=== PATIENT | female | born 1965 | race Caucasian/White ===

== ENCOUNTER 2016-11-19 10:01 | Inpatient (IN) | payer MEDICARE, OTHER ==
[2016-11-19] MEDS ORDERED: SODIUM CHLORIDE 0.9% 1,000 ML IV STA ×4 (10:37→17:38)
[2016-11-19] MEDS ORDERED: AMPICILLIN-SULBACTAM 3 GM in SODIUM CHLORIDE 0.9% 100 ML IVPB STA (10:37)
[2016-11-19] MEDS ORDERED: VANCOMYCIN 1,000 MG in SODIUM CHLORIDE 0.9% 250 ML IVPB STA (10:37)
[2016-11-19] MEDS ORDERED: IV VANCOMYCIN PER PHARMACY 1 EACH MISC MISCELLANE PRN (10:39)
--- NOTE | 2016-11-19 11:02 | ED ---
General Adult HPI - General Source: patient, RN notes reviewed Mode of arrival: wheelchair Limitations: no limitations <Víctor Salazar - Last Filed: 11/19/16 12:05> <Tonio Romero - Last Filed: 11/19/16 17:38> - General Chief complaint: Skin/Abscess/Foreign Body Stated complaint: Boils on leg Time Seen by Provider: 11/19/16 10:29 - History of Present Illness Initial comments: Patient 51-year-old female who presents emergency room today with a chief complaint of abscess to the lower abdomen and left groin area. Patient does admit that it started a few days ago and was Larger more swollen and very tender to the area. She denies any other complaints or symptoms. Patient denies any recent fever, chills, shortness of breath, chest pain, back pain, nausea or vomiting, numbness or tingling, dysuria or hematuria, constipation or diarrhea, headaches or visual changes, or any other complaints. (Víctor Salazar) - Related Data Home Medications Medication Instructions Recorded Confirmed Gabapentin [Neurontin] 100 mg PO BID 04/12/14 11/19/16 HYDROcodone/APAP 10-325MG [Armona 1 tab PO Q6H PRN 04/12/14 11/19/16 10-325] Zolpidem [Ambien] 10 mg PO HS PRN 04/12/14 11/19/16 Insulin Aspart [NovoLOG] 2 unit SQ AC-TID 08/02/14 11/19/16 Insulin Glargine,Hum.rec.anlog 56 units SQ HS 08/02/14 11/19/16 [Lantus Solostar] Isosorbide Mononitrate [Isosorbide 30 mg PO DAILY 11/09/15 11/19/16 Mononitrate ER] amLODIPine [Norvasc] 10 mg PO DAILY 11/15/15 11/19/16 Atenolol [Tenormin] 25 mg PO DAILY 11/19/16 11/19/16 Atorvastatin [Lipitor] 10 mg PO DAILY 11/19/16 11/19/16 Cholecalciferol [Vitamin D3] 3,000 unit PO DAILY 11/19/16 11/19/16 LORazepam [Ativan] 0.5 mg PO BID PRN 11/19/16 11/19/16 Levothyroxine Sodium [Synthroid] 25 mcg PO DAILY 11/19/16 11/19/16 Levothyroxine Sodium [Synthroid] 200 mcg PO DAILY 11/19/16 11/19/16 Lisinopril [Zestril] 2.5 mg PO DAILY 11/19/16 11/19/16 Previous Rx's Medication Instructions Recorded Aspirin EC [Ecotrin Low Dose] 81 mg PO DAILY #30 tablet. 04/18/14 Omeprazole [PriLOSEC] 20 mg PO AC-BRKFST #30 capsule. 04/18/14 Clopidogrel [Plavix] 75 mg PO DAILY #30 tab 11/17/15 Nitroglycerin Sl Tabs [Nitrostat] 0.4 mg SUBLINGUAL Q5M PRN #25 tab 11/17/15 metFORMIN HCL 1,000 mg PO BID #0 11/17/15 Allergies Allergy/AdvReac Type Severity Reaction Status Date / Time No Known Allergies Allergy Verified 11/19/16 10:25 Review of Systems ROS Other: All systems not noted in ROS Statement are negative. <Víctor Salazar - Last Filed: 11/19/16 12:05> ROS Other: All systems not noted in ROS Statement are negative. <Tonio Romero - Last Filed: 11/19/16 17:38> ROS Statement: Those systems with pertinent positive or pertinent negative responses have been documented in the HPI. Past Medical History Past Medical History: Cancer, Chest Pain / Angina, Diabetes Mellitus, Eye Disorder, Fibromyalgia, GERD/Reflux, Hyperlipidemia, Hypertension, Myocardial Infarction (NM), Thyroid Disorder Additional Past Medical History / Comment(s): MIGRAINES, hx. 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 Last Myocardial Infarction Date:: unkn History of Any Multi-Drug Resistant Organisms: MRSA Date of last positivie culture/infection: 2005 MDRO Source:: Pt is uncertain but thinks it was in her blood Past Surgical History: Heart Catheterization, Heart Catheterization With Stent, Hernia Repair, Hysterectomy Additional Past Surgical History / Comment(s): Other surgical HISTORY: TRACH, thyroidectomy, hiatal hernia repair, colostomy with reversal, buttock surgery for flesh eating dx, colonoscopy. Past Anesthesia/Blood Transfusion Reactions: Previous Problems w/ Anesthesia Additional Past Anesthesia/Blood Transfusion Reaction / Comment(s): slow to wake up from anesthesia, complications w/general anesthesia-collapsed lung Past Psychological History: Anxiety, Depression Additional Psychological History / Comment(s): Pt uses a walker to ambulate. She has a friend who comes in and is a caregiver. She has never driven. Her mom or her technical services specialist take her to appts. Smoking Status: Current every day smoker Past Alcohol Use History: None Reported Additional Past Alcohol Use History / Comment(s): STARTED SMOKING AT AGE 16 ( 1981), down to 1ppd Past Drug Use History: None Reported - Past Family History Father Family Medical History: Cancer Additional Family Medical History / Comment(s): HAD BRAIN CANCER AT GE 56 Mother Family Medical History: Cancer, Rheumatoid Arthritis (RA) Additional Family Medical History / Comment(s): MOM IS 66 <Víctor Salaazr - Last Filed: 11/19/16 12:05> General Exam Limitations: no limitations <Víctor Salazar - Last Filed: 11/19/16 12:05> General appearance: alert, in no apparent distress Head exam: Present: atraumatic, normocephalic, normal inspection Eye exam: Present: normal appearance, PERRL, EOMI. Absent: scleral icterus, conjunctival injection, periorbital swelling ENT exam: Present: normal exam, mucous membranes moist Neck exam: Present: normal inspection. Absent: tenderness, meningismus, lymphadenopathy Respiratory exam: Present: normal lung sounds bilaterally. Absent: respiratory distress, wheezes, rales, rhonchi, stridor Cardiovascular Exam: Present: regular rate, normal rhythm, normal heart sounds. Absent: systolic murmur, diastolic murmur, rubs, gallop, clicks GI/Abdominal exam: Present: soft, normal bowel sounds. Absent: distended, tenderness, guarding, rebound, rigid Extremities exam: Present: normal inspection, full ROM, normal capillary refill. Absent: tenderness, pedal edema, joint swelling, calf tenderness Back exam: Present: normal inspection Neurological exam: Present: alert, oriented X3, CN II-XII intact Psychiatric exam: Present: normal affect, normal mood Skin exam: Present: warm, dry, intact, normal color. Absent: rash <Tonio Romero - Last Filed: 11/19/16 17:38> - General Exam Comments Initial Comments: General: The patient is awake and alert, in no distress, and does not appear acutely ill. Eye: Pupils are equal, round and reactive to light, extra-ocular movements are intact. No nystagmus. There is normal conjunctiva bilaterally. No signs of icterus. Ears, nose, mouth and throat: There are moist mucous membranes and no oral lesions. Neck: The neck is supple, there is no tenderness or JVD. Cardiovascular: There is a regular rate and rhythm. No murmur, rub or gallop is appreciated. Respiratory: Lungs are clear to auscultation, respirations are non-labored, breath sounds are equal. No wheezes, stridor, rales, or rhonchi. Gastrointestinal: Soft, non-distended, non-tender abdomen without masses or organomegaly noted. There is no rebound or guarding present. No CVA tenderness. Bowel sounds are unremarkable. Musculoskeletal: Normal ROM, no tenderness. Strength 5/5. Sensation intact. Pulses equal bilaterally 2+. Neurological: A&O x 3. CN II-XII intact, There are no obvious motor or sensory deficits. Coordination appears grossly intact. Speech is normal. Skin: Skin is warm and dry and no rashes or lesions are noted. Psychiatric: Cooperative, appropriate mood & affect, normal judgment. : There are N Zamzam present or exam. Patient does have large abscess suprapubic area to the left measuring greater than 7 cm. Area is red erythematous and firm on palpation. (Víctor Salazar) Course <Víctor Salazar - Last Filed: 11/19/16 12:05> <Tonio Romero - Last Filed: 11/19/16 17:38> Vital Signs 11/19/16 11/19/16 11/19/16 10:03 13:20 14:20 Temperature 98.4 F 101.4 F H Pulse Rate 80 82 82 Respiratory 20 18 18 Rate Blood Pressure 116/86 104/59 82/47 O2 Sat by Pulse 96 98 97 Oximetry 11/19/16 11/19/16 11/19/16 14:37 15:09 15:48 Temperature 102.4 F H Pulse Rate 82 77 74 Respiratory 18 18 16 Rate Blood Pressure 89/51 87/48 88/52 O2 Sat by Pulse 96 95 Oximetry 11/19/16 11/19/16 16:00 16:50 Temperature 98.6 F Pulse Rate 76 76 Respiratory 18 18 Rate Blood Pressure 81/50 83/49 O2 Sat by Pulse 95 Oximetry - Reevaluation(s) Reevaluation #1: 11/19/16 17:38 Patient's condition clinically deteriorating regarding blood pressure, will maintain mental alertness. Patient given remaining hypotensive despite IV fluid. Patient's receiving antibiotics, will start soft with admit to ICU ( Tonio Romero) Medical Decision Making - Lab Data Result diagrams: 11/19/16 11:20 11/19/16 11:20 <Víctor Salazar - Last Filed: 11/19/16 12:05> - Lab Data Result diagrams: 11/19/16 11:20 11/19/16 11:20 <Tonio Romero - Last Filed: 11/19/16 17:38> - Medical Decision Making Patient started on antibiotics of Unasyn and vancomycin here in the emergency room will be admitted with surgical consult. Continue on antibiotics (Víctor Salazar) - Lab Data Lab Results 11/19/16 11/19/16 Range/Units 11:20 11:20 WBC 18.6 H (3.8-10.6) k/uL RBC 4.96 (3.80-5.40) m/uL Hgb 16.2 H (11.4-16.0) gm/dL Hct 48.2 H (34.0-46.0) % MCV 97.2 (80.0-100.0) fL MCH 32.7 (25.0-35.0) pg MCHC 33.6 (31.0-37.0) g/dL RDW 13.4 (11.5-15.5) % Plt Count 200 (150-450) k/uL Neutrophils % 86 % Lymphocytes % 7 % Monocytes % 5 % Eosinophils % 1 % Basophils % 0 % Neutrophils # 15.9 H (1.3-7.7) k/uL Lymphocytes # 1.3 (1.0-4.8) k/uL Monocytes # 0.9 (0-1.0) k/uL Eosinophils # 0.2 (0-0.7) k/uL Basophils # 0.1 (0-0.2) k/uL Sodium 134 L (137-145) mmol/L Potassium 4.1 (3.5-5.1) mmol/L Chloride 100 (98-107) mmol/L Carbon Dioxide 21 L (22-30) mmol/L Anion Gap 13 mmol/L BUN 15 (7-17) mg/dL Creatinine 1.26 H (0.52-1.04) mg/dL Est GFR (MDRD) Af Amer 54 (>60 ml/min/1.73 sqM) Est GFR (MDRD) Non-Af 45 (>60 ml/min/1.73 sqM) Glucose 378 H (74-99) mg/dL Calcium 8.5 (8.4-10.2) mg/dL Total Bilirubin 1.6 H (0.2-1.3) mg/dL AST 25 (14-36) U/L ALT 31 (9-52) U/L Alkaline Phosphatase 99 (38-126) U/L Total Protein 6.4 (6.3-8.2) g/dL Albumin 3.6 (3.5-5.0) g/dL Critical Care Time Critical Care Time: Yes Total Critical Care Time: 31 <Tonio Romero - Last Filed: 11/19/16 17:38> Disposition Time of Disposition: 12:05 <Víctor Salazar - Last Filed: 11/19/16 12:05> <Tonio Romero - Last Filed: 11/19/16 17:38> Clinical Impression: Abscess or cellulitis of groin, Fever, Hypotension, Sepsis Disposition: ADMITTED IP TO THIS HOSP Condition: Good
[2016-11-19 11:37] LABS: Basophils # (A) 0.1 k/uL (0-0.2); Basophils % (A) 0 %; CH 32.8; CHCM 33.9; Eosinophils # (A) 0.2 k/uL (0-0.7); Eosinophils % (A) 1 %; HCT 48.2 % (34.0-46.0); HDW 2.35; HGB 16.2 gm/dL (11.4-16.0); Luc # (Auto) 0.24; Luc % (Auto) 1; Lymphocytes # (A) 1.3 k/uL (1.0-4.8); Lymphocytes % (A) 7 %; MCH 32.7 pg (25.0-35.0); MCHC 33.6 g/dL (31.0-37.0); MCV 97.2 fL (80.0-100.0); Mean Platelet Volume 9.8; Monocytes # (A) 0.9 k/uL (0-1.0); Monocytes % (A) 5 %; Neutrophils # (A) 15.9 k/uL (1.3-7.7); Neutrophils % (A) 86 %; RBC 4.96 m/uL (3.80-5.40); RDW 13.4 % (11.5-15.5); WBC 18.6 k/uL (3.8-10.6); WBC (Perox) 17.54
[2016-11-19 11:50] LABS: Calcium 8.5 mg/dL (8.4-10.2); Potassium 4.1 mmol/L (3.5-5.1); Total Bilirubin 1.6 mg/dL (0.2-1.3); Total Protein 6.4 g/dL (6.3-8.2)
[2016-11-19] MEDS ORDERED: VANCOMYCIN 2,250 MG in SODIUM CHLORIDE 0.9% 500 ML IVPB ONE (12:00)
[2016-11-19] MEDS ORDERED: SODIUM CHLORIDE 0.9% 1,000 ML IV ONE (12:05)
[2016-11-19] MEDS ORDERED: NALOXONE 0.4 MG/ML 1 ML VIAL IV PRN (12:05)
[2016-11-19] MEDS ORDERED: HYDROcodone/APAP 5-325MG 1 EACH TAB PO PRN (12:05)
[2016-11-19] MEDS ORDERED: ONDANSETRON 4 MG/2 ML VIAL IVP PRN (12:05)
[2016-11-19 13:27] LABS: Glucose,Whole Blood 318 mg/dL (75-99)
[2016-11-19] MEDS: ACETAMINOPHEN TAB 325 MG TAB PO PRN (13:28)
[2016-11-19] MEDS ORDERED: INSULIN REGULAR 100 UNIT/ML VIAL SQ ONE (14:15)
[2016-11-19] MEDS ORDERED: ACETAMINOPHEN TAB 325 MG TAB PO STA (14:33)
[2016-11-19] MEDS ORDERED: LORazepam 0.5 MG TAB PO PRN (15:26)
[2016-11-19] MEDS ORDERED: NITROGLYCERIN SL TABS 0.4 MG TAB SUBLINGUAL PRN (15:26)
--- NOTE | 2016-11-19 15:58 | P.GSHP ---
<Maile Rees - Last Filed: 11/19/16 15:23> History of Present Illness H&P Date: 11/19/16 Chief Complaint: Painful swelling left groin left suprapubic area 51-year-old female looking older than stated age slightly unkempt presented to the emergency room on the day of admission with a chief complaint of developing pain with pressure on the left labia suprapubic area. Patient stated it started about 3 days ago yesterday became so painful was difficult to sit the area was hard and tender to the touch. Patient has a large firm abscess suprapubic area measuring approximately 7 cm area is red firm on palpitation with tenderness patient states she's been feeling weak feverish and tired for the past several days with no appetite when questioning patient patient states that she has not had a similar episode. Patient states approximate 9 years ago was treated for "a virus that was flesh eating" had a lesion on her back. Patient's primary care providers Dr. Adair patient sees in the outpatient setting. Patient is a poor past medical bill processor has poor recall. Patient has a significant past medical history of multiple medical problems including insulin-dependent diabetes coronary artery disease with prior coronary stenting, hyperlipidemia, hypertension, hypothyroid, anxiety depressive disorder with a significant nicotine dependency 1 pack a day Labs were reviewed. White count 18.6. Creatinine 1.2. Febrile temp 102.4 and hypotensive patient's presenting with sepsis suspect due to suprapubic abscess - Review of Systems Comment: Patient has poor recall difficult to adequately assess due to cognitive impairment Past Medical History Past Medical History: Cancer, Chest Pain / Angina, Diabetes Mellitus, Eye Disorder, Fibromyalgia, GERD/Reflux, Hyperlipidemia, Hypertension, Thyroid Disorder Additional Past Medical History / Comment(s): Ischemic cardiomyopathy, MIGRAINES , hx. uterine & thyroid cancer with surgery, past hx. flesh eating disease 10 yrs ago-was very ill and intubated/vented, ocular strokes, hypothyroid, beginning of alzheimer's, numbness tingling bilateral legs/feet, pt states she has a sore on the bottom of her L foot at this time that has been there for yrs- being monitored by her volunteer services specialist. 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 D&C. Past Anesthesia/Blood Transfusion Reactions: Previous Problems w/ Anesthesia Additional Past Anesthesia/Blood Transfusion Reaction / Comment(s): slow to wake up from anesthesia, complications w/general anesthesia-collapsed lung Date of Last Stent Placement:: 11/16/15 Past Psychological History: Anxiety, Depression Additional Psychological History / Comment(s): Pt uses a walker to ambulate. She has a neighbor (paid by the state) who comes in and is a caregiver. She has never driven. Her mom or her observation nurse take her to [facility]. Smoking Status: Current every day smoker Past Alcohol Use History: None Reported Additional Past Alcohol Use History / Comment(s): STARTED SMOKING AT AGE 16 ( 1981), down to 1ppd Past Drug Use History: None Reported - Past Family History Father Family Medical History: Cancer Additional Family Medical History / Comment(s): HAD BRAIN CANCER AT GE 56 Mother Family Medical History: Rheumatoid Arthritis (RA) Additional Family Medical History / Comment(s): MOM IS 66 Medications and Allergies Home Medications Medication Instructions Recorded Confirmed Type Gabapentin [Neurontin] 100 mg PO BID 04/12/14 11/19/16 History HYDROcodone/APAP 10-325MG [Zalma 1 tab PO Q6H PRN 04/12/14 11/19/16 History 10-325] Zolpidem [Ambien] 10 mg PO HS PRN 04/12/14 11/19/16 History Insulin Aspart [NovoLOG] 2 unit SQ AC-TID 08/02/14 11/19/16 History Insulin Glargine,Hum.rec.anlog 56 units SQ HS 08/02/14 11/19/16 History [Lantus Solostar] Isosorbide Mononitrate [Isosorbide 30 mg PO DAILY 11/09/15 11/19/16 History Mononitrate ER] amLODIPine [Norvasc] 10 mg PO DAILY 11/15/15 11/19/16 History Atenolol [Tenormin] 25 mg PO DAILY 11/19/16 11/19/16 History Atorvastatin [Lipitor] 10 mg PO DAILY 11/19/16 11/19/16 History Cholecalciferol [Vitamin D3] 3,000 unit PO DAILY 11/19/16 11/19/16 History LORazepam [Ativan] 0.5 mg PO BID PRN 11/19/16 11/19/16 History Levothyroxine Sodium [Synthroid] 25 mcg PO DAILY 11/19/16 11/19/16 History Levothyroxine Sodium [Synthroid] 200 mcg PO DAILY 11/19/16 11/19/16 History Lisinopril [Zestril] 2.5 mg PO DAILY 11/19/16 11/19/16 History Allergies Allergy/AdvReac Type Severity Reaction Status Date / Time No Known Allergies Allergy Verified 11/19/16 10:25 Surgical - Exam Vital Signs Temp Pulse Resp BP Pulse Ox 98.4 F 80 20 116/86 96 11/19/16 10:03 11/19/16 10:03 11/19/16 10:03 11/19/16 10:03 11/19/16 10:03 GENERAL APPEARANCE: 51-year-old female patient is alert, oriented, in no acute distress. Reviewed VITAL SIGNS: Noted the systolic blood pressures in the 80s patient currently is receiving a fluid bolus the temp currently is 102.4 HEENT: Head is normocephalic and atraumatic. Pupils are equal and reactive. The nares are patent. Oropharynx is clear without lesions. NECK: Supple without lymphadenopathy. Traches midline. HEART: S1, S2. Regular rate and rhythm. No murmur noted denying chest pain when questioning LUNGS: No crackles or wheezes are heard. No cough noted no shortness of breath noted pulse ox sats 96% on room air ABDOMEN: Obese Soft, nontender, nondistended with good bowel sounds. No peritoneal signs. No palpable organomegaly or masses. EXTREMITIES: Normal skin color and turgor. No cyanosis, rash, ulceration, clubbing or edema. Radial pedal pulses are 2/4 bilaterally. NEUROLOGICAL: No focal deficits. Strength and sensation are grossly intact. 7 cm left abscess suprapubic area firm positive redness positive tenderness no vaginal drainage noted no odor noted Skin warm and dry no evidence of a skin rash a well-healed scar lumbar region Results - Labs 11/19/16 11:20 11/19/16 11:20 Abnormal Lab Results - Last 24 Hours (Table) 11/19/16 11/19/16 11/19/16 Range/Units 11:20 11:20 13:25 WBC 18.6 H (3.8-10.6) k/uL Hgb 16.2 H (11.4-16.0) gm/dL Hct 48.2 H (34.0-46.0) % Neutrophils # 15.9 H (1.3-7.7) k/uL Sodium 134 L (137-145) mmol/L Carbon Dioxide 21 L (22-30) mmol/L Creatinine 1.26 H (0.52-1.04) mg/dL Glucose 378 H (74-99) mg/dL POC Glucose (mg/dL) 318 H (75-99) mg/dL Total Bilirubin 1.6 H (0.2-1.3) mg/dL Diabetes panel 11/19/16 Range/Units 11:20 Sodium 134 L (137-145) mmol/L Potassium 4.1 (3.5-5.1) mmol/L Chloride 100 (98-107) mmol/L Carbon Dioxide 21 L (22-30) mmol/L BUN 15 (7-17) mg/dL Creatinine 1.26 H (0.52-1.04) mg/dL Glucose 378 H (74-99) mg/dL Calcium 8.5 (8.4-10.2) mg/dL AST 25 (14-36) U/L ALT 31 (9-52) U/L Alkaline Phosphatase 99 (38-126) U/L Total Protein 6.4 (6.3-8.2) g/dL Albumin 3.6 (3.5-5.0) g/dL Calcium panel 11/19/16 Range/Units 11:20 Calcium 8.5 (8.4-10.2) mg/dL Albumin 3.6 (3.5-5.0) g/dL Pituitary panel 11/19/16 Range/Units 11:20 Sodium 134 L (137-145) mmol/L Potassium 4.1 (3.5-5.1) mmol/L Chloride 100 (98-107) mmol/L Carbon Dioxide 21 L (22-30) mmol/L BUN 15 (7-17) mg/dL Creatinine 1.26 H (0.52-1.04) mg/dL Glucose 378 H (74-99) mg/dL Calcium 8.5 (8.4-10.2) mg/dL Adrenal panel 11/19/16 Range/Units 11:20 Sodium 134 L (137-145) mmol/L Potassium 4.1 (3.5-5.1) mmol/L Chloride 100 (98-107) mmol/L Carbon Dioxide 21 L (22-30) mmol/L BUN 15 (7-17) mg/dL Creatinine 1.26 H (0.52-1.04) mg/dL Glucose 378 H (74-99) mg/dL Calcium 8.5 (8.4-10.2) mg/dL Total Bilirubin 1.6 H (0.2-1.3) mg/dL AST 25 (14-36) U/L ALT 31 (9-52) U/L Alkaline Phosphatase 99 (38-126) U/L Total Protein 6.4 (6.3-8.2) g/dL Albumin 3.6 (3.5-5.0) g/dL Assessment and Plan Plan: Impression Present on admission febrile hypotensive leukocytosis meet SIRS criteria sepsis suspect left large abscess suprapubic area Type 2 diabetes insulin requiring Known coronary artery disease with prior coronary stenting November 2015 drug- eluting stent left circumflex Morbid obesity BMI 40 Poor dental hygiene multiple missing teeth with dental caries Present on admission cellulitis left suprapubic groin area Hypertension Hyperlipidemia Chronic nicotine dependency active tobacco abuse greater than a 40 year history Polycythemia hemoglobin 16.7 on admission Anxiety depressive disorder nonspecified Chronic debility uses a walker suspect due to comorbidities Plan Resume home meds as appropriate IV fluid at 100 and a Blood and urine cultures follow up on results Consult Dr. Hills infectious disease Continue IV antibiotics Unasyn and vancomycin Parameters hold antihypertensive meds if systolic blood pressure less than 110 Hold Plavix for now possible need for incision and drainage of the left groin abscess DVT and GI prophylaxis Further recommendations pending The above dictated assessment and findings were discussed with dr Garcia. Impression and the plan of care have been dictated as directed. Maile Rees nurse practitioner acting as a scribe for Radha <Mirlande Garcia - Last Filed: 11/19/16 19:36> Surgical - Exam Vital Signs Temp Pulse Resp BP Pulse Ox 98.4 F 80 20 116/86 96 11/19/16 10:03 11/19/16 10:03 11/19/16 10:03 11/19/16 10:03 11/19/16 10:03 Results - Labs 11/19/16 11:20 11/19/16 11:20 Abnormal Lab Results - Last 24 Hours (Table) 11/19/16 11/19/16 11/19/16 Range/Units 11:20 11:20 13:25 WBC 18.6 H (3.8-10.6) k/uL Hgb 16.2 H (11.4-16.0) gm/dL Hct 48.2 H (34.0-46.0) % Neutrophils # 15.9 H (1.3-7.7) k/uL Sodium 134 L (137-145) mmol/L Carbon Dioxide 21 L (22-30) mmol/L Creatinine 1.26 H (0.52-1.04) mg/dL Glucose 378 H (74-99) mg/dL POC Glucose (mg/dL) 318 H (75-99) mg/dL Total Bilirubin 1.6 H (0.2-1.3) mg/dL Urine Appearance (Clear) Urine Protein (Negative) Urine Glucose (UA) (Negative) Urine Ketones (Negative) Urine RBC (0-5) /hpf Urine WBC (0-5) /hpf Hyaline Casts (0-2) /lpf Urine Mucus (None) /hpf Urine Yeast (Budding) (None) /hpf 11/19/16 11/19/16 Range/Units 18:44 19:05 WBC (3.8-10.6) k/uL Hgb (11.4-16.0) gm/dL Hct (34.0-46.0) % Neutrophils # (1.3-7.7) k/uL Sodium (137-145) mmol/L Carbon Dioxide (22-30) mmol/L Creatinine (0.52-1.04) mg/dL Glucose (74-99) mg/dL POC Glucose (mg/dL) 193 H (75-99) mg/dL Total Bilirubin (0.2-1.3) mg/dL Urine Appearance Cloudy H (Clear) Urine Protein 2+ H (Negative) Urine Glucose (UA) 4+ H (Negative) Urine Ketones Trace H (Negative) Urine RBC 19 H (0-5) /hpf Urine WBC 15 H (0-5) /hpf Hyaline Casts 3 H (0-2) /lpf Urine Mucus Rare H (None) /hpf Urine Yeast (Budding) Many H (None) /hpf Diabetes panel 11/19/16 Range/Units 11:20 Sodium 134 L (137-145) mmol/L Potassium 4.1 (3.5-5.1) mmol/L Chloride 100 (98-107) mmol/L Carbon Dioxide 21 L (22-30) mmol/L BUN 15 (7-17) mg/dL Creatinine 1.26 H (0.52-1.04) mg/dL Glucose 378 H (74-99) mg/dL Calcium 8.5 (8.4-10.2) mg/dL AST 25 (14-36) U/L ALT 31 (9-52) U/L Alkaline Phosphatase 99 (38-126) U/L Total Protein 6.4 (6.3-8.2) g/dL Albumin 3.6 (3.5-5.0) g/dL Calcium panel 11/19/16 Range/Units 11:20 Calcium 8.5 (8.4-10.2) mg/dL Albumin 3.6 (3.5-5.0) g/dL Pituitary panel 11/19/16 Range/Units 11:20 Sodium 134 L (137-145) mmol/L Potassium 4.1 (3.5-5.1) mmol/L Chloride 100 (98-107) mmol/L Carbon Dioxide 21 L (22-30) mmol/L BUN 15 (7-17) mg/dL Creatinine 1.26 H (0.52-1.04) mg/dL Glucose 378 H (74-99) mg/dL Calcium 8.5 (8.4-10.2) mg/dL Adrenal panel 11/19/16 Range/Units 11:20 Sodium 134 L (137-145) mmol/L Potassium 4.1 (3.5-5.1) mmol/L Chloride 100 (98-107) mmol/L Carbon Dioxide 21 L (22-30) mmol/L BUN 15 (7-17) mg/dL Creatinine 1.26 H (0.52-1.04) mg/dL Glucose 378 H (74-99) mg/dL Calcium 8.5 (8.4-10.2) mg/dL Total Bilirubin 1.6 H (0.2-1.3) mg/dL AST 25 (14-36) U/L ALT 31 (9-52) U/L Alkaline Phosphatase 99 (38-126) U/L Total Protein 6.4 (6.3-8.2) g/dL Albumin 3.6 (3.5-5.0) g/dL Assessment and Plan Plan: Upon further discussion with the patient, she reports having previous "skin eating bacteria" with multiple debridements done by Dr. Sheridan in the past. Per patient request, she has elected for care by Dr. Sheridan and his care team. The above was discussed with Dr. Rodriguez including Dr. Scott in the emergency room of whom will make arrangements for the patient to be seen by Dr. Sheridan's group.
[2016-11-19] MEDS ORDERED: HEPARIN SODIUM,PORCINE 5,000 UNIT/ML 1 ML VIAL SQ SCH (16:00)
[2016-11-19] MEDS ORDERED: SODIUM CHLORIDE 0.9% 500 ML IV STA (17:38)
[2016-11-19] MEDS ORDERED: NOREPINEPHRIN 4 MG-0.9% NS PMX 4 MG/250 ML ML IV SCH (17:45)
[2016-11-19 18:48] LABS: Glucose,Whole Blood 193 mg/dL (75-99)
[2016-11-19 19:18] LABS: Appearance,Urine Cloudy (Clear); Bilirubin,Urine Negative (Negative); Glucose,Urine (UA) 4+ (Negative); Ketones,Urine Trace (Negative); Leukocyte Esterase,Urine Negative (Negative); Mucus,Urine Rare /hpf; Nitrite,Urine Negative (Negative); PH, Urine 5.5 (5.0-8.0); Particle Count 11646; Protein,Urine 2+ (Negative); RBC,Urine 19 /hpf (0-5); Specific Gravity,Urine 1.023 (1.001-1.035); Squamous Epithelial Cell,Urine 1 /hpf (0-4); UA Billing (MACRO vs. MICRO) MICRO; WBC,Urine 15 /hpf (0-5)
[2016-11-19] MEDS ORDERED: FAMOTIDINE 20 MG TAB PO SCH (21:00)
[2016-11-19] MEDS ORDERED: METOPROLOL TARTRATE 25 MG TAB PO SCH (21:00)
[2016-11-19] MEDS: HYDROcodone/APAP 10-325MG 1 EACH TAB PO PRN (21:09)
[2016-11-19 22:37] LABS: Glucose,Whole Blood 163 mg/dL (75-99)
[2016-11-19] MEDS: INSULIN LISPRO (humaLOG) 300 UNIT/3 ML VIAL SQ SCH (22:37)
--- NOTE | 2016-11-19 22:40 | CT ---
EXAMINATION TYPE: CT pelvis wo con DATE OF EXAM: 11/19/2016 COMPARISON: NONE HISTORY: Abscess to lower pelvic area, subcutaneous air CT DLP: 1870 mGycm. Automated exposure control for dose reduction was used. TECHNIQUE: Departmental protocol. FINDINGS: There is marked edematous reticulation throughout the subcutaneous adipose of the vulvar region and e xtending up to a level 6 centimeters cephalad to the pubic symphysis. The findings are bilateral but greater on the left. There are no associated focal fluid collections. There are no associated foci of subcutaneous air. The process extends from the left inguinal region to the right inguinal region ankur suring 25 cm transverse, and almost 20 cm longitudinal and over 16 cm AP. Left femoral and left inguinal adenopathy are present. Espinoza catheter present. The visualized abdomin al pelvic solid and hollow viscera are unremarkable. Skeletal structures are unremarkable. IMPRESSION: WIDESPREAD MARKED VULVAR EDEMATOUS CHANGE WITHOUT ABSCESS AND WITHOUT SOFT TISSUE EMPHYSEMA.
[2016-11-19] MEDS: AMPICILLIN-SULBACTAM 3 GM in SODIUM CHLORIDE 0.9% 100 ML IVPB SCH (22:41)
[2016-11-19] MEDS: metFORMIN 500 MG TAB PO SCH (22:41)
[2016-11-19] MEDS: GABAPENTIN 100 MG CAP PO SCH (22:42)
[2016-11-19] MEDS: INSULIN GLARGINE 100 UNIT/ML 10 ML VIAL SQ SCH (22:53)
--- NOTE | 2016-11-19 23:44 | HP ---
DATE OF ADMISSION: 11/19/2016 PRESENTING COMPLAINT: Pubic area abscess. HISTORY OF PRESENTING COMPLAINT: This is pleasant 51-year-old patient of Dr. Adair who for 3 or 4 days noticed pain and swelling that started off as a pimple on the left side of the pubic area extending above the vaginal area; rather painful, severe, fever. She presented to the ER. Patient had a fever up to 102.4. Subsequently patient started dropping her blood pressure and she was moved to the ICU, given IV fluids, IV antibiotics. Patient does not shave that area; ( ) scratching the area. Patient's chronic stable medical conditions include diabetes, fibromyalgia, GERD, hyperlipidemia, hypertension, hypothyroid. Patient also has ischemic cardiomyopathy, history of uterine and thyroid cancer with surgery. Patient also has what appears to be peripheral neuropathy and also had MRSA infection. Patient also has coronary artery disease with a stent. She is currently feeling weak and tired. REVIEW OF SYSTEMS: CONSTITUTIONAL: Weak and tired. HEENT: None. RESPIRATORY: Occasional wheezing and cough. CARDIOVASCULAR: None. GASTROINTESTINAL: None. GENITOURINARY: As above. MUSCULOSKELETAL: Aches and pains in the joints. DERMATOLOGICAL: As above. LYMPHATICS: None. PSYCHIATRY: Forgetful. NEUROLOGICAL: Numbness and tingling in the hands and feet. PAST MEDICAL HISTORY: 1. Multiple strokes. 2. Diabetes mellitus, type 2. 3. GERD. 4. Hypertension. 5. Hyperlipidemia. 6. Hypothyroid. 7. Hiatal hernia. 8. Fibromyalgia. 9. Ischemic cardiomyopathy. 10. Uterine and thyroid cancer with surgery. 11. Necrotizing fasciitis. Patient is also on the ventilator ( ) both hands and feet. PAST SURGICAL HISTORY: 1. Cardiac catheterization with stent. 2. Hernia repair. 3. Hysterectomy. 4. Tracheostomy. 5. Thyroidectomy. 6. Hiatal hernia repair. 7. Colostomy with reversal due to buttocks surgery. SOCIAL HISTORY: Patient has a walker. Her neighbor is a caregiver. Smokes. Has been smoking for about 35 years; from 2 packs a day down to a pack a day. No alcohol. FAMILY HISTORY: Brain cancer. HOME MEDICATIONS: 1. Ambien 10 mg at bedtime p.r.n. 2. Nitrostat 0.4 sublingually q.5 p.r.n. 3. Ativan 0.5 p.o. b.i.d. p.r.n. 4. Lantus 56 units subcutaneously at bedtime. 5. Ames 10 one tablet q.6 p.r.n. 6. Metformin 1000 mg p.o. b.i.d. 7. Norvasc 10 mg p.o. daily. 8. Prilosec 20 mg with breakfast. 9. Zestril 2.5 mg p.o. daily. 10. Synthroid 225 mcg p.o. daily. 11. Imdur ER 30 mg p.o. daily. 12. NovoLog 2 units subcutaneously before meals t.i.d. 13. Neurontin 100 mg p.o. b.i.d. 14. Plavix 75 mg p.o. daily. 15. Vitamin D3 3000 units p.o. daily. 16. Lipitor 10 mg p.o. daily. 17. Tenormin 25 mg p.o. daily. 18. Aspirin 81 mg p.o. daily. ALLERGIES: NONE. On examination, temperature 102.4, pulse 82, respiration 18, blood pressure 89/51, pulse ox 97% on room air. GENERAL APPEARANCE: Well built, BMI of 40.8. Sitting up. Tired-appearing. EYES: Pupils equal. Conjunctivae normal. HEENT: Oral cavity normal. NECK: JVD not raised. Mass not palpable. RESPIRATORY: Effort normal. LUNGS: Diminished breath sounds. Mild wheezing. CARDIOVASCULAR: First and second sounds normal. Minimal edema. ABDOMEN: Soft, nontender. 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 Patient is very tender in about the vulvar area and the mons pubic area. There appears to be an abscess. INVESTIGATIONS: White count 8.6, hemoglobin 16.2. Potassium 4.1. BUN 15, creatinine 1.26. Glucose 376. ASSESSMENT: 1. Abscess in the mons pubic area causing severe sepsis. 2. Obesity; body mass index of 40.8. 3. Diabetes mellitus, type 2, chronically on insulin, uncontrolled from sepsis. 4. Fibromyalgia. 5. Gastroesophageal reflux disease. 6. Hyperlipidemia. 7. Essential hypertension. 8. Hypothyroidism. 9. Ischemic cardiomyopathy; ejection fraction not known. 10. Peripheral neuropathy from diabetes. 11. Multi-infarct causing some loss of memory. 12. Gait dysfunction; at baseline uses a walker. 13. Chronic nicotine dependence. Patient is a smoker. 14. Septic shock, with patient requiring IV fluids and pressors. PLAN: Initially from the ER patient was seen by Dr. Garcia. Then patient informed that patient would rather have Dr. Sheridan. Dr. Ribera is covering for him. Dr. Romero then called Dr. Ribera, who suggested PUBLIC HEALTH OFFICER, and later I was called to admit the patient. I accepted the patient to my service. Consultants are present, including critical care, pending further evaluation. In the meantime, patient is on IV Unasyn.
[2016-11-20] MEDS: AMPICILLIN-SULBACTAM 3 GM in SODIUM CHLORIDE 0.9% 100 ML IVPB SCH ×2 (00:10→06:23)
[2016-11-20] MEDS: HYDROmorphone 1 MG/ML 1 ML SYRINGE IV PRN ×3 (02:42→16:02)
[2016-11-20 04:43] LABS: Basophils % (A) 0 %; CH 32.6; Eosinophils # (A) 0.2 k/uL (0-0.7); Eosinophils % (A) 2 %; HCT 44.1 % (34.0-46.0); HDW 2.36; HGB 14.5 gm/dL (11.4-16.0); Luc # (Auto) 0.15; Luc % (Auto) 1; Lymphocytes # (A) 0.7 k/uL (1.0-4.8); Lymphocytes % (A) 7 %; MCH 32.5 pg (25.0-35.0); MCHC 32.8 g/dL (31.0-37.0); MCV 99.1 fL (80.0-100.0); Mean Platelet Volume 9.6; Monocytes # (A) 0.5 k/uL (0-1.0); Monocytes % (A) 4 %; Neutrophils # (A) 9.6 k/uL (1.3-7.7); Neutrophils % (A) 86 %; RBC 4.45 m/uL (3.80-5.40); RDW 13.5 % (11.5-15.5); WBC 11.2 k/uL (3.8-10.6)
[2016-11-20 05:05] LABS: ALT 32 U/L (9-52); AST 24 U/L (14-36); Alkaline Phosphatase 79 U/L (38-126); Anion Gap 9 mmol/L; Blood Urea Nitrogen 14 mg/dL (7-17); Calcium 7.6 mg/dL (8.4-10.2); Carbon Dioxide 21 mmol/L (22-30); Chloride 107 mmol/L (98-107); Glucose 165 mg/dL (74-99); Magnesium 1.5 mg/dL (1.6-2.3); Non-African American GFR(MDRD) >60 (>60 ml/min/1.73 sqM); Phosphorous 3.1 mg/dL (2.5-4.5); Potassium 3.6 mmol/L (3.5-5.1); Sodium 137 mmol/L (137-145); Total Bilirubin 0.9 mg/dL (0.2-1.3); Total Protein 5.6 g/dL (6.3-8.2)
[2016-11-20] MEDS ORDERED: VANCOMYCIN 2,000 MG in SODIUM CHLORIDE 0.9% 500 ML IVPB SCH (06:00)
[2016-11-20] MEDS: LEVOTHYROXINE 100 MCG TAB PO SCH (06:24)
[2016-11-20] MEDS: LEVOTHYROXINE 25 MCG TAB PO SCH (06:24)
[2016-11-20] MEDS ORDERED: POTASSIUM CHLORIDE ER 20 MEQ TAB.ER PO SCH (07:00)
--- NOTE | 2016-11-20 07:30 | P.OBCN ---
History of Present Illness Consult date: 11/20/16 Reason for consult: pelvic infection (cellulitis of the mons pubis) Chief complaint: c/o vulvar pain History of present illness: 51 year old presented to ER yesterday with redness and swelling in the mons pubis going down into the vulva. It started as just a small red bump 3 days ago and has since grown to over 15cm red indurated mass-like area. She started having fevers yesterday up to 102.4 in ER. She is on Unasyn and vanco and is currently afebrile. Pt has a history of MRSA and necrotising fascititis. CT scan shows the swelling but no definitive fluid collection here. Review of Systems All systems: negative Constitutional: Reports fever, Denies chills Eyes: denies blurred vision, denies pain Ears, nose, mouth and throat: Denies headache, Denies sore throat Cardiovascular: Denies chest pain, Denies shortness of breath Respiratory: Denies cough Gastrointestinal: Denies abdominal pain, Denies diarrhea, Denies nausea, Denies vomiting Genitourinary: Denies dysuria, Denies hematuria Musculoskeletal: Denies myalgias Integumentary: Denies pruritus, Denies rash Neurological: Denies numbness, Denies weakness Psychiatric: Reports anxiety, Denies depression Endocrine: Denies fatigue, Denies weight change Past Medical History Past Medical History: Cancer (endometrial cancer and thyroid cancer), Chest Pain / Angina, Diabetes Mellitus, Eye Disorder, Fibromyalgia, GERD/Reflux, Hyperlipidemia, Hypertension, Thyroid Disorder Additional Past Medical History / Comment(s): Ischemic cardiomyopathy, MIGRAINES , hx. uterine & thyroid cancer with surgery, past hx. flesh eating disease 10 yrs ago-was very ill and intubated/vented, ocular strokes, hypothyroid, beginning of alzheimer's, numbness tingling bilateral legs/feet, pt states she has a sore on the bottom of her L foot at this time that has been there for yrs- being monitored by her type copy examiner. Last Myocardial Infarction Date:: unkn History of Any Multi-Drug Resistant Organisms: MRSA Year Discovered:: 2005 MDRO Source:: buttock per pt Past Surgical History: Heart Catheterization, Heart Catheterization With Stent, Hernia Repair, Hysterectomy Additional Past Surgical History / Comment(s): TRACH, thyroidectomy, hiatal hernia repair, colostomy with reversal due to colon involved in buttock flesh eating dx, buttock surgery for flesh eating dx, colonoscopy. D&C. Past Anesthesia/Blood Transfusion Reactions: Previous Problems w/ Anesthesia Additional Past Anesthesia/Blood Transfusion Reaction / Comm: slow to wake up from anesthesia, complications w/general anesthesia-collapsed lung Date of Last Stent Placement:: 11/16/15 Past Psychological History: Anxiety, Depression Additional Psychological History / Comment(s): Pt uses a walker to ambulate. She has a neighbor (paid by the state) who comes in and is a caregiver. She has never driven. Her mom or her compensation director take her to [employer]. Smoking Status: Current every day smoker Past Alcohol Use History: None Reported Additional Past Alcohol Use History / Comment(s): STARTED SMOKING AT AGE 16 ( 1981), down to 1ppd Past Drug Use History: None Reported - Past Family History Father Family Medical History: Cancer Additional Family Medical History / Comment(s): HAD BRAIN CANCER AT GE 56 Mother Family Medical History: Rheumatoid Arthritis (RA) Additional Family Medical History / Comment(s): MOM IS 66 Medications and Allergies Home Medications Medication Instructions Recorded Confirmed Type Gabapentin [Neurontin] 100 mg PO BID 04/12/14 11/19/16 History HYDROcodone/APAP 10-325MG [[place] 1 tab PO Q6H PRN 04/12/14 11/19/16 History 10-325] Zolpidem [Ambien] 10 mg PO HS PRN 04/12/14 11/19/16 History Insulin Aspart [NovoLOG] 2 unit SQ AC-TID 08/02/14 11/19/16 History Insulin Glargine,Hum.rec.anlog 56 units SQ HS 08/02/14 11/19/16 History [Lantus Solostar] Isosorbide Mononitrate [Isosorbide 30 mg PO DAILY 11/09/15 11/19/16 History Mononitrate ER] amLODIPine [Norvasc] 10 mg PO DAILY 11/15/15 11/19/16 History Atenolol [Tenormin] 25 mg PO DAILY 11/19/16 11/19/16 History Atorvastatin [Lipitor] 10 mg PO DAILY 11/19/16 11/19/16 History Cholecalciferol [Vitamin D3] 3,000 unit PO DAILY 11/19/16 11/19/16 History LORazepam [Ativan] 0.5 mg PO BID PRN 11/19/16 11/19/16 History Levothyroxine Sodium [Synthroid] 25 mcg PO DAILY 11/19/16 11/19/16 History Levothyroxine Sodium [Synthroid] 200 mcg PO DAILY 11/19/16 11/19/16 History Lisinopril [Zestril] 2.5 mg PO DAILY 11/19/16 11/19/16 History Allergies Allergy/AdvReac Type Severity Reaction Status Date / Time No Known Allergies Allergy Verified 11/19/16 10:25 Exam Osteopathic Statement: *. No significant issues noted on an osteopathic structural exam other than those noted in the History and Physical/Consult. - Vital Signs Vital signs: Vital Signs Temp Pulse Resp BP Pulse Ox 11/20/16 06:00 69 19 127/78 94 L 11/20/16 05:30 77 19 139/84 92 L 11/20/16 05:00 98.6 F 71 18 127/75 90 L 11/20/16 04:30 73 20 112/84 92 L 11/20/16 04:00 76 20 125/78 94 L 11/20/16 03:30 72 20 118/76 93 L 11/20/16 03:00 70 19 132/80 91 L 11/20/16 02:30 77 22 110/79 96 11/20/16 02:00 66 20 106/60 91 L 11/20/16 01:30 70 21 108/67 90 L 11/20/16 01:00 68 21 96/65 92 L 11/20/16 00:30 99.6 F 73 22 97/72 90 L 11/20/16 00:00 67 21 92/61 90 L 11/19/16 23:30 73 22 107/65 90 L 11/19/16 23:00 79 14 119/82 96 11/19/16 22:30 80 20 99/78 94 L 11/19/16 21:00 80 15 99/65 96 11/19/16 20:30 99.2 F 81 21 112/70 95 11/19/16 20:00 75 21 92/58 93 L 11/19/16 19:30 85 20 135/74 94 L 11/19/16 19:10 84 17 121/67 97 11/19/16 19:00 98.6 F 80 121/67 95 11/19/16 18:50 81 121/67 96 11/19/16 18:45 79 94 L 11/19/16 17:54 73 16 101/54 94 L 11/19/16 16:50 76 18 83/49 11/19/16 16:00 98.6 F 76 18 81/50 95 11/19/16 15:48 74 16 88/52 95 11/19/16 15:09 77 18 87/48 96 11/19/16 14:37 102.4 F H 82 18 89/51 11/19/16 14:20 82 18 82/47 97 11/19/16 13:20 101.4 F H 82 18 104/59 98 11/19/16 10:03 98.4 F 80 20 116/86 96 Intake and Output 11/19/16 11/19/16 11/20/16 14:59 22:59 06:59 Intake Total 3550 1180 Output Total 405 257 Balance 3145 923 Intake: IV 300 1000 Ampicillin-Sulbactam 3 gm 200 In Sodium Chloride 0.9% 100 ml @ 100 mls/hr IVPB ONCE STA Rx#:[id number] Sodium Chloride 0.9% 1, 300 800 000 ml @ 100 mls/hr IV . Q10H STA Rx#:[id number] Amount of Fluid Infused ( 3000 ml) Intake, IV Titration 100 Amount Sodium Chloride 0.9% 1, 100 000 ml @ 100 mls/hr IV . Q10H ONE Rx#:[id number] Oral 150 180 Output: Urine 405 257 Other: Voiding Method Indwelling Catheter Indwelling Catheter # Bowel Movements 1 Weight 125.191 kg 131.6 kg Patient Weight 11/20/16 06:59 Weight 131.6 kg abdomen: most of the abdomen is soft and nontender. OVer the area of the mons is erythmeatous and indurated. The area is hard from the mons and in a oval area about 15cm then extends down the left labia. THe redness extends up to underneath her panus but is not firm. Results Result Diagrams: 11/20/16 04:22 11/20/16 04:22 Abnormal Lab Results - Last 24 Hours (Table) 11/19/16 11/19/16 11/19/16 Range/Units 11:20 11:20 13:25 WBC 18.6 H (3.8-10.6) k/uL Hgb 16.2 H (11.4-16.0) gm/dL Hct 48.2 H (34.0-46.0) % Plt Count (150-450) k/uL Neutrophils # 15.9 H (1.3-7.7) k/uL Lymphocytes # (1.0-4.8) k/uL Sodium 134 L (137-145) mmol/L Carbon Dioxide 21 L (22-30) mmol/L Creatinine 1.26 H (0.52-1.04) mg/dL Glucose 378 H (74-99) mg/dL POC Glucose (mg/dL) 318 H (75-99) mg/dL Calcium (8.4-10.2) mg/dL Magnesium (1.6-2.3) mg/dL Total Bilirubin 1.6 H (0.2-1.3) mg/dL Total Protein (6.3-8.2) g/dL Albumin (3.5-5.0) g/dL Urine Appearance (Clear) Urine Protein (Negative) Urine Glucose (UA) (Negative) Urine Ketones (Negative) Urine RBC (0-5) /hpf Urine WBC (0-5) /hpf Hyaline Casts (0-2) /lpf Urine Mucus (None) /hpf Urine Yeast (Budding) (None) /hpf 11/19/16 11/19/16 11/19/16 Range/Units 18:44 19:05 22:36 WBC (3.8-10.6) k/uL Hgb (11.4-16.0) gm/dL Hct (34.0-46.0) % Plt Count (150-450) k/uL Neutrophils # (1.3-7.7) k/uL Lymphocytes # (1.0-4.8) k/uL Sodium (137-145) mmol/L Carbon Dioxide (22-30) mmol/L Creatinine (0.52-1.04) mg/dL Glucose (74-99) mg/dL POC Glucose (mg/dL) 193 H 163 H (75-99) mg/dL Calcium (8.4-10.2) mg/dL Magnesium (1.6-2.3) mg/dL Total Bilirubin (0.2-1.3) mg/dL Total Protein (6.3-8.2) g/dL Albumin (3.5-5.0) g/dL Urine Appearance Cloudy H (Clear) Urine Protein 2+ H (Negative) Urine Glucose (UA) 4+ H (Negative) Urine Ketones Trace H (Negative) Urine RBC 19 H (0-5) /hpf Urine WBC 15 H (0-5) /hpf Hyaline Casts 3 H (0-2) /lpf Urine Mucus Rare H (None) /hpf Urine Yeast (Budding) Many H (None) /hpf 11/20/16 11/20/16 Range/Units 04:22 04:22 WBC 11.2 H (3.8-10.6) k/uL Hgb (11.4-16.0) gm/dL Hct (34.0-46.0) % Plt Count 133 L (150-450) k/uL Neutrophils # 9.6 H (1.3-7.7) k/uL Lymphocytes # 0.7 L (1.0-4.8) k/uL Sodium (137-145) mmol/L Carbon Dioxide 21 L (22-30) mmol/L Creatinine (0.52-1.04) mg/dL Glucose 165 H (74-99) mg/dL POC Glucose (mg/dL) (75-99) mg/dL Calcium 7.6 L (8.4-10.2) mg/dL Magnesium 1.5 L (1.6-2.3) mg/dL Total Bilirubin (0.2-1.3) mg/dL Total Protein 5.6 L (6.3-8.2) g/dL Albumin 2.8 L (3.5-5.0) g/dL Urine Appearance (Clear) Urine Protein (Negative) Urine Glucose (UA) (Negative) Urine Ketones (Negative) Urine RBC (0-5) /hpf Urine WBC (0-5) /hpf Hyaline Casts (0-2) /lpf Urine Mucus (None) /hpf Urine Yeast (Budding) (None) /hpf Microbiology - Last 24 Hours (Table) 11/19/16 19:05 Urine Culture - Preliminary Urine,Catheterized Assessment and Plan (1) Abscess or cellulitis of groin Status: Acute Plan: 1. I discussed the appearance of the infection with the nurse who has had her for the last 12 hours. She says that despite the antibiotics, the erythema and induration is worsening. The fevers and white count are improving but her pain and erythema are not. I also consulted with Dr Marquez from general surgery who has not seen the patient yet. He advised that though there is no definitive fluid collection, because the area looks to be worsening, it should be opened so the infection has somewhere to drain. I will also discuss the case with Dr Hills from infectious disease and make a decision. If I do an I & D it will be later this morning.
[2016-11-20 07:38] LABS: Glucose,Whole Blood 139 mg/dL (75-99)
[2016-11-20] MEDS: MAGNESIUM SULFATE-D5W PMX 1 GM in DEXTROSE/WATER 1 100ML.BAG IVPB SCH ×2 (08:01→09:10)
[2016-11-20] MEDS: HYDROcodone/APAP 10-325MG 1 EACH TAB PO PRN (08:01)
[2016-11-20] MEDS: INSULIN LISPRO (humaLOG) 300 UNIT/3 ML VIAL SQ SCH ×3 (08:03→17:19)
[2016-11-20] MEDS: metFORMIN 500 MG TAB PO SCH ×2 (08:03→17:56)
[2016-11-20] MEDS: ENOXAPARIN 40 MG/0.4 ML SYRINGE SQ SCH (09:15)
--- NOTE | 2016-11-20 09:25 | P.CONS ---
History of Present Illness - Reason for Consult Consult date: 11/20/16 Abscess - History of Present Illness This is a 51-year-old female that is known to ID service with history of necrotizing fasciitis of the buttocks in 2005. Patient gives history of sudden onset about 3 days ago of redness and swelling in the left groin area. She states she developed fever yesterday, feeling tired and weak. She came into [facility] emergency center. She's had fevers up to 102.4 with low blood pressure and leukocytosis of 18.6. CAT scan of the pelvis without contrast showed widespread marked vulvar edematous change without abscess and without soft tissue emphysema. Patient was initially seen by Dr. Ramirez and consult changed to Dr. Ribera. Dr. Bourgeois and Dr. Oliver are following. Patient is scheduled for I&D today with Dr. Oliver. She has been on Unasyn and vancomycin. Only available urine culture from October 2013 is showing E. coli resistant to Unasyn. Urine culture on this admission is in progress but urinalysis was cloudy, nitrate and leukoesterase negative. Blood cultures status received. Review of Systems All systems: negative Constitutional: Reports chills, Reports fatigue, Reports fever, Reports weakness Eyes: denies blurred vision, denies pain Ears, nose, mouth and throat: Denies headache, Denies sore throat Cardiovascular: Denies chest pain, Denies shortness of breath Respiratory: Denies cough Gastrointestinal: Denies abdominal pain, Denies diarrhea, Denies nausea, Denies vomiting Genitourinary: Denies dysuria, Denies hematuria Musculoskeletal: Denies myalgias Integumentary: Reports darkening of skin, Reports wounds, Denies pruritus, Denies rash Neurological: Denies numbness, Denies weakness Psychiatric: Denies anxiety, Denies depression Endocrine: Denies fatigue, Denies weight change Past Medical History Past Medical History: Cancer (endometrial cancer and thyroid cancer), Chest Pain / Angina, Diabetes Mellitus, Eye Disorder, Fibromyalgia, GERD/Reflux, Hyperlipidemia, Hypertension, Thyroid Disorder Additional Past Medical History / Comment(s): Ischemic cardiomyopathy, MIGRAINES , hx. uterine & thyroid cancer with surgery, past hx. flesh eating disease 10 yrs ago-was very ill and intubated/vented, ocular strokes, hypothyroid, beginning of alzheimer's, numbness tingling bilateral legs/feet, pt states she has a sore on the bottom of her L foot at this time that has been there for yrs- being monitored by her shoe patternmaker. Last Myocardial Infarction Date:: unkn History of Any Multi-Drug Resistant Organisms: MRSA Year Discovered:: 2005 MDRO Source:: buttock per pt Past Surgical History: Heart Catheterization, Heart Catheterization With Stent, Hernia Repair, Hysterectomy Additional Past Surgical History / Comment(s): TRACH, thyroidectomy, hiatal hernia repair, colostomy with reversal due to colon involved in buttock flesh eating dx, buttock surgery for flesh eating dx, colonoscopy. D&C. Past Anesthesia/Blood Transfusion Reactions: Previous Problems w/ Anesthesia Additional Past Anesthesia/Blood Transfusion Reaction / Comm: slow to wake up from anesthesia, complications w/general anesthesia-collapsed lung Date of Last Stent Placement:: 11/16/15 Past Psychological History: Anxiety, Depression Additional Psychological History / Comment(s): Pt uses a walker to ambulate. She has a neighbor (paid by the state) who comes in and is a caregiver. She has never driven. Her mom or her hydrogen power plant manager take her to appts. Smoking Status: Current every day smoker Past Alcohol Use History: None Reported Additional Past Alcohol Use History / Comment(s): STARTED SMOKING AT AGE 16 ( 1981), down to 1ppd Past Drug Use History: None Reported - Past Family History Father Family Medical History: Cancer Additional Family Medical History / Comment(s): HAD BRAIN CANCER AT GE 56 Mother Family Medical History: Rheumatoid Arthritis (RA) Additional Family Medical History / Comment(s): MOM IS 66 Medications and Allergies Home Medications Medication Instructions Recorded Confirmed Type Gabapentin [Neurontin] 100 mg PO BID 04/12/14 11/19/16 History HYDROcodone/APAP 10-325MG [[place] 1 tab PO Q6H PRN 04/12/14 11/19/16 History 10-325] Zolpidem [Ambien] 10 mg PO HS PRN 04/12/14 11/19/16 History Insulin Aspart [NovoLOG] 2 unit SQ AC-TID 08/02/14 11/19/16 History Insulin Glargine,Hum.rec.anlog 56 units SQ HS 08/02/14 11/19/16 History [Lantus Solostar] Isosorbide Mononitrate [Isosorbide 30 mg PO DAILY 11/09/15 11/19/16 History Mononitrate ER] amLODIPine [Norvasc] 10 mg PO DAILY 11/15/15 11/19/16 History Atenolol [Tenormin] 25 mg PO DAILY 11/19/16 11/19/16 History Atorvastatin [Lipitor] 10 mg PO DAILY 11/19/16 11/19/16 History Cholecalciferol [Vitamin D3] 3,000 unit PO DAILY 11/19/16 11/19/16 History LORazepam [Ativan] 0.5 mg PO BID PRN 11/19/16 11/19/16 History Levothyroxine Sodium [Synthroid] 25 mcg PO DAILY 11/19/16 11/19/16 History Levothyroxine Sodium [Synthroid] 200 mcg PO DAILY 11/19/16 11/19/16 History Lisinopril [Zestril] 2.5 mg PO DAILY 11/19/16 11/19/16 History Allergies Allergy/AdvReac Type Severity Reaction Status Date / Time No Known Allergies Allergy Verified 11/19/16 10:25 Physical Exam Vitals: Vital Signs Temp Pulse Resp BP Pulse Ox 11/20/16 08:00 98.7 F 74 22 110/82 93 L 11/20/16 07:30 74 18 117/78 94 L 11/20/16 07:00 82 24 113/76 94 L 11/20/16 06:30 75 20 113/72 93 L 11/20/16 06:00 69 19 127/78 94 L 11/20/16 05:30 77 19 139/84 92 L 11/20/16 05:00 98.6 F 71 18 127/75 90 L 11/20/16 04:30 73 20 112/84 92 L 11/20/16 04:00 76 20 125/78 94 L 11/20/16 03:30 72 20 118/76 93 L 11/20/16 03:00 70 19 132/80 91 L 11/20/16 02:30 77 22 110/79 96 11/20/16 02:00 66 20 106/60 91 L 11/20/16 01:30 70 21 108/67 90 L 11/20/16 01:00 68 21 96/65 92 L 11/20/16 00:30 99.6 F 73 22 97/72 90 L 11/20/16 00:00 67 21 92/61 90 L 11/19/16 23:30 73 22 107/65 90 L 11/19/16 23:00 79 14 119/82 96 11/19/16 22:30 80 20 99/78 94 L 11/19/16 21:00 80 15 99/65 96 11/19/16 20:30 99.2 F 81 21 112/70 95 11/19/16 20:00 75 21 92/58 93 L 11/19/16 19:30 85 20 135/74 94 L 11/19/16 19:10 84 17 121/67 97 11/19/16 19:00 98.6 F 80 121/67 95 11/19/16 18:50 81 121/67 96 11/19/16 18:45 79 94 L 11/19/16 17:54 73 16 101/54 94 L 11/19/16 16:50 76 18 83/49 11/19/16 16:00 98.6 F 76 18 81/50 95 11/19/16 15:48 74 16 88/52 95 11/19/16 15:09 77 18 87/48 96 11/19/16 14:37 102.4 F H 82 18 89/51 11/19/16 14:20 82 18 82/47 97 11/19/16 13:20 101.4 F H 82 18 104/59 98 11/19/16 10:03 98.4 F 80 20 116/86 96 Intake and Output 11/19/16 11/20/16 11/20/16 22:59 06:59 14:59 Intake Total 3550 1180 300 Output Total 405 257 110 Balance 3145 923 190 Intake: IV 300 1000 300 Ampicillin-Sulbactam 3 gm 200 In Sodium Chloride 0.9% 100 ml @ 100 mls/hr IVPB ONCE STA Rx#:[id number] Magnesium Sulfate-D5w Pmx 100 1 gm In Dextrose/Water 1 100ml.bag @ 100 mls/hr IVPB Q1H BOY Rx#: [id number] Sodium Chloride 0.9% 1, 300 800 200 000 ml @ 100 mls/hr IV . Q10H STA Rx#:[id number] Amount of Fluid Infused ( 3000 ml) Intake, IV Titration 100 Amount Sodium Chloride 0.9% 1, 100 000 ml @ 100 mls/hr IV . Q10H ONE Rx#:[id number] Oral 150 180 Output: Urine 405 257 110 Other: Voiding Method Indwelling Catheter Indwelling Catheter # Bowel Movements 1 Weight 131.6 kg Gen: This is a morbidly obese 51-year-old female. She is resting in the ICU bed and appears to be comfortable but noticed to be grimacing with any movement due to pain in the left groin. HEENT: Head is atraumatic, normocephalic. Pupils equal, round. Sclerae is anicteric. Conjunctiva pink. Mucous membranes of the mouth are dry. No thrush noted. Dentition is in poor order. NECK: Supple. No JVD. No lymphadenopathy. No thyromegaly. LUNGS: Clear to auscultation. No wheezes or rhonchi. No intercostal retractions. HEART: Regular rate and rhythm. No murmur. ABDOMEN: Morbidly obese. Soft. Bowel sounds are present. There is an area extending from the left mons pubis, groin area with erythematous and induration and extends into the left labia. EXTREMITIES: No pedal edema. Dorsalis pedis weak bilaterally. NEUROLOGICAL: Patient is awake, alert and oriented x3. Cranial nerves 2 through 12 are grossly intact. Results Results: Laboratory Results WBC 11.2 k/uL (3.8-10.6) H 11/20/16 04:22 RBC 4.45 m/uL (3.80-5.40) 11/20/16 04:22 Hgb 14.5 gm/dL (11.4-16.0) 11/20/16 04:22 Hct 44.1 % (34.0-46.0) 11/20/16 04:22 MCV 99.1 fL (80.0-100.0) 11/20/16 04:22 MCH 32.5 pg (25.0-35.0) 11/20/16 04:22 MCHC 32.8 g/dL (31.0-37.0) 11/20/16 04:22 RDW 13.5 % (11.5-15.5) 11/20/16 04:22 Plt Count 133 k/uL (150-450) L 11/20/16 04:22 Neutrophils % 86 % 11/20/16 04:22 Lymphocytes % 7 % 11/20/16 04:22 Monocytes % 4 % 11/20/16 04:22 Eosinophils % 2 % 11/20/16 04:22 Basophils % 0 % 11/20/16 04:22 Neutrophils # 9.6 k/uL (1.3-7.7) H 11/20/16 04:22 Lymphocytes # 0.7 k/uL (1.0-4.8) L 11/20/16 04:22 Monocytes # 0.5 k/uL (0-1.0) 11/20/16 04:22 Eosinophils # 0.2 k/uL (0-0.7) 11/20/16 04:22 Basophils # 0.0 k/uL (0-0.2) 11/20/16 04:22 Sodium 137 mmol/L (137-145) 11/20/16 04:22 Potassium 3.6 mmol/L (3.5-5.1) 11/20/16 04:22 Chloride 107 mmol/L (98-107) 11/20/16 04:22 Carbon Dioxide 21 mmol/L (22-30) L 11/20/16 04:22 Anion Gap 9 mmol/L 11/20/16 04:22 BUN 14 mg/dL (7-17) 11/20/16 04:22 Creatinine 0.88 mg/dL (0.52-1.04) 11/20/16 04:22 Est GFR (MDRD) Af Amer >60 (>60 ml/min/1.73 sqM) 11/20/16 04:22 Est GFR (MDRD) Non-Af >60 (>60 ml/min/1.73 sqM) 11/20/16 04:22 Glucose 165 mg/dL (74-99) H 11/20/16 04:22 POC Glucose (mg/dL) 139 mg/dL (75-99) H 11/20/16 07:36 POC Glu Bridal Gown Fitter KURTIS Jadyn Olivo 11/20/16 07:36 Plasma Lactic Acid [place] 1.3 mmol/L (0.7-2.0) 11/19/16 16:31 Calcium 7.6 mg/dL (8.4-10.2) L 11/20/16 04:22 Phosphorus 3.1 mg/dL (2.5-4.5) 11/20/16 04:22 Magnesium 1.5 mg/dL (1.6-2.3) L 11/20/16 04:22 Total Bilirubin 0.9 mg/dL (0.2-1.3) 11/20/16 04:22 AST 24 U/L (14-36) 11/20/16 04:22 ALT 32 U/L (9-52) 11/20/16 04:22 Alkaline Phosphatase 79 U/L (38-126) 11/20/16 04:22 Total Protein 5.6 g/dL (6.3-8.2) L 11/20/16 04:22 Albumin 2.8 g/dL (3.5-5.0) L 11/20/16 04:22 Urine Color Yellow 11/19/16 19:05 Urine Appearance Cloudy (Clear) H 11/19/16 19:05 Urine pH 5.5 (5.0-8.0) 11/19/16 19:05 Ur Specific [place] 1.023 (1.001-1.035) 11/19/16 19:05 Urine Protein 2+ (Negative) H 11/19/16 19:05 Urine Glucose (UA) 4+ (Negative) H 11/19/16 19:05 Urine Ketones Trace (Negative) H 11/19/16 19:05 Urine Blood Negative (Negative) 11/19/16 19:05 Urine Nitrite Negative (Negative) 11/19/16 19:05 Urine Bilirubin Negative (Negative) 11/19/16 19:05 Urine Urobilinogen 3.0 mg/dL (<2.0) 11/19/16 19:05 Ur Leukocyte Esterase Negative (Negative) 11/19/16 19:05 Urine RBC 19 /hpf (0-5) H 11/19/16 19:05 Urine WBC 15 /hpf (0-5) H 11/19/16 19:05 Ur Squamous Epith Cells 1 /hpf (0-4) 11/19/16 19:05 Hyaline Casts 3 /lpf (0-2) H 11/19/16 19:05 Urine Mucus Rare /hpf (None) H 11/19/16 19:05 Urine Yeast (Budding) Many /hpf (None) H 11/19/16 19:05 CBC & Chem 7: 11/20/16 04:22 11/20/16 04:22 Labs: Abnormal Lab Results - Last 24 Hours (Table) 11/19/16 11/19/16 11/19/16 Range/Units 11:20 11:20 13:25 WBC 18.6 H (3.8-10.6) k/uL Hgb 16.2 H (11.4-16.0) gm/dL Hct 48.2 H (34.0-46.0) % Plt Count (150-450) k/uL Neutrophils # 15.9 H (1.3-7.7) k/uL Lymphocytes # (1.0-4.8) k/uL Sodium 134 L (137-145) mmol/L Carbon Dioxide 21 L (22-30) mmol/L Creatinine 1.26 H (0.52-1.04) mg/dL Glucose 378 H (74-99) mg/dL POC Glucose (mg/dL) 318 H (75-99) mg/dL Calcium (8.4-10.2) mg/dL Magnesium (1.6-2.3) mg/dL Total Bilirubin 1.6 H (0.2-1.3) mg/dL Total Protein (6.3-8.2) g/dL Albumin (3.5-5.0) g/dL Urine Appearance (Clear) Urine Protein (Negative) Urine Glucose (UA) (Negative) Urine Ketones (Negative) Urine RBC (0-5) /hpf Urine WBC (0-5) /hpf Hyaline Casts (0-2) /lpf Urine Mucus (None) /hpf Urine Yeast (Budding) (None) /hpf 11/19/16 11/19/16 11/19/16 Range/Units 18:44 19:05 22:36 WBC (3.8-10.6) k/uL Hgb (11.4-16.0) gm/dL Hct (34.0-46.0) % Plt Count (150-450) k/uL Neutrophils # (1.3-7.7) k/uL Lymphocytes # (1.0-4.8) k/uL Sodium (137-145) mmol/L Carbon Dioxide (22-30) mmol/L Creatinine (0.52-1.04) mg/dL Glucose (74-99) mg/dL POC Glucose (mg/dL) 193 H 163 H (75-99) mg/dL Calcium (8.4-10.2) mg/dL Magnesium (1.6-2.3) mg/dL Total Bilirubin (0.2-1.3) mg/dL Total Protein (6.3-8.2) g/dL Albumin (3.5-5.0) g/dL Urine Appearance Cloudy H (Clear) Urine Protein 2+ H (Negative) Urine Glucose (UA) 4+ H (Negative) Urine Ketones Trace H (Negative) Urine RBC 19 H (0-5) /hpf Urine WBC 15 H (0-5) /hpf Hyaline Casts 3 H (0-2) /lpf Urine Mucus Rare H (None) /hpf Urine Yeast (Budding) Many H (None) /hpf 11/20/16 11/20/16 11/20/16 Range/Units 04:22 04:22 07:36 WBC 11.2 H (3.8-10.6) k/uL Hgb (11.4-16.0) gm/dL Hct (34.0-46.0) % Plt Count 133 L (150-450) k/uL Neutrophils # 9.6 H (1.3-7.7) k/uL Lymphocytes # 0.7 L (1.0-4.8) k/uL Sodium (137-145) mmol/L Carbon Dioxide 21 L (22-30) mmol/L Creatinine (0.52-1.04) mg/dL Glucose 165 H (74-99) mg/dL POC Glucose (mg/dL) 139 H (75-99) mg/dL Calcium 7.6 L (8.4-10.2) mg/dL Magnesium 1.5 L (1.6-2.3) mg/dL Total Bilirubin (0.2-1.3) mg/dL Total Protein 5.6 L (6.3-8.2) g/dL Albumin 2.8 L (3.5-5.0) g/dL Urine Appearance (Clear) Urine Protein (Negative) Urine Glucose (UA) (Negative) Urine Ketones (Negative) Urine RBC (0-5) /hpf Urine WBC (0-5) /hpf Hyaline Casts (0-2) /lpf Urine Mucus (None) /hpf Urine Yeast (Budding) (None) /hpf Microbiology - Last 24 Hours (Table) 11/19/16 19:05 Urine Culture - Preliminary Urine,Catheterized Assessment and Plan Plan: This is a 51-year-old female that presents to Hospital with cellulitis and developing abscess to the left groin. Patient is scheduled for I &D today with Dr. Oliver. Regarding antibiotics, she is currently on Unasyn and vancomycin. On review of her previous cultures, urine culture in 2013 was E. coli resistant to Unasyn. Patient will be switched to ertapenem and continue vancomycin for now. Expect cultures obtained during surgery will help guide further antibiotic recommendations. Blood cultures status received. Continue supportive care. Further recommendations as patient progresses. The above dictated assessment and findings were discussed with Dr. Hills. The impression and plan of care have been directed as dictated. Jeanne Garces nurse practitioner acting as scribe for Dr. Hills.
[2016-11-20] MEDS: LISINOPRIL 2.5 MG TAB PO SCH (09:37)
[2016-11-20] MEDS: GABAPENTIN 100 MG CAP PO SCH ×2 (09:37→23:56)
[2016-11-20] MEDS: PANTOPRAZOLE 40 MG TABLET PO SCH (09:37)
[2016-11-20] MEDS: ISOSORBIDE MONONITRATE ER 30 MG TAB.ER.24H PO SCH (09:37)
[2016-11-20] MEDS: ATENOLOL 25 MG TAB PO SCH (09:37)
[2016-11-20] MEDS: ATORVASTATIN 10 MG TAB PO SCH (09:37)
[2016-11-20] MEDS: ASPIRIN 81 MG CHEW PO SCH (09:37)
[2016-11-20] MEDS: amLODIPine 10 MG TAB PO SCH (09:37)
[2016-11-20] MEDS: ERTAPENEM 1 GM in SODIUM CHLORIDE 0.9% 50 ML IVPB SCH (11:18)
--- NOTE | 2016-11-20 11:37 | P.CNPUL ---
History of Present Illness Consult date: 11/20/16 Requesting physician: Trev Rodriguez Reason for consult: other (Sepsis) Chief complaint: Suprapubic abscess History of present illness: This is a 51-year-old female with history of multiple medical problems including diabetes, fibromyalgia, hypertension, endometrial cancer and thyroid cancer, patient presented to the ER yesterday with 1 day history of redness and swelling in the pubic area extending down to the vulva. According to the patient is started out as a small red bump 3 days ago, and has grown in size to become a large interior rated mass over the suprapubic area. Patient also developed fevers yesterday as high as 102.4 in the ER, in the ER the patient was started on Unasyn and vancomycin, and according to the patient she had a previous history of MRSA and necrotizing fasciitis a few years back. Computed tomography scan showed swelling but no definite fluid collection. Lactic acid was elevated up on admission, patient was admitted with the impression of sepsis , given fluid boluses, did not require any pressors. Considering the presentation of sepsis, I was asked to see her on consultation. Patient was already seen by multiple consultants, and she is scheduled to undergo incision and drainage of suprapubic abscess around noontime today. Patient denies any headaches no blurred vision no dizziness. Denies any nausea no vomiting, no abdominal pain. No dysuria and no frequency no urgency. Review of Systems Constitutional: Reports fever, Denies chills Eyes: denies blurred vision, denies pain Ears, nose, mouth and throat: Denies headache, Denies sore throat Cardiovascular: Denies chest pain, Denies shortness of breath Respiratory: Denies cough Gastrointestinal: Denies abdominal pain, Denies diarrhea, Denies nausea, Denies vomiting Genitourinary: Denies dysuria, Denies hematuria Musculoskeletal: Denies myalgias Integumentary: Denies pruritus, Denies rash Neurological: Denies numbness, Denies weakness Psychiatric: Reports anxiety, Denies depression Endocrine: Denies fatigue, Denies weight change Past Medical History Past Medical History: Cancer (endometrial cancer and thyroid cancer), Chest Pain / Angina, Diabetes Mellitus, Eye Disorder, Fibromyalgia, GERD/Reflux, Hyperlipidemia, Hypertension, Thyroid Disorder Additional Past Medical History / Comment(s): Ischemic cardiomyopathy, MIGRAINES , hx. uterine & thyroid cancer with surgery, past hx. flesh eating disease 10 yrs ago-was very ill and intubated/vented, ocular strokes, hypothyroid, beginning of alzheimer's, numbness tingling bilateral legs/feet, pt states she has a sore on the bottom of her L foot at this time that has been there for yrs- being monitored by her shoe maker. 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 D&C. Past Anesthesia/Blood Transfusion Reactions: Previous Problems w/ Anesthesia Additional Past Anesthesia/Blood Transfusion Reaction / Comment(s): slow to wake up from anesthesia, complications w/general anesthesia-collapsed lung Date of Last Stent Placement:: 11/16/15 Past Psychological History: Anxiety, Depression Additional Psychological History / Comment(s): Pt uses a walker to ambulate. She has a neighbor (paid by the state) who comes in and is a caregiver. She has never driven. Her mom or her hand cloth examiner take her to [employer]. Smoking Status: Current every day smoker Past Alcohol Use History: None Reported Additional Past Alcohol Use History / Comment(s): STARTED SMOKING AT AGE 16 ( 1981), down to 1ppd Past Drug Use History: None Reported - Past Family History Father Family Medical History: Cancer Additional Family Medical History / Comment(s): HAD BRAIN CANCER AT GE 56 Mother Family Medical History: Rheumatoid Arthritis (RA) Additional Family Medical History / Comment(s): MOM IS 66 Medications and Allergies Home Medications Medication Instructions Recorded Confirmed Type Gabapentin [Neurontin] 100 mg PO BID 04/12/14 11/19/16 History HYDROcodone/APAP 10-325MG [Ogden 1 tab PO Q6H PRN 04/12/14 11/19/16 History 10-325] Zolpidem [Ambien] 10 mg PO HS PRN 04/12/14 11/19/16 History Insulin Aspart [NovoLOG] 2 unit SQ AC-TID 08/02/14 11/19/16 History Insulin Glargine,Hum.rec.anlog 56 units SQ HS 08/02/14 11/19/16 History [Lantus Solostar] Isosorbide Mononitrate [Isosorbide 30 mg PO DAILY 11/09/15 11/19/16 History Mononitrate ER] amLODIPine [Norvasc] 10 mg PO DAILY 11/15/15 11/19/16 History Atenolol [Tenormin] 25 mg PO DAILY 11/19/16 11/19/16 History Atorvastatin [Lipitor] 10 mg PO DAILY 11/19/16 11/19/16 History Cholecalciferol [Vitamin D3] 3,000 unit PO DAILY 11/19/16 11/19/16 History LORazepam [Ativan] 0.5 mg PO BID PRN 11/19/16 11/19/16 History Levothyroxine Sodium [Synthroid] 25 mcg PO DAILY 11/19/16 11/19/16 History Levothyroxine Sodium [Synthroid] 200 mcg PO DAILY 11/19/16 11/19/16 History Lisinopril [Zestril] 2.5 mg PO DAILY 11/19/16 11/19/16 History Allergies Allergy/AdvReac Type Severity Reaction Status Date / Time No Known Allergies Allergy Verified 11/19/16 10:25 Physical Exam Vitals: Vital Signs Temp Pulse Resp BP Pulse Ox 11/20/16 11:00 78 22 108/68 93 L 11/20/16 10:30 77 25 H 97/71 90 L 11/20/16 10:00 79 22 111/78 94 L 11/20/16 09:30 74 18 119/72 94 L 11/20/16 09:00 78 24 100/68 90 L 11/20/16 08:30 87 22 116/87 95 11/20/16 08:00 98.7 F 74 24 110/82 93 L 11/20/16 07:30 74 18 117/78 94 L 11/20/16 07:00 82 24 113/76 94 L 11/20/16 06:30 75 20 113/72 93 L 11/20/16 06:00 69 19 127/78 94 L 11/20/16 05:30 77 19 139/84 92 L 11/20/16 05:00 98.6 F 71 18 127/75 90 L 11/20/16 04:30 73 20 112/84 92 L 11/20/16 04:00 76 20 125/78 94 L 11/20/16 03:30 72 20 118/76 93 L 11/20/16 03:00 70 19 132/80 91 L 11/20/16 02:30 77 22 110/79 96 11/20/16 02:00 66 20 106/60 91 L 11/20/16 01:30 70 21 108/67 90 L 11/20/16 01:00 68 21 96/65 92 L 11/20/16 00:30 99.6 F 73 22 97/72 90 L 11/20/16 00:00 67 21 92/61 90 L 11/19/16 23:30 73 22 107/65 90 L 11/19/16 23:00 79 14 119/82 96 11/19/16 22:30 80 20 99/78 94 L 11/19/16 21:00 80 15 99/65 96 11/19/16 20:30 99.2 F 81 21 112/70 95 11/19/16 20:00 75 21 92/58 93 L 11/19/16 19:30 85 20 135/74 94 L 11/19/16 19:10 84 17 121/67 97 11/19/16 19:00 98.6 F 80 121/67 95 11/19/16 18:50 81 121/67 96 11/19/16 18:45 79 94 L 11/19/16 17:54 73 16 101/54 94 L 11/19/16 16:50 76 18 83/49 11/19/16 16:00 98.6 F 76 18 81/50 95 11/19/16 15:48 74 16 88/52 95 11/19/16 15:09 77 18 87/48 96 11/19/16 14:37 102.4 F H 82 18 89/51 11/19/16 14:20 82 18 82/47 97 11/19/16 13:20 101.4 F H 82 18 104/59 98 Intake and Output 11/19/16 11/20/16 11/20/16 22:59 06:59 14:59 Intake Total 3550 1180 984 Output Total 405 257 235 Balance 3145 923 749 Intake: IV 300 1000 984 Ampicillin-Sulbactam 3 gm 200 In Sodium Chloride 0.9% 100 ml @ 100 mls/hr IVPB ONCE [facility] Rx#:[id number] Ertapenem 1 gm In Sodium 50 Chloride 0.9% 50 ml @ 100 mls/hr IVPB DAILY [facility] Rx #:[id number] Magnesium Sulfate-D5w Pmx 200 1 gm In Dextrose/Water 1 100ml.bag @ 100 mls/hr IVPB Q1H [facility] Rx#: [id number] Sodium Chloride 0.9% 1, 300 800 400 000 ml @ 100 mls/hr IV . Q10H [facility] Rx#:[id number] Vancomycin 2,000 mg In 334 Sodium Chloride 0.9% 500 ml @ 167 mls/hr IVPB Q24H [facility] Rx#:[id number] Amount of Fluid Infused ( 3000 ml) Intake, IV Titration 100 Amount Sodium Chloride 0.9% 1, 100 000 ml @ 100 mls/hr IV . Q10H ONE Rx#:[id number] Oral 150 180 Output: Urine 405 257 235 Other: Voiding Method Indwelling Catheter Indwelling Catheter Indwelling Catheter # Bowel Movements 1 Weight 131.6 kg Physical Exam: Revealed a 51-year-old female in no distress HEENT:[Neck is supple.] [No neck masses.] [No thyromegaly.] [No JVD.] Chest: [Clear throughout, no crackles, no rhonchi, no wheezes.] Cardiac Exam: [Normal S1 and S2, no S3 gallop, no murmur.] Abdomen: [Soft, nontender, no megaly, no rebound, no guarding, normal bowel sounds. The area of the suprapubic region was examined, and there is evidence of erythematous in duration the area is hard and extending all the way down to the left labia.] Extremities: [No clubbing, no edema, no cyanosis.] Neurological Exam: [No focal neurologic deficit.] Results - Laboratory Findings CBC and BMP: 11/20/16 04:22 11/20/16 04:22 Abnormal lab findings: Abnormal Labs 11/19/16 11/19/16 11/19/16 11:20 11:20 13:25 WBC 18.6 H Hgb 16.2 H Hct 48.2 H Plt Count Neutrophils # 15.9 H Lymphocytes # Sodium 134 L Carbon Dioxide 21 L Creatinine 1.26 H Glucose 378 H POC Glucose (mg/dL) 318 H Calcium Magnesium Total Bilirubin 1.6 H Total Protein Albumin Urine Appearance Urine Protein Urine Glucose (UA) Urine Ketones Urine RBC Urine WBC Hyaline Casts Urine Mucus Urine Yeast (Budding) 11/19/16 11/19/16 11/19/16 18:44 19:05 22:36 WBC Hgb Hct Plt Count Neutrophils # Lymphocytes # Sodium Carbon Dioxide Creatinine Glucose POC Glucose (mg/dL) 193 H 163 H Calcium Magnesium Total Bilirubin Total Protein Albumin Urine Appearance Cloudy H Urine Protein 2+ H Urine Glucose (UA) 4+ H Urine Ketones Trace H Urine RBC 19 H Urine WBC 15 H Hyaline Casts 3 H Urine Mucus Rare H Urine Yeast (Budding) Many H 11/20/16 11/20/16 11/20/16 04:22 04:22 07:36 WBC 11.2 H Hgb Hct Plt Count 133 L Neutrophils # 9.6 H Lymphocytes # 0.7 L Sodium Carbon Dioxide 21 L Creatinine Glucose 165 H POC Glucose (mg/dL) 139 H Calcium 7.6 L Magnesium 1.5 L Total Bilirubin Total Protein 5.6 L Albumin 2.8 L Urine Appearance Urine Protein Urine Glucose (UA) Urine Ketones Urine RBC Urine WBC Hyaline Casts Urine Mucus Urine Yeast (Budding) - Diagnostic Findings Additional studies: CT of the pelvis report was reviewed Assessment and Plan Plan: Impression: 1 acute abscess and cellulitis of the groin 2 acute sepsis secondary to acute abscess and cellulitis of the groin area. 3 multiple comorbidities including obesity, type 2 diabetes, fibromyalgia, GERD , hyperlipidemia, essential hypertension, hypothyroidism, ischemic cardiomyopathy, referral diabetic neuropathy, chronic nicotine dependence, patient will be kept on antibiotics as ordered, already seen by infectious disease on consultation, and she is scheduled to undergo incision and drainage of abscess today. We'll continue to follow closely. Time with Patient: Greater than 30
[2016-11-20 12:02] LABS: Glucose,Whole Blood 135 mg/dL (75-99)
[2016-11-20] MEDS ORDERED: LIDOCAINE 1% INJ 10MG/ML (20 ML MDV) ONE (12:18)
[2016-11-20] MEDS ORDERED: PROPOFOL 10 MG/ML 20 ML VIAL IV ONE (12:18)
[2016-11-20] MEDS ORDERED: ePHEDrine 50 MG/ML 1 ML AMP ONE (12:18)
[2016-11-20] MEDS ORDERED: fentaNYL (PF) 50 MCG/ML 2 ML AMP ONE (12:18)
[2016-11-20] MEDS ORDERED: MIDAZOLAM 2 MG/2 ML VIAL ONE (12:18)
[2016-11-20] MEDS ORDERED: SODIUM CHLORIDE 0.9% 1,000 ML IV ONE (12:18)
[2016-11-20] MEDS ORDERED: SUCCINYLCHOLINE CHLORIDE 100 MG/5 ML SYR IV ONE (12:18)
[2016-11-20] MEDS ORDERED: ceFAZolin 1,000 MG in SODIUM CHLORIDE 0.9% 1,000 ML IRRIGATION ONE (12:45)
--- NOTE | 2016-11-20 13:07 | P.OP ---
Date of Procedure: 11/20/16 Preoperative Diagnosis: 1. abscess of the mons pubis Postoperative Diagnosis: 1. abscess of the mons pubis Procedure(s) Performed: Incision and drainage of the abscess on the mons pubis with irrigation and packing Implants: Anesthesia: PAYAL Surgeon: Elisa Oliver Estimated Blood Loss (ml): 5 IV fluids (ml): 300 Urine output (ml): 950 Pathology: other (Culture and pieces of tissue surrounding the abscess) Condition: stable Disposition: ICU Indications for Procedure: Operative Findings: Abscess formation in the mons pubis on the left extending to the left groin area and on the left vulva and labia with tissue necrosis Description of Procedure: Patient is taken the operating room where general anesthesia was obtained without difficulty. She is prepped and draped in normal sterile fashion in dorsal supine position. A 4 cm incision was made in the left-sided mons pubis. This was taken down to the level of the fascia with the hemostat. Immediately there was purulent drainage and tissue necrosis seen. Tracking the area revealed that the abscess went into the left groin approximately 7 cm and down the left labia approximately 7-8 cm as well. Culture was taken. Pieces of tissue were also taken and sent to pathology. The 50 mL of purulent drainage was removed. More of the necrotic tissue was attempted to be removed. Diluted Ancef was then introduced into the incision as irrigation and suctioned out. The wound was then packed with 2 inch iodoform gauze. Dressing was applied. Patient tolerated the procedure well, sponge and instrument counts were correct 2 and she was taken to recovery room in stable condition.
[2016-11-20 13:24] LABS: Glucose,Whole Blood 121 mg/dL (75-99)
[2016-11-20] MEDS: CHOLECALCIFEROL 1,000 UNIT TAB PO SCH (14:36)
--- NOTE | 2016-11-20 16:06 | CDI ---
In responding to this query, please exercise your independent professional judgment. The [facility] Coding Staff and Clinical Documentation Specialists appreciate your assistance in clarifying documentation, maintaining compliance with coding guidelines, accurately documenting patients condition and capturing severity of illness. The fact that a question is asked does not imply that any particular answer is desired or expected. Communication forms are a method of clarifying documentation and are not made part of the Legal Health Record. Thank you in advance for your clarification. Last Revision, April 2015 To satisfy the 5 elements for accurate documentation; the necrotic tissue was excised using a currette, metzenbaums and a scalpel down to fresh bleeding tissue 6 cm deep. In my dictation, I did describe the size of the rest of the abscess. I will add this addendum to my dictated op report. Bhavna Breaux [address] [place] [address] Documentation Clarification Form Date: 11/20/2016 3:16:00 PM From: Zo Martinez RN, CCDS Admit Date: 11/19/2016 12:40:00 PM Patient Name: Wendi Velazquez Visit Number: [id number] Discharge Date: Dr. Elisa Oliver Per your operative note, an incision and drainage was performed on the abscess of the Mons pubis with irrigation and packing. History/Risk Factors: Hypertension, Diabetes Mellitus, type 2, Multiple strokes , Necrotizing Fasciitis, Clinical Indicators: complains of pain and swelling on the left side of the pubic area extending above the vaginal area. Finding: Abscess formation in the Mons pubis on the left extending to the left groin area and on the left vulva and labia with tissue necrosis. Pieces of tissue were taken and sent to pathology Treatment: Incision and drainage Five elements required for accurate and compliant documentation of a debridement : 1. Technique used to remove tissue (e.g., excisional, excised, cutting, etc.) 2. Instrument(s) used (e.g., scalpel, curette, etc.) 3. Nature of the tissue removed (e.g., necrotic, devitalized tissues, non- viable tissue, etc.) 4. Appearance and size of the wound (e.g., down to fresh bleeding tissue, 7cm x 10cm, etc.) 5. Depth of the debridement* (e.g., skin, subcutaneous tissue, fascia, muscle , bone, etc.) In order to capture the severity of condition and code the appropriate procedure could you please document the following: Excisional debridement (the removal of necrotic, devitalized tissue or slough by means of cutting away of tissue) Non-excisional debridement (the removal of necrotic, devitalized tissue or slough by means of flushing, brushing, or washing. (Irrigation) Other; with explanation for clinical findings Unable to determine (no explanation for clinical findings) Please document response as an addendum to your operative report in order to capture severity of illness and risk of mortality. Include clinical findings that support your diagnosis. FYI: Press F11 to launch patient chart. Place X here if this finding has no clinical significance, is not applicable or if you are not able to provide any additional documentation. [facility]
[2016-11-20 17:02] LABS: Hemoglobin A1C 10.6 % (4.2-6.1)
[2016-11-20 17:04] LABS: Glucose,Whole Blood 132 mg/dL (75-99)
[2016-11-20 21:01] LABS: Glucose,Whole Blood 117 mg/dL (75-99)
--- NOTE | 2016-11-20 22:18 | PN ---
DATE OF SERVICE: 11/20/2016 PRESENTING COMPLAINT: Mons pubis abscess. INTERVAL HISTORY: This patient benefits sepsis picture including abscess of the mons pubis. I saw this patient this morning due to go down to surgery by Dr. Oliver from [facility]. Patient never actually received Levophed drip as the blood pressure was doing better last night. ( ) pain. Review of systems done for constitutional, cardiovascular, GI, pulmonary, musculoskeletal; relevant findings above. Current medications are reviewed that include IV vancomycin, IV Ertapenem, per Dr. Hills. On examination, temperature 98.7, pulse 74, respiratory 22, blood pressure 110/82, pulse ox 93% on room air. GENERAL APPEARANCE: Lying in bed, tired appearing. EYES: Pupils equal. Conjunctivae normal. NECK: JVD is not raised. RESPIRATORY: Effort normal. LUNGS: Decreased breath sounds. Mild wheezing. CARDIOVASCULAR: First and second sounds normal. No edema. ABDOMEN: Soft, nontender. The mons pubis area is still rather tender, swollen. Seen with a rug washer my nurse practitioner Azucena. INVESTIGATIONS: White count 11.2. Potassium 3.6. BUN and creatinine are normal. Accu-Cheks are noted. Blood cultures are pending. ASSESSMENT: 1. Acute large abscess in the mons pubic area causing severe sepsis, present on admission. 2. Obesity, body mass index of 40.8. 3. Diabetes mellitus type II, chronically on insulin, uncontrolled from sepsis. 4. Fibromyalgia. 5. Gastroesophageal reflux disease. 6. Hyperlipidemia. 7. Essential hypertension. 8. Hypothyroidism. 9. Ischemic cardiomyopathy, ejection fraction not known. 10. Peripheral neuropathy from diabetes. 11. Multi-infarct causing some memory loss, strokes. 12. Gait dysfunction at baseline uses a walker. 13. Chronic nicotine dependence, the patient is a smoker. 14. Septic shock. The patient requiring IV fluids. The patient actually never got to receive pressors actually. PLAN: Continue current medication and treatment plan. Continue antibiotics. Awaiting the patient to go down to the OR. Care was discussed with the patient.
[2016-11-20] MEDS: VANCOMYCIN 2,000 MG in SODIUM CHLORIDE 0.9% 500 ML IVPB SCH (22:40)
[2016-11-20] MEDS: INSULIN GLARGINE 100 UNIT/ML 10 ML VIAL SQ SCH (22:40)
--- NOTE | 2016-11-20 23:51 | P.CON ---
Consult Note - . Consult date: 11/20/16 Assessment/Plan:: This is a 51-year-old female that is known to ID service with history of necrotizing fasciitis of the buttocks in 2005. Patient gives history of sudden onset about 3 days ago of redness and swelling in the left groin area. She states she developed fever yesterday, feeling tired and weak. She came into [facility] emergency center. She's had fevers up to 102.4 with low blood pressure and leukocytosis of 18.6. CAT scan of the pelvis without contrast showed widespread marked vulvar edematous change without abscess and without soft tissue emphysema. Patient was initially seen by Dr. Ramirez and consult changed to Dr. Ribera. Dr. Bourgeois and Dr. Oliver are following. Patient is scheduled for I&D today with Dr. Oliver. She has been on Unasyn and vancomycin. Only available urine culture from October 2013 is showing E. coli resistant to Unasyn. Urine culture on this admission is in progress but urinalysis was cloudy, nitrate and leukoesterase negative. Blood cultures status received. Please see the consult note as dictated by nurse practitioner Mrs. Jeanne Garces. This 51-year-old woman suffers from superobesity and is now had another bout of infection in the genital area. The case was discussed with the gynecological surgeon. CT was reviewed. Although not showing organized abscess clinically the patient had a significant abscess and constantly surgical incision and drainage was advised. He has noted the time of the surgery a large pocket of purulent necrotic material was found and debrided. The site is packed. Patient is feeling somewhat better. Cultures of further help direct antibiotic therapy. For now vancomycin and ertapenem are being utilized because of the recent E. coli resistant to Unasyn. At this time she is showing some improvement and will continue current course of therapy. Unclear if a wound VAC will be utilized once infection is improved. Would follow the wound healing center after discharge.I agree with the evaluation, assessment and plan as dictated by nurse practitioner Mrs. Jeanne Garces.
[2016-11-21] MEDS: HYDROcodone/APAP 10-325MG 1 EACH TAB PO PRN ×4 (00:03→21:39)
[2016-11-21] MEDS: ZOLPIDEM 10 MG TAB PO PRN ×2 (00:03→21:40)
[2016-11-21 02:17] LABS: Glucose,Whole Blood 113 mg/dL (75-99)
[2016-11-21 06:02] LABS: Glucose,Whole Blood 121 mg/dL (75-99)
[2016-11-21] MEDS: LEVOTHYROXINE 25 MCG TAB PO SCH (06:25)
[2016-11-21] MEDS: LEVOTHYROXINE 100 MCG TAB PO SCH (06:25)
[2016-11-21 07:45] LABS: Glucose,Whole Blood 132 mg/dL (75-99)
[2016-11-21] MEDS: INSULIN LISPRO (humaLOG) 300 UNIT/3 ML VIAL SQ SCH ×3 (08:10→17:52)
[2016-11-21] MEDS: ASPIRIN 81 MG CHEW PO SCH (08:10)
[2016-11-21] MEDS: LISINOPRIL 2.5 MG TAB PO SCH (08:10)
[2016-11-21] MEDS: ISOSORBIDE MONONITRATE ER 30 MG TAB.ER.24H PO SCH (08:10)
[2016-11-21] MEDS: amLODIPine 10 MG TAB PO SCH (08:10)
[2016-11-21] MEDS: PANTOPRAZOLE 40 MG TABLET PO SCH (08:10)
[2016-11-21] MEDS: ATORVASTATIN 10 MG TAB PO SCH (08:10)
[2016-11-21] MEDS: ATENOLOL 25 MG TAB PO SCH (08:10)
[2016-11-21] MEDS: ENOXAPARIN 40 MG/0.4 ML SYRINGE SQ SCH (08:11)
[2016-11-21] MEDS: metFORMIN 500 MG TAB PO SCH ×2 (08:11→17:52)
[2016-11-21] MEDS: GABAPENTIN 100 MG CAP PO SCH ×2 (08:11→21:48)
[2016-11-21] MEDS: ERTAPENEM 1 GM in SODIUM CHLORIDE 0.9% 50 ML IVPB SCH (08:11)
[2016-11-21 09:04] VITALS: BMI 42.8
[2016-11-21 09:12] LABS: Anion Gap 10 mmol/L; Blood Urea Nitrogen 9 mg/dL (7-17); Calcium 7.8 mg/dL (8.4-10.2); Carbon Dioxide 20 mmol/L (22-30); Chloride 106 mmol/L (98-107); Glucose 135 mg/dL (74-99); Magnesium 1.7 mg/dL (1.6-2.3); Non-African American GFR(MDRD) >60 (>60 ml/min/1.73 sqM); Sodium 136 mmol/L (137-145)
[2016-11-21 09:14] LABS: Basophils % (A) 0 %; CH 32.4; CHCM 33.9; Eosinophils # (A) 0.2 k/uL (0-0.7); Eosinophils % (A) 3 %; HCT 42.8 % (34.0-46.0); HDW 2.64; HGB 14.2 gm/dL (11.4-16.0); Luc # (Auto) 0.18; Luc % (Auto) 2; Lymphocytes # (A) 0.7 k/uL (1.0-4.8); Lymphocytes % (A) 8 %; MCH 31.9 pg (25.0-35.0); MCHC 33.3 g/dL (31.0-37.0); MCV 95.8 fL (80.0-100.0); Mean Platelet Volume 9.2; Monocytes # (A) 0.4 k/uL (0-1.0); Monocytes % (A) 5 %; Neutrophils # (A) 6.9 k/uL (1.3-7.7); Neutrophils % (A) 81 %; RBC 4.46 m/uL (3.80-5.40); RDW 13.1 % (11.5-15.5); WBC 8.4 k/uL (3.8-10.6); WBC (Perox) 8.83
[2016-11-21] MEDS: HYDROmorphone 1 MG/ML 1 ML SYRINGE IV PRN ×2 (10:19→13:16)
--- NOTE | 2016-11-21 12:11 | P.PN ---
Subjective Principal diagnosis: Mons pubis abscess This is a 51-year-old female with history of multiple medical problems including diabetes, fibromyalgia, hypertension, endometrial cancer and thyroid cancer, patient presented to the ER yesterday with 1 day history of redness and swelling in the pubic area extending down to the vulva. According to the patient is started out as a small red bump 3 days ago, and has grown in size to become a large interior rated mass over the suprapubic area. Patient also developed fevers yesterday as high as 102.4 in the ER, in the ER the patient was started on Unasyn and vancomycin, and according to the patient she had a previous history of MRSA and necrotizing fasciitis a few years back. Computed tomography scan showed swelling but no definite fluid collection. Lactic acid was elevated up on admission, patient was admitted with the impression of sepsis , given fluid boluses, did not require any pressors. Considering the presentation of sepsis, I was asked to see her on consultation. Patient was already seen by multiple consultants, and she is scheduled to undergo incision and drainage of suprapubic abscess around noontime today. Patient denies any headaches no blurred vision no dizziness. Denies any nausea no vomiting, no abdominal pain. No dysuria and no frequency no urgency. The patient is seen again today 11/21/2016 in follow-up on the regular medical floor. She is status post incision and drainage of an abscess of the mons pubis that was descending to the left groin and left vulva and labia with tissue necrosis. This is postoperative day #1. Initial cultures revealed gram- negative bacilli. Pathology is pending. She has been seen by infectious disease and has been initiated on vancomycin and ertapenem. She has a history of recent E. coli resistant to Unasyn. Currently, she is up ambulating in her room. She denies any worsening discomfort. Her wound is packed and she is being followed by C JAVA DEVELOPER who performed the procedure. She denies any chills or night sweats. No dizziness or lightheadedness. Maintaining good O2 saturations in the 90s on room air. Hemodynamically stable. Current temp 99.2. White count 8.4. Objective - Vital Signs Vital signs: Vital Signs Temp 99.2 F 11/21/16 07:00 Pulse 87 11/21/16 07:00 Resp 16 11/21/16 07:00 BP 117/63 11/21/16 07:00 Pulse Ox 92 L 11/21/16 07:00 Intake & Output 11/20/16 11/21/16 11/21/16 18:59 06:59 18:59 Intake Total 1310 600 Output Total 1190 700 Balance 120 -100 Weight 131.6 kg Intake: IV 1310 Ertapenem 1 gm In Sodium 50 Chloride 0.9% 50 ml @ 100 mls/hr IVPB DAILY BOY Rx #:[id number] Magnesium Sulfate-D5w Pmx 200 1 gm In Dextrose/Water 1 100ml.bag @ 100 mls/hr IVPB Q1H BOY Rx#: [id number] Sodium Chloride 0.9% 1, 400 000 ml @ 100 mls/hr IV . Q10H STA Rx#:[id number] Vancomycin 2,000 mg In 334 Sodium Chloride 0.9% 500 ml @ 167 mls/hr IVPB Q24H BOY Rx#:[id number] Oral 600 Output: Urine 1185 700 Estimated Blood Loss 5 Other: Voiding Method Indwelling Catheter Indwelling Catheter Indwelling Catheter - Exam GENERAL EXAM: Alert, active, comfortable in no apparent distress. HEAD: Normocephalic. EYES: Normal reaction of pupils, equal size. NOSE: Clear with pink turbinates. THROAT: No erythema or exudates. NECK: No masses, no JVD. CHEST: No chest wall deformity. LUNGS: Equal air entry with no crackles, wheeze, rhonchi or dullness. CVS: S1 and S2 normal with no audible murmurs, regular rhythm. ABDOMEN: No hepatosplenomegaly, normal bowel sounds, no guarding or rigidity. SPINE: No scoliosis or deformity SKIN: Open wound with packing of the mons pubis, left labia and left groin. CENTRAL NERVOUS SYSTEM: No focal deficits, tone is normal in all 4 extremities. Extremities: There is no significant peripheral edema. No clubbing, no cyanosis. Peripheral pulses are intact. - Labs CBC & Chem 7: 11/21/16 08:17 11/21/16 08:17 Labs: Abnormal Lab Results - Last 24 Hours (Table) 11/20/16 11/20/16 11/20/16 Range/Units 04:22 12:01 13:20 Plt Count (150-450) k/uL Lymphocytes # (1.0-4.8) k/uL Sodium (137-145) mmol/L Carbon Dioxide (22-30) mmol/L Glucose (74-99) mg/dL POC Glucose (mg/dL) 135 H 121 H (75-99) mg/dL Hemoglobin A1c 10.6 H (4.2-6.1) % Calcium (8.4-10.2) mg/dL 11/20/16 11/20/16 11/21/16 Range/Units 17:01 20:55 02:11 Plt Count (150-450) k/uL Lymphocytes # (1.0-4.8) k/uL Sodium (137-145) mmol/L Carbon Dioxide (22-30) mmol/L Glucose (74-99) mg/dL POC Glucose (mg/dL) 132 H 117 H 113 H (75-99) mg/dL Hemoglobin A1c (4.2-6.1) % Calcium (8.4-10.2) mg/dL 11/21/16 11/21/16 11/21/16 Range/Units 05:58 07:31 08:17 Plt Count (150-450) k/uL Lymphocytes # (1.0-4.8) k/uL Sodium 136 L (137-145) mmol/L Carbon Dioxide 20 L (22-30) mmol/L Glucose 135 H (74-99) mg/dL POC Glucose (mg/dL) 121 H 132 H (75-99) mg/dL Hemoglobin A1c (4.2-6.1) % Calcium 7.8 L (8.4-10.2) mg/dL 11/21/16 Range/Units 08:17 Plt Count 149 L (150-450) k/uL Lymphocytes # 0.7 L (1.0-4.8) k/uL Sodium (137-145) mmol/L Carbon Dioxide (22-30) mmol/L Glucose (74-99) mg/dL POC Glucose (mg/dL) (75-99) mg/dL Hemoglobin A1c (4.2-6.1) % Calcium (8.4-10.2) mg/dL Microbiology - Last 24 Hours (Table) 11/20/16 12:56 Gram Stain - Preliminary Labia Wound Culture - Preliminary Gram Neg Bacilli 11/19/16 19:05 Urine Culture - Final Urine,Catheterized 11/20/16 12:56 Anaerobic Culture - Preliminary Labia 11/19/16 11:20 Blood Culture - Preliminary Blood No Growth after 24 hours Assessment and Plan Plan: Impression: #1 Abscess of the mons pubis. Status post incision and drainage of the abscess of the mons pubis with irrigation and packing. There was abscess formation in the mons pubis on the left extending into the left groin and left vulva and labia with tissue necrosis. Postoperative day #1. #2 Gram-negative bacilli cultured in the wound. Currently on vancomycin and ertapenem. #3 Acute sepsis secondary to above. #4 Recent urinary tract infection with E. coli resistant to Unasyn. #5 Obesity. #6 History of necrotizing fasciitis and MRSA of the buttocks in 2005. This also involved the colon and she had a colostomy with subsequent reversal. Prolonged intubation requiring tracheostomy and subsequent removal. #7 History of endometrial cancer, status post hysterectomy. #8 History of thyroid cancer, status post thyroidectomy. #9 Coronary artery disease with previous stent placement to the circumflex in 2016. #10 Hypertension. #11 Hyperlipidemia. #12 Diabetes mellitus. #13 Diabetic neuropathy. #14 History of anxiety/depression. #15 Chronic and ongoing tobacco dependence. Plan: The patient was seen and evaluated by Dr. Mckenzie. She is currently stable from the pulmonary and critical care standpoint. She is educated regarding the importance of complete smoking cessation. She remains on vancomycin and ertapenem. She is on Lovenox for DVT prophylaxis. We will increase her activity as tolerated. We'll continue to follow.
[2016-11-21] MEDS: CHOLECALCIFEROL 1,000 UNIT TAB PO SCH (12:36)
[2016-11-21 12:45] LABS: Glucose,Whole Blood 138 mg/dL (75-99)
[2016-11-21] MEDS: VANCOMYCIN 2,000 MG in SODIUM CHLORIDE 0.9% 500 ML IVPB SCH (14:36)
--- NOTE | 2016-11-21 16:24 | P.PN ---
Progress Note - Text PAtient was seen and examined at bedside with the RN, Leatha. The dressing was soaked with clear serous fluid and the packing still in place. The erythema around the incision is still beefy red and has not changed much-no spreading but has not diminished either. I removed the iodoform packing and flushed the site. There appears to be good granulation tissue present. I did replace the packing and the dressing. Patient tolerated well. Of note, there is a 4cm oval erythmatous lesion on her right forearm that was not present before. I had the nurse take note of this because the patient said this was how the abscess originally started.
[2016-11-21 17:09] LABS: Glucose,Whole Blood 120 mg/dL (75-99)
[2016-11-21] MEDS: ACETAMINOPHEN TAB 325 MG TAB PO PRN (17:52)
--- NOTE | 2016-11-21 20:28 | PN ---
DATE OF SERVICE: 11/21/2016 PRESENTING COMPLAINT: Peripubic abscess. INTERVAL HISTORY: Patient admitted with mons pubis abscess, was drained about 50 mL. Got a dressing in place. Pain is improved. Tolerating some diet. Was on the medical floor. Review of systems done for constitutional, cardiovascular that us a GI, pulmonary, musculoskeletal findings as above. Current medications are reviewed that include IV Ertapenem, vancomycin. On examination, temperature 97.1, pulse 90, respiratory rate 16, blood pressure 126/69, pulse ox 93% on room air. GENERAL APPEARANCE: Lying in bed, more awake. EYES: Pupils equal. Conjunctivae normal. NECK: JVD not raised. Mass not palpable. RESPIRATORY: Heart and lungs decreased breath sounds. Mild wheezing. CARDIOVASCULAR: First and second sounds normal. No edema. ABDOMEN: Soft, nontender. He has got a dressing on place. Seen with family and divorce legal assistant, my nurse practitioner, Ms. Smiley. PSYCH: Alert and oriented times three. Mood and affect normal. INVESTIGATIONS: White count 8.4, hemoglobin 14.2. Potassium 4.0. Patient's wound culture is currently growing some gram-positive cocci. ASSESSMENT: 1. Acute large abscess mons pubic area causing severe sepsis present upon admission, status post incision and drainage. 2. Obesity; ( ). 3. Type 2 diabetes mellitus, chronically on insulin. 4. Fibromyalgia. 5. Gastroesophageal reflux disease. 6. Hyperlipidemia. 7. Essential hypertension. 8. Hypothyroidism. 9. Ischemic cardiomyopathy; ejection fraction not known. 10. Peripheral neuropathy from diabetes. 11. Multi-infarct some dementia, cause ( ) stroke. 12. Gait dysfunction, baseline using a walker. 13. Chronic nicotine dependence. Patient is a smoker. 14. Septic shock IV fluids, now resolved. PLAN: Continue current medication and antibiotics. Care was discussed with the patient. Patient will follow with surgery. Patient had iodoform packing.
[2016-11-21 21:02] LABS: Glucose,Whole Blood 135 mg/dL (75-99)
[2016-11-21] MEDS: INSULIN GLARGINE 100 UNIT/ML 10 ML VIAL SQ SCH (21:48)
[2016-11-22 02:19] LABS: Glucose,Whole Blood 133 mg/dL (75-99)
[2016-11-22] MEDS: HYDROmorphone 1 MG/ML 1 ML SYRINGE IV PRN ×2 (02:22→12:18)
[2016-11-22] MEDS ORDERED: VANCOMYCIN TROUGH DUE 1 EACH MISC MISCELLANE ONE (05:00)
[2016-11-22] MEDS: VANCOMYCIN 2,000 MG in SODIUM CHLORIDE 0.9% 500 ML IVPB SCH ×2 (06:17→21:34)
[2016-11-22] MEDS: LEVOTHYROXINE 100 MCG TAB PO SCH (06:18)
[2016-11-22] MEDS: LEVOTHYROXINE 25 MCG TAB PO SCH (06:19)
[2016-11-22 06:30] LABS: Calcium 7.8 mg/dL (8.4-10.2); Carbon Dioxide 20 mmol/L (22-30); Glucose 118 mg/dL (74-99); Non-African American GFR(MDRD) >60 (>60 ml/min/1.73 sqM); Sodium 136 mmol/L (137-145)
[2016-11-22 06:46] LABS: Anion Gap 7 mmol/L; Chloride 109 mmol/L (98-107)
[2016-11-22 06:47] LABS: Blood Urea Nitrogen 7 mg/dL (7-17); Potassium 4.1 mmol/L (3.5-5.1)
[2016-11-22 07:55] LABS: Glucose,Whole Blood 145 mg/dL (75-99)
[2016-11-22] MEDS: ATORVASTATIN 10 MG TAB PO SCH (08:02)
[2016-11-22] MEDS: ENOXAPARIN 40 MG/0.4 ML SYRINGE SQ SCH (08:02)
[2016-11-22] MEDS: ATENOLOL 25 MG TAB PO SCH (08:02)
[2016-11-22] MEDS: ASPIRIN 81 MG CHEW PO SCH (08:02)
[2016-11-22] MEDS: GABAPENTIN 100 MG CAP PO SCH ×2 (08:02→20:34)
[2016-11-22] MEDS: PANTOPRAZOLE 40 MG TABLET PO SCH (08:02)
[2016-11-22] MEDS: ISOSORBIDE MONONITRATE ER 30 MG TAB.ER.24H PO SCH (08:02)
[2016-11-22] MEDS: INSULIN LISPRO (humaLOG) 300 UNIT/3 ML VIAL SQ SCH ×3 (08:02→17:54)
[2016-11-22] MEDS: LISINOPRIL 2.5 MG TAB PO SCH (08:02)
[2016-11-22] MEDS: metFORMIN 500 MG TAB PO SCH ×2 (08:02→17:34)
[2016-11-22] MEDS: amLODIPine 10 MG TAB PO SCH (08:02)
[2016-11-22] MEDS: ERTAPENEM 1 GM in SODIUM CHLORIDE 0.9% 50 ML IVPB SCH (08:02)
[2016-11-22] MEDS: HYDROcodone/APAP 10-325MG 1 EACH TAB PO PRN ×3 (08:12→20:34)
[2016-11-22] MEDS: CHOLECALCIFEROL 1,000 UNIT TAB PO SCH (12:19)
[2016-11-22 12:40] LABS: Glucose,Whole Blood 132 mg/dL (75-99)
--- NOTE | 2016-11-22 16:39 | P.PN ---
Progress Note - Text S/P I&D abscess on Mons Pubis POD #2 Pt seen and examined in her bed. I came to change the dressing and packing. Her pain is controlled and she is tolerating a regular diet. She remains afebrile. The erythema is still present but improving. The iodoform packing was removed, there appears to be healthy tissue deep in the incision. The area was repacked and dressed. Pt tolerated well. A1. S/P I&D abscess on Mons Pubis POD #2 2. diabetes 3. hx MRSA 4. hx necrotising fascitis P1. consider consulting wound management to start the dressing/packing changes and follow up care at home.
[2016-11-22] MEDS: ACETAMINOPHEN TAB 325 MG TAB PO PRN (17:22)
[2016-11-22 17:26] LABS: Glucose,Whole Blood 105 mg/dL (75-99)
--- NOTE | 2016-11-22 19:13 | P.PN ---
Progress Note - Text DATE OF SERVICE: 11/22/2016 PRESENTING COMPLAINT: Peripubic abscess INTERVAL HISTORY: Patient admitted with mons pubis abscess, about 50 mL's of purulence. Dressing changed today bedside with surgeon.Continues to have some pain, tolerating her diet, ambulatory to and from the bathroom. REVIEW OF SYSTEMS: Done for constitutional ,cardiovascular, GI, pulmonary,integument with relevant findings as above. CURRENT MEDICATIONS [place], Norvasc, aspirin, Tenormin, Lipitor, Lovenox, ertapenem,Synthroid, Imdur , Lantus. PHYSICAL EXAM: VITAL SIGNS: temperature 98.2, pulse 83, respirations 18, blood pressure 141/84 , oxygen saturation 93% on room air. GENERAL APPEARANCE: Lying in bed, appears anxious. EYES: Pupils equal. Conjunctiva normal. NECK: JVD not raised. Mass not palpable. RESPIRATORY: Respiratory effort normal. Lungs clear to auscultation. CARDIOVASCULAR: First and second sounds normal. No edema. ABDOMEN: Soft. Liver and spleen not palpable. No tenderness. No mass palpable. PSYCHIATRY: Alert and oriented x3. Mood and affect normal. INTEGUMENT: left mons pubis wound redressed approximately 3 cm deep 2 cm wide, good granulation tissue noted. INVESTIGATIONS: sodium 136, BUN 7 creatinine 0.80. labia culture: Proteus mirabellis,blood cultures negative after 72 hours,urine culture negative after 18 hours. ASSESSMENT: Acute large abscess, mons pubis area, causing severe sepsispresent upon admission, culture growing protease mirabellis, status post incision and drainage, improving Morbid obesity, BMI 42.8 Diabetes type 2 mellitus, chronically on insulin. Fibromyalgia. Gastroesophageal reflux disease. Hyperlipidemia. Essential hypertension. Hypothyroidism. Ischemic cardiomyopathy, ejection fraction not known. Peripheral neuropathy from diabetes. Multi-infarcts some dementia causing ischemic stroke. Gait dysfunction, baseline using a walker. Chronic nicotine dependence. Patient is a smoker. Septic shock IV fluids, now resolved. PLAN: Will await input from infectious disease regarding sensitivities for antibiotic therapy. Continue current plan and treatment. LABORER CEMENT GUN [employer]ACING statement: Patient was seen and examined by nurse practitioner Azucena Smiley in all elements of the case discussed with attending is Dr. Rodriguez
[2016-11-22 21:25] LABS: Glucose,Whole Blood 91 mg/dL (75-99)
[2016-11-22] MEDS: INSULIN GLARGINE 100 UNIT/ML 10 ML VIAL SQ SCH (21:34)
[2016-11-23] MEDS: HYDROcodone/APAP 10-325MG 1 EACH TAB PO PRN ×4 (03:06→18:33)
[2016-11-23] MEDS: LEVOTHYROXINE 25 MCG TAB PO SCH (06:22)
[2016-11-23] MEDS: LEVOTHYROXINE 100 MCG TAB PO SCH (06:22)
[2016-11-23 06:54] LABS: Glucose,Whole Blood 115 mg/dL (75-99)
--- NOTE | 2016-11-23 07:40 | PN ---
DATE OF SERVICE: 11/22/2016 ATTENDING NOTE: This patient was seen and examined by me. I reviewed the note of my nurse practitioner Ms. Smiley. Discussed and reviewed. Additional findings below. The patient is status post pubic abscess, status post I&D. Dressing changes in place. Overall looks much better. Has been up to the bathroom. Some pain is still present, tolerating a diet. Overall feels much better. On examination, afebrile. LUNGS: Decreased breath sounds. CARDIOVASCULAR: First and second sounds normal. Dressing over the site. INVESTIGATIONS: Cultures growing Proteus mirabilis. ASSESSMENT: 1. Large abscess growing Proteus mirabilis status post I&D. 2. Status post septic shock, now resolved. PLAN: Patient is overall doing much better, continue antibiotics and surgical care per surgeons. the patient antibiotics will be changed per Dr. Hills depending on sensitivity. Follow.
[2016-11-23] MEDS: GABAPENTIN 100 MG CAP PO SCH ×2 (07:43→20:00)
[2016-11-23] MEDS: ATENOLOL 25 MG TAB PO SCH (07:43)
[2016-11-23] MEDS: ASPIRIN 81 MG CHEW PO SCH (07:43)
[2016-11-23] MEDS: ENOXAPARIN 40 MG/0.4 ML SYRINGE SQ SCH (07:43)
[2016-11-23] MEDS: LISINOPRIL 2.5 MG TAB PO SCH (07:43)
[2016-11-23] MEDS: CHOLECALCIFEROL 1,000 UNIT TAB PO SCH (07:44)
[2016-11-23] MEDS: ATORVASTATIN 10 MG TAB PO SCH (07:44)
[2016-11-23] MEDS: metFORMIN 500 MG TAB PO SCH ×2 (07:44→17:42)
[2016-11-23] MEDS: PANTOPRAZOLE 40 MG TABLET PO SCH (07:44)
[2016-11-23] MEDS: INSULIN LISPRO (humaLOG) 300 UNIT/3 ML VIAL SQ SCH ×3 (07:44→17:42)
[2016-11-23] MEDS: ERTAPENEM 1 GM in SODIUM CHLORIDE 0.9% 50 ML IVPB SCH (07:44)
[2016-11-23] MEDS: amLODIPine 10 MG TAB PO SCH (07:44)
[2016-11-23] MEDS: ISOSORBIDE MONONITRATE ER 30 MG TAB.ER.24H PO SCH (07:44)
[2016-11-23 08:30] LABS: Basophils % (A) 1 %; CH 32.6; CHCM 33.1; Eosinophils # (A) 0.2 k/uL (0-0.7); Eosinophils % (A) 4 %; HCT 43.9 % (34.0-46.0); HDW 2.57; HGB 14.2 gm/dL (11.4-16.0); Luc % (Auto) 3; Lymphocytes # (A) 0.8 k/uL (1.0-4.8); Lymphocytes % (A) 14 %; MCHC 32.3 g/dL (31.0-37.0); Mean Platelet Volume 9.2; Monocytes # (A) 0.4 k/uL (0-1.0); Monocytes % (A) 6 %; Neutrophils # (A) 4.3 k/uL (1.3-7.7); Neutrophils % (A) 72 %; RBC 4.43 m/uL (3.80-5.40); RDW 13.6 % (11.5-15.5); WBC 5.9 k/uL (3.8-10.6); WBC (Perox) 5.86
[2016-11-23 09:01] LABS: Anion Gap 12 mmol/L; Blood Urea Nitrogen 8 mg/dL (7-17); Calcium 8.2 mg/dL (8.4-10.2); Carbon Dioxide 22 mmol/L (22-30); Chloride 106 mmol/L (98-107); Glucose 121 mg/dL (74-99); Non-African American GFR(MDRD) >60 (>60 ml/min/1.73 sqM); Potassium 4.1 mmol/L (3.5-5.1); Sodium 140 mmol/L (137-145)
--- NOTE | 2016-11-23 09:17 | P.PN ---
Progress Note - Text S/P I&D of Abscess on Mons Pubis POD #3 Patient seen and examined in the bed. She was concerned because her dressing soaked through last night. THere is just serous drainage and patient was reassured. I did change the iodoform packing and the dressing this morning. The erythema around the incision and panus have significantly improved. The culture came back showing proteus mirabilus. The antibiotics she is on are working and she is improving. I would like to work toward discharging her. She does not drive or walk without a walker. She will need to be put on oral antibiotics and have someone come to her house daily for packing and dressing changes. I did page Dr Rodriguez and the conference planner who have yet to get back with me.
[2016-11-23 12:19] LABS: Glucose,Whole Blood 106 mg/dL (75-99)
--- NOTE | 2016-11-23 12:31 | P.GSCN ---
History of Present Illness Consult date: 11/23/16 Reason for Consult: This is a 51-year-old female who is admitted through the emergency room with complaints of all her swelling and pain. Patient had an abscess which was drained by the REAL PROPERTY EVALUATOR service on her pubic area. Patient's been doing well. She is receiving local wound care. Past Medical History Past Medical History: Cancer (endometrial cancer and thyroid cancer), Chest Pain / Angina, Diabetes Mellitus, Eye Disorder, Fibromyalgia, GERD/Reflux, Hyperlipidemia, Hypertension, Thyroid Disorder Additional Past Medical History / Comment(s): Ischemic cardiomyopathy, MIGRAINES , hx. uterine & thyroid cancer with surgery, past hx. flesh eating disease 10 yrs ago-was very ill and intubated/vented, ocular strokes, hypothyroid, beginning of alzheimer's, numbness tingling bilateral legs/feet, pt states she has a sore on the bottom of her L foot at this time that has been there for yrs- being monitored by her service superintendent. Last Myocardial Infarction Date:: unkn History of Any Multi-Drug Resistant Organisms: MRSA Year Discovered:: 2005 MDRO Source:: buttock per pt Past Surgical History: Heart Catheterization, Heart Catheterization With Stent, Hernia Repair, Hysterectomy Additional Past Surgical History / Comment(s): TRACH, thyroidectomy, hiatal hernia repair, colostomy with reversal due to colon involved in buttock flesh eating dx, buttock surgery for flesh eating dx, colonoscopy. D&C. Past Anesthesia/Blood Transfusion Reactions: Previous Problems w/ Anesthesia Additional Past Anesthesia/Blood Transfusion Reaction / Comm: slow to wake up from anesthesia, complications w/general anesthesia-collapsed lung Date of Last Stent Placement:: 11/16/15 Past Psychological History: Anxiety, Depression Additional Psychological History / Comment(s): Pt uses a walker to ambulate. She has a neighbor (paid by the [facility]) who comes in and is a caregiver. She has never driven. Her mom or her implementation specialist payroll take her to [employer]. Smoking Status: Current every day smoker Past Alcohol Use History: None Reported Additional Past Alcohol Use History / Comment(s): STARTED SMOKING AT AGE 16 ( 1981), down to 1ppd Past Drug Use History: None Reported - Past Family History Father Family Medical History: Cancer Additional Family Medical History / Comment(s): HAD BRAIN CANCER AT GE 56 Mother Family Medical History: Rheumatoid Arthritis (RA) Additional Family Medical History / Comment(s): MOM IS 66 Medications and Allergies Home Medications Medication Instructions Recorded Confirmed Type Gabapentin [Neurontin] 100 mg PO BID 04/12/14 11/19/16 History HYDROcodone/APAP 10-325MG [[place] 1 tab PO Q6H PRN 04/12/14 11/19/16 History 10-325] Zolpidem [Ambien] 10 mg PO HS PRN 04/12/14 11/19/16 History Insulin Aspart [NovoLOG] 2 unit SQ AC-TID 08/02/14 11/19/16 History Insulin Glargine,Hum.rec.anlog 56 units SQ HS 08/02/14 11/19/16 History [Lantus Solostar] Isosorbide Mononitrate [Isosorbide 30 mg PO DAILY 11/09/15 11/19/16 History Mononitrate ER] amLODIPine [Norvasc] 10 mg PO DAILY 11/15/15 11/19/16 History Atenolol [Tenormin] 25 mg PO DAILY 11/19/16 11/19/16 History Atorvastatin [Lipitor] 10 mg PO DAILY 11/19/16 11/19/16 History Cholecalciferol [Vitamin D3] 3,000 unit PO DAILY 11/19/16 11/19/16 History LORazepam [Ativan] 0.5 mg PO BID PRN 11/19/16 11/19/16 History Levothyroxine Sodium [Synthroid] 25 mcg PO DAILY 11/19/16 11/19/16 History Levothyroxine Sodium [Synthroid] 200 mcg PO DAILY 11/19/16 11/19/16 History Lisinopril [Zestril] 2.5 mg PO DAILY 11/19/16 11/19/16 History Allergies Allergy/AdvReac Type Severity Reaction Status Date / Time No Known Allergies Allergy Verified 11/19/16 10:25 Surgical - Exam Vital Signs Temp Pulse Resp BP Pulse Ox 98.4 F 80 20 116/86 96 11/19/16 10:03 11/19/16 10:03 11/19/16 10:03 11/19/16 10:03 11/19/16 10:03 - General well developed, no distress - Eyes PERRL - ENT normal pinna - Neck no masses - Respiratory normal expansion - Cardiovascular Rhythm: regular - Abdomen Healing wound over pubic area. Abdomen: soft, non tender Results - Labs 11/23/16 08:06 11/23/16 08:06 Abnormal Lab Results - Last 24 Hours (Table) 11/22/16 11/22/16 11/23/16 Range/Units 12:38 17:14 06:52 Lymphocytes # (1.0-4.8) k/uL Glucose (74-99) mg/dL POC Glucose (mg/dL) 132 H 105 H 115 H (75-99) mg/dL Calcium (8.4-10.2) mg/dL 11/23/16 11/23/16 11/23/16 Range/Units 08:06 08:06 12:14 Lymphocytes # 0.8 L (1.0-4.8) k/uL Glucose 121 H (74-99) mg/dL POC Glucose (mg/dL) 106 H (75-99) mg/dL Calcium 8.2 L (8.4-10.2) mg/dL Microbiology - Last 24 Hours (Table) 11/20/16 12:56 Gram Stain - Final Labia Wound Culture - Final Proteus mirabilis 11/19/16 11:20 Blood Culture - Preliminary Blood No Growth after 72 hours Diabetes panel 11/23/16 Range/Units 08:06 Sodium 140 (137-145) mmol/L Potassium 4.1 (3.5-5.1) mmol/L Chloride 106 (98-107) mmol/L Carbon Dioxide 22 (22-30) mmol/L BUN 8 (7-17) mg/dL Creatinine 0.80 (0.52-1.04) mg/dL Glucose 121 H (74-99) mg/dL Calcium 8.2 L (8.4-10.2) mg/dL Calcium panel 11/23/16 Range/Units 08:06 Calcium 8.2 L (8.4-10.2) mg/dL Pituitary panel 11/23/16 Range/Units 08:06 Sodium 140 (137-145) mmol/L Potassium 4.1 (3.5-5.1) mmol/L Chloride 106 (98-107) mmol/L Carbon Dioxide 22 (22-30) mmol/L BUN 8 (7-17) mg/dL Creatinine 0.80 (0.52-1.04) mg/dL Glucose 121 H (74-99) mg/dL Calcium 8.2 L (8.4-10.2) mg/dL Adrenal panel 11/23/16 Range/Units 08:06 Sodium 140 (137-145) mmol/L Potassium 4.1 (3.5-5.1) mmol/L Chloride 106 (98-107) mmol/L Carbon Dioxide 22 (22-30) mmol/L BUN 8 (7-17) mg/dL Creatinine 0.80 (0.52-1.04) mg/dL Glucose 121 H (74-99) mg/dL Calcium 8.2 L (8.4-10.2) mg/dL Assessment and Plan Plan: Postop I&D of pubic abscess. Patient will be managed by the REAL PROPERTY EVALUATOR service.
[2016-11-23] MEDS: VANCOMYCIN 2,000 MG in SODIUM CHLORIDE 0.9% 500 ML IVPB SCH (13:40)
--- NOTE | 2016-11-23 16:49 | P.PN ---
Progress Note - Text DATE OF SERVICE: 11/23/2016 PRESENTING COMPLAINT: Peripubic abscess INTERVAL HISTORY: Patient admitted with mons pubis abscess, about 50 mL's of purulence. Dressing changed today bedside with surgeon.Continues to have some pain, improves each day, tolerating her diet, ambulatory to and from the bathroom with a walker which is her baseline, moved her bowels. REVIEW OF SYSTEMS: Done for constitutional ,cardiovascular, GI, pulmonary,integument with relevant findings as above. CURRENT MEDICATIONS [place], Norvasc, aspirin, Tenormin, Lipitor, Lovenox, ertapenem,Synthroid, Imdur , Lantus. PHYSICAL EXAM: VITAL SIGNS: 98.1, pulse 61 respiratory rate 16, blood pressure 140/88, oxygen saturation 92% on room air GENERAL APPEARANCE: Lying in bed, appears comfortable. EYES: Pupils equal. Conjunctiva normal. NECK: JVD not raised. Mass not palpable. RESPIRATORY: Respiratory effort normal. Lungs clear to auscultation. CARDIOVASCULAR: First and second sounds normal. No edema. ABDOMEN: Soft. Liver and spleen not palpable. No tenderness. No mass palpable. PSYCHIATRY: Alert and oriented x3. Mood and affect normal. INTEGUMENT: left mons pubis wound redressed approximately 3 cm deep 2 cm wide, good granulation tissue noted. INVESTIGATIONS: Accu-Cheks noted, CBC and BMP unremarkable labia culture: Proteus mirabellis,blood cultures negative after 96 hours,urine culture negative after 18 hours. ASSESSMENT: Acute large abscess, mons pubis area, culture growing protease mirabellis, status post incision and drainage, improving Morbid obesity, BMI 42.8 Diabetes type 2 mellitus, chronically on insulin. Fibromyalgia. Gastroesophageal reflux disease. Hyperlipidemia. Essential hypertension. Hypothyroidism. Ischemic cardiomyopathy, ejection fraction not known. Peripheral neuropathy from diabetes. Multi-infarcts some dementia causing ischemic stroke. Gait dysfunction, baseline using a walker. Chronic nicotine dependence. Patient is a smoker. Status post septic shock , now resolved. PLAN: Overall patient is improving on current treatment plan, discharge plan possibly by Saturday if going home will need home care for dressing changes, and antibiotics, or ECF placement, waiting for additional input from infectious disease regarding antibiotics. RISK AND INSURANCE CONSULTANT statement: Patient was seen and examined by nurse practitioner Azucena Smiley in all elements of the case discussed with attending is Dr. Rodriguez
[2016-11-23 17:19] LABS: Glucose,Whole Blood 95 mg/dL (75-99)
[2016-11-23] MEDS: ZOLPIDEM 10 MG TAB PO PRN (20:00)
[2016-11-23 21:06] LABS: Glucose,Whole Blood 124 mg/dL (75-99)
[2016-11-23] MEDS: INSULIN GLARGINE 100 UNIT/ML 10 ML VIAL SQ SCH (22:06)
[2016-11-24] MEDS: HYDROcodone/APAP 10-325MG 1 EACH TAB PO PRN ×3 (00:35→14:50)
[2016-11-24] MEDS: LEVOTHYROXINE 100 MCG TAB PO SCH (06:27)
[2016-11-24] MEDS: LEVOTHYROXINE 25 MCG TAB PO SCH (06:28)
[2016-11-24] MEDS: VANCOMYCIN 2,000 MG in SODIUM CHLORIDE 0.9% 500 ML IVPB SCH ×2 (06:28→21:27)
--- NOTE | 2016-11-24 07:18 | PN ---
DATE OF SERVICE: 11/23/2016 ATTENDING NOTE: This patient was seen by my nurse practitioner, Ms. Smiley. I discussed and reviewed. Additional findings below. This patient with pubic abscess, status post I&D continues to improve. Patient has been up to the bathroom. Overall feeling better. Current medication includes IV ertapenem and vancomycin. On examination, afebrile, blood pressure 140/88. LUNGS: Decreased breath sounds. CARDIOVASCULAR: First and second sounds normal. INVESTIGATIONS: The patient is afebrile. Wound cultures are growing Proteus mirabilis. ASSESSMENT: 1. Acute large abscess in the mons pubis area, status post I&D. Cultures growing Proteus mirabilis. 2. Status post septic shock PLAN: Continue current medication and treatment plan. Antibiotics are to continue, which is being correlated by Dr. Hills. Dressing changes per Dr. Oliver. Will follow.
[2016-11-24 07:37] LABS: Basophils # (A) 0.1 k/uL (0-0.2); Basophils % (A) 1 %; CH 32.3; Eosinophils # (A) 0.2 k/uL (0-0.7); Eosinophils % (A) 5 %; HCT 43.1 % (34.0-46.0); HDW 2.53; HGB 14.4 gm/dL (11.4-16.0); Luc # (Auto) 0.19; Luc % (Auto) 4; Lymphocytes # (A) 0.8 k/uL (1.0-4.8); Lymphocytes % (A) 18 %; MCH 32.8 pg (25.0-35.0); MCHC 33.3 g/dL (31.0-37.0); MCV 98.4 fL (80.0-100.0); Mean Platelet Volume 8.7; Monocytes # (A) 0.3 k/uL (0-1.0); Monocytes % (A) 7 %; Neutrophils % (A) 65 %; RBC 4.38 m/uL (3.80-5.40); RDW 13.4 % (11.5-15.5); WBC 4.6 k/uL (3.8-10.6)
[2016-11-24 07:40] LABS: Glucose,Whole Blood 126 mg/dL (75-99)
[2016-11-24 08:03] LABS: Anion Gap 11 mmol/L; Blood Urea Nitrogen 8 mg/dL (7-17); Carbon Dioxide 22 mmol/L (22-30); Chloride 107 mmol/L (98-107); Glucose 118 mg/dL (74-99); Non-African American GFR(MDRD) >60 (>60 ml/min/1.73 sqM); Sodium 140 mmol/L (137-145)
[2016-11-24] MEDS: ASPIRIN 81 MG CHEW PO SCH (08:16)
[2016-11-24] MEDS: metFORMIN 500 MG TAB PO SCH ×2 (08:16→18:12)
[2016-11-24] MEDS: ATENOLOL 25 MG TAB PO SCH (08:16)
[2016-11-24] MEDS: ISOSORBIDE MONONITRATE ER 30 MG TAB.ER.24H PO SCH (08:16)
[2016-11-24] MEDS: ATORVASTATIN 10 MG TAB PO SCH (08:16)
[2016-11-24] MEDS: GABAPENTIN 100 MG CAP PO SCH ×2 (08:16→20:00)
[2016-11-24] MEDS: PANTOPRAZOLE 40 MG TABLET PO SCH (08:16)
[2016-11-24] MEDS: amLODIPine 10 MG TAB PO SCH (08:16)
[2016-11-24] MEDS: ENOXAPARIN 40 MG/0.4 ML SYRINGE SQ SCH (08:16)
[2016-11-24] MEDS: LISINOPRIL 2.5 MG TAB PO SCH (08:16)
[2016-11-24] MEDS: INSULIN LISPRO (humaLOG) 300 UNIT/3 ML VIAL SQ SCH ×3 (08:19→18:12)
[2016-11-24] MEDS: ERTAPENEM 1 GM in SODIUM CHLORIDE 0.9% 50 ML IVPB SCH (09:40)
[2016-11-24 12:04] LABS: Glucose,Whole Blood 127 mg/dL (75-99)
[2016-11-24] MEDS: CHOLECALCIFEROL 1,000 UNIT TAB PO SCH (12:32)
--- NOTE | 2016-11-24 16:56 | P.PN ---
Progress Note - Text DATE OF SERVICE: 11/24/2016 PRESENTING COMPLAINT: Peripubic abscess INTERVAL HISTORY: Patient admitted with mons pubis abscess, about 50 mL's of purulence. Patient lying in bed appears comfortable. Tolerating her diet, ambulatory within the room with a walker which is her baseline. Had a BM today, however, she does complain today of having diarrhea. REVIEW OF SYSTEMS: Done for constitutional ,cardiovascular, GI, pulmonary,integument with relevant findings as above. CURRENT MEDICATIONS [place], Norvasc, aspirin, Tenormin, Lipitor, Lovenox, ertapenem, vancomycin, Synthroid, Imdur, Lantus. PHYSICAL EXAM: VITAL SIGNS: Temperature 97.3, pulse 67, respiratory rate 16, blood pressure 118 /75, oxygen saturation 90% on room air GENERAL APPEARANCE: Lying in bed, appears comfortable. EYES: Pupils equal. Conjunctiva normal. NECK: JVD not raised. Mass not palpable. RESPIRATORY: Respiratory effort normal. Lungs clear to auscultation. CARDIOVASCULAR: First and second sounds normal. No edema. ABDOMEN: Soft. Liver and spleen not palpable. No tenderness. No mass palpable. PSYCHIATRY: Alert and oriented x3. Mood and affect normal. INTEGUMENT: left mons pubis wound redressed approximately 3 cm deep 2 cm wide, good granulation tissue noted. INVESTIGATIONS: Accu-Cheks noted, CBC and BMP unremarkable labia culture: Proteus mirabellis, Peptostreptococcus blood cultures negative after 96 hours,urine culture negative after 18 hours. ASSESSMENT: Acute large abscess, mons pubis area, culture growing protease mirabellis, and Peptostreptococcus status post incision and drainage, improving Morbid obesity, BMI 42.8 Diabetes type 2 mellitus, chronically on insulin. Fibromyalgia. Gastroesophageal reflux disease. Hyperlipidemia. Essential hypertension. Hypothyroidism. Ischemic cardiomyopathy, ejection fraction not known. Peripheral neuropathy from diabetes. Multi-infarcts some dementia causing ischemic stroke. Gait dysfunction, baseline using a walker. Chronic nicotine dependence. Patient is a smoker. Status post septic shock. PLAN: Overall patient is doing well on current treatment plan. Organism found and cultures today as listed above. Await input from infectious disease and sensitivities from the lab. Plan of care and discharge plan discussed with the patient, likely will go home Saturday. We'll continue to follow closely AUTOMOBILE SERVICE WRITER statement: Patient was seen and examined by nurse practitioner Azucena Smiley in all elements of the case discussed with attending Dr. Davis.
[2016-11-24 17:24] LABS: Glucose,Whole Blood 150 mg/dL (75-99)
[2016-11-24] MEDS: ACETAMINOPHEN TAB 325 MG TAB PO PRN (18:17)
--- NOTE | 2016-11-24 19:55 | P.PN ---
Subjective Principal diagnosis: Abscess left groin This is a 51-year-old female that is known to ID service with history of necrotizing fasciitis of the buttocks in 2005. Patient gives history of sudden onset about 3 days ago of redness and swelling in the left groin area. She states she developed fever yesterday, feeling tired and weak. She came into [facility] emergency center. She's had fevers up to 102.4 with low blood pressure and leukocytosis of 18.6. CAT scan of the pelvis without contrast showed widespread marked vulvar edematous change without abscess and without soft tissue emphysema. Patient was initially seen by Dr. Ramirez and consult changed to Dr. Ribera. Dr. Mckenzie and Dr. Oliver are following. Patient had an I&D today with Dr. Oliver. She has been on Unasyn and vancomycin. She is now feeling considerably better. Pain is improved. No difficulty with bowel movements. No nayla diarrhea. Objective - Vital Signs Vital signs: Vital Signs Temp 97.0 F L 11/24/16 15:00 Pulse 59 L 11/24/16 15:00 Resp 16 11/24/16 15:00 BP 114/61 11/24/16 15:00 Pulse Ox 90 L 11/24/16 15:00 Intake & Output 11/24/16 11/24/16 11/25/16 06:59 18:59 06:59 Intake Total 730 200 Balance 730 200 Intake: Oral 730 200 Other: Voiding Method Toilet # Voids 2 2 # Bowel Movements 1 - Exam Gen: This is a morbidly obese 51-year-old female. She is resting in the ICU bed and appears to be comfortable but noticed to be grimacing with any movement due to pain in the left groin. HEENT: Head is atraumatic, normocephalic. Pupils equal, round. Sclerae is anicteric. Conjunctiva pink. Mucous membranes of the mouth are dry. No thrush noted. Dentition is in poor order. NECK: Supple. No JVD. No lymphadenopathy. No thyromegaly. LUNGS: Clear to auscultation. No wheezes or rhonchi. No intercostal retractions. HEART: Regular rate and rhythm. No murmur. ABDOMEN: Morbidly obese. Soft. Bowel sounds are present. Incision and drainage site to the left mons pubis is packed with the erythema and swelling improved and is less tender. She is able to sit up with much less pain in the last evaluation. EXTREMITIES: No pedal edema. Dorsalis pedis weak bilaterally. NEUROLOGICAL: Patient is awake, alert and oriented x3. - Labs CBC & Chem 7: 11/24/16 07:10 11/24/16 07:10 Labs: Abnormal Lab Results - Last 24 Hours (Table) 11/23/16 11/24/16 11/24/16 Range/Units 21:02 07:10 07:10 Lymphocytes # 0.8 L (1.0-4.8) k/uL Glucose 118 H (74-99) mg/dL POC Glucose (mg/dL) 124 H (75-99) mg/dL Calcium 8.0 L (8.4-10.2) mg/dL 11/24/16 11/24/16 11/24/16 Range/Units 07:26 11:56 17:09 Lymphocytes # (1.0-4.8) k/uL Glucose (74-99) mg/dL POC Glucose (mg/dL) 126 H 127 H 150 H (75-99) mg/dL Calcium (8.4-10.2) mg/dL Microbiology - Last 24 Hours (Table) 11/19/16 11:20 Blood Culture - Preliminary Blood No Growth after 120 hours 11/20/16 12:56 Anaerobic Culture - Final Labia Anaerobic Gm Negative Bacilli Anaerobic Gm Negative Bacilli#2 Peptostreptococcus species Laboratory Results WBC 4.6 k/uL (3.8-10.6) 11/24/16 07:10 RBC 4.38 m/uL (3.80-5.40) 11/24/16 07:10 Hgb 14.4 gm/dL (11.4-16.0) 11/24/16 07:10 Hct 43.1 % (34.0-46.0) 11/24/16 07:10 MCV 98.4 fL (80.0-100.0) 11/24/16 07:10 MCH 32.8 pg (25.0-35.0) 11/24/16 07:10 MCHC 33.3 g/dL (31.0-37.0) 11/24/16 07:10 RDW 13.4 % (11.5-15.5) 11/24/16 07:10 Plt Count 178 k/uL (150-450) 11/24/16 07:10 Neutrophils % 65 % 11/24/16 07:10 Lymphocytes % 18 % 11/24/16 07:10 Monocytes % 7 % 11/24/16 07:10 Eosinophils % 5 % 11/24/16 07:10 Basophils % 1 % 11/24/16 07:10 Neutrophils # 3.0 k/uL (1.3-7.7) 11/24/16 07:10 Lymphocytes # 0.8 k/uL (1.0-4.8) L 11/24/16 07:10 Monocytes # 0.3 k/uL (0-1.0) 11/24/16 07:10 Eosinophils # 0.2 k/uL (0-0.7) 11/24/16 07:10 Basophils # 0.1 k/uL (0-0.2) 11/24/16 07:10 Sodium 140 mmol/L (137-145) 11/24/16 07:10 Potassium 4.0 mmol/L (3.5-5.1) 11/24/16 07:10 Chloride 107 mmol/L (98-107) 11/24/16 07:10 Carbon Dioxide 22 mmol/L (22-30) 11/24/16 07:10 Anion Gap 11 mmol/L 11/24/16 07:10 BUN 8 mg/dL (7-17) 11/24/16 07:10 Creatinine 0.72 mg/dL (0.52-1.04) 11/24/16 07:10 Est GFR (MDRD) Af Amer >60 (>60 ml/min/1.73 sqM) 11/24/16 07:10 Est GFR (MDRD) Non-Af >60 (>60 ml/min/1.73 sqM) 11/24/16 07:10 Glucose 118 mg/dL (74-99) H 11/24/16 07:10 POC Glucose (mg/dL) 150 mg/dL (75-99) H 11/24/16 17:09 POC Glu Brass Roller KURTIS Genevieve Aguila 11/24/16 17:[address] Glu mg/dL 258 mg/dL 11/20/16 04:22 Hemoglobin A1c 10.6 % (4.2-6.1) H 11/20/16 04:22 Plasma Lactic Acid [place] 1.3 mmol/L (0.7-2.0) 11/19/16 16:31 Calcium 8.0 mg/dL (8.4-10.2) L 11/24/16 07:10 Phosphorus 3.1 mg/dL (2.5-4.5) 11/20/16 04:22 Magnesium 1.7 mg/dL (1.6-2.3) 11/21/16 08:17 Total Bilirubin 0.9 mg/dL (0.2-1.3) 11/20/16 04:22 AST 24 U/L (14-36) 11/20/16 04:22 ALT 32 U/L (9-52) 11/20/16 04:22 Alkaline Phosphatase 79 U/L (38-126) 11/20/16 04:22 Total Protein 5.6 g/dL (6.3-8.2) L 11/20/16 04:22 Albumin 2.8 g/dL (3.5-5.0) L 11/20/16 04:22 Urine Color Yellow 11/19/16 19:05 Urine Appearance Cloudy (Clear) H 11/19/16 19:05 Urine pH 5.5 (5.0-8.0) 11/19/16 19:05 Ur Specific [place] 1.023 (1.001-1.035) 11/19/16 19:05 Urine Protein 2+ (Negative) H 11/19/16 19:05 Urine Glucose (UA) 4+ (Negative) H 11/19/16 19:05 Urine Ketones Trace (Negative) H 11/19/16 19:05 Urine Blood Negative (Negative) 11/19/16 19:05 Urine Nitrite Negative (Negative) 11/19/16 19:05 Urine Bilirubin Negative (Negative) 11/19/16 19:05 Urine Urobilinogen 3.0 mg/dL (<2.0) 11/19/16 19:05 Ur Leukocyte Esterase Negative (Negative) 11/19/16 19:05 Urine RBC 19 /hpf (0-5) H 11/19/16 19:05 Urine WBC 15 /hpf (0-5) H 11/19/16 19:05 Ur Squamous Epith Cells 1 /hpf (0-4) 11/19/16 19:05 Hyaline Casts 3 /lpf (0-2) H 11/19/16 19:05 Urine Mucus Rare /hpf (None) H 11/19/16 19:05 Urine Yeast (Budding) Many /hpf (None) H 11/19/16 19:05 Vancomycin Trough 15.4 ug/mL 11/22/16 05:26 Microbiology 11/19/16 11:20 Blood Blood Culture - Preliminary No Growth after 120 hours 11/20/16 12:56 Labia Anaerobic Culture - Final Anaerobic Gm Negative Bacilli Anaerobic Gm Negative Bacilli#2 Peptostreptococcus species 11/20/16 12:56 Labia Gram Stain - Final 11/20/16 12:56 Labia Wound Culture - Final Proteus mirabilis 11/19/16 19:05 Urine,Catheterized Urine Culture - Final Assessment and Plan (1) Abscess or cellulitis of groin Narrative/Plan: 51-year-old woman who is status post onset of significant pain to her left groin area. There was evidence of an extensive abscess is now status post incision and drainage. The site is being packed. Other than some pain at the time of packing she's doing considerably better. No new symptoms of an noted. Blood cultures are negative. Urine culture is negative. Wound culture reveals evidence of Proteus mirabilis as well as anaerobic gram- negative bacilli and Peptostreptococcus. Doing well with current antibiotic therapy. The vancomycin is discontinued. Is receiving ertapenem and is doing quite well. If she transmissions for discharge to home oral Augmentin can be utilized. Local wound care with home care can be done. Packing with Aquacel silver will allow 3 times a week dressing changes in the home setting. We'll be happy to follow her in the wound healing Center. Status: Acute (2) Diabetes mellitus Status: Acute (3) Obesity Status: Acute
[2016-11-24] MEDS: ZOLPIDEM 10 MG TAB PO PRN (20:00)
[2016-11-24 20:30] LABS: Glucose,Whole Blood 167 mg/dL (75-99)
[2016-11-24] MEDS: INSULIN GLARGINE 100 UNIT/ML 10 ML VIAL SQ SCH (21:26)
[2016-11-25] MEDS: LEVOTHYROXINE 25 MCG TAB PO SCH (06:37)
[2016-11-25] MEDS: LEVOTHYROXINE 100 MCG TAB PO SCH (06:37)
[2016-11-25 06:56] LABS: Glucose,Whole Blood 136 mg/dL (75-99)
[2016-11-25 07:33] VITALS: BP 133/78; PULSE 69; RESP 16; TEMP 96.5
[2016-11-25] MEDS: ATENOLOL 25 MG TAB PO SCH (08:20)
[2016-11-25] MEDS: LISINOPRIL 2.5 MG TAB PO SCH (08:20)
[2016-11-25] MEDS: INSULIN LISPRO (humaLOG) 300 UNIT/3 ML VIAL SQ SCH ×2 (08:20→12:41)
[2016-11-25] MEDS: ENOXAPARIN 40 MG/0.4 ML SYRINGE SQ SCH (08:20)
[2016-11-25] MEDS: amLODIPine 10 MG TAB PO SCH (08:20)
[2016-11-25] MEDS: GABAPENTIN 100 MG CAP PO SCH (08:20)
[2016-11-25] MEDS: ISOSORBIDE MONONITRATE ER 30 MG TAB.ER.24H PO SCH (08:20)
[2016-11-25] MEDS: metFORMIN 500 MG TAB PO SCH (08:20)
[2016-11-25] MEDS: PANTOPRAZOLE 40 MG TABLET PO SCH (08:20)
[2016-11-25] MEDS: ERTAPENEM 1 GM in SODIUM CHLORIDE 0.9% 50 ML IVPB SCH (08:20)
[2016-11-25] MEDS: ASPIRIN 81 MG CHEW PO SCH (08:20)
[2016-11-25] MEDS: ATORVASTATIN 10 MG TAB PO SCH (08:20)
[2016-11-25] MEDS: HYDROcodone/APAP 10-325MG 1 EACH TAB PO PRN ×2 (08:28→13:31)
[2016-11-25 09:01] LABS: Basophils # (A) 0.1 k/uL (0-0.2); Basophils % (A) 1 %; CH 32.6; CHCM 33.8; Eosinophils # (A) 0.2 k/uL (0-0.7); Eosinophils % (A) 3 %; HCT 45.6 % (34.0-46.0); HDW 2.51; HGB 14.7 gm/dL (11.4-16.0); Luc # (Auto) 0.24; Luc % (Auto) 3; Lymphocytes # (A) 1.3 k/uL (1.0-4.8); Lymphocytes % (A) 18 %; MCH 31.3 pg (25.0-35.0); MCHC 32.3 g/dL (31.0-37.0); MCV 96.9 fL (80.0-100.0); Mean Platelet Volume 8.9; Monocytes # (A) 0.4 k/uL (0-1.0); Monocytes % (A) 5 %; Neutrophils # (A) 4.9 k/uL (1.3-7.7); Neutrophils % (A) 70 %; RDW 13.6 % (11.5-15.5); WBC (Perox) 7.12
[2016-11-25] MEDS: ACETAMINOPHEN TAB 325 MG TAB PO PRN (11:19)
--- NOTE | 2016-11-25 12:06 | PN ---
DATE OF SERVICE: 11/24/2016 ATTENDING NOTE: This patient was seen and examined by me earlier today. I reviewed the note of my nurse practitioner, Ms. Smiley. I reviewed, discussed with additional findings below. Patient is status post I&D of pubic abscess growing Proteus mirabilis, doing much better. Up and about to the bathroom. Tolerating a diet. On exam, LUNGS: Improved air entry with mild wheezing. CARDIOVASCULAR: First and second sounds normal. ASSESSMENT: Left pubic area abscess, status post I&D, growing Proteus mirabilis. Vancomycin has been discontinued. Patient can be discharged home on Augmentin tomorrow. Will arrange for home care for wound dressing. Care was discussed with the patient.
[2016-11-25 12:26] LABS: Glucose,Whole Blood 146 mg/dL (75-99)
[2016-11-25] MEDS: CHOLECALCIFEROL 1,000 UNIT TAB PO SCH (12:41)
[2016-11-25] MEDS ORDERED: VANCOMYCIN TROUGH DUE 1 EACH MISC MISCELLANE ONE (13:00)
[2016-11-25] MEDS: VANCOMYCIN 2,000 MG in SODIUM CHLORIDE 0.9% 500 ML IVPB SCH (13:31)
--- NOTE | 2016-11-26 19:59 | DS ---
DATE OF ADMISSION: 11/19/2016 DATE OF DISCHARGE: 11/25/2016 FINAL DIAGNOSES: 1. Acute large pubic area abscess. 2. Cultures growing Proteus mirabilis and Peptostreptococcus, status post I&D present on admission. 3. Morbid obesity, body mass index 42.8. 4. Diabetes mellitus type 2, chronically on insulin. 5. Fibromyalgia. 6. Gastroesophageal reflux disease. 7. Hyperlipidemia. 8. Essential hypertension. 9. Hypothyroidism. 10. Ischemic cardiomyopathy; ejection fraction not known. 11. Peripheral neuropathy from diabetes. 12. Multi-infarcts from early dementia from ischemic stroke. 13. Gait dysfunction, baseline uses a walker. 14. Chronic nicotine dependence. Patient is a smoker. 15. Sepsis and septic shock present on admission from the pubic abscess, present at admission. CONSULTATIONS: 1. Dr. Hills from Infectious Disease. 2. Dr. Ribera from General Surgery. 3. Dr. Oliver from [employer]. HOSPITAL COURSE: This patient presented with large abscess in the pubic area. I&D needed to be carried out. Initially patient admitted to ICU and was in septic shock. Did recover well with IV fluids and antibiotics. Cultures were growing Peptostreptococcus and Proteus mirabilis, doing well at the time of discharge. Patient becoming afebrile and white count normalized. Wound was healing really well. DISCHARGE MEDICATIONS: 1. Neurontin 100 mg b.i.d. 2. [place] 10, 1 tablet q.6 p.r.n. 3. Ambien 10 mg q.h.s. p.r.n. 4. Aspirin 81 mg p.o. daily. 5. Prilosec 20 mg with breakfast. 6. Imdur ER 30 mg daily. 7. Norvasc 10 mg daily. 8. Plavix 75 mg p.o. daily. 9. Nitrostat 0.4 sublingual q.5 p.r.n. 10. Metformin 1000 mg b.i.d. 11. Tenormin 25 mg p.o. daily. 12. Lipitor 10 mg p.o. daily. 13. Vitamin D3 3000 units p.o. daily. 14. Ativan 0.5 p.o. b.i.d. p.r.n. 15. Synthroid 225 mcg p.o. daily. 16. Zestril 2.5 p.o. daily. 17. Augmentin 875, 1 tablet p.o. q.12; 20 tablets. 18. NovoLog 6 units a.c. t.i.d. with meals. 19. Lantus 56 units subcu q.h.s. Follow with Dr. Adair in 3 days, follow with Dr. Oliver in one week, [facility] in one week. CBC, in one week. Patient to follow at the [facility] with Dr. Hills. [facility] for dressing changes 3 times a week. Care was discussed in details with the patient. On exam, LUNGS: Decreased breath sounds. CARDIOVASCULAR: First and second sounds are normal. Counseled against smoking. Discharge planning more than 35 minutes.
== END 2016-11-25 15:14 | disposition home health service (06) | DRG 853 ==
LOC: EC 10:01 → 4MS4W 12:40 → 6ICU 12:40 → UNDOADMIN 12:40 → 4MS4W 17:19
PROVIDERS: ADMIT Hospitalist; ATTEND Hospitalist
PROC: 0JBC0ZZ Excision of Pelvic Region Subcutaneous Tissue and Fascia, Open Approach (ICD-10-PCS; principal; 2016-11-20 12:00)
DX: A41.9 Sepsis, unspecified organism (principal); R65.21 Severe sepsis with septic shock; E11.42 Type 2 diabetes mellitus with diabetic polyneuropathy; Z68.41 Body mass index [BMI] 40.0-44.9, adult; L02.214 Cutaneous abscess of groin; L03.314 Cellulitis of groin; N76.4 Abscess of vulva; E66.01 Morbid (severe) obesity due to excess calories; F01.50 Vascular dementia, unspecified severity, without behavioral disturbance, psychotic disturbance, mood disturbance, and anxiety; E78.5 Hyperlipidemia, unspecified; E89.0 Postprocedural hypothyroidism; I69.919 Unspecified symptoms and signs involving cognitive functions following unspecified cerebrovascular disease; F17.200 Nicotine dependence, unspecified, uncomplicated; F32.9 Major depressive disorder, single episode, unspecified; F41.9 Anxiety disorder, unspecified; I10 Essential (primary) hypertension; I25.10 Atherosclerotic heart disease of native coronary artery without angina pectoris; I25.2 Old myocardial infarction; I25.5 Ischemic cardiomyopathy; K21.9 Gastro-esophageal reflux disease without esophagitis; M79.7 Fibromyalgia; Z79.02 Long term (current) use of antithrombotics/antiplatelets; Z79.4 Long term (current) use of insulin; Z79.82 Long term (current) use of aspirin; Z79.84 Long term (current) use of oral hypoglycemic drugs; Z79.899 Other long term (current) drug therapy; Z85.42 Personal history of malignant neoplasm of other parts of uterus; Z85.850 Personal history of malignant neoplasm of thyroid; Z86.14 Personal history of Methicillin resistant Staphylococcus aureus infection; Z90.710 Acquired absence of both cervix and uterus; Z95.5 Presence of coronary angioplasty implant and graft; B96.4 Proteus (mirabilis) (morganii) as the cause of diseases classified elsewhere
CPT/HCPCS: 36415; 72192; 80048; 80053; 80202; 81001; 83036; 83605; 83735; 84100; 85025; 87040; 87070; 87075; 87077; 87086; 87186; 87205; 88304; 96361; 96365; 96366; 96367; 99285

== ENCOUNTER 2016-12-01 20:58 | Emergency (ER) | payer MEDICARE, OTHER ==
[2016-12-01 21:10] VITALS: TEMP 97.7
--- NOTE | 2016-12-01 21:29 | ED ---
Recheck HPI - General Chief Complaint: Recheck/Abnormal Lab/Rx Stated Complaint: Abnormal BP Time Seen by Provider: 12/01/16 21:16 Source: patient Mode of arrival: EMS Limitations: no limitations - History of Present Illness Initial Comments: 51-year-old female presents with elevated blood pressure to the ER. Patient was visited by her visiting nurse due to having boils surgically removed earlier in the week and noticed her blood pressure is high they called the on- call doctor or shoulder come here. She does admit to slight lower extremity edema. Patient denies any chest pain shortness of breath headaches visual changes or dizziness. Patient states she did get placed into new antihypertensive medications this week but she's not sure what they were. No cardiac surgeries. No dysuria. - Related Data Home Medications Medication Instructions Recorded Confirmed Gabapentin [Neurontin] 100 mg PO BID 04/12/14 11/19/16 HYDROcodone/APAP 10-325MG [[place] 1 tab PO Q6H PRN 04/12/14 11/19/16 10-325] Zolpidem [Ambien] 10 mg PO HS PRN 04/12/14 11/19/16 Isosorbide Mononitrate [Isosorbide 30 mg PO DAILY 11/09/15 11/19/16 Mononitrate ER] amLODIPine [Norvasc] 10 mg PO DAILY 11/15/15 11/19/16 Atenolol [Tenormin] 25 mg PO DAILY 11/19/16 11/19/16 Atorvastatin [Lipitor] 10 mg PO DAILY 11/19/16 11/19/16 Cholecalciferol [Vitamin D3] 3,000 unit PO DAILY 11/19/16 11/19/16 LORazepam [Ativan] 0.5 mg PO BID PRN 11/19/16 11/19/16 Levothyroxine Sodium [Synthroid] 25 mcg PO DAILY 11/19/16 11/19/16 Levothyroxine Sodium [Synthroid] 200 mcg PO DAILY 11/19/16 11/19/16 Lisinopril [Zestril] 2.5 mg PO DAILY 11/19/16 11/19/16 Previous Rx's Medication Instructions Recorded Aspirin EC [Ecotrin Low Dose] 81 mg PO DAILY #30 tablet. 04/18/14 Omeprazole [PriLOSEC] 20 mg PO JEROMY-JONNY #30 capsule. 04/18/14 Clopidogrel [Plavix] 75 mg PO DAILY #30 tab 11/17/15 Nitroglycerin Sl Tabs [Nitrostat] 0.4 mg SUBLINGUAL Q5M PRN #25 tab 11/17/15 metFORMIN HCL 1,000 mg PO BID #0 11/17/15 Amoxicillin/Potassium Clav 1 tab PO Q12HR #20 tab 11/25/16 [Augmentin 875-125 Tablet] Insulin Aspart [NovoLOG] 6 unit SQ AC-TID #0 11/25/16 Insulin Glargine [Lantus] 56 unit SQ HS vial 11/25/16 Nystatin 100,000Unit/gm Cream 1 applic TOPICAL TID #90 gm 11/27/16 [Mycostatin Cream] Allergies Allergy/AdvReac Type Severity Reaction Status Date / Time No Known Allergies Allergy Verified 12/01/16 21:10 Review of Systems ROS Statement: Those systems with pertinent positive or pertinent negative responses have been documented in the HPI. ROS Other: All systems not noted in ROS Statement are negative. Constitutional: Denies: fever Gastrointestinal: Denies: abdominal pain, nausea, vomiting Neurological: Denies: headache, weakness, numbness, paresthesias Past Medical History Past Medical History: Cancer, Chest Pain / Angina, Diabetes Mellitus, Eye Disorder, Fibromyalgia, GERD/Reflux, Hyperlipidemia, Hypertension, Thyroid Disorder Additional Past Medical History / Comment(s): Ischemic cardiomyopathy, MIGRAINES , hx. 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 D&C. Past Anesthesia/Blood Transfusion Reactions: Previous Problems w/ Anesthesia Additional Past Anesthesia/Blood Transfusion Reaction / Comment(s): slow to wake up from anesthesia, complications w/general anesthesia-collapsed lung Date of Last Stent Placement:: 11/16/15 Past Psychological History: Anxiety, Depression Smoking Status: Current every day smoker Past Alcohol Use History: None Reported Past Drug Use History: None Reported - Past Family History Father Family Medical History: Cancer Additional Family Medical History / Comment(s): HAD BRAIN CANCER AT GE 56 Mother Family Medical History: Rheumatoid Arthritis (RA) Additional Family Medical History / Comment(s): MOM IS 66 General Exam Limitations: no limitations General appearance: alert, in no apparent distress Eye exam: Present: normal appearance, PERRL, EOMI. Absent: scleral icterus, conjunctival injection, periorbital swelling ENT exam: Present: normal exam, mucous membranes moist Neck exam: Present: normal inspection. Absent: tenderness, meningismus, lymphadenopathy Respiratory exam: Present: normal lung sounds bilaterally. Absent: respiratory distress, wheezes, rales, rhonchi, stridor Cardiovascular Exam: Present: regular rate, normal rhythm, normal heart sounds. Absent: systolic murmur, diastolic murmur, rubs, gallop, clicks GI/Abdominal exam: Present: soft, normal bowel sounds. Absent: distended, tenderness, guarding, rebound, rigid Extremities exam: Present: normal inspection, full ROM, normal capillary refill , other (Mild edema to the lower extremities bilateral nonpitting.). Absent: tenderness, pedal edema, joint swelling, calf tenderness Neurological exam: Present: alert, oriented X3, CN II-XII intact Psychiatric exam: Present: normal affect, normal mood Skin exam: Present: warm, dry, intact, normal color. Absent: rash Course Vital Signs 12/01/16 12/01/16 12/01/16 21:00 21:30 21:45 Temperature 97.7 F Pulse Rate 60 66 71 Respiratory 18 18 20 Rate Blood Pressure 163/89 137/68 132/80 O2 Sat by Pulse 99 99 99 Oximetry 12/01/16 22:45 Temperature Pulse Rate 77 Respiratory 20 Rate Blood Pressure 140/60 O2 Sat by Pulse 99 Oximetry Medical Decision Making - Medical Decision Making Reviewed labs labs and blood pressure readings. Patient stable patient still asymptomatic. Patient will be discharged home to continue to monitor her blood pressure home with herself visiting nurse. Patient to follow-up with family doctor in the office as well. Patient to return sooner if any problems patient to keep feet elevated and watch for increased edema. - Lab Data Result diagrams: 12/01/16 21:46 12/01/16 21:46 Lab Results 12/01/16 12/01/16 Range/Units 21:46 21:46 WBC 9.2 (3.8-10.6) k/uL RBC 5.21 (3.80-5.40) m/uL Hgb 16.4 H (11.4-16.0) gm/dL Hct 51.0 H (34.0-46.0) % MCV 97.8 (80.0-100.0) fL MCH 31.4 (25.0-35.0) pg MCHC 32.1 (31.0-37.0) g/dL RDW 13.8 (11.5-15.5) % Plt Count 297 (150-450) k/uL Neutrophils % 67 % Lymphocytes % 22 % Monocytes % 5 % Eosinophils % 4 % Basophils % 1 % Neutrophils # 6.1 (1.3-7.7) k/uL Lymphocytes # 2.0 (1.0-4.8) k/uL Monocytes # 0.5 (0-1.0) k/uL Eosinophils # 0.3 (0-0.7) k/uL Basophils # 0.1 (0-0.2) k/uL Sodium 142 (137-145) mmol/L Potassium 4.2 (3.5-5.1) mmol/L Chloride 102 (98-107) mmol/L Carbon Dioxide 28 (22-30) mmol/L Anion Gap 12 mmol/L BUN 11 (7-17) mg/dL Creatinine 0.90 (0.52-1.04) mg/dL Est GFR (MDRD) Af Amer >60 (>60 ml/min/1.73 sqM) Est GFR (MDRD) Non-Af >60 (>60 ml/min/1.73 sqM) Glucose 138 H (74-99) mg/dL Calcium 9.0 (8.4-10.2) mg/dL Total Bilirubin 0.5 (0.2-1.3) mg/dL AST 17 (14-36) U/L ALT 31 (9-52) U/L Alkaline Phosphatase 86 (38-126) U/L Total Protein 6.7 (6.3-8.2) g/dL Albumin 3.9 (3.5-5.0) g/dL Disposition Clinical Impression: Hypertension Disposition: HOME SELF-CARE Condition: Good Instructions: DASH Eating Plan (ED), Hypertension (ED) Referrals: Samson Adair DO [Primary Care Provider] - 1-2 days Time of Disposition: 22:54
[2016-12-01 21:51] VITALS: RESP 20
[2016-12-01 22:24] LABS: Basophils # (A) 0.1 k/uL (0-0.2); Basophils % (A) 1 %; CH 32.3; CHCM 33.1; Eosinophils # (A) 0.3 k/uL (0-0.7); Eosinophils % (A) 4 %; HDW 2.46; HGB 16.4 gm/dL (11.4-16.0); Luc # (Auto) 0.22; Luc % (Auto) 2; Lymphocytes % (A) 22 %; MCH 31.4 pg (25.0-35.0); MCHC 32.1 g/dL (31.0-37.0); MCV 97.8 fL (80.0-100.0); Mean Platelet Volume 8.3; Monocytes # (A) 0.5 k/uL (0-1.0); Monocytes % (A) 5 %; Neutrophils # (A) 6.1 k/uL (1.3-7.7); Neutrophils % (A) 67 %; RBC 5.21 m/uL (3.80-5.40); RDW 13.8 % (11.5-15.5); WBC 9.2 k/uL (3.8-10.6); WBC (Perox) 8.91
[2016-12-01 22:35] LABS: ALT 31 U/L (9-52); AST 17 U/L (14-36); Alkaline Phosphatase 86 U/L (38-126); Anion Gap 12 mmol/L; Blood Urea Nitrogen 11 mg/dL (7-17); Carbon Dioxide 28 mmol/L (22-30); Chloride 102 mmol/L (98-107); Glucose 138 mg/dL (74-99); Non-African American GFR(MDRD) >60 (>60 ml/min/1.73 sqM); Potassium 4.2 mmol/L (3.5-5.1); Sodium 142 mmol/L (137-145); Total Bilirubin 0.5 mg/dL (0.2-1.3); Total Protein 6.7 g/dL (6.3-8.2)
[2016-12-01 22:48] VITALS: BP 140/60; PULSE 77
== END 2016-12-01 23:25 | disposition home or self-care (01) ==
LOC: EC 20:58
DX: I10 Essential (primary) hypertension (principal); R60.0 Localized edema; E78.5 Hyperlipidemia, unspecified; E07.9 Disorder of thyroid, unspecified; E89.0 Postprocedural hypothyroidism; F17.200 Nicotine dependence, unspecified, uncomplicated; Z79.899 Other long term (current) drug therapy; Z86.79 Personal history of other diseases of the circulatory system
CPT/HCPCS: 36415; 80053; 85025; 99285

== ENCOUNTER 2017-11-25 19:17 | Emergency (ER) | payer MEDICARE, OTHER ==
[2017-11-25 19:24] VITALS: RESP 18
--- NOTE | 2017-11-25 19:56 | ED ---
Fall HPI - General Chief Complaint: Fall Stated Complaint: Fall Time Seen by Provider: 11/25/17 19:25 Source: patient, EMS Mode of arrival: EMS Limitations: no limitations - History of Present Illness Initial Comments: 52-year-old female presented to the emergency department for a fall. Patient states she has a foot drop from cerebral palsy. Patient states that she fell couple times today and complains of right hip pain. She was unable to get up off the ground so she called 911. Patient denies head injury no loss conscious. She states that she struck her left elbow but has no pain at this time. Patient denies any other complaints. Patient states this is normal for her to fall and that she does use a walker. - Related Data Home Medications Medication Instructions Recorded Confirmed Gabapentin [Neurontin] 100 mg PO BID 04/12/14 11/25/17 Isosorbide Mononitrate [Isosorbide 30 mg PO DAILY 11/09/15 11/25/17 Mononitrate ER] amLODIPine [Norvasc] 10 mg PO DAILY 11/15/15 11/25/17 Atenolol [Tenormin] 25 mg PO DAILY 11/19/16 11/25/17 Atorvastatin [Lipitor] 10 mg PO DAILY 11/19/16 11/25/17 Cholecalciferol [Vitamin D3] 3,000 unit PO DAILY 11/19/16 11/25/17 Levothyroxine Sodium [Synthroid] 25 mcg PO DAILY 11/19/16 11/25/17 Levothyroxine Sodium [Synthroid] 200 mcg PO DAILY 11/19/16 11/25/17 Lisinopril [Zestril] 2.5 mg PO DAILY 11/19/16 11/25/17 Previous Rx's Medication Instructions Recorded Aspirin EC [Ecotrin Low Dose] 81 mg PO DAILY #30 tablet. 04/18/14 Omeprazole [PriLOSEC] 20 mg PO AC-BRKFST #30 capsule. 04/18/14 Nitroglycerin Sl Tabs [Nitrostat] 0.4 mg SUBLINGUAL Q5M PRN #25 tab 11/17/15 metFORMIN HCL 1,000 mg PO BID #0 11/17/15 Insulin Aspart [NovoLOG 6 unit SQ AC-TID #0 11/25/16 (formulary)] Insulin Glargine [Lantus] 56 unit SQ HS vial 11/25/16 Triamcinolone 0.1% Cream [Kenalog] 1 applicatio TOPICAL BID #90 gm 12/17/16 Allergies Allergy/AdvReac Type Severity Reaction Status Date / Time No Known Allergies Allergy Verified 11/25/17 19:53 Review of Systems ROS Statement: Those systems with pertinent positive or pertinent negative responses have been documented in the HPI. ROS Other: All systems not noted in ROS Statement are negative. Past Medical History Past Medical History: Cancer, Chest Pain / Angina, Diabetes Mellitus, Eye Disorder, Fibromyalgia, GERD/Reflux, Hyperlipidemia, Hypertension, Thyroid Disorder Additional Past Medical History / Comment(s): Ischemic cardiomyopathy, MIGRAINES , hx. 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 D&C. Past Anesthesia/Blood Transfusion Reactions: Previous Problems w/ Anesthesia Additional Past Anesthesia/Blood Transfusion Reaction / Comment(s): slow to wake up from anesthesia, complications w/general anesthesia-collapsed lung Date of Last Stent Placement:: 11/16/15 Past Psychological History: Anxiety, Depression Smoking Status: Current every day smoker Past Alcohol Use History: None Reported Past Drug Use History: None Reported - Past Family History Father Family Medical History: Cancer Additional Family Medical History / Comment(s): HAD BRAIN CANCER AT GE 56 Mother Family Medical History: Rheumatoid Arthritis (RA) Additional Family Medical History / Comment(s): MOM IS 66 General Exam Limitations: no limitations General appearance: alert, in no apparent distress Neck exam: Present: normal inspection, full ROM. Absent: tenderness, meningismus, lymphadenopathy Respiratory exam: Present: normal lung sounds bilaterally. Absent: respiratory distress, wheezes, rales, rhonchi, stridor Cardiovascular Exam: Present: regular rate, normal rhythm, normal heart sounds. Absent: systolic murmur, diastolic murmur, rubs, gallop, clicks Extremities exam: Present: other (Upper extremity full range of motion there is an small abrasion noted left elbow with no tenderness palpation, right hip moderate tenderness palpation, pain with range of motion neurovascular intact.) Neurological exam: Present: alert, oriented X3, CN II-XII intact, reflexes normal. Absent: motor sensory deficit Skin exam: Present: warm, dry, intact, normal color. Absent: rash Course Vital Signs 11/25/17 19:21 Temperature 99.0 F Pulse Rate 71 Respiratory 18 Rate Blood Pressure 153/81 O2 Sat by Pulse 95 Oximetry Medical Decision Making - Medical Decision Making 52-year-old female presented for a fall. Patient had x-rays which showed no acute abnormality. Patient was able to ambulate at her normal baseline in the emergency department. Patient will be discharged return parameters were discussed. Disposition Clinical Impression: Fall, Contusion of right hip Disposition: HOME SELF-CARE Condition: Stable Instructions: Hip Contusion (ED) Additional Instructions: Please return to the Emergency Department if symptoms worsen or any other concerns. Is patient prescribed a controlled substance at d/c from ED?: No Referrals: Samson Adair DO [Primary Care Provider] - 1-2 days Time of Disposition: 20:19
--- NOTE | 2017-11-25 20:09 | XR ---
EXAMINATION TYPE: XR Hip RT and AP Pelvis DATE OF EXAM: 11/25/2017 COMPARISON: NONE HISTORY: Hip pain after a fall TECHNIQUE: A single AP view of the pelvis is obtained. Two views of the right hip are obtained. FINDINGS: The pelvic ring is intact. Proximal right femur and hip joint are intact. There is no sign of hip dysplasia. Sacroiliac joints are intact. There is multilevel posterior lumbar spine fusion terrence tomas. There are surgical clips in the pelvis on the left side. IMPRESSION: Negative pelvis and right hip exam. No fracture.
[2017-11-25 20:25] VITALS: BP 137/88; PULSE 69; TEMP 97.8
== END 2017-11-25 20:25 | disposition home or self-care (01) ==
LOC: EC 19:17
DX: S70.01XA Contusion of right hip, initial encounter (principal); S50.312A Abrasion of left elbow, initial encounter; E78.5 Hyperlipidemia, unspecified; I10 Essential (primary) hypertension; E03.9 Hypothyroidism, unspecified; F17.200 Nicotine dependence, unspecified, uncomplicated; Z85.42 Personal history of malignant neoplasm of other parts of uterus; Z85.850 Personal history of malignant neoplasm of thyroid; Z86.14 Personal history of Methicillin resistant Staphylococcus aureus infection; Z95.5 Presence of coronary angioplasty implant and graft; Z95.818 Presence of other cardiac implants and grafts; Z79.899 Other long term (current) drug therapy; W19.XXXA Unspecified fall, initial encounter; Y92.009 Unspecified place in unspecified non-institutional (private) residence as the place of occurrence of the external cause
CPT/HCPCS: 73502; 99284

== ENCOUNTER 2018-04-28 18:05 | Inpatient (IN) | payer MEDICARE, OTHER ==
[2018-04-28] MEDS ORDERED: SODIUM CHLORIDE 0.9% 500 ML 500 ML IV STA (18:45)
[2018-04-28] MEDS ORDERED: MORPHINE SULFATE 4 MG/ML SYRINGE IV STA (18:45)
--- NOTE | 2018-04-28 18:48 | ED ---
General Adult HPI - General Source: patient, EMS, RN notes reviewed Mode of arrival: EMS Limitations: no limitations <Viral Ansari - Last Filed: 04/28/18 19:59> <Fany Mariee - Last Filed: 04/28/18 22:53> - General Chief complaint: Abdominal Pain Stated complaint: Abd pain Time Seen by Provider: 04/28/18 18:38 - History of Present Illness Initial comments: Patient is a pleasant 52-year-old female presenting to the emergency department with complaints of abdominal discomfort. Onset of symptoms was last night. Discomfort has been bothering her since that time. Discomfort is currently 7/ 10. No associated nausea or vomiting. No constipation or diarrhea. No dysuria or hematuria. No history of similar symptoms previously or chronic abdominal problems. Patient is questionable whether or not she could have a fever. (Viral Ansari) - Related Data Home Medications Medication Instructions Recorded Confirmed Gabapentin [Neurontin] 100 mg PO BID 04/12/14 04/28/18 Isosorbide Mononitrate [Isosorbide 30 mg PO DAILY 11/09/15 04/28/18 Mononitrate ER] amLODIPine [Norvasc] 10 mg PO DAILY 11/15/15 04/28/18 Atenolol [Tenormin] 25 mg PO DAILY 11/19/16 04/28/18 Atorvastatin [Lipitor] 10 mg PO DAILY 11/19/16 04/28/18 Cholecalciferol [Vitamin D3] 3,000 unit PO DAILY 11/19/16 04/28/18 Levothyroxine Sodium [Synthroid] 25 mcg PO DAILY 11/19/16 04/28/18 Levothyroxine Sodium [Synthroid] 200 mcg PO DAILY 11/19/16 04/28/18 Lisinopril [Zestril] 2.5 mg PO DAILY 11/19/16 04/28/18 Insulin Aspart [NovoLOG See Protocol SQ AC-TID 04/28/18 04/28/18 (formulary)] Multivitamins, Thera [Multivitamin 1 tab PO DAILY 04/28/18 04/28/18 (formulary)] Previous Rx's Medication Instructions Recorded Aspirin EC [Ecotrin Low Dose] 81 mg PO DAILY #30 tablet. 04/18/14 Omeprazole [PriLOSEC] 20 mg PO AC-BRKFST #30 capsule. 04/18/14 Nitroglycerin Sl Tabs [Nitrostat] 0.4 mg SUBLINGUAL Q5M PRN #25 tab 11/17/15 metFORMIN HCL 1,000 mg PO BID #0 11/17/15 Insulin Glargine [Lantus] 56 unit SQ HS vial 11/25/16 Allergies Allergy/AdvReac Type Severity Reaction Status Date / Time No Known Allergies Allergy Verified 04/28/18 18:41 Review of Systems ROS Other: All systems not noted in ROS Statement are negative. Constitutional: Reports: as per HPI Eyes: Denies: eye pain ENT: Denies: ear pain Respiratory: Denies: cough, dyspnea Cardiovascular: Denies: chest pain Endocrine: Denies: fatigue Gastrointestinal: Reports: abdominal pain. Denies: nausea, diarrhea, constipation Genitourinary: Denies: dysuria, hematuria Musculoskeletal: Denies: back pain Skin: Denies: rash Neurological: Denies: weakness <Viral Ansari - Last Filed: 04/28/18 19:59> ROS Other: All systems not noted in ROS Statement are negative. <Fany Mariee - Last Filed: 04/28/18 22:53> ROS Statement: Those systems with pertinent positive or pertinent negative responses have been documented in the HPI. Past Medical History Past Medical History: Cancer, Chest Pain / Angina, Diabetes Mellitus, Eye Disorder, Fibromyalgia, GERD/Reflux, Hyperlipidemia, Hypertension, Thyroid Disorder Additional Past Medical History / Comment(s): Ischemic cardiomyopathy, MIGRAINES , hx. 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 D&C. Past Anesthesia/Blood Transfusion Reactions: Previous Problems w/ Anesthesia Additional Past Anesthesia/Blood Transfusion Reaction / Comment(s): slow to wake up from anesthesia, complications w/general anesthesia-collapsed lung Date of Last Stent Placement:: 11/16/15 Past Psychological History: Anxiety, Depression Smoking Status: Current every day smoker Past Alcohol Use History: None Reported Past Drug Use History: Marijuana - Past Family History Father Family Medical History: Cancer Additional Family Medical History / Comment(s): HAD BRAIN CANCER AT GE 56 Mother Family Medical History: Rheumatoid Arthritis (RA) Additional Family Medical History / Comment(s): MOM IS 66 <Viral Ansari - Last Filed: 04/28/18 19:59> General Exam Limitations: no limitations General appearance: alert, in no apparent distress Head exam: Present: atraumatic Eye exam: Present: normal appearance, PERRL ENT exam: Present: normal oropharynx Neck exam: Present: normal inspection Respiratory exam: Present: normal lung sounds bilaterally Cardiovascular Exam: Present: regular rate, normal rhythm Expanded Peripheral pulses: 2+: Radial (R), Radial (L), Dorsalis Pedis (R), Dorsalis Pedis (L) GI/Abdominal exam: Present: soft, tenderness (Moderate right-sided tenderness upper and lower quadrants), normal bowel sounds. Absent: distended, guarding, rebound, rigid, pulsatile mass Extremities exam: Present: normal inspection Neurological exam: Present: alert Psychiatric exam: Present: normal affect, normal mood Skin exam: Present: normal color <Viral Ansari - Last Filed: 04/28/18 19:59> Vital Signs 04/28/18 04/28/18 04/28/18 18:41 18:42 20:40 Temperature 100 F H Pulse Rate 91 Respiratory 16 Rate Blood Pressure 130/114 123/99 O2 Sat by Pulse 95 95 Oximetry 04/28/18 22:40 Temperature Pulse Rate Respiratory Rate Blood Pressure 134/86 O2 Sat by Pulse 89 L Oximetry EKG Findings - EKG Comments: EKG Findings:: Normal sinus rhythm 92. SC 154. QRS 88. QT 336. QTc 415. Normal axis. Inferior T wave inversion. Normal QRS. <Viral Ansari - Last Filed: 04/28/18 19:59> Medical Decision Making - Lab Data Result diagrams: 04/28/18 19:05 <Viral Ansari - Last Filed: 04/28/18 19:59> - Lab Data Result diagrams: 04/28/18 19:05 04/28/18 19:55 <Fany Mariee - Last Filed: 04/28/18 22:53> - Medical Decision Making Patient care is signed out to me by Dr. Ansari. Patient presented with right- sided abdominal pain, labs were relatively unremarkable, urinalysis was suggestive of possible urinary tract infection, computed tomography scan was pending at the time of sign out. Computed tomography scan is suggestive of a renal mass versus abscess. Considering these findings in the setting of urinary tract infection I will treat with antibiotics ordered an ultrasound and admit the patient. Patient was updated on plan is agreeable. (Fany Mariee) - Lab Data Lab Results 04/28/18 04/28/18 04/28/18 Range/Units 19:05 19:05 19:05 WBC 8.1 (3.8-10.6) k/uL RBC 4.71 (3.80-5.40) m/uL Hgb 14.6 (11.4-16.0) gm/dL Hct 44.0 (34.0-46.0) % MCV 93.5 (80.0-100.0) fL MCH 30.9 (25.0-35.0) pg MCHC 33.1 (31.0-37.0) g/dL RDW 13.3 (11.5-15.5) % Plt Count 223 (150-450) k/uL Neutrophils % 77 % Lymphocytes % 14 % Monocytes % 5 % Eosinophils % 2 % Basophils % 0 % Neutrophils # 6.2 (1.3-7.7) k/uL Lymphocytes # 1.1 (1.0-4.8) k/uL Monocytes # 0.4 (0-1.0) k/uL Eosinophils # 0.1 (0-0.7) k/uL Basophils # 0.0 (0-0.2) k/uL PT 9.4 (9.0-12.0) sec INR 0.9 (<1.2) APTT 23.6 (22.0-30.0) sec Sodium (137-145) mmol/L Potassium (3.5-5.1) mmol/L Chloride (98-107) mmol/L Carbon Dioxide (22-30) mmol/L Anion Gap mmol/L BUN (7-17) mg/dL Creatinine (0.52-1.04) mg/dL Est GFR (CKD-EPI)AfAm (>60 ml/min/1.73 sqM) Est GFR (CKD-EPI)NonAf (>60 ml/min/1.73 sqM) Glucose (74-99) mg/dL Plasma Lactic Acid [place] 1.9 (0.7-2.0) mmol/L Calcium (8.4-10.2) mg/dL Total Bilirubin (0.2-1.3) mg/dL AST (14-36) U/L ALT (9-52) U/L Alkaline Phosphatase (38-126) U/L Total Protein (6.3-8.2) g/dL Albumin (3.5-5.0) g/dL Amylase (30-110) U/L Lipase (23-300) U/L Urine Color Urine Appearance (Clear) Urine pH (5.0-8.0) Ur Specific [place] (1.001-1.035) Urine Protein (Negative) Urine Glucose (UA) (Negative) Urine Ketones (Negative) Urine Blood (Negative) Urine Nitrite (Negative) Urine Bilirubin (Negative) Urine Urobilinogen (<2.0) mg/dL Ur Leukocyte Esterase (Negative) Urine RBC (0-5) /hpf Urine WBC (0-5) /hpf Ur Squamous Epith Cells (0-4) /hpf Urine Bacteria (None) /hpf Urine Mucus (None) /hpf 04/28/18 04/28/18 Range/Units 19:55 20:05 WBC (3.8-10.6) k/uL RBC (3.80-5.40) m/uL Hgb (11.4-16.0) gm/dL Hct (34.0-46.0) % MCV (80.0-100.0) fL MCH (25.0-35.0) pg MCHC (31.0-37.0) g/dL RDW (11.5-15.5) % Plt Count (150-450) k/uL Neutrophils % % Lymphocytes % % Monocytes % % Eosinophils % % Basophils % % Neutrophils # (1.3-7.7) k/uL Lymphocytes # (1.0-4.8) k/uL Monocytes # (0-1.0) k/uL Eosinophils # (0-0.7) k/uL Basophils # (0-0.2) k/uL PT (9.0-12.0) sec INR (<1.2) APTT (22.0-30.0) sec Sodium 132 L (137-145) mmol/L Potassium 4.2 (3.5-5.1) mmol/L Chloride 97 L (98-107) mmol/L Carbon Dioxide 23 (22-30) mmol/L Anion Gap 12 mmol/L BUN 15 (7-17) mg/dL Creatinine 0.81 (0.52-1.04) mg/dL Est GFR (CKD-EPI)AfAm >90 (>60 ml/min/1.73 sqM) Est GFR (CKD-EPI)NonAf 85 (>60 ml/min/1.73 sqM) Glucose 340 H (74-99) mg/dL Plasma Lactic Acid [place] (0.7-2.0) mmol/L Calcium 8.4 (8.4-10.2) mg/dL Total Bilirubin 0.6 (0.2-1.3) mg/dL AST 30 (14-36) U/L ALT 38 (9-52) U/L Alkaline Phosphatase 127 H (38-126) U/L Total Protein 6.6 (6.3-8.2) g/dL Albumin 3.4 L (3.5-5.0) g/dL Amylase 34 (30-110) U/L Lipase 83 (23-300) U/L Urine Color Yellow Urine Appearance Cloudy H (Clear) Urine pH 5.5 (5.0-8.0) Ur Specific [place] 1.016 (1.001-1.035) Urine Protein 1+ H (Negative) Urine Glucose (UA) 4+ H (Negative) Urine Ketones Negative (Negative) Urine Blood Negative (Negative) Urine Nitrite Positive H (Negative) Urine Bilirubin Negative (Negative) Urine Urobilinogen <2.0 (<2.0) mg/dL Ur Leukocyte Esterase Small H (Negative) Urine RBC <1 (0-5) /hpf Urine WBC 33 H (0-5) /hpf Ur Squamous Epith Cells <1 (0-4) /hpf Urine Bacteria Occasional H (None) /hpf Urine Mucus Rare H (None) /hpf Disposition <Viral Ansari - Last Filed: 04/28/18 19:59> <Fany Mariee - Last Filed: 04/28/18 22:53> Clinical Impression: UTI (urinary tract infection), Renal mass of unknown nature Disposition: ADMITTED IP TO THIS HOSP Condition: Stable Referrals: Samson Adair DO [Primary Care Provider] - 1-2 days
[2018-04-28 19:40] LABS: Basophils % (A) 0 %; Eosinophils # (A) 0.1 k/uL (0-0.7); Eosinophils % (A) 2 %; HGB 14.6 gm/dL (11.4-16.0); Lymphocytes # (A) 1.1 k/uL (1.0-4.8); Lymphocytes % (A) 14 %; MCH 30.9 pg (25.0-35.0); MCHC 33.1 g/dL (31.0-37.0); MCV 93.5 fL (80.0-100.0); Mean Platelet Volume 8.3; Monocytes # (A) 0.4 k/uL (0-1.0); Monocytes % (A) 5 %; Neutrophils # (A) 6.2 k/uL (1.3-7.7); Neutrophils % (A) 77 %; Platelet Count 223 k/uL (150-450); RBC 4.71 m/uL (3.80-5.40); RDW 13.3 % (11.5-15.5); WBC 8.1 k/uL (3.8-10.6)
[2018-04-28 19:56] LABS: INR 0.9 (<1.2)
[2018-04-28 19:57] LABS: Partial Thromboplastin Time 23.6 sec (22.0-30.0); Prothrombin Time 9.4 sec (9.0-12.0)
[2018-04-28 20:28] LABS: ALT 38 U/L (9-52); AST 30 U/L (14-36); Albumin 3.4 g/dL (3.5-5.0); Alkaline Phosphatase 127 U/L (38-126); Amylase 34 U/L (30-110); Anion Gap 12 mmol/L; Blood Urea Nitrogen 15 mg/dL (7-17); Calcium 8.4 mg/dL (8.4-10.2); Carbon Dioxide 23 mmol/L (22-30); Chloride 97 mmol/L (98-107); Glucose 340 mg/dL (74-99); Lipase 83 U/L (23-300); Potassium 4.2 mmol/L (3.5-5.1); Sodium 132 mmol/L (137-145); Total Bilirubin 0.6 mg/dL (0.2-1.3); Total Protein 6.6 g/dL (6.3-8.2)
[2018-04-28 21:01] LABS: Appearance,Urine Cloudy (Clear); Bacteria,Urine Occasional /hpf; Bilirubin,Urine Negative (Negative); Blood,Urine Negative (Negative); Color,Urine Yellow; Glucose,Urine (UA) 4+ (Negative); Ketones,Urine Negative (Negative); Leukocyte Esterase,Urine Small (Negative); Mucus,Urine Rare /hpf; Nitrite,Urine Positive (Negative); PH, Urine 5.5 (5.0-8.0); Protein,Urine 1+ (Negative); RBC,Urine <1 /hpf (0-5); Specific Gravity,Urine 1.016 (1.001-1.035); Squamous Epithelial Cell,Urine <1 /hpf (0-4); Urobilinogen,Urine <2.0 mg/dL (<2.0); WBC,Urine 33 /hpf (0-5)
--- NOTE | 2018-04-28 21:52 | CT ---
EXAMINATION TYPE: CT abdomen pelvis w con DATE OF EXAM: 04/28/2018 COMPARISON: 02/04/2007 HISTORY: abdominal pain CT DLP: 2063.5 mGycm Automated exposure control for dose reduction was used. TECHNIQUE: Helical acquisition of images was performed from the lung bases through the pelvis. CONTRAST: Performed without Oral Contrast and with IV Contrast, patient injected with 100 mL of Isovue 300. FINDINGS: There is subsegmental mild atelectasis at the right lung base. There is no pleural effusion. Heart si ze is normal. Liver spleen pancreas appear normal. Bile ducts are not dilated. There is no adrenal ma ss. There is fat stranding and fluid around the upper pole of the right kidney. There is a 6 x 4 cm c omplex fluid collection at the upper pole right kidney. There is 1.5 cm cyst posterior right kidney. There is 1.5 cm cortical cyst lower pole left kidney. There is no hydronephrosis. Ureters are not dil ated. There is 2 mm calcification at the left renal hilum that is probably vascular. There is no abdominal aortic aneurysm or dissection. Ureters are not dilated. Bladder distends smooth ly. There is no inguinal hernia. There is no free fluid in the pelvis. I see no intestinal wall thick ening. There are no dilated loops. There is no mesenteric edema or adenopathy. There is posterior fusion surgery in the lumbar spine at L3 and L4 and L5. There is a short appendix that is not thickened. IMPRESSION: THERE IS COMPLEX CYSTIC SEPTATED FLUID COLLECTION AND THICK WALL AT THE UPPER POLE RIGHT KIDNEY WITH SURROUNDING MILD INFLAMMATORY REACTION. THIS COULD RELATE TO A RENAL ABSCESS. TUMOR IS ALSO POSSIBLE. FOLLOW-UP IS RECOMMENDED. THIS IS A CHANGE COMPARED TO OLD EXAM.
[2018-04-28] MEDS ORDERED: NALOXONE 0.4 MG/ML 1 ML VIAL IV PRN (22:47)
[2018-04-28 23:50] LABS: Glucose,Whole Blood 315 mg/dL (75-99)
[2018-04-28] MEDS: INSULIN ASPART 100 UNIT/ML 1 ML 10 ML VIAL SQ SCH (23:51)
[2018-04-28] MEDS: SODIUM CHLORIDE 0.9% 1,000 ML IV SCH (23:53)
[2018-04-29 00:36] LABS: Glucose,Whole Blood 289 mg/dL (75-99)
--- NOTE | 2018-04-29 00:36 | US ---
EXAMINATION TYPE: US kidneys/renal and bladder DATE OF EXAM: 04/29/2018 COMPARISON: NONE CLINICAL HISTORY: renal mass vs abscess on CT. F/U to ct scan. EXAM MEASUREMENTS: Right Kidney: 11.7 x 4.8 x 5.2 cm Left Kidney: 12.2 x 6.1 x 5.1 cm Right Kidney: Hypoechoic area with septation seen upper pole measuring 6.5 x 3.7 x 3.9 Left Kidney: Hypoechoic area seen lower pole measuring 2.4 x 1.7 x 1.6cm. Bladder: Anechoic Bilateral Jets seen: Yes IMPRESSION: Bilateral renal cortical cysts. Complex fluid and septation in the upper pole right kidney. No hydron ephrosis. No evidence of renal obstruction. Urinary bladder unremarkable. This exam does not characte rize any further the abnormal appearance of the upper pole of the right kidney evident on the CT scan today. This could be still a renal abscess at the upper pole right kidney.
[2018-04-29 05:40] LABS: Hemoglobin A1C 9.3 % (4.0-6.0)
[2018-04-29 07:12] LABS: Glucose,Whole Blood 213 mg/dL (75-99)
[2018-04-29] MEDS: INSULIN ASPART 100 UNIT/ML 1 ML 10 ML VIAL SQ SCH ×5 (08:03→21:10)
[2018-04-29] MEDS: SODIUM CHLORIDE 0.9% 1,000 ML IV SCH ×3 (08:03→23:03)
[2018-04-29] MEDS ORDERED: NITROGLYCERIN SL TABS 0.4 MG TAB SUBLINGUAL PRN (10:22)
[2018-04-29] MEDS: MORPHINE SULFATE 4 MG/ML SYRINGE IV PRN ×4 (11:38→23:02)
[2018-04-29] MEDS: amLODIPine 10 MG TAB PO SCH (11:39)
[2018-04-29] MEDS: PANTOPRAZOLE 40 MG TABLET PO SCH (11:39)
[2018-04-29] MEDS: ASPIRIN 81 MG PO SCH (11:39)
[2018-04-29] MEDS: GABAPENTIN 100 MG CAP PO SCH ×2 (11:40→21:10)
[2018-04-29] MEDS: ATORVASTATIN 10 MG TAB PO SCH (11:40)
[2018-04-29] MEDS: ATENOLOL 25 MG TAB PO SCH (11:40)
[2018-04-29] MEDS: LEVOTHYROXINE 100 MCG TAB PO SCH (11:40)
[2018-04-29] MEDS: LEVOTHYROXINE 25 MCG TAB PO SCH (11:40)
[2018-04-29] MEDS: ISOSORBIDE MONONITRATE ER 30 MG TAB.ER.24H PO SCH (11:40)
[2018-04-29] MEDS: LISINOPRIL 2.5 MG TAB PO SCH (11:41)
[2018-04-29] MEDS: metFORMIN 500 MG TAB PO SCH ×2 (11:41→21:10)
[2018-04-29 12:05] LABS: Glucose,Whole Blood 168 mg/dL (75-99)
[2018-04-29 12:12] VITALS: BMI 43.0
[2018-04-29 17:39] LABS: Glucose,Whole Blood 244 mg/dL (75-99)
[2018-04-29] MEDS: ENOXAPARIN 40 MG/0.4 ML SYRINGE SQ SCH (18:14)
--- NOTE | 2018-04-29 20:01 | HP ---
HISTORY AND PHYSICAL DATE OF ADMISSION: 04/28/2018 DATE OF SERVICE: 04/29/2018 PRESENTING COMPLAINT: Right abdominal pain. HISTORY OF PRESENTING COMPLAINT: This is a pleasant 52-year-old patient of Dr. Adair. Patient's chronic stable medical conditions include fibromyalgia, GERD, hyperlipidemia, hypertension, hypothyroid, ischemic cardiomyopathy. Patient has a rather extensive medical history. Patient for 3 days started having right abdominal pain localized there, with no radiation. No nausea, vomiting. Did feel a low-grade fever. The pain progressed to get worse and she decided to present to the ER. CT scan showed a possible abscess in the kidney area and she was started on IV ceftriaxone. Patient at her baseline does use a walker. Patient is a smoker and has got slight wheezing at her baseline. She feels tired and rundown. Urine was a bit dark in color. REVIEW OF SYSTEMS: CONSTITUTIONAL: Low-grade fever. HEENT: None. RESPIRATORY: Some wheezing. CARDIOVASCULAR: None. GASTROINTESTINAL: As above. GENITOURINARY: As above. MUSCULOSKELETAL: Some pain in the joints. DERMATOLOGICAL: None. HEMATOLOGICAL: None. LYMPHATICS: None. PSYCHIATRY: None. NEUROLOGICAL: None. PAST MEDICAL HISTORY: 1. Diabetes mellitus, type 2. 2. Fibromyalgia. 3. GERD. 4. Hyperlipidemia. 5. Hypertension. 6. Hypothyroid. 7. Cerebral palsy. 8. Ischemic cardiomyopathy. 9. History of uterine and thyroid cancer and surgery. 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 The patient was intubated on the ventilator. 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 12.Early Alzheimer's. 13.Numbness and tenderness in both the hand and feet. 14.Left foot ulcer. PAST SURGICAL HISTORY: 1. Cardiac cath with stent. 2. Hysterectomy. 3. Trach. 4. Thyroidectomy. 5. Hiatal hernia repair. 6. Colostomy with reversal. PSYCH HISTORY: Anxiety and depression. SOCIAL HISTORY: Uses a walker to ambulate. Has a neighbor who comes in and is caregiver. Patient has been smoking for close to 36 years, about a pack a day, more so in the . Occasional marijuana in the past. FAMILY HISTORY: Brain cancer. HOME MEDICATIONS: 1. Metformin 1000 mg p.o. b.i.d. 2. Norvasc 10 mg p.o. daily. 3. Prilosec 20 mg with breakfast. 4. Nitrostat 0.4 sublingually q.5 p.r.n. 5. Multivitamin 1 tablet p.o. daily. 6. Zestril 2.5 p.o. daily. 7. Synthroid 25 mcg p.o. daily. 8. Synthroid 200 mcg p.o. daily. 9. Imdur ER 30 mg p.o. daily. 10.Lantus 56 units subcutaneously at bedtime. 11.Insulin NovoLog before meals t.i.d. 12.Neurontin 100 mg p.o. b.i.d. 13.Vitamin D3 3000 units p.o. daily. 14.Lipitor 10 mg p.o. daily. 15.Tenormin 25 mg p.o. daily. 16.Aspirin 81 mg p.o. daily. ALLERGIES: NONE. PHYSICAL EXAMINATION: VITAL SIGNS ON PRESENTATION: Temperature 100, pulse 91, respiration 16, blood pressure 130/114, pulse ox 95% on room air. GENERAL APPEARANCE: Well built; BMI of 43. Lying in bed, tired-appearing. EYES: Pupils equal. Conjunctivae normal. HEENT: External appearance of nose and ears normal. Oral cavity normal. NECK: JVD not raised. Mass not palpable. RESPIRATORY: Effort normal. LUNGS: Decreased breath sounds. Mild wheezing. CARDIOVASCULAR: First and second sounds normal. No edema. ABDOMEN: Right-sided tenderness. No guarding or rigidity. Liver and spleen not palpable. LYMPHATIC: No lymph node palpable in neck or axillae. PSYCHIATRY: Alert and oriented x3. Mood and affect normal. NEUROLOGICAL: Pupils equal. Cranial nerves grossly intact. Power and sensation grossly intact. INVESTIGATIONS: White count 8.1, hemoglobin 14.6, potassium 4.2. BUN and creatinine are normal. UA positive for nitrite, leukocyte esterase, [address] scan of the abdomen and pelvis showing questionable complex cystic septated fluid collection in the upper pole of the right kidney with some mild inflammatory reaction suspicious for renal abscess. EKG tracing, personally reviewed by me, shows normal sinus rhythm with nonspecific T-wave changes. Ultrasound of the abdomen showing bilateral renal cortical cysts, complex fluid and septation in the upper pole of the right kidney. ASSESSMENT: 1. This is a patient who presented with 3 days of right abdominal pain with localized tenderness with CT scan showing a possible abscess in the kidney. Patient did have a low-grade fever of 100, though patient's white count is normal. It may be noted that the patient's urine is infected-appearing, and this well may be a renal abscess. 2. Diabetes mellitus, type 2, chronically on insulin, uncontrolled from hyperglycemia. 3. Chronic fibromyalgia. 4. Gastroesophageal reflux disease. 5. Hyperlipidemia. 6. Essential hypertension. 7. Hypothyroid. 8. Ischemic cardiomyopathy; ejection fraction not known. 9. Peripheral neuropathy secondary to diabetes. 10.Chronic ulcer of the bottom of the left foot, present on admission. 11.Coronary artery disease with stent. PLAN: Patient is on IV ceftriaxone, IV fluids. Home medications are resumed. Consultation was made to both Urology and Infectious Disease. Care was discussed with the patient. Questions were answered. MMOCTAVIOL / IJN: [id number] /
[2018-04-29] MEDS ORDERED: INSULIN DETEMIR 100 UNIT/ML 10 ML VIAL SQ SCH (21:00)
[2018-04-29] MEDS: INSULIN DETEMIR 100 UNIT/ML 10 ML VIAL SQ SCH (21:10)
[2018-04-29 21:41] LABS: Glucose,Whole Blood 184 mg/dL (75-99)
--- NOTE | 2018-04-30 00:29 | P.CONS ---
History of Present Illness - Reason for Consult Consult date: 04/29/18 - Chief Complaint Progressive right-sided abdominal pain - History of Present Illness 52-year-old female presents to Hospital with a many day history of increasing pain to her right mid abdominal area. The patient has a very significant past medical history of sepsis and shock with long-term ventilation with eventual recovery. She had intra-abdominal sepsis as well as significant pressure ulceration to her coccyx at that time. She relates that for the last several days having increasing pain associated with some nausea without emesis she believes she had a fever she denying nausea or emesis. She's has not been having a significant change of her bowel habit. She's had no melena or hematochezia or hematemesis. She is not having any profuse diarrhea. The patient relates that she is bringing that she doesn't have a problem with her bowel because she would rather than go through another colostomy. Review of Systems Feels poorly overall HEENT:Denies headache or acute visual change. Denies sinus or mouth discomforts. Denies neck stiffness or pain. Denies significant oral cavity pain. Denies difficulty on swallowing. Lungs: Denies significant shortness of breath, cough, sputum production, or hemoptysis. Cardiovascular: Denies significant shortness of breath, chest pain, chest wall pain, orthopnea, dyspnea on exertion, syncope Gastrointestinal: Severe abdominal pain, please see the HPI Musculoskeletal: denies significant myalgias or arthralgias. No new joint swelling. Denies new back pain. Skin: Denies new rash or lesions. No new ulcers or wounds are related.. Neuro: Denies headache or visual change. Denies any new onset weakness or difficulty with ambulation. Denies falls or seizures. Psychiatric: Chronic anxiety and depression Endocrine: Worsening fatigue weight is stable but has gained 40 pounds over the last 2 years Past Medical History Past Medical History: Cancer, Chest Pain / Angina, Diabetes Mellitus, Eye Disorder, Fibromyalgia, GERD/Reflux, Hyperlipidemia, Hypertension, Thyroid Disorder Additional Past Medical History / Comment(s): cerebral palsy, Ischemic cardiomyopathy, MIGRAINES, hx. uterine & thyroid cancer with surgery, past hx. flesh eating disease 10 yrs ago-was very ill and intubated/vented, ocular strokes, hypothyroid, beginning of alzheimer's, numbness tingling bilateral legs /feet, pt states she has a sore on the bottom of her L foot at this time that has been there for yrs-being monitored by her wire stripping machine operator. Last Myocardial Infarction Date:: unkn History of Any Multi-Drug Resistant Organisms: MRSA Year Discovered:: 2005 MDRO Source:: buttock per pt Past Surgical History: Heart Catheterization, Heart Catheterization With Stent, Hernia Repair, Hysterectomy Additional Past Surgical History / Comment(s): TRACH, thyroidectomy, hiatal hernia repair, colostomy with reversal due to colon perforation and sepsis colonoscopy. D&C. 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 She has a neighbor (paid by the state) who comes in and is a caregiver. She has never driven. Her mom or her coconut boiler take her to [employer]. Remains a daily smoker but less now than ever in her adult life. No alcohol use. Medically disabled. No experience. No international travel. No animal exposures Smoking Status: Current every day smoker Past Alcohol Use History: None Reported Additional Past Alcohol Use History / Comment(s): STARTED SMOKING AT AGE 16 ( 1981), down to 1ppd Past Drug Use History: Marijuana - Past Family History Father Family Medical History: Cancer Additional Family Medical History / Comment(s): HAD BRAIN CANCER AT GE 56 Mother Family Medical History: Rheumatoid Arthritis (RA) Additional Family Medical History / Comment(s): MOM IS 66 Medications and Allergies Home Medications and Allergies Comment(s): Current Medications Amlodipine Besylate (Norvasc) 10 mg PO DAILY [facility] Last Admin: 04/29/18 11:39 Dose: 10 mg Aspirin (Aspirin) 81 mg PO DAILY [facility] Last Admin: 04/29/18 11:39 Dose: 81 mg Atenolol (Tenormin) 25 mg PO DAILY [facility] Last Admin: 04/29/18 11:40 Dose: 25 mg Atorvastatin Calcium (Lipitor) 10 mg PO DAILY [facility] Last Admin: 04/29/18 11:40 Dose: 10 mg Enoxaparin Sodium (Lovenox) 40 mg SQ DAILY [facility] Last Admin: 04/29/18 18:14 Dose: 40 mg Gabapentin (Neurontin) 100 mg PO BID [facility] Last Admin: 04/29/18 21:10 Dose: 100 mg Ceftriaxone Sodium 1,000 mg/ (Sodium Chloride) 50 mls @ 100 mls/hr IVPB Q24H [facility] Last Admin: 04/29/18 22:55 Dose: 100 mls/hr Sodium Chloride (Saline 0.9%) 1,000 mls @ 125 mls/hr IV .Q8H [facility] Last Admin: 04/29/18 23:03 Dose: 125 mls/hr Insulin Aspart (Novolog) 0 unit SQ ACHS [facility]; Protocol Last Admin: 04/29/18 21:10 Dose: 3 unit Insulin Aspart (Novolog) 10 unit SQ AC-TID [facility] Last Admin: 04/29/18 17:52 Dose: 10 unit Insulin Detemir (Levemir) 45 unit SQ HS [facility] Last Admin: 04/29/18 21:10 Dose: 45 unit Isosorbide Mononitrate (Imdur) 30 mg PO DAILY [facility] Last Admin: 04/29/18 11:40 Dose: 30 mg Levothyroxine Sodium (Synthroid) 200 mcg PO 0630 [facility] Last Admin: 04/29/18 11:40 Dose: 200 mcg Levothyroxine Sodium (Synthroid) 25 mcg PO 0630 [facility] Last Admin: 04/29/18 11:40 Dose: 25 mcg Lisinopril (Zestril) 2.5 mg PO DAILY [facility] Last Admin: 04/29/18 11:41 Dose: 2.5 mg Metformin HCl (Glucophage) 1,000 mg PO BID [facility] Last Admin: 04/29/18 21:10 Dose: 1,000 mg Morphine Sulfate (Morphine Sulfate (Inj)) 4 mg IV Q4HR PRN PRN Reason: Severe Pain Last Admin: 04/29/18 23:02 Dose: 4 mg Multivitamins (Theragran) 1 each PO 1200 [facility]Y Naloxone HCl (Narcan) 0.2 mg IV Q2M PRN PRN Reason: Opioid Reversal Nitroglycerin (Nitrostat) 0.4 mg SUBLINGUAL Q5M PRN PRN Reason: Chest Pain Pantoprazole Sodium (Protonix) 40 mg PO AC-BRKFST [facility] Last Admin: 04/29/18 11:39 Dose: 40 mg Home Medications Medication Instructions Recorded Confirmed Type Gabapentin [Neurontin] 100 mg PO BID 04/12/14 04/28/18 History Aspirin EC [Ecotrin Low Dose] 81 mg PO DAILY #30 tablet. 04/18/14 04/28/18 Rx Omeprazole [PriLOSEC] 20 mg PO AC-BRKFST #30 capsule. 04/18/14 04/28/18 Rx Isosorbide Mononitrate [Isosorbide 30 mg PO DAILY 11/09/15 04/28/18 History Mononitrate ER] amLODIPine [Norvasc] 10 mg PO DAILY 11/15/15 04/28/18 History Nitroglycerin Sl Tabs [Nitrostat] 0.4 mg SUBLINGUAL Q5M PRN #25 tab 11/17/15 Rx metFORMIN HCL 1,000 mg PO BID #0 11/17/15 04/28/18 Rx Atenolol [Tenormin] 25 mg PO DAILY 11/19/16 04/28/18 History Atorvastatin [Lipitor] 10 mg PO DAILY 11/19/16 04/28/18 History Cholecalciferol [Vitamin D3] 3,000 unit PO DAILY 11/19/16 04/28/18 History Levothyroxine Sodium [Synthroid] 25 mcg PO DAILY 11/19/16 04/28/18 History Levothyroxine Sodium [Synthroid] 200 mcg PO DAILY 11/19/16 04/28/18 History Lisinopril [Zestril] 2.5 mg PO DAILY 11/19/16 04/28/18 History Insulin Glargine [Lantus] 56 unit SQ HS vial 11/25/16 04/28/18 Rx Insulin Aspart [NovoLOG See Protocol SQ AC-TID 04/28/18 04/28/18 History (formulary)] Multivitamins, Thera [Multivitamin 1 tab PO DAILY 04/28/18 04/28/18 History (formulary)] Allergies Allergy/AdvReac Type Severity Reaction Status Date / Time No Known Allergies Allergy Verified 04/28/18 18:41 Physical Exam Vitals: Vital Signs Temp Pulse Resp BP BP Pulse Ox 04/29/18 23:00 98.1 F 67 18 96/61 93 L 04/29/18 20:41 97.0 F L 67 19 146/77 97 04/29/18 14:58 98.8 F 61 18 108/67 92 L 04/29/18 06:20 99.1 F 75 20 125/65 95 04/29/18 02:00 97.1 F L 63 14 122/70 97 Intake and Output 04/29/18 04/29/18 04/30/18 14:59 22:59 06:59 Intake Total 1240 400 Balance 1240 400 Intake: IV 1000 Sodium Chloride 0.9% 1, 1000 000 ml @ 125 mls/hr IV . Q8H BOY Rx#:[id number] Oral 240 400 Other: # Voids 2 Weight 128.367 kg Pleasant obese 52-year-old woman uncomfortable due to her abdominal pain HEENT: Anicteric conjunctiva are pink and moist nasal mucosa grossly intact without significant lesions, there is no thrush. Neck: The neck is supple without significant lymphadenopathy or thyromegaly. Lungs: Good bilateral air entry without significant crackles or wheezing. There is no significant bronchial sounds. There is no egophony or dullness. Heart: Regular rate and rhythm with an audible S1-S2, no S3 no S4. There is no significant murmur click or rub, PMI was nondisplaced. Abdomen: Positive bowel sounds soft large abdominal pannus but has distinct tenderness in the right lateral upper quadrant area. No guarding or rebound is appreciated. No skin ulcerations are seen Extremities: The upper extremities have excellent pulses they are symmetric, no significant petechiae or telangiectasia. No splinter hemorrhages were noted. The lower extremities are free from significant edema. The peripheral pulses were 2+ and symmetric. Neuro: Awake alert oriented to person place and time. There are no acute new gross focal sensory motor deficits. Results CBC & Chem 7: 04/28/18 19:05 04/28/18 19:55 Labs: Abnormal Lab Results - Last 24 Hours (Table) 04/28/18 04/29/18 04/29/18 Range/Units 19:05 00:35 07:02 POC Glucose (mg/dL) 289 H 213 H (75-99) mg/dL Hemoglobin A1c 9.3 H (4.0-6.0) % 04/29/18 04/29/18 04/29/18 Range/Units 11:52 17:37 20:49 POC Glucose (mg/dL) 168 H 244 H 184 H (75-99) mg/dL Hemoglobin A1c (4.0-6.0) % Microbiology - Last 24 Hours (Table) 04/28/18 19:05 Blood Culture - Preliminary Blood No Growth after 24 hours 04/28/18 20:05 Urine Culture - Preliminary Urine,Clean Catch Laboratory Results WBC 8.1 k/uL (3.8-10.6) 04/28/18 19:05 RBC 4.71 m/uL (3.80-5.40) 04/28/18 19:05 Hgb 14.6 gm/dL (11.4-16.0) 04/28/18 19:05 Hct 44.0 % (34.0-46.0) 04/28/18 19:05 MCV 93.5 fL (80.0-100.0) 04/28/18 19:05 MCH 30.9 pg (25.0-35.0) 04/28/18 19:05 MCHC 33.1 g/dL (31.0-37.0) 04/28/18 19:05 RDW 13.3 % (11.5-15.5) 04/28/18 19:05 Plt Count 223 k/uL (150-450) 04/28/18 19:05 Neutrophils % 77 % 04/28/18 19:05 Lymphocytes % 14 % 04/28/18 19:05 Monocytes % 5 % 04/28/18 19:05 Eosinophils % 2 % 04/28/18 19:05 Basophils % 0 % 04/28/18 19:05 Neutrophils # 6.2 k/uL (1.3-7.7) 04/28/18 19:05 Lymphocytes # 1.1 k/uL (1.0-4.8) 04/28/18 19:05 Monocytes # 0.4 k/uL (0-1.0) 04/28/18 19:05 Eosinophils # 0.1 k/uL (0-0.7) 04/28/18 19:05 Basophils # 0.0 k/uL (0-0.2) 04/28/18 19:05 PT 9.4 sec (9.0-12.0) 04/28/18 19:05 INR 0.9 (<1.2) 04/28/18 19:05 APTT 23.6 sec (22.0-30.0) 04/28/18 19:05 Sodium 132 mmol/L (137-145) L 04/28/18 19:55 Potassium 4.2 mmol/L (3.5-5.1) 04/28/18 19:55 Chloride 97 mmol/L (98-107) L 04/28/18 19:55 Carbon Dioxide 23 mmol/L (22-30) 04/28/18 19:55 Anion Gap 12 mmol/L 04/28/18 19:55 BUN 15 mg/dL (7-17) 04/28/18 19:55 Creatinine 0.81 mg/dL (0.52-1.04) 04/28/18 19:55 Est GFR (CKD-EPI)AfAm >90 (>60 ml/min/1.73 sqM) 04/28/18 19:55 Est GFR (CKD-EPI)NonAf 85 (>60 ml/min/1.73 sqM) 04/28/18 19:55 Glucose 340 mg/dL (74-99) H 04/28/18 19:55 POC Glucose (mg/dL) 184 mg/dL (75-99) H 04/29/18 20:49 POC Glu Dental Floss Packer Celeste Schmitt 04/29/18 20:[address] Glu mg/dL 220 04/28/18 19:05 Hemoglobin A1c 9.3 % (4.0-6.0) H 04/28/18 19:05 Plasma Lactic Acid [place] 1.9 mmol/L (0.7-2.0) 04/28/18 19:05 Calcium 8.4 mg/dL (8.4-10.2) 04/28/18 19:55 Total Bilirubin 0.6 mg/dL (0.2-1.3) 04/28/18 19:55 AST 30 U/L (14-36) 04/28/18 19:55 ALT 38 U/L (9-52) 04/28/18 19:55 Alkaline Phosphatase 127 U/L (38-126) H 04/28/18 19:55 Total Protein 6.6 g/dL (6.3-8.2) 04/28/18 19:55 Albumin 3.4 g/dL (3.5-5.0) L 04/28/18 19:55 Amylase 34 U/L (30-110) 04/28/18 19:55 Lipase 83 U/L (23-300) 04/28/18 19:55 Urine Color Yellow 04/28/18 20:05 Urine Appearance Cloudy (Clear) H 04/28/18 20:05 Urine pH 5.5 (5.0-8.0) 04/28/18 20:05 Ur Specific [place] 1.016 (1.001-1.035) 04/28/18 20:05 Urine Protein 1+ (Negative) H 04/28/18 20:05 Urine Glucose (UA) 4+ (Negative) H 04/28/18 20:05 Urine Ketones Negative (Negative) 04/28/18 20:05 Urine Blood Negative (Negative) 04/28/18 20:05 Urine Nitrite Positive (Negative) H 04/28/18 20:05 Urine Bilirubin Negative (Negative) 04/28/18 20:05 Urine Urobilinogen <2.0 mg/dL (<2.0) 04/28/18 20:05 Ur Leukocyte Esterase Small (Negative) H 04/28/18 20:05 Urine RBC <1 /hpf (0-5) 04/28/18 20:05 Urine WBC 33 /hpf (0-5) H 04/28/18 20:05 Ur Squamous Epith Cells <1 /hpf (0-4) 04/28/18 20:05 Urine Bacteria Occasional /hpf (None) H 04/28/18 20:05 Urine Mucus Rare /hpf (None) H 04/28/18 20:05 Microbiology 04/28/18 19:05 Blood Blood Culture - Preliminary No Growth after 24 hours 04/28/18 20:05 Urine,Clean Catch Urine Culture - Preliminary CT scan - abdomen: report reviewed, image reviewed (Complex mass of the right kidney also reviewed with ultrasound appears similar) Assessment and Plan (1) Abdominal pain Current Visit: Yes Status: Acute Code(s): R10.9 - UNSPECIFIED ABDOMINAL PAIN SNOMED Code(s): 48541700 (2) Renal mass of unknown nature Narrative/Plan: 52-year-old woman presents to Hospital for evaluation of progressive abdominal pain, he became so severe she can no longer tolerate it at home and now with pain medications including morphine she is just becoming comfortable. Does not feel well overall. She is related to her profound illness she had lost weight but is now back up at least 40 pounds from her low. She is trying to smoke less and she has an the past. She relates that if her current problemfrom her bowel she would not elect for another colostomy she would rather . It is pointed temperatures to be a complex mass in the right kidney. This is at least in the somewhat generalized region where she is having her severe pain. Urological surgical evaluation is currently in process and await their input as to what the next most logical step is in identifying the etiology of this mass. With her history there is great concern that this could be a malignancy versus a complex infectious process. Currently receiving antibiotic therapy with Rocephin and will continue until there is further diagnostic evidence of the etiology of this renal mass. Current Visit: Yes Status: Acute Code(s): N28.89 - OTHER SPECIFIED DISORDERS OF KIDNEY AND URETER SNOMED Code(s): 623301047
[2018-04-30] MEDS: LEVOTHYROXINE 25 MCG TAB PO SCH (06:40)
[2018-04-30] MEDS: LEVOTHYROXINE 100 MCG TAB PO SCH (06:40)
[2018-04-30 07:16] LABS: Glucose,Whole Blood 157 mg/dL (75-99)
--- NOTE | 2018-04-30 07:27 | P.GSCN ---
History of Present Illness Consult date: 04/30/18 Reason for Consult: Right perinephric fluid collection Requesting physician: Trev Rodriguez History of present illness: The patient is a 52-year-old white female admitted with a several-day history of right-sided abdominal pain. She has a history of septic shock which require long-term ventilation. She had intra-abdominal sepsis and a significant sacral ulcer at that time. She has had UTIs in the past, none requiring hospitalization. She denies any prior history of urolithiasis. She states that she has never had pain similar to what she is currently experiencing, and that this is the worst pain she has ever experienced. Review of Systems - Constitutional Denies fever - Gastrointestinal Denies constipation, Denies diarrhea, Denies nausea, Denies vomiting - Genitourinary Genitourinary: Reports urge incontinence Past Medical History Past Medical History: Cancer, Chest Pain / Angina, Diabetes Mellitus, Eye Disorder, Fibromyalgia, GERD/Reflux, Hyperlipidemia, Hypertension, Thyroid Disorder Additional Past Medical History / Comment(s): cerebral palsy, Ischemic cardiomyopathy, MIGRAINES, hx. uterine & thyroid cancer with surgery, past hx. flesh eating disease 10 yrs ago-was very ill and intubated/vented, ocular strokes, hypothyroid, beginning of alzheimer's, numbness tingling bilateral legs /feet, pt states she has a sore on the bottom of her L foot at this time that has been there for yrs-being monitored by her early childhood education instructor. Last Myocardial Infarction Date:: unkn History of Any Multi-Drug Resistant Organisms: MRSA Year Discovered:: 2005 MDRO Source:: buttock per pt Past Surgical History: Heart Catheterization, Heart Catheterization With Stent, Hernia Repair, Hysterectomy Additional Past Surgical History / Comment(s): TRACH, thyroidectomy, hiatal hernia repair, colostomy with reversal due to colon perforation and sepsis colonoscopy. D&C. 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 She has a neighbor (paid by the [facility]) who comes in and is a caregiver. She has never driven. Her mom or her slurry plant operator take her to [employer]. Remains a daily smoker but less now than ever in her adult life. No alcohol use. Medically disabled. No experience. No international travel. No animal exposures Smoking Status: Current every day smoker Past Alcohol Use History: None Reported Additional Past Alcohol Use History / Comment(s): STARTED SMOKING AT AGE 16 ( 1981), down to 1ppd Past Drug Use History: Marijuana - Past Family History Father Family Medical History: Cancer Additional Family Medical History / Comment(s): HAD BRAIN CANCER AT GE 56 Mother Family Medical History: Rheumatoid Arthritis (RA) Additional Family Medical History / Comment(s): MOM IS 66 Medications and Allergies Home Medications Medication Instructions Recorded Confirmed Type Gabapentin [Neurontin] 100 mg PO BID 04/12/14 04/28/18 History Aspirin EC [Ecotrin Low Dose] 81 mg PO DAILY #30 tablet. 04/18/14 04/28/18 Rx Omeprazole [PriLOSEC] 20 mg PO AC-BRKFST #30 capsule. 04/18/14 04/28/18 Rx Isosorbide Mononitrate [Isosorbide 30 mg PO DAILY 11/09/15 04/28/18 History Mononitrate ER] amLODIPine [Norvasc] 10 mg PO DAILY 11/15/15 04/28/18 History Nitroglycerin Sl Tabs [Nitrostat] 0.4 mg SUBLINGUAL Q5M PRN #25 tab 11/17/15 Rx metFORMIN HCL 1,000 mg PO BID #0 11/17/15 04/28/18 Rx Atenolol [Tenormin] 25 mg PO DAILY 11/19/16 04/28/18 History Atorvastatin [Lipitor] 10 mg PO DAILY 11/19/16 04/28/18 History Cholecalciferol [Vitamin D3] 3,000 unit PO DAILY 11/19/16 04/28/18 History Levothyroxine Sodium [Synthroid] 25 mcg PO DAILY 11/19/16 04/28/18 History Levothyroxine Sodium [Synthroid] 200 mcg PO DAILY 11/19/16 04/28/18 History Lisinopril [Zestril] 2.5 mg PO DAILY 11/19/16 04/28/18 History Insulin Glargine [Lantus] 56 unit SQ HS vial 11/25/16 04/28/18 Rx Insulin Aspart [NovoLOG See Protocol SQ AC-TID 04/28/18 04/28/18 History (formulary)] Multivitamins, Thera [Multivitamin 1 tab PO DAILY 04/28/18 04/28/18 History (formulary)] Allergies Allergy/AdvReac Type Severity Reaction Status Date / Time No Known Allergies Allergy Verified 04/28/18 18:41 Surgical - Exam Vital Signs Temp Pulse Resp BP Pulse Ox 100 F H 91 16 130/114 95 04/28/18 18:41 04/28/18 18:41 04/28/18 18:41 04/28/18 18:41 04/28/18 18:41 - General well developed, well nourished, no distress - Abdomen Abdomen: soft, tender (Mild right lower quadrant tenderness to palpation), no guarding, no rigid, no rebound, no distended - Psychiatric oriented to time, oriented to person, oriented to place, speech is normal, memory intact Results - Labs 04/28/18 19:05 04/28/18 19:55 Abnormal Lab Results - Last 24 Hours (Table) 04/29/18 04/29/18 04/29/18 Range/Units 07:02 11:52 17:37 POC Glucose (mg/dL) 213 H 168 H 244 H (75-99) mg/dL 04/29/18 Range/Units 20:49 POC Glucose (mg/dL) 184 H (75-99) mg/dL Microbiology - Last 24 Hours (Table) 04/28/18 20:05 Urine Culture - Preliminary Urine,Clean Catch Gram Neg Bacilli 04/28/18 19:05 Blood Culture - Preliminary Blood No Growth after 24 hours - Imaging CT scan - abdomen: report reviewed, image reviewed Assessment and Plan (1) Renal mass of unknown nature Current Visit: Yes Status: Acute Code(s): N28.89 - OTHER SPECIFIED DISORDERS OF KIDNEY AND URETER SNOMED Code(s): 947239777 Plan: I have reviewed the computed tomography scan, which reveals a 4 x 6 cm complex cystic mass immediately adjacent to the upper pole of the right kidney. There is evidence of perinephric stranding, and in view of this I believe this is more likely to be inflammatory than malignant. A urine culture shows gram- negative bacilli. Blood cultures are negative thus far. The initial CBC showed no evidence of leukocytosis, and I have ordered a repeat computed tomography scan. She is currently receiving Rocephin. She may benefit from CT- guided percutaneous drainage of this fluid collection. I would certainly favor this over open drainage. I intend to discuss this with Interventional Radiology. Time with Patient: Greater than 30
[2018-04-30] MEDS: LISINOPRIL 2.5 MG TAB PO SCH (08:11)
[2018-04-30] MEDS: ATENOLOL 25 MG TAB PO SCH (08:12)
[2018-04-30] MEDS: metFORMIN 500 MG TAB PO SCH ×2 (08:12→22:09)
[2018-04-30] MEDS: GABAPENTIN 100 MG CAP PO SCH ×2 (08:12→22:10)
[2018-04-30] MEDS: amLODIPine 10 MG TAB PO SCH (08:12)
[2018-04-30] MEDS: ISOSORBIDE MONONITRATE ER 30 MG TAB.ER.24H PO SCH (08:12)
[2018-04-30] MEDS: PANTOPRAZOLE 40 MG TABLET PO SCH (08:12)
[2018-04-30] MEDS: ASPIRIN 81 MG PO SCH (08:12)
[2018-04-30] MEDS: ATORVASTATIN 10 MG TAB PO SCH (08:12)
[2018-04-30] MEDS: INSULIN ASPART 100 UNIT/ML 1 ML 10 ML VIAL SQ SCH ×7 (08:12→22:10)
[2018-04-30] MEDS: MORPHINE SULFATE 4 MG/ML SYRINGE IV PRN ×4 (08:14→22:26)
[2018-04-30 10:40] LABS: Basophils % (A) 0 %; Eosinophils # (A) 0.1 k/uL (0-0.7); Eosinophils % (A) 1 %; HCT 37.4 % (34.0-46.0); HGB 12.2 gm/dL (11.4-16.0); Lymphocytes # (A) 1.2 k/uL (1.0-4.8); Lymphocytes % (A) 13 %; MCHC 32.7 g/dL (31.0-37.0); MCV 94.9 fL (80.0-100.0); Mean Platelet Volume 8.7; Monocytes # (A) 0.6 k/uL (0-1.0); Monocytes % (A) 7 %; Neutrophils # (A) 7.3 k/uL (1.3-7.7); Neutrophils % (A) 77 %; Platelet Count 200 k/uL (150-450); RBC 3.94 m/uL (3.80-5.40); RDW 13.4 % (11.5-15.5); WBC 9.5 k/uL (3.8-10.6)
[2018-04-30] MEDS: SODIUM CHLORIDE 0.9% 1,000 ML IV SCH ×3 (11:14→23:52)
[2018-04-30] MEDS: ENOXAPARIN 40 MG/0.4 ML SYRINGE SQ SCH (11:14)
[2018-04-30 11:57] LABS: Glucose,Whole Blood 122 mg/dL (75-99)
[2018-04-30] MEDS: MULTIVITAMINS, THERA 1 EACH TAB PO SCH (13:27)
[2018-04-30 17:32] LABS: Glucose,Whole Blood 205 mg/dL (75-99)
--- NOTE | 2018-04-30 19:41 | PN ---
PROGRESS NOTE DATE OF SERVICE: 04/30/2018 PRESENTING COMPLAINT: Right abdominal pain. INTERVAL HISTORY: This patient presented with right abdominal pain, CT scan suggestive of possible abscess; unclear. The patient has been on IV antibiotics. Still having some right- sided pain. It could be a complex cyst. Also urine was a little bit infected- appearing. On IV antibiotics. REVIEW OF SYSTEMS: Done for constitutional, cardiovascular, GI, pulmonary; relevant findings as above. CURRENT MEDICATIONS: Reviewed. They include IV ceftriaxone, IV fluids. PHYSICAL EXAMINATION: Afebrile, pulse 69, respiration 18, blood pressure 129/81, pulse ox 96% on room air. GENERAL APPEARANCE: Lying in bed, awake. EYES: Pupils equal. Conjunctivae normal. HEENT: External appearance of nose and ears normal. Oral cavity normal. NECK: JVD not raised. Mass not palpable. RESPIRATORY: Effort normal. LUNGS: Decreased breath sounds. Minimal wheezing. CARDIOVASCULAR: First and second sounds normal. No edema. ABDOMEN: Some right-sided tenderness. No guarding or rigidity. PSYCHIATRY: Alert and oriented x3. Mood and affect normal. INVESTIGATIONS: White count 9.5, hemoglobin 12.2. Urine culture is growing gram-negative bacilli. ASSESSMENT: 1. Possible right-sided acute pyelonephritis with urine culture growing gram-negative bacilli. 2. Diabetes mellitus, type 2, chronically on insulin, uncontrolled from hyperglycemia. 3. Chronic fibromyalgia. 4. Gastroesophageal reflux disease. 5. Hyperlipidemia. 6. Essential hypertension. 7. Hypothyroid. 8. Ischemic cardiomyopathy; ejection fraction not known. 9. Peripheral neuropathy secondary to diabetes. 10.Chronic ulcer on the bottom of the left foot, present on admission. 11.Coronary artery disease with stent. PLAN: Continue with the IV antibiotics. Await culture results. Continue with IV fluids. Will follow. MMODL / IJN: [id number] /
[2018-04-30 21:45] LABS: Glucose,Whole Blood 212 mg/dL (75-99)
[2018-04-30] MEDS: INSULIN DETEMIR 100 UNIT/ML 10 ML VIAL SQ SCH (22:10)
[2018-05-01] MEDS: MORPHINE SULFATE 4 MG/ML SYRINGE IV PRN ×2 (05:33→09:47)
[2018-05-01] MEDS: LEVOTHYROXINE 100 MCG TAB PO SCH (06:13)
[2018-05-01] MEDS: LEVOTHYROXINE 25 MCG TAB PO SCH (06:13)
[2018-05-01 07:28] LABS: Glucose,Whole Blood 182 mg/dL (75-99)
[2018-05-01] MEDS: ENOXAPARIN 40 MG/0.4 ML SYRINGE SQ SCH (08:15)
[2018-05-01] MEDS: GABAPENTIN 100 MG CAP PO SCH ×2 (08:16→21:09)
[2018-05-01] MEDS: LISINOPRIL 2.5 MG TAB PO SCH (08:16)
[2018-05-01] MEDS: ATORVASTATIN 10 MG TAB PO SCH (08:16)
[2018-05-01] MEDS: ISOSORBIDE MONONITRATE ER 30 MG TAB.ER.24H PO SCH (08:16)
[2018-05-01] MEDS: INSULIN ASPART 100 UNIT/ML 1 ML 10 ML VIAL SQ SCH ×7 (08:16→21:07)
[2018-05-01] MEDS: metFORMIN 500 MG TAB PO SCH ×2 (08:16→21:09)
[2018-05-01] MEDS: ATENOLOL 25 MG TAB PO SCH (08:16)
[2018-05-01] MEDS: amLODIPine 10 MG TAB PO SCH (08:16)
[2018-05-01] MEDS: PANTOPRAZOLE 40 MG TABLET PO SCH (08:16)
[2018-05-01] MEDS: SODIUM CHLORIDE 0.9% 1,000 ML IV SCH ×3 (08:17→21:11)
[2018-05-01] MEDS: ASPIRIN 81 MG PO SCH (10:51)
--- NOTE | 2018-05-01 11:08 | P.PN ---
Progress Note - Text Progress Note Date: 05/01/18 Brain appears comfortable but states that she is not feeling any better. She is afebrile with stable vital signs. The urine culture has shown greater than 100,000 E. coli species. Sensitivities are pending. Blood cultures are negative. I recommend that antibiotics be continued, and adjusted if necessary upon final urine culture results. I do not believe that CT-guided drainage will be required, unless she has intractable symptoms despite appropriate antibiotic therapy.
[2018-05-01 11:53] LABS: Glucose,Whole Blood 130 mg/dL (75-99)
[2018-05-01] MEDS: HYDROcodone/APAP 7.5-325MG 1 EACH TAB PO PRN ×2 (12:55→21:11)
[2018-05-01] MEDS: MULTIVITAMINS, THERA 1 EACH TAB PO SCH (12:55)
[2018-05-01] MEDS: ERTAPENEM 1 GM in SODIUM CHLORIDE 0.9% 50 ML IVPB SCH (13:20)
[2018-05-01 16:47] LABS: Glucose,Whole Blood 118 mg/dL (75-99)
--- NOTE | 2018-05-01 18:07 | XR ---
EXAMINATION TYPE: XR chest 1V portable DATE OF EXAM: 05/01/2018 COMPARISON: 04/12/2014 HISTORY: Heart failure. Short of breath TECHNIQUE: Single frontal view of the chest is obtained. FINDINGS: Heart and mediastinum are normal. Lungs are clear of infiltrate. There is no heart failure . Pulmonary vascularity is normal. I see no sign of pleural effusion. IMPRESSION: No active cardiopulmonary disease. There is improved inspiration compared to last exam.
[2018-05-01 20:51] LABS: Glucose,Whole Blood 117 mg/dL (75-99)
[2018-05-01] MEDS: INSULIN DETEMIR 100 UNIT/ML 10 ML VIAL SQ SCH (21:10)
--- NOTE | 2018-05-02 00:24 | PN ---
PROGRESS NOTE DATE OF SERVICE: 05/01/2018. HISTORY: This 52-year-old woman was admitted with abdominal pain and possible acute pyelonephritis, is having E coli growing from the urine culture, which is ESBL. The patient also has a complex cystic-spaced thick-wall at the upper pole of the right kidney with some minimal inflammatory reaction. Dr. Castañeda is following the patient closely and thought that the CT-guided aspiration is probably not necessary. The patient is closely monitored. PAST MEDICAL HISTORY: Reviewed. REVIEW OF SYSTEMS: CARDIOVASCULAR: No angina. RESPIRATORY: As mentioned. GI: As mentioned. : As mentioned earlier. CURRENT MEDICATIONS: 1. [place] 7.5 every 6 hours p.r.n. 2. Norvasc 10 mg daily. 3. Aspirin 81 mg. 4. [place] 25 mg. 5. Lipitor 10 mg. 6. Lovenox 40 mg subcu daily. 7. Neurontin 100 mg b.i.d. 8. Levemir 45 subcu at bedtime. 9. Imdur 30 mg daily. 10.Synthroid 200 mcg p.o. daily. 11.Zestril 2.5 mg. 12.Glucovance. 13.Multivitamins one p.o. daily. 14.Narcan. 15.Nitrostat. 16.Protonix. PHYSICAL EXAM: Patient is alert, oriented x3, pulse 65, blood pressure 103/54, respirations 20, temperature 97.6, pulse ox 98% on room air. HEENT: Conjunctivae normal. Oral mucosa moist. NECK: No jugular venous distention. No lymph node enlargement. CARDIOVASCULAR: S1 and S2 muffled. LUNGS: Breath sounds diminished at the bases. Few scattered rhonchi and crackles. ABDOMEN: Soft. Mild diffuse tenderness. Legs no edema. MENTAL HEALTH ORDERLY: No focal deficits. LABS: CBC noted. BMP, sodium 132, glucose 118. Other labs are noted. Cultures growing E coli. ASSESSMENT: 1. Acute right pyelonephritis with possible ESBL E coli with severe pain. 2. Diabetes type 2, chronic on insulin with hyperglycemia. 3. Right-sided complex cystic mass on the right upper pole of the right kidney. 4. Chronic fibromyalgia. 5. Gastroesophageal reflux disease. 6. Hyperlipidemia. 7. Hypertension. 8. Hypothyroidism. 9. Ischemic cardiomyopathy, ejection fraction unknown. 10.Peripheral neuropathy. 11.Chronic ulcer on the bottom of the left foot. 12.Coronary artery disease with stent. RECOMMENDATIONS: Continue current medications. Continue with symptomatic treatment. I would recommend infectious disease evaluation for antibiotic choice. Otherwise, closely follow with Neurology. Monitor blood sugars closely. Repeat labs. DVT prophylaxis. See orders for further details. MMODL / IJN: [id number] /
[2018-05-02] MEDS: LEVOTHYROXINE 100 MCG TAB PO SCH (05:50)
[2018-05-02] MEDS: LEVOTHYROXINE 25 MCG TAB PO SCH (05:51)
[2018-05-02 07:23] LABS: Glucose,Whole Blood 210 mg/dL (75-99)
[2018-05-02] MEDS: ENOXAPARIN 40 MG/0.4 ML SYRINGE SQ SCH (08:22)
[2018-05-02] MEDS: INSULIN ASPART 100 UNIT/ML 1 ML 10 ML VIAL SQ SCH ×7 (08:22→21:49)
[2018-05-02] MEDS: ERTAPENEM 1 GM in SODIUM CHLORIDE 0.9% 50 ML IVPB SCH (08:23)
[2018-05-02] MEDS: metFORMIN 500 MG TAB PO SCH ×2 (08:23→20:57)
[2018-05-02] MEDS: ATENOLOL 25 MG TAB PO SCH (08:23)
[2018-05-02] MEDS: PANTOPRAZOLE 40 MG TABLET PO SCH (08:23)
[2018-05-02] MEDS: CHOLECALCIFEROL 1,000 UNIT TAB PO SCH (08:23)
[2018-05-02] MEDS: LISINOPRIL 2.5 MG TAB PO SCH (08:23)
[2018-05-02] MEDS: ATORVASTATIN 10 MG TAB PO SCH (08:23)
[2018-05-02] MEDS: ASPIRIN 81 MG PO SCH (08:23)
[2018-05-02] MEDS: amLODIPine 10 MG TAB PO SCH (08:23)
[2018-05-02] MEDS: ISOSORBIDE MONONITRATE ER 30 MG TAB.ER.24H PO SCH (08:23)
[2018-05-02] MEDS: GABAPENTIN 100 MG CAP PO SCH ×2 (08:23→20:58)
[2018-05-02] MEDS: HYDROcodone/APAP 7.5-325MG 1 EACH TAB PO PRN ×3 (08:31→20:58)
[2018-05-02 09:11] LABS: Basophils % (A) 0 %; Eosinophils # (A) 0.1 k/uL (0-0.7); Eosinophils % (A) 2 %; HCT 39.5 % (34.0-46.0); Lymphocytes % (A) 13 %; MCH 31.3 pg (25.0-35.0); MCHC 32.9 g/dL (31.0-37.0); MCV 94.9 fL (80.0-100.0); Mean Platelet Volume 8.7; Monocytes # (A) 0.5 k/uL (0-1.0); Monocytes % (A) 6 %; Neutrophils % (A) 77 %; Platelet Count 265 k/uL (150-450); RBC 4.16 m/uL (3.80-5.40); RDW 13.5 % (11.5-15.5); WBC 7.9 k/uL (3.8-10.6)
[2018-05-02 09:12] LABS: Calcium 8.5 mg/dL (8.4-10.2); Potassium 5.1 mmol/L (3.5-5.1)
--- NOTE | 2018-05-02 09:46 | PN ---
PROGRESS NOTE DATE OF SERVICE: 05/01/2018. REASON FOR EVALUATION: Urine culture and antibiotic adjustment. HISTORY OF PRESENT ILLNESS: The patient is a 52 -year-old female presenting to the ER at [facility] on 04/28 with chief complaints of abdominal pain, nausea and vomiting. The patient's pain has been mostly on the right side right flank and into the right lower quadrant. Pain has been intensity almost 10 out of 10 and no radiation. No significant dysuria. Some nausea but no vomiting and chills but no high-grade fever. With these symptoms, the patient was evaluated by the ER physician. The patient on admission did have a CT of the abdomen and pelvis completed raises the possibility of complex cystic suppurative fluid collection surrounding changes concern for possible renal abscess. Patient subsequently was evaluated by Dr. Hills and Dr. Castañeda from urology who reviewed the CT with the radiologist and did not think it was an abscess but rather acute pyelonephritis. The patient was treated with IV Rocephin. However the culture came back with an ESBL E coli. Hence, Infectious Disease was consulted. I was asked to reevaluate the patient for adjustment of antibiotic therapy. REVIEW OF SYSTEMS: Positive points have been mentioned in HPI. Other systems have been mentioned in the HPI. Other systems have been negative. Past medical and surgical history reviewed, no change. MEDICATIONS: Reviewed. PHYSICAL EXAMINATION: On examination, blood pressure is 105/66 with a pulse of 74, temperature 99.2, she is 94% on room air. General description is a middle aged female up in the bed in no distress. HEENT: Shows no pallor or scleral icterus. Oral mucosa membranes are moist. NECK: Trachea central. No thyromegaly. Lungs unlabored breathing. Clear to auscultation anteriorly. Heart S1, S2. Regular rate and rhythm. ABDOMEN: Soft. right flank. No guarding. No rigidity. No organomegaly. EXTREMITIES: No edema of the feet. SKIN EXAMINATION: No rash or mass palpable. Neurological: Patient is awake, alert, oriented times three. Mood and affect normal. LABS: Hemoglobin is 12.1, white count 9.5, BUN of 15, creatinine 0.81. Urine was positive. Urine culture with ESBL E coli more than 100,[address] report as mentioned above. DIAGNOSTIC IMPRESSION AND PLAN: Patient with complicated right-sided pyelonephritis with culture finalized with ESBL E coli. Initial concern for possible abscess. However, could be more complicated abscess. PLAN: 1. Discontinue the Rocephin. 2. Will start the patient on Invanz 1 g IV daily. 3. The patient will likely need mid line for outpatient IV antibiotic therapy for at least 2 weeks. 4. Continue supportive care. MMOCTAVIOL / IJN: [id number] /
[2018-05-02 12:36] LABS: Glucose,Whole Blood 78 mg/dL (75-99)
[2018-05-02] MEDS: MULTIVITAMINS, THERA 1 EACH TAB PO SCH (12:47)
--- NOTE | 2018-05-02 13:38 | P.PN ---
Progress Note - Text Progress Note Date: 05/02/18 Ms. Velazquez states that she is feeling better today. She is afebrile and has no leukocytosis. The urine culture has shown greater than 100,000 ESBL E. coli, and she is now being treated with Invanz. I am hopeful that her condition will continue to improve and that she will require no intervention.
[2018-05-02 17:19] LABS: Glucose,Whole Blood 95 mg/dL (75-99)
--- NOTE | 2018-05-02 17:58 | PN ---
PROGRESS NOTE DATE OF SERVICE: 05/02/2018 This 52-year-old woman who was admitted with abdominal pain and pyelonephritis had ESBL E coli. Patient is on IV antibiotics. PICC line was recommended by Dr. Hernandez. No chest pain. No palpitations. No fever. On exam, alert and oriented x3. Pulse 66, blood pressure 111/58, respiration 17, temperature 98.4, pulse ox 93% on room air. HEENT: Conjunctivae normal. Oral mucosa moist. NECK: No jugular venous distention. No carotid bruit. No lymph node enlargement. CARDIOVASCULAR SYSTEM: S1, S2 muffled. RESPIRATORY SYSTEM: Breath sounds diminished at the bases. No rhonchi. No crackles. ABDOMEN: Soft. Mild diffuse discomfort. Obese. LEGS: No edema, no swelling. NERVOUS SYSTEM: Higher functions as mentioned earlier. Moves all 4 limbs. No focal motor or sensory deficit. LYMPHATICS: No lymph node palpable in neck, axillae or groin. SKIN: No ulcer, rash, bleeding. LABS: CBC and BMP noted. Sodium is 136. ASSESSMENT: 1. Acute right pyelonephritis with possible extended-spectrum beta-lactamase Escherichia coli with severe pain. 2. Diabetes mellitus, type 2, on insulin with hyperglycemia. 3. Right-sided complex cystic mass on the right upper pole of the right kidney, on medical treatment. 4. Chronic fibromyalgia. 5. Gastroesophageal reflux disease. 6. Hypertension. 7. Hyperlipidemia. 8. Hypothyroidism. 9. Ischemic cardiomyopathy, ejection fraction unknown. 10.Peripheral neuropathy. 11.Chronic ulcer on the bottom of the left foot. 12.Coronary artery disease with stent. RECOMMENDATIONS AND DISCUSSION: I recommend to continue current medication, continue with symptomatic treatment, continue with the antibiotics. Cultures are showing E coli. The patient is currently on ertapenem. As mentioned earlier, Dr. Hernandez is recommending a midline and long-term IV antibiotic treatment. Prognosis is guarded. Closely follow with Urology. Further recommendations to follow. MMODL / IJN: [id number] /
[2018-05-02] MEDS: SODIUM CHLORIDE 0.9% 1,000 ML IV SCH (18:15)
[2018-05-02 20:51] LABS: Glucose,Whole Blood 149 mg/dL (75-99)
[2018-05-02] MEDS: INSULIN DETEMIR 100 UNIT/ML 10 ML VIAL SQ SCH (21:49)
--- NOTE | 2018-05-03 02:37 | PN ---
PROGRESS NOTE DATE OF SERVICE: 05/02/2018. REASON FOR FOLLOW UP: Left-sided pyelonephritis with ESBL E coli. INTERVAL HISTORY: The patient is afebrile. Pain to the right flank area slightly improved. The patient denies having any chest pain, shortness of breath, cough. No abdominal pain or any diarrhea. EXAMINATION: Blood pressure is 111/58 with a pulse of 66, temperature 98.5. She is 93% on room air. General description is a middle aged female lying in bed in no distress. Respiratory system: Unlabored breathing, clear to auscultation anteriorly. Heart S1, S2. Regular rate and rhythm. ABDOMEN: Soft, no tenderness. LAB: Hemoglobin is 13, white count 7.9 with a BUN of 15, creatinine 0.92. DIAGNOSTIC IMPRESSION AND PLAN: Patient with ESBL E coli, right-sided pyelonephritis. The patient at this time is on Invanz to get the mid line and continue with outpatient IV Invanz for at least 2 weeks with close outpatient followup. Continue supportive care. MMODL / IJN: [id number] /
[2018-05-03] MEDS: LEVOTHYROXINE 100 MCG TAB PO SCH (05:58)
[2018-05-03] MEDS: LEVOTHYROXINE 25 MCG TAB PO SCH (05:58)
[2018-05-03 07:24] LABS: Glucose,Whole Blood 157 mg/dL (75-99)
[2018-05-03] MEDS: INSULIN ASPART 100 UNIT/ML 1 ML 10 ML VIAL SQ SCH ×7 (07:33→20:32)
[2018-05-03] MEDS: SODIUM CHLORIDE 0.9% 1,000 ML IV SCH ×2 (07:34→23:57)
[2018-05-03] MEDS: PANTOPRAZOLE 40 MG TABLET PO SCH (07:34)
[2018-05-03] MEDS: ATENOLOL 25 MG TAB PO SCH (07:35)
[2018-05-03] MEDS: amLODIPine 10 MG TAB PO SCH (07:35)
[2018-05-03] MEDS: ASPIRIN 81 MG PO SCH (07:35)
[2018-05-03] MEDS: ERTAPENEM 1 GM in SODIUM CHLORIDE 0.9% 50 ML IVPB SCH (07:36)
[2018-05-03] MEDS: CHOLECALCIFEROL 1,000 UNIT TAB PO SCH (07:36)
[2018-05-03] MEDS: ATORVASTATIN 10 MG TAB PO SCH (07:36)
[2018-05-03] MEDS: ENOXAPARIN 40 MG/0.4 ML SYRINGE SQ SCH (07:36)
[2018-05-03] MEDS: LISINOPRIL 2.5 MG TAB PO SCH (07:37)
[2018-05-03] MEDS: GABAPENTIN 100 MG CAP PO SCH ×2 (07:37→20:33)
[2018-05-03] MEDS: ISOSORBIDE MONONITRATE ER 30 MG TAB.ER.24H PO SCH (07:37)
[2018-05-03] MEDS: metFORMIN 500 MG TAB PO SCH ×2 (07:37→20:33)
[2018-05-03] MEDS: HYDROcodone/APAP 7.5-325MG 1 EACH TAB PO PRN ×2 (07:43→16:49)
[2018-05-03 10:01] LABS: Basophils % (A) 0 %; Eosinophils # (A) 0.1 k/uL (0-0.7); Eosinophils % (A) 2 %; HCT 36.6 % (34.0-46.0); HGB 12.4 gm/dL (11.4-16.0); Lymphocytes # (A) 0.9 k/uL (1.0-4.8); Lymphocytes % (A) 11 %; MCH 31.5 pg (25.0-35.0); MCHC 33.9 g/dL (31.0-37.0); MCV 93.2 fL (80.0-100.0); Mean Platelet Volume 8.6; Monocytes # (A) 0.6 k/uL (0-1.0); Monocytes % (A) 9 %; Neutrophils # (A) 5.7 k/uL (1.3-7.7); Neutrophils % (A) 77 %; Platelet Count 234 k/uL (150-450); RBC 3.92 m/uL (3.80-5.40); RDW 13.4 % (11.5-15.5); WBC 7.5 k/uL (3.8-10.6)
[2018-05-03 10:30] LABS: Calcium 8.7 mg/dL (8.4-10.2); Potassium 4.8 mmol/L (3.5-5.1)
[2018-05-03 12:01] LABS: Glucose,Whole Blood 131 mg/dL (75-99)
[2018-05-03] MEDS: MULTIVITAMINS, THERA 1 EACH TAB PO SCH (12:11)
--- NOTE | 2018-05-03 12:12 | P.PN ---
Progress Note - Text Progress Note Date: 05/03/18 Ms. Velazquez states that she is feeling better today, and that her pain is approximately 50% less than it was at the time of admission. She is afebrile and has no leukocytosis. The urine culture has shown greater than 100,000 ESBL E. coli, and she is now being treated with Invanz. I am hopeful that her condition will continue to improve and that she will require no intervention. In addition to the infection, we discussed the fact that she appears to have 2 right upper pole renal cysts, one of which is complex in appearance, and this will continue to be monitored periodically.
--- NOTE | 2018-05-03 16:35 | PN ---
PROGRESS NOTE DATE OF SERVICE: 05/03/2018 This 52-year-old woman who was admitted with acute right pyelonephritis with possible ESBL E coli is being closely monitored. Dr. Hernandez is recommending midline and IV antibiotics outpatient. No chest pain. No palpitations. No fever. PHYSICAL EXAM: Alert and oriented x3. Pulse 70, blood pressure 109/70, respiration 18, temperature 98.2, pulse ox 93% on room air. HEENT: Conjunctivae normal. Oral mucosa moist. Neck is no jugular venous distention. No carotid bruit. No lymph node enlargement. CARDIOVASCULAR: S1, S2. RESPIRATORY: Breath sounds diminished in the bases. No rhonchi. No crackles. ABDOMEN: Soft, nontender. No mass palpable. LEGS: No edema, no swelling. NERVOUS SYSTEM: No focal deficits. LABS: CBC within normal. Sodium 136. ASSESSMENT: 1. Acute right pyelonephritis with possible ESBL E coli with severe pain. 2. Diabetes mellitus type 2 on insulin with hypoglycemia. 3. Right-sided complex cystic mass in the right upper pole of the right kidney on medical treatment. 4. Chronic fibromyalgia. 5. Gastroesophageal reflux disease. 6. Hypertension. 7. Hyperlipidemia. 8. Hypothyroidism. 9. Ischemic cardiomyopathy, ejection fraction unknown. 10.Peripheral neuropathy. 11.Chronic ulcers on the bottom of the left foot. 12.Coronary artery disease, stent history. RECOMMENDATIONS AND DISCUSSION: I recommend to continue current medications, continue with monitoring and symptomatic treatment at this time. Continue the antibiotics. Closely follow with multiple consultants including Infectious Disease and Urology. I would also recommend midline line for insertion by Interventional Radiology for prolonged antibiotic treatment. Further recommendations to follow. MMODL / IJN: [id number] /
[2018-05-03 17:35] LABS: Glucose,Whole Blood 168 mg/dL (75-99)
[2018-05-03] MEDS: INSULIN DETEMIR 100 UNIT/ML 10 ML VIAL SQ SCH (20:32)
[2018-05-03 20:40] LABS: Glucose,Whole Blood 157 mg/dL (75-99)
[2018-05-04] MEDS: HYDROcodone/APAP 7.5-325MG 1 EACH TAB PO PRN ×4 (00:40→20:20)
[2018-05-04] MEDS: LEVOTHYROXINE 25 MCG TAB PO SCH (06:17)
[2018-05-04] MEDS: LEVOTHYROXINE 100 MCG TAB PO SCH (06:17)
--- NOTE | 2018-05-04 07:09 | PN ---
PROGRESS NOTE DATE OF SERVICE: 05/03/2018 REASON FOR FOLLOWUP: ESBL E coli right-sided pyelonephritis. INTERVAL HISTORY: The patient is afebrile, he is breathing comfortably. Pain to the right leg is currently improved. The patient denies having any chest pain, shortness of breath or cough. No abdominal pain. No diarrhea. EXAMINATION: Blood pressure is 118/65 with a pulse of 61, temperature 97.1. She is 93% on room air. General description is a middle-aged female up in the bed in no distress. Respiratory system: Unlabored breathing, clear to auscultation anteriorly. Heart: S1, S2. Regular rate and rhythm. Abdomen: Soft, no tenderness. LABS: Hemoglobin is 12.4, white count 7.5 with a BUN of 13, creatinine 1.02. DIAGNOSTIC IMPRESSION AND PLAN: Patient ESBL E coli right-sided pyelonephritis with concern for possible abscess. The patient is to continue with Invanz 1 g daily to finish a 2 week course of therapy with close outpatient followup. Continue supportive care. MMODL / NIKITAN: [id number] /
[2018-05-04 07:32] LABS: Glucose,Whole Blood 160 mg/dL (75-99)
[2018-05-04] MEDS: ERTAPENEM 1 GM in SODIUM CHLORIDE 0.9% 50 ML IVPB SCH (07:50)
[2018-05-04] MEDS: CHOLECALCIFEROL 1,000 UNIT TAB PO SCH (07:50)
[2018-05-04] MEDS: GABAPENTIN 100 MG CAP PO SCH ×2 (07:51→20:23)
[2018-05-04] MEDS: ATORVASTATIN 10 MG TAB PO SCH (07:51)
[2018-05-04] MEDS: LISINOPRIL 2.5 MG TAB PO SCH (07:51)
[2018-05-04] MEDS: MULTIVITAMINS, THERA 1 EACH TAB PO SCH (07:51)
[2018-05-04] MEDS: ATENOLOL 25 MG TAB PO SCH (07:51)
[2018-05-04] MEDS: metFORMIN 500 MG TAB PO SCH ×2 (07:51→20:23)
[2018-05-04] MEDS: ISOSORBIDE MONONITRATE ER 30 MG TAB.ER.24H PO SCH (07:51)
[2018-05-04] MEDS: PANTOPRAZOLE 40 MG TABLET PO SCH (07:51)
[2018-05-04] MEDS: amLODIPine 10 MG TAB PO SCH (07:51)
[2018-05-04] MEDS: INSULIN ASPART 100 UNIT/ML 1 ML 10 ML VIAL SQ SCH ×7 (07:52→20:24)
[2018-05-04 09:03] LABS: Basophils % (A) 1 %; Eosinophils # (A) 0.2 k/uL (0-0.7); Eosinophils % (A) 3 %; HCT 40.2 % (34.0-46.0); HGB 13.1 gm/dL (11.4-16.0); Lymphocytes # (A) 1.2 k/uL (1.0-4.8); Lymphocytes % (A) 17 %; MCH 30.8 pg (25.0-35.0); MCHC 32.6 g/dL (31.0-37.0); MCV 94.2 fL (80.0-100.0); Mean Platelet Volume 8.2; Monocytes # (A) 0.4 k/uL (0-1.0); Monocytes % (A) 6 %; Neutrophils # (A) 5.4 k/uL (1.3-7.7); Neutrophils % (A) 73 %; Platelet Count 302 k/uL (150-450); RBC 4.27 m/uL (3.80-5.40); RDW 13.6 % (11.5-15.5); WBC 7.4 k/uL (3.8-10.6)
[2018-05-04 09:21] LABS: Calcium 8.7 mg/dL (8.4-10.2); Potassium 4.8 mmol/L (3.5-5.1)
--- NOTE | 2018-05-04 09:50 | P.PN ---
Progress Note - Text Progress Note Date: 05/04/18 Brain continues to feel better. She is afebrile and has no leukocytosis. The urine culture has shown greater than 100,000 ESBL E. coli, and she is now being treated with Invanz, which will be continued as an outpatient. Discharge home tomorrow is anticipated. I am hopeful that her condition will continue to improve and that she will require no intervention. In addition to the infection , we discussed the fact that she appears to have 2 right upper pole renal cysts , one of which is complex in appearance, and this will continue to be monitored periodically. She will follow-up with me in 2 weeks, sooner if needed. Please notify me if I can be of any further assistance during this hospitalization.
[2018-05-04 11:38] LABS: Glucose,Whole Blood 113 mg/dL (75-99)
[2018-05-04 15:59] VITALS: RESP 18
--- NOTE | 2018-05-04 16:48 | PN ---
PROGRESS NOTE DATE OF SERVICE: 05/04/2018. REASON FOR FOLLOWUP: ESBL E. coli right-sided pyelonephritis. INTERVAL HISTORY: The patient is afebrile. She is feeling slightly better, breathing comfortably. Right flank pain has decreased intensity. No chest pain, shortness of breath or cough. No abdominal pain. No diarrhea. EXAMINATION: Blood pressure is 134/76, pulse of 71. Temperature is 97.8. She is 95% on room air. General description is a middle aged female, lying in bed in no distress. Respiratory system: Unlabored breathing. Clear to auscultation anteriorly. Heart S1, S2. Regular rate and rhythm. ABDOMEN: Soft, no tenderness. LABS: Hemoglobin 13.1, white count 7.4, BUN of 13, creatinine 0.97. DIAGNOSTIC IMPRESSION AND PLAN: Patient with ESBL E coli right-sided pyelonephritis. Patient is waiting for a PICC line placement for outpatient IV antibiotic form of Invanz 1 g daily for another 10-12 days with close outpatient followup. She will follow up with Dr. Hills who did the initial consult. Continue supportive care. MMODL / IJN: [id number] /
[2018-05-04 16:51] LABS: Glucose,Whole Blood 107 mg/dL (75-99)
[2018-05-04] MEDS: SODIUM CHLORIDE 0.9% 1,000 ML IV SCH (17:21)
--- NOTE | 2018-05-04 18:54 | PN ---
PROGRESS NOTE DATE OF SERVICE: 05/04/2018 This 52-year-old woman was admitted with right was also complaining of abdominal pain. The patient also had ESBL E coli at this time. The CT scan has been reviewed. Multiple consultants are following the patient closely. Prolonged IV antibiotics at home is also being considered. PAST MEDICAL HISTORY: Reviewed. REVIEW OF SYSTEMS: CARDIOVASCULAR: No angina. RESPIRATORY: As mentioned earlier. GI: As mentioned earlier. : No dysuria. NERVOUS SYSTEM: No numbness or weakness. CURRENT MEDICATIONS: Reviewed and include: 1. [place] 7.5 q.6 p.r.n. 2. Norvasc 10 mg p.o. 3. Tenormin 25 mg p.o. daily. 4. Lipitor 10 mg. 5. Vitamin D3 2000. 7. Neurontin 100 mg p.o. b.i.d. 8. NovoLog q.a.c. and at bedtime. 9. Levemir 45 units subcu q.h.s. 10.Imdur 30 mg daily. 11.Synthroid 200 mcg p.o. daily. 12.Synthroid 225 mcg p.o. 13.Zestril 2.5 mg. 14.Glucophage 1000 mg p.o. b.i.d. 15.Multivitamins 1 p.o. daily. 16.Narcan. 17.Nitrostat 0.4 mg p.r.n. 18.Protonix 40 mg daily. PHYSICAL EXAM: Patient is alert, oriented x3. Pulse 71, blood pressure 134/77, respiration 18, temperature 97.8, pulse ox 94% on room air. HEENT: Conjunctivae normal. Oral mucosa moist. Neck is no jugular venous distention. No carotid bruit. No lymph node enlargement. CARDIOVASCULAR: S1, S2. RESPIRATORY: Breath sounds diminished in the bases. A few scattered rhonchi and crackles. ABDOMEN: Soft. Mild diffuse discomfort on palpation. No guarding. No mass palpable. LEGS: No edema, no swelling. NERVOUS SYSTEM: No focal deficits. LAB STUDIES: WBC 7.2, glucose 131, 113, 107, hemoglobin is 13.1. ASSESSMENT: 1. Acute right pyelonephritis with possibly ESBL E coli with severe pain. 2. Diabetes mellitus type 2 on insulin with hyperglycemia. 3. Right-sided complex cystic mass in the right upper lobe of the right kidney on medical treatment. 4. Chronic fibromyalgia. 5. Gastroesophageal reflux disease. 6. Hypertension. 7. Hyperlipidemia. 8. Hypothyroidism. 9. Ischemic cardiomyopathy, ejection fraction unknown. 10.Peripheral neuropathy. 11.Chronic ulcers in the bottom of the left foot. 12.Coronary artery disease, stent. RECOMMENDATIONS AND DISCUSSION: I recommend to continue with current management and symptomatic treatment. Continue with IV antibiotics and symptomatic treatment. Otherwise follow closely with Urology. The patient had a prolonged followup regarding the abnormal CT scan. Otherwise, overall prognosis guarded. Further recommendations to follow. MMODL / IJN: [id number] / AMNA
[2018-05-04] MEDS: INSULIN DETEMIR 100 UNIT/ML 10 ML VIAL SQ SCH (20:25)
[2018-05-04 20:40] LABS: Glucose,Whole Blood 96 mg/dL (75-99)
[2018-05-05] MEDS: LEVOTHYROXINE 100 MCG TAB PO SCH (05:58)
[2018-05-05] MEDS: LEVOTHYROXINE 25 MCG TAB PO SCH (05:58)
[2018-05-05 07:19] LABS: Glucose,Whole Blood 180 mg/dL (75-99)
[2018-05-05] MEDS: HYDROcodone/APAP 7.5-325MG 1 EACH TAB PO PRN ×2 (08:01→18:11)
[2018-05-05] MEDS: ERTAPENEM 1 GM in SODIUM CHLORIDE 0.9% 50 ML IVPB SCH (08:01)
[2018-05-05] MEDS: INSULIN ASPART 100 UNIT/ML 1 ML 10 ML VIAL SQ SCH ×6 (08:02→18:11)
[2018-05-05] MEDS: GABAPENTIN 100 MG CAP PO SCH (08:03)
[2018-05-05] MEDS: LISINOPRIL 2.5 MG TAB PO SCH (08:03)
[2018-05-05] MEDS: CHOLECALCIFEROL 1,000 UNIT TAB PO SCH (08:03)
[2018-05-05] MEDS: ISOSORBIDE MONONITRATE ER 30 MG TAB.ER.24H PO SCH (08:03)
[2018-05-05] MEDS: metFORMIN 500 MG TAB PO SCH (08:03)
[2018-05-05] MEDS: amLODIPine 10 MG TAB PO SCH (08:03)
[2018-05-05] MEDS: PANTOPRAZOLE 40 MG TABLET PO SCH (08:03)
[2018-05-05] MEDS: ATENOLOL 25 MG TAB PO SCH (08:03)
[2018-05-05] MEDS: ATORVASTATIN 10 MG TAB PO SCH (08:03)
[2018-05-05 09:33] LABS: Basophils % (A) 0 %; Eosinophils # (A) 0.2 k/uL (0-0.7); Eosinophils % (A) 2 %; HCT 40.6 % (34.0-46.0); HGB 13.4 gm/dL (11.4-16.0); Lymphocytes # (A) 1.2 k/uL (1.0-4.8); Lymphocytes % (A) 12 %; MCH 30.5 pg (25.0-35.0); MCHC 32.9 g/dL (31.0-37.0); Mean Platelet Volume 8.5; Monocytes # (A) 0.6 k/uL (0-1.0); Monocytes % (A) 6 %; Neutrophils # (A) 7.6 k/uL (1.3-7.7); Neutrophils % (A) 79 %; Platelet Count 299 k/uL (150-450); RBC 4.37 m/uL (3.80-5.40); RDW 13.6 % (11.5-15.5); WBC 9.7 k/uL (3.8-10.6)
[2018-05-05 09:49] LABS: Calcium 8.7 mg/dL (8.4-10.2)
[2018-05-05] MEDS: SODIUM CHLORIDE 0.9% 1,000 ML IV SCH (10:51)
[2018-05-05 12:31] LABS: Glucose,Whole Blood 129 mg/dL (75-99)
[2018-05-05] MEDS: MULTIVITAMINS, THERA 1 EACH TAB PO SCH (13:37)
[2018-05-05 15:12] VITALS: BP 115/70; PULSE 65; TEMP 98.4
[2018-05-05 17:27] LABS: Glucose,Whole Blood 153 mg/dL (75-99)
--- NOTE | 2018-05-05 21:28 | P.PN ---
Subjective Progress Note Date: 05/05/18 52-year-old female presents to Hospital with a many day history of increasing pain to her right mid abdominal area. The patient has a very significant past medical history of sepsis and shock with long-term ventilation with eventual recovery. She had intra-abdominal sepsis as well as significant pressure ulceration to her coccyx at that time. She relates that for the last several days having increasing pain associated with some nausea without emesis she believes she had a fever she denying nausea or emesis. She's has not been having a significant change of her bowel habit. She's had no melena or hematochezia or hematemesis. She is not having any profuse diarrhea. The patient relates that she is bringing that she doesn't have a problem with her bowel because she would rather than go through another colostomy. Today on 05/05/2018 she's feeling considerably better. She is looking forward to discharge to home. Her severe abdominal pain has improved with antibiotic therapy directed for her acute pyelonephritis. As noted she has been seen by urology and it was determined that the changes seen on CAT scan related to pyelonephritis rather than a tumor. The patient is thrilled that she is feeling better and looks forward to completing a course of antibiotic therapy. Objective - Vital Signs Vital signs: Vital Signs Temp 98.4 F 05/05/18 15:00 Pulse 65 05/05/18 15:00 Resp 18 05/05/18 15:42 BP 115/70 05/05/18 15:00 Pulse Ox 93 L 05/05/18 15:00 Intake & Output 05/05/18 05/05/18 05/06/18 06:59 18:59 06:59 Intake Total 900 Balance 900 Intake: Oral 900 Other: Voiding Method Bedside Commode Bedside Commode # Voids 3 4 # Bowel Movements 0 1 - Exam Pleasant obese 52-year-old woman uncomfortable due to her abdominal pain HEENT: Anicteric conjunctiva are pink and moist nasal mucosa grossly intact without significant lesions, there is no thrush. Neck: The neck is supple without significant lymphadenopathy or thyromegaly. Lungs: Good bilateral air entry without significant crackles or wheezing. There is no significant bronchial sounds. There is no egophony or dullness. Heart: Regular rate and rhythm with an audible S1-S2, no S3 no S4. There is no significant murmur click or rub, PMI was nondisplaced. Abdomen: Positive bowel sounds soft large abdominal pannus but has resolved with the tenderness in the right lateral upper quadrant area. No guarding or rebound is appreciated. No skin ulcerations are seen Extremities: The upper extremities have excellent pulses they are symmetric, no significant petechiae or telangiectasia. No splinter hemorrhages were noted. The lower extremities are free from significant edema. The peripheral pulses were 2+ and symmetric. Neuro: Awake alert oriented to person place and time. There are no acute new gross focal sensory motor deficits. - Labs CBC & Chem 7: 05/05/18 08:54 05/05/18 08:54 Labs: Abnormal Lab Results - Last 24 Hours (Table) 05/05/18 05/05/18 05/05/18 Range/Units 07:16 08:54 12:26 Glucose 155 H (74-99) mg/dL POC Glucose (mg/dL) 180 H 129 H (75-99) mg/dL 05/05/18 Range/Units 17:13 Glucose (74-99) mg/dL POC Glucose (mg/dL) 153 H (75-99) mg/dL Microbiology - Last 24 Hours (Table) 04/28/18 19:05 Blood Culture - Final Blood No Growth after 144 hours Laboratory Results WBC 9.7 k/uL (3.8-10.6) 05/05/18 08:54 RBC 4.37 m/uL (3.80-5.40) 05/05/18 08:54 Hgb 13.4 gm/dL (11.4-16.0) 05/05/18 08:54 Hct 40.6 % (34.0-46.0) 05/05/18 08:54 MCV 93.0 fL (80.0-100.0) 05/05/18 08:54 MCH 30.5 pg (25.0-35.0) 05/05/18 08:54 MCHC 32.9 g/dL (31.0-37.0) 05/05/18 08:54 RDW 13.6 % (11.5-15.5) 05/05/18 08:54 Plt Count 299 k/uL (150-450) 05/05/18 08:54 Neutrophils % 79 % 05/05/18 08:54 Lymphocytes % 12 % 05/05/18 08:54 Monocytes % 6 % 05/05/18 08:54 Eosinophils % 2 % 05/05/18 08:54 Basophils % 0 % 05/05/18 08:54 Neutrophils # 7.6 k/uL (1.3-7.7) 05/05/18 08:54 Lymphocytes # 1.2 k/uL (1.0-4.8) 05/05/18 08:54 Monocytes # 0.6 k/uL (0-1.0) 05/05/18 08:54 Eosinophils # 0.2 k/uL (0-0.7) 05/05/18 08:54 Basophils # 0.0 k/uL (0-0.2) 05/05/18 08:54 PT 9.4 sec (9.0-12.0) 04/28/18 19:05 INR 0.9 (<1.2) 04/28/18 19:05 APTT 23.6 sec (22.0-30.0) 04/28/18 19:05 Sodium 137 mmol/L (137-145) 05/05/18 08:54 Potassium 5.0 mmol/L (3.5-5.1) 05/05/18 08:54 Chloride 100 mmol/L (98-107) 05/05/18 08:54 Carbon Dioxide 27 mmol/L (22-30) 05/05/18 08:54 Anion Gap 10 mmol/L 05/05/18 08:54 BUN 16 mg/dL (7-17) 05/05/18 08:54 Creatinine 0.88 mg/dL (0.52-1.04) 05/05/18 08:54 Est GFR (CKD-EPI)AfAm 89 (>60 ml/min/1.73 sqM) 05/05/18 08:54 Est GFR (CKD-EPI)NonAf 77 (>60 ml/min/1.73 sqM) 05/05/18 08:54 Glucose 155 mg/dL (74-99) H 05/05/18 08:54 POC Glucose (mg/dL) 153 mg/dL (75-99) H 05/05/18 17:13 POC Glu Cosmetologist ID Lorena Bedoya 05/05/18 17:[address] Glu mg/dL 220 04/28/18 19:05 Hemoglobin A1c 9.3 % (4.0-6.0) H 04/28/18 19:05 Plasma Lactic Acid [place] 1.9 mmol/L (0.7-2.0) 04/28/18 19:05 Calcium 8.7 mg/dL (8.4-10.2) 05/05/18 08:54 Total Bilirubin 0.6 mg/dL (0.2-1.3) 04/28/18 19:55 AST 30 U/L (14-36) 04/28/18 19:55 ALT 38 U/L (9-52) 04/28/18 19:55 Alkaline Phosphatase 127 U/L (38-126) H 04/28/18 19:55 Total Protein 6.6 g/dL (6.3-8.2) 04/28/18 19:55 Albumin 3.4 g/dL (3.5-5.0) L 04/28/18 19:55 Amylase 34 U/L (30-110) 04/28/18 19:55 Lipase 83 U/L (23-300) 04/28/18 19:55 Urine Color Yellow 04/28/18 20:05 Urine Appearance Cloudy (Clear) H 04/28/18 20:05 Urine pH 5.5 (5.0-8.0) 04/28/18 20:05 Ur Specific [place] 1.016 (1.001-1.035) 04/28/18 20:05 Urine Protein 1+ (Negative) H 04/28/18 20:05 Urine Glucose (UA) 4+ (Negative) H 04/28/18 20:05 Urine Ketones Negative (Negative) 04/28/18 20:05 Urine Blood Negative (Negative) 04/28/18 20:05 Urine Nitrite Positive (Negative) H 04/28/18 20:05 Urine Bilirubin Negative (Negative) 04/28/18 20:05 Urine Urobilinogen <2.0 mg/dL (<2.0) 04/28/18 20:05 Ur Leukocyte Esterase Small (Negative) H 04/28/18 20:05 Urine RBC <1 /hpf (0-5) 04/28/18 20:05 Urine WBC 33 /hpf (0-5) H 04/28/18 20:05 Ur Squamous Epith Cells <1 /hpf (0-4) 04/28/18 20:05 Urine Bacteria Occasional /hpf (None) H 04/28/18 20:05 Urine Mucus Rare /hpf (None) H 04/28/18 20:05 Microbiology 04/28/18 19:05 Blood Blood Culture - Final No Growth after 144 hours 04/28/18 20:05 Urine,Clean Catch Urine Culture - Final Escherichia coli Assessment and Plan (1) Abdominal pain Status: Acute Code(s): R10.9 - UNSPECIFIED ABDOMINAL PAIN SNOMED Code(s): 04120213 (2) Renal mass of unknown nature Narrative/Plan: 52-year-old woman presents to Hospital for evaluation of progressive abdominal pain, he became so severe she can no longer tolerate it at home and now with pain medications including morphine she is just becoming comfortable. Does not feel well overall. She is related to her profound illness she had lost weight but is now back up at least 40 pounds from her low. She is trying to smoke less and she has an the past. She relates that if her current problemfrom her bowel she would not elect for another colostomy she would rather . It is pointed temperatures to be a complex mass in the right kidney. This is at least in the somewhat generalized region where she is having her severe pain. Urological surgical evaluation is currently in process and await their input as to what the next most logical step is in identifying the etiology of this mass. With her history there is great concern that this could be a malignancy versus a complex infectious process. Currently receiving antibiotic therapy with Rocephin and will continue until there is further diagnostic evidence of the etiology of this renal mass. 05/05/2018 patient is now feeling considerably better since her admission. Her pain is now generally resolved. The patient is being treated for any acute pyelonephritis of the right kidney which is evaluated by the computed tomography scan, seen by urology and not thought to be a mass but her underlying renal tissue infection. She is doing considerably better and is ready for discharge to home. Her course of ertapenem has been arranged to be receiving that through home care and will follow in the opposite end of her therapy in the next couple of weeks. Review blood work was requested. Her questions are answered. Discharge home today. Status: Acute Code(s): N28.89 - OTHER SPECIFIED DISORDERS OF KIDNEY AND URETER SNOMED Code(s): 098672340
--- NOTE | 2018-05-07 07:54 | DS ---
DISCHARGE SUMMARY DATE OF ADMISSION: 04/28/2018 DATE OF DISCHARGE: 05/05/2018 FINAL DIAGNOSIS: 1. Acute right-sided pyelonephritis. 2. Diabetes mellitus type 2, chronically on insulin uncontrolled with . 3. Chronic fibromyalgia. 4. Gastroesophageal reflux disease. 5. Hyperlipidemia. 6. Essential hypertension. 7. Hypothyroid. 8. Ischemic cardiomyopathy, ejection fraction not known. 9. Peripheral neuropathy secondary to diabetes. 10.Chronic ulcers on the bottom of the left foot, present on admission. 11.Coronary artery disease with stent. 12.Cultures positive for Escherichia coli/ESBL. HOSPITAL COURSE: The patient presented with right-sided what appears to be pyelonephritis positive for Escherichia coli, given antibiotics. The patient is doing much better at the time of discharge, tolerating a diet. PHYSICAL EXAMINATION: On examination, temperature 98.4, pulse 65, blood pressure 115/70, pulse ox 93% on room air. ABDOMEN: Soft, nontender. CONSULTATION: Dr. Hills from Infectious Disease; Dr. Castañeda from Urology. DISCHARGE MEDICATIONS: 1. Neurontin 100 mg p.o. b.i.d. 2. Aspirin 81 mg a day. 3. Prilosec 20 mg at breakfast. 4. Imdur ER 30 mg a day. 5. Norvasc 10 mg p.o. daily. 6. Nitrostat 0.4 sublingual q.5 p.r.n. 7. Metformin 1000 mg b.i.d. 8. Tenormin 25 mg a day. 9. Lipitor 10 mg p.o. daily. 10.Vitamin D3, units p.o. daily. 11.Synthroid 225 mcg a day. 12.Zestril 2.5 mg a day. 13.NovoLog a.c. t.i.d. 14.Multivitamin 1 tablet p.o. daily. 15.Invanz 1 gram IV piggyback for 14 days. 16.Insulin Lantus 46 units subcutaneous q.h.s. 17.Naproxen 250 mg p.o. t.i.d. Follow up with Dr. Adair in 3 days. Follow up with Dr. Castañeda on 05/16/2018. Follow up with [facility] on 05/05/2018. Follow up with Dr. Hills as needed. MMODL / IJN: [id number] /
== END 2018-05-05 19:24 | disposition home health service (06) | DRG 690 ==
LOC: EC 18:05 → INTOOBSV 22:47 → 4MS4W 22:47 → OBSVTOIN 05-02 08:19
PROVIDERS: ADMIT Hospitalist; ATTEND Hospitalist
PROC: 05HF33Z Insertion of Infusion Device into Left Cephalic Vein, Percutaneous Approach (ICD-10-PCS; principal; 2018-05-02)
PROC: 3E03329 Introduction of Other Anti-infective into Peripheral Vein, Percutaneous Approach (ICD-10-PCS; principal; 2018-05-02)
PROC: B54NZZA Ultrasonography of Left Upper Extremity Veins, Guidance (ICD-10-PCS; principal; 2018-05-02)
PROC: 3E03329 Introduction of Other Anti-infective into Peripheral Vein, Percutaneous Approach (ICD-10-PCS; 2018-05-05 08:00)
PROC: B54MZZA Ultrasonography of Right Upper Extremity Veins, Guidance (ICD-10-PCS; 2018-05-05 08:00)
PROC: 05HD33Z Insertion of Infusion Device into Right Cephalic Vein, Percutaneous Approach (ICD-10-PCS; 2018-05-05 08:00)
DX: N10 Acute pyelonephritis (principal); Z68.41 Body mass index [BMI] 40.0-44.9, adult; E66.9 Obesity, unspecified; E11.42 Type 2 diabetes mellitus with diabetic polyneuropathy; E11.621 Type 2 diabetes mellitus with foot ulcer; N28.1 Cyst of kidney, acquired; L97.529 Non-pressure chronic ulcer of other part of left foot with unspecified severity; E11.65 Type 2 diabetes mellitus with hyperglycemia; G30.9 Alzheimer's disease, unspecified; F02.80 Dementia in other diseases classified elsewhere, unspecified severity, without behavioral disturbance, psychotic disturbance, mood disturbance, and anxiety; B96.20 Unspecified Escherichia coli [E. coli] as the cause of diseases classified elsewhere; Z16.12 Extended spectrum beta lactamase (ESBL) resistance; E89.0 Postprocedural hypothyroidism; G80.9 Cerebral palsy, unspecified; K21.9 Gastro-esophageal reflux disease without esophagitis; E78.5 Hyperlipidemia, unspecified; I10 Essential (primary) hypertension; I25.10 Atherosclerotic heart disease of native coronary artery without angina pectoris; M79.7 Fibromyalgia; I25.5 Ischemic cardiomyopathy; G43.909 Migraine, unspecified, not intractable, without status migrainosus; F17.210 Nicotine dependence, cigarettes, uncomplicated; Z71.6 Tobacco abuse counseling; Z71.3 Dietary counseling and surveillance; Z79.82 Long term (current) use of aspirin; Z79.4 Long term (current) use of insulin; Z79.890 Hormone replacement therapy; Z79.899 Other long term (current) drug therapy; Z85.850 Personal history of malignant neoplasm of thyroid; Z86.14 Personal history of Methicillin resistant Staphylococcus aureus infection; Z85.42 Personal history of malignant neoplasm of other parts of uterus; Z95.5 Presence of coronary angioplasty implant and graft; Z90.710 Acquired absence of both cervix and uterus; Z86.73 Personal history of transient ischemic attack (TIA), and cerebral infarction without residual deficits; Z86.59 Personal history of other mental and behavioral disorders; Z80.8 Family history of malignant neoplasm of other organs or systems; Z82.61 Family history of arthritis
CPT/HCPCS: 36415; 36569; 71045; 74177; 76770; 76937; 80048; 80053; 81001; 82150; 83036; 83605; 83690; 85025; 85610; 85730; 87040; 87077; 87086; 87186; 93005; 96365; 96375; 99285

== ENCOUNTER 2019-01-18 15:12 | Inpatient (IN) | payer MEDICARE, OTHER ==
[2019-01-18] MEDS ORDERED: SODIUM CHLORIDE 0.9% 500 ML 500 ML IV STA (15:29)
[2019-01-18 15:34] LABS: Glucose,Whole Blood 186 mg/dL (75-99)
--- NOTE | 2019-01-18 15:39 | ED ---
General Adult HPI - General Chief complaint: Weakness Stated complaint: Fall, Weakness Time Seen by Provider: 01/18/19 15:13 Source: patient, EMS, RN notes reviewed Mode of arrival: EMS Limitations: physical limitation - History of Present Illness Initial comments: Chief complaint history of present illness this is a 53-year-old female who reports she felt extremely weak. She fell once this morning managed to get herself up but when she was going out to have lunch with her mother she got to the car was too weak to transfer into the car and slumped to the ground. EMS was called for assistance and lifting her but it appeared to them as though she was unable to assist and stand on her own without their assistance. She was brought here. - Related Data Home Medications Medication Instructions Recorded Confirmed Gabapentin [Neurontin] 100 mg PO BID 04/12/14 04/28/18 Isosorbide Mononitrate [Isosorbide 30 mg PO DAILY 11/09/15 04/28/18 Mononitrate ER] amLODIPine [Norvasc] 10 mg PO DAILY 11/15/15 04/28/18 Atenolol [Tenormin] 25 mg PO DAILY 11/19/16 04/28/18 Atorvastatin [Lipitor] 10 mg PO DAILY 11/19/16 04/28/18 Cholecalciferol [Vitamin D3 (25 3,000 unit PO DAILY 11/19/16 04/28/18 Mcg = 1000 Iu)] Levothyroxine Sodium [Synthroid] 25 mcg PO DAILY 11/19/16 04/28/18 Levothyroxine Sodium [Synthroid] 200 mcg PO DAILY 11/19/16 04/28/18 Lisinopril [Zestril] 2.5 mg PO DAILY 11/19/16 04/28/18 INSULIN ASPART (NovoLOG) [NovoLOG See Protocol SQ AC-TID 04/28/18 04/28/18 (formulary)] Multivitamins, Thera [Multivitamin 1 tab PO DAILY 04/28/18 04/28/18 (formulary)] Previous Rx's Medication Instructions Recorded Aspirin EC [Ecotrin Low Dose] 81 mg PO DAILY #30 tablet. 04/18/14 Omeprazole [PriLOSEC] 20 mg PO AC-BRKFST #30 capsule. 04/18/14 Nitroglycerin Sl Tabs [Nitrostat] 0.4 mg SUBLINGUAL Q5M PRN #25 tab 11/17/15 metFORMIN HCL 1,000 mg PO BID #0 11/17/15 Ertapenem [INVanz] 1 gm IVPB Q24H #14 bag 05/05/18 Insulin Glargine [Lantus] 46 unit SQ HS #0 vial 05/05/18 Naproxen [Naprosyn] 250 mg PO TID #30 tab 05/05/18 Allergies Allergy/AdvReac Type Severity Reaction Status Date / Time No Known Allergies Allergy Verified 01/18/19 16:29 Review of Systems ROS Statement: Those systems with pertinent positive or pertinent negative responses have been documented in the HPI. Review of systems. Patient's denying any headache or chest pain she states she feels more somnolent today. No shortness of breath. Denies abdominal pain. Has chronic weakness or lower extremities due to cerebral palsy. States she's not been able to feel her left leg for a long period of time so no change today. She just more weak unable to ambulate even with the assistance of her walker which which he normally uses. Past medical problems thyroid cancer, angina, insulin-dependent diabetes mellitus, fibromyalgia, GERD, hyperlipidemia and hypertension. Hypothyroidism, cerebral palsy and ischemic cardiomyopathy. Surgeries include heart catheterizations, hernia repair hysterectomy, previous trach gas and hernia surgery for hernia. Family history not respiratory. No known ALLERGIES. States she smokes marijuana denies alcohol use. ROS Other: All systems not noted in ROS Statement are negative. Past Medical History Past Medical History: Cancer, Chest Pain / Angina, Diabetes Mellitus, Eye Disorder, Fibromyalgia, GERD/Reflux, Hyperlipidemia, Hypertension, Thyroid Disorder Additional Past Medical History / Comment(s): cerebral palsy, Ischemic cardiomyopathy, MIGRAINES, hx. uterine & thyroid cancer with surgery, past hx. flesh eating disease 10 yrs ago-was very ill and intubated/vented, ocular strokes, hypothyroid, beginning of alzheimer's, numbness tingling bilateral legs/feet, pt states she has a sore on the bottom of her L foot at this time that has been there for yrs-being monitored by her livestock haulier. Last Myocardial Infarction Date:: unkn History of Any Multi-Drug Resistant Organisms: MRSA Date of last positivie culture/infection: 2005 MDRO Source:: buttock per pt Past Surgical History: Heart Catheterization, Heart Catheterization With Stent, Hernia Repair, Hysterectomy Additional Past Surgical History / Comment(s): TRACH, thyroidectomy, hiatal hernia repair, colostomy with reversal due to colon perforation and sepsis colonoscopy. D&C. 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 in the past Past Anesthesia/Blood Transfusion Reactions: Previous Problems w/ Anesthesia Additional Past Anesthesia/Blood Transfusion Reaction / Comment(s): slow to wake up from anesthesia, complications w/general anesthesia-collapsed lung Date of Last Stent Placement:: 11/16/15 Past Psychological History: Anxiety, Depression Smoking Status: Current every day smoker Past Alcohol Use History: None Reported Past Drug Use History: Marijuana - Past Family History Father Family Medical History: Cancer Additional Family Medical History / Comment(s): HAD BRAIN CANCER AT GE 57 Mother Family Medical History: Rheumatoid Arthritis (RA) Additional Family Medical History / Comment(s): MOM IS 66 General Exam - General Exam Comments Initial Comments: General: The patient is awake and alert, patient has cervical palsy is normally able to get around using her walker but today she fell twice. Second time he sits attaining EMS to help her up. She does state that earlier today she felt her blood sugar was low and was monitored to be 88. She received a sweet drink. EMS found her sugar to be 235. Initial blood sugar emergency room was 180. I'll signs temperature of 98.5, pulse 90, respiratory rate 14 with a blood pressure of 107/88 and 93 pulse ox on room air. Eye: Pupils are equal, round and reactive to light, extra-ocular movements are intact; there is normal conjunctiva bilaterally. No signs of icterus. Ears, nose, mouth and throat: There are moist mucous membranes and no oral lesions. Neck: The neck is supple, denies neck pain Cardiovascular: There is a regular rate and rhythm. No murmur, rub or gallop is appreciated. Respiratory: Lungs are clear to auscultation, respirations are non-labored, breath sounds are equal. No wheezes, stridor, rales, or rhonchi. Gastrointestinal: Soft, non-distended, non-tender abdomen without masses or organomegaly noted. Intertrigo within the groin and under the pannus Back: Chronic low back pain past history of back surgery Musculoskeletal: Patient states she has chronically numb right leg with difficulty moving. No worse today than before. She does have feeling to move her left leg. But states she's not strong enough to ambulate with a walker which she was able to do up until yesterday. Neurological: Chronically weakened right leg. Skin: Skin is warm and dry and no rashes or lesions are noted. Psychiatric: Cooperative, appropriate mood & affect, normal judgment. Limitations: physical limitation Course Vital Signs 01/18/19 01/18/19 15:15 15:25 Temperature 98.5 F Pulse Rate 90 90 Respiratory 14 14 Rate Blood Pressure 107/88 107/88 O2 Sat by Pulse 93 L 93 L Oximetry EKG Findings - EKG Comments: EKG Findings:: EKG was done and reviewed at 1518 showing normal sinus rhythm no acute ST elevation no ectopy. Age undetermined injury inferiorly. Ventricular rate 90, NE interval is 172, QRS 94, QT 352, QTC 4:30. Dr. Lee Medical Decision Making - Medical Decision Making Decision making; this is a 53-year-old female brought to emergency by EMS because of weakness. The patient does have cerebral palsy but she was able to ambulate yesterday using her walker. Patient is a past history of having had pyelonephritis. More recently the patient reports that she has not felt well for 2 days. Denies fever denies nausea or vomiting. Eyes any change in urinary habits and denies flank pain. The patient's labs show white count of 9 hemoglobin 16 hematocrit of 48 with a potassium 4.2. INR 1.0. The BUN is 15 creatinine 0.95 with a GFR 7. Plasma lactic acid is elevated at 2.5. Glucose is 180. The patient's urine shows 42 reds 92 whites moderate leuk esterase. Acetone negative. The patient was being hydrated. She'll also be started on Rocephin. Urine to be cultured, medications started. blood cultures will be drawn. The case discussed with Dr. velásquez , patient admitted to her service. - Lab Data Result diagrams: 01/18/19 15:35 01/18/19 15:35 Lab Results 01/18/19 01/18/19 01/18/19 Range/Units 15:28 15:35 15:35 WBC 9.1 (3.8-10.6) k/uL RBC 5.16 (3.80-5.40) m/uL Hgb 16.4 H (11.4-16.0) gm/dL Hct 48.6 H (34.0-46.0) % MCV 94.3 (80.0-100.0) fL MCH 31.8 (25.0-35.0) pg MCHC 33.8 (31.0-37.0) g/dL RDW 12.9 (11.5-15.5) % Plt Count 186 (150-450) k/uL Neutrophils % 72 % Lymphocytes % 18 % Monocytes % 6 % Eosinophils % 3 % Basophils % 1 % Neutrophils # 6.6 (1.3-7.7) k/uL Lymphocytes # 1.7 (1.0-4.8) k/uL Monocytes # 0.5 (0-1.0) k/uL Eosinophils # 0.2 (0-0.7) k/uL Basophils # 0.1 (0-0.2) k/uL PT (9.0-12.0) sec INR (<1.2) APTT (22.0-30.0) sec Sodium 139 (137-145) mmol/L Potassium 4.2 (3.5-5.1) mmol/L Chloride 105 (98-107) mmol/L Carbon Dioxide 22 (22-30) mmol/L Anion Gap 12 mmol/L BUN 15 (7-17) mg/dL Creatinine 0.95 (0.52-1.04) mg/dL Est GFR (CKD-EPI)AfAm 80 (>60 ml/min/1.73 sqM) Est GFR (CKD-EPI)NonAf 70 (>60 ml/min/1.73 sqM) Glucose 180 H (74-99) mg/dL POC Glucose (mg/dL) 186 H (75-99) mg/dL POC Glu Library Specialist ID [place] Plasma Lactic Acid [place] (0.7-2.0) mmol/L Calcium 9.3 (8.4-10.2) mg/dL Total Bilirubin 0.5 (0.2-1.3) mg/dL AST 14 (14-36) U/L ALT 14 (9-52) U/L Alkaline Phosphatase 66 (38-126) U/L Troponin I (0.000-0.034) ng/mL Total Protein 7.0 (6.3-8.2) g/dL Albumin 4.4 (3.5-5.0) g/dL TSH 37.100 H (0.465-4.680) mIU/L Urine Color Urine Appearance (Clear) Urine pH (5.0-8.0) Ur Specific [place] (1.001-1.035) Urine Protein (Negative) Urine Glucose (UA) (Negative) Urine Ketones (Negative) Urine Blood (Negative) Urine Nitrite (Negative) Urine Bilirubin (Negative) Urine Urobilinogen (<2.0) mg/dL Ur Leukocyte Esterase (Negative) Urine RBC (0-5) /hpf Urine WBC (0-5) /hpf Ur Squamous Epith Cells (0-4) /hpf Urine Bacteria (None) /hpf Urine Mucus (None) /hpf Acetone, Qual Negative (Negative) 01/18/19 01/18/19 01/18/19 Range/Units 15:35 15:35 15:35 WBC (3.8-10.6) k/uL RBC (3.80-5.40) m/uL Hgb (11.4-16.0) gm/dL Hct (34.0-46.0) % MCV (80.0-100.0) fL MCH (25.0-35.0) pg MCHC (31.0-37.0) g/dL RDW (11.5-15.5) % Plt Count (150-450) k/uL Neutrophils % % Lymphocytes % % Monocytes % % Eosinophils % % Basophils % % Neutrophils # (1.3-7.7) k/uL Lymphocytes # (1.0-4.8) k/uL Monocytes # (0-1.0) k/uL Eosinophils # (0-0.7) k/uL Basophils # (0-0.2) k/uL PT 10.3 (9.0-12.0) sec INR 1.0 (<1.2) APTT 24.4 (22.0-30.0) sec Sodium (137-145) mmol/L Potassium (3.5-5.1) mmol/L Chloride (98-107) mmol/L Carbon Dioxide (22-30) mmol/L Anion Gap mmol/L BUN (7-17) mg/dL Creatinine (0.52-1.04) mg/dL Est GFR (CKD-EPI)AfAm (>60 ml/min/1.73 sqM) Est GFR (CKD-EPI)NonAf (>60 ml/min/1.73 sqM) Glucose (74-99) mg/dL POC Glucose (mg/dL) (75-99) mg/dL POC Glu Library Specialist ID Plasma Lactic Acid [place] 2.5 H* (0.7-2.0) mmol/L Calcium (8.4-10.2) mg/dL Total Bilirubin (0.2-1.3) mg/dL AST (14-36) U/L ALT (9-52) U/L Alkaline Phosphatase (38-126) U/L Troponin I <0.012 (0.000-0.034) ng/mL Total Protein (6.3-8.2) g/dL Albumin (3.5-5.0) g/dL TSH (0.465-4.680) mIU/L Urine Color Urine Appearance (Clear) Urine pH (5.0-8.0) Ur Specific [place] (1.001-1.035) Urine Protein (Negative) Urine Glucose (UA) (Negative) Urine Ketones (Negative) Urine Blood (Negative) Urine Nitrite (Negative) Urine Bilirubin (Negative) Urine Urobilinogen (<2.0) mg/dL Ur Leukocyte Esterase (Negative) Urine RBC (0-5) /hpf Urine WBC (0-5) /hpf Ur Squamous Epith Cells (0-4) /hpf Urine Bacteria (None) /hpf Urine Mucus (None) /hpf Acetone, Qual (Negative) 01/18/19 Range/Units 15:50 WBC (3.8-10.6) k/uL RBC (3.80-5.40) m/uL Hgb (11.4-16.0) gm/dL Hct (34.0-46.0) % MCV (80.0-100.0) fL MCH (25.0-35.0) pg MCHC (31.0-37.0) g/dL RDW (11.5-15.5) % Plt Count (150-450) k/uL Neutrophils % % Lymphocytes % % Monocytes % % Eosinophils % % Basophils % % Neutrophils # (1.3-7.7) k/uL Lymphocytes # (1.0-4.8) k/uL Monocytes # (0-1.0) k/uL Eosinophils # (0-0.7) k/uL Basophils # (0-0.2) k/uL PT (9.0-12.0) sec INR (<1.2) APTT (22.0-30.0) sec Sodium (137-145) mmol/L Potassium (3.5-5.1) mmol/L Chloride (98-107) mmol/L Carbon Dioxide (22-30) mmol/L Anion Gap mmol/L BUN (7-17) mg/dL Creatinine (0.52-1.04) mg/dL Est GFR (CKD-EPI)AfAm (>60 ml/min/1.73 sqM) Est GFR (CKD-EPI)NonAf (>60 ml/min/1.73 sqM) Glucose (74-99) mg/dL POC Glucose (mg/dL) (75-99) mg/dL POC Glu Library Specialist ID Plasma Lactic Acid [place] (0.7-2.0) mmol/L Calcium (8.4-10.2) mg/dL Total Bilirubin (0.2-1.3) mg/dL AST (14-36) U/L ALT (9-52) U/L Alkaline Phosphatase (38-126) U/L Troponin I (0.000-0.034) ng/mL Total Protein (6.3-8.2) g/dL Albumin (3.5-5.0) g/dL TSH (0.465-4.680) mIU/L Urine Color Yellow Urine Appearance Turbid H (Clear) Urine pH 6.0 (5.0-8.0) Ur Specific [place] 1.025 (1.001-1.035) Urine Protein 2+ H (Negative) Urine Glucose (UA) Negative (Negative) Urine Ketones Negative (Negative) Urine Blood Negative (Negative) Urine Nitrite Negative (Negative) Urine Bilirubin Negative (Negative) Urine Urobilinogen <2.0 (<2.0) mg/dL Ur Leukocyte Esterase Moderate H (Negative) Urine RBC 4 (0-5) /hpf Urine WBC 42 H (0-5) /hpf Ur Squamous Epith Cells 94 H (0-4) /hpf Urine Bacteria Occasional H (None) /hpf Urine Mucus Rare H (None) /hpf Acetone, Qual (Negative) Disposition Clinical Impression: Weakness, Urinary tract infection Disposition: ADMITTED IP TO THIS HOSP Condition: Serious Is patient prescribed a controlled substance at d/c from ED?: No Referrals: Samson Adair DO [Primary Care Provider] - 1-2 days
[2019-01-18 15:48] LABS: WBC 9.1 k/uL (3.8-10.6)
[2019-01-18 15:49] LABS: Basophils # (A) 0.1 k/uL (0-0.2); Basophils % (A) 1 %; Eosinophils # (A) 0.2 k/uL (0-0.7); Eosinophils % (A) 3 %; HCT 48.6 % (34.0-46.0); HGB 16.4 gm/dL (11.4-16.0); Lymphocytes # (A) 1.7 k/uL (1.0-4.8); Lymphocytes % (A) 18 %; MCH 31.8 pg (25.0-35.0); MCHC 33.8 g/dL (31.0-37.0); MCV 94.3 fL (80.0-100.0); Mean Platelet Volume 9.3; Monocytes # (A) 0.5 k/uL (0-1.0); Monocytes % (A) 6 %; Neutrophils # (A) 6.6 k/uL (1.3-7.7); Neutrophils % (A) 72 %; Platelet Count 186 k/uL (150-450); RBC 5.16 m/uL (3.80-5.40); RDW 12.9 % (11.5-15.5)
[2019-01-18 15:59] LABS: Partial Thromboplastin Time 24.4 sec (22.0-30.0); Prothrombin Time 10.3 sec (9.0-12.0)
[2019-01-18 16:04] LABS: ALT 14 U/L (9-52); AST 14 U/L (14-36); African American GFR (CKD) 80 (>60 ml/min/1.73 sqM); Albumin 4.4 g/dL (3.5-5.0); Alkaline Phosphatase 66 U/L (38-126); Anion Gap 12 mmol/L; Blood Urea Nitrogen 15 mg/dL (7-17); Calcium 9.3 mg/dL (8.4-10.2); Carbon Dioxide 22 mmol/L (22-30); Chloride 105 mmol/L (98-107); Glucose 180 mg/dL (74-99); Potassium 4.2 mmol/L (3.5-5.1); Sodium 139 mmol/L (137-145); Total Bilirubin 0.5 mg/dL (0.2-1.3)
[2019-01-18 16:29] LABS: Appearance,Urine Turbid (Clear); Bacteria,Urine Occasional /hpf; Bilirubin,Urine Negative (Negative); Blood,Urine Negative (Negative); Color,Urine Yellow; Glucose,Urine (UA) Negative (Negative); Ketones,Urine Negative (Negative); Leukocyte Esterase,Urine Moderate (Negative); Mucus,Urine Rare /hpf; Nitrite,Urine Negative (Negative); Protein,Urine 2+ (Negative); RBC,Urine 4 /hpf (0-5); Specific Gravity,Urine 1.025 (1.001-1.035); Squamous Epithelial Cell,Urine 94 /hpf (0-4); Urobilinogen,Urine <2.0 mg/dL (<2.0)
--- NOTE | 2019-01-18 16:49 | XR ---
EXAMINATION TYPE: XR chest 2V DATE OF EXAM: 01/18/2019 COMPARISON: 05/01/2018 HISTORY: Weakness TECHNIQUE: Frontal and lateral views of the chest are obtained. FINDINGS: Heart and mediastinum are normal. Lungs are clear. Diaphragm is normal. There are chest le ads. IMPRESSION: No active cardiopulmonary disease. Normal heart. No change.
[2019-01-18] MEDS ORDERED: NALOXONE 0.4 MG/ML 1 ML VIAL IV PRN (17:05)
[2019-01-18] MEDS: SODIUM CHLORIDE 0.9% 1,000 ML IV SCH (17:27)
[2019-01-18 18:44] LABS: Glucose,Whole Blood 155 mg/dL (75-99)
[2019-01-18] MEDS: INSULIN ASPART (NovoLOG) 100 UNIT/ML VIAL SQ SCH ×2 (18:51→21:27)
[2019-01-18] MEDS ORDERED: INSULIN ASPART 2 UNIT SQ PRN (19:56)
[2019-01-18 20:41] LABS: T4, Free (Free Thyroxine) 0.54 ng/dL (0.78-2.19)
[2019-01-18] MEDS ORDERED: GABAPENTIN 100 MG CAP PO SCH (21:00)
--- NOTE | 2019-01-18 21:02 | CT ---
EXAMINATION TYPE: CT brain wo con DATE OF EXAM: 01/18/2019 COMPARISON: 04/12/2014 HISTORY: Right leg weakness CT DLP: 1090.4 mGycm Automated exposure control for dose reduction was used. FINDINGS: There is cerebral cortical atrophy. There is no mass effect nor midline shift. There is no sign of in tracranial hemorrhage. Calvarium is intact. IMPRESSION: CEREBRAL ATROPHY. NO ACUTE INTRACRANIAL ABNORMALITY. NO CHANGE.
[2019-01-18 21:07] LABS: Glucose,Whole Blood 137 mg/dL (75-99)
[2019-01-18] MEDS: NICOTINE 14MG/24HR PATCH TRANSDERM SCH (21:25)
[2019-01-18] MEDS: FAMOTIDINE 20 MG TAB PO SCH (21:25)
[2019-01-18] MEDS: GABAPENTIN 300 MG CAP PO SCH (21:25)
[2019-01-18] MEDS: metFORMIN 500 MG TAB PO SCH (21:25)
[2019-01-18] MEDS: INSULIN DETEMIR (LEVEMIR) 100 UNIT/ML SYR SQ SCH (21:26)
[2019-01-18] MEDS: ACETAMINOPHEN TAB 325 MG TAB PO PRN (21:34)
--- NOTE | 2019-01-19 00:42 | HP ---
HISTORY AND PHYSICAL DATE OF SERVICE: 01/18/2019 CHIEF COMPLAINT: Weakness. HISTORY OF PRESENT ILLNESS: This 53-year-old woman with a past medical history of multiple medical problems including history of diabetes, history of fibromyalgia, GERD, hypertension, hyperlipidemia, hypothyroidism, cerebral palsy, ischemic cardiomyopathy, migraine, history of thyroid cancer surgery, being followed by Dr. Adair in the outpatient setting also had CAD with stent. The patient was admitted with acute pyelonephritis in April last year. Currently the patient complaining of weakness and the patient apparently had a fall and the patient came to [facility] and was admitted to the hospital for further evaluation and treatment. Acute UTI was suspected. Patient also had some weakness of the right leg also. The patient apparently was too weak to transfer to the car and the patient slumped to the ground and there was no history of fever, rigors or chills. No history of headache, loss of consciousness or seizures at this time. PAST MEDICAL HISTORY: Diabetes type 2, fibromyalgia, GERD, hypertension, hyperlipidemia, hypothyroidism, past ischemic cardiomyopathy, anxiety and depression. MEDICATIONS: Prior to admission home medications are: 1. Lantus 56 units subcu supper. 2. NovoLog 2 units t.i.d. 3. Metformin 1000 mg p.o. b.i.d. 4. Prilosec 20 mg daily. 5. Synthroid 225 mcg p.o. daily. 6. Neurontin 300 mg p.o. t.i.d. ALLERGIES: None. FAMILY HISTORY: History of cancer. SOCIAL HISTORY: History of smoking, continued ongoing. REVIEW OF SYSTEMS: ENT: No diminished vision. No diminished hearing. CARDIOVASCULAR: No angina or palpitations. RESPIRATION: As mentioned earlier. GI no nausea or vomiting. no dysuria or hematuria. NERVOUS SYSTEM: As mentioned earlier. ALLERGY/IMMUNOLOGY: No asthma or hayfever. MUSCULOSKELETAL: As mentioned earlier. HEMATOLOGY/ONCOLOGY: No history of anemia. ENDOCRINE: Diabetes. CONSTITUTIONAL: As mentioned earlier. DERMATOLOGY negative. RHEUMATOLOGY: Negative. PSYCHIATRIC: As mentioned earlier. PHYSICAL EXAMINATION: Alert and oriented times three. Pulse 61, blood pressure 122/90, respiration 18, temp 98.5, pulse ox 94% on room air. HEENT: Oral mucosa moist. NECK is no jugular venous distention. No carotid bruit. No lymph node enlargement. CARDIOVASCULAR is S1, S2 muffled. No S3, no S4. RESPIRATION: Breath sounds diminished in the bases. A few scattered rhonchi and crackles. ABDOMEN: Soft, obese, nontender. No mass palpable. LEGS: No edema. No swelling. NERVOUS SYSTEM: Higher functions as mentioned earlier. Mild diffuse weakness present. Right leg is also weak, more weak than left leg. Reflexes are diminished. No sensory abnormalities. SKIN: No ulcers, rashes or bleeding. JOINTS: No active deforming arthropathy. LABS: WBC 9.1, hemoglobin 16.4, and glucose 118, 155. Plasma lactic acid 2.5. UA noted. ASSESSMENT: 1. Acute urinary tract infection with possible sepsis present on admission. 2. Weakness of the right leg, rule out stroke. 3. Elevated TSH, rule out hypothyroidism. 4. Diabetes type 2. 5. Fibromyalgia. 6. Gastroesophageal reflux disease. 7. Hypertension. 8. Hyperlipidemia. 9. Hypothyroidism. 10.History of cerebral palsy. 11.History of ischemic cardiomyopathy. 12.History of migraines. 13.History of uterine thyroid cancer surgery. 14.History of necrotizing fasciitis previously. 15.History of beginning Alzheimer's disease. 16.History of MRSA. 17.History of coronary artery disease/stent. 18.History of anxiety, depression. 19.History of continued ongoing nicotine dependence. 20.FULL CODE. RECOMMENDATIONS AND DISCUSSION: In this 53-year-old woman who presented with multiple complex medical issues, at this time, I recommend to continue current medications, management and symptomatic treatment. We will initiate broad-spectrum IV antibiotics. Resume the home medications. I would also recommend a CT scan of the brain and full neuro checks and assess neurology consultation also. The DVT prophylaxis. See orders for details. Monitor blood sugars closely. Prognosis guarded because of multiple complex medical issues. Further recommendations to follow. A copy of dictation forwarded to Dr. Adair who is the primary physician. MMODL / IJN: [id number] /
[2019-01-19] MEDS: SODIUM CHLORIDE 0.9% 1,000 ML IV SCH ×2 (04:20→16:57)
[2019-01-19] MEDS: ACETAMINOPHEN TAB 325 MG TAB PO PRN ×2 (06:13→20:48)
[2019-01-19] MEDS ORDERED: LEVOTHYROXINE 25 MCG TAB PO SCH (06:30)
[2019-01-19] MEDS ORDERED: LEVOTHYROXINE 100 MCG TAB PO SCH (06:30)
[2019-01-19 06:54] LABS: Glucose,Whole Blood 168 mg/dL (75-99)
[2019-01-19] MEDS: INSULIN ASPART (NovoLOG) 100 UNIT/ML VIAL SQ SCH ×4 (07:43→20:48)
[2019-01-19 08:01] LABS: Basophils % (A) 1 %; Eosinophils # (A) 0.2 k/uL (0-0.7); Eosinophils % (A) 3 %; HCT 47.5 % (34.0-46.0); HGB 15.7 gm/dL (11.4-16.0); Lymphocytes # (A) 1.6 k/uL (1.0-4.8); Lymphocytes % (A) 26 %; MCH 31.8 pg (25.0-35.0); MCHC 33.1 g/dL (31.0-37.0); MCV 96.2 fL (80.0-100.0); Mean Platelet Volume 9.4; Monocytes # (A) 0.4 k/uL (0-1.0); Monocytes % (A) 7 %; Neutrophils # (A) 3.8 k/uL (1.3-7.7); Neutrophils % (A) 63 %; Platelet Count 171 k/uL (150-450); RBC 4.94 m/uL (3.80-5.40); WBC 6.1 k/uL (3.8-10.6)
[2019-01-19 08:14] LABS: Albumin 3.7 g/dL (3.5-5.0); Calcium 8.4 mg/dL (8.4-10.2); Total Bilirubin 0.4 mg/dL (0.2-1.3); Total Protein 6.3 g/dL (6.3-8.2)
[2019-01-19 08:20] LABS: Potassium 4.4 mmol/L (3.5-5.1)
[2019-01-19] MEDS: ASPIRIN 81 MG PO SCH (08:56)
[2019-01-19] MEDS: metFORMIN 500 MG TAB PO SCH ×2 (08:56→20:48)
[2019-01-19] MEDS: FAMOTIDINE 20 MG TAB PO SCH (08:56)
[2019-01-19] MEDS: GABAPENTIN 300 MG CAP PO SCH ×3 (08:56→20:48)
[2019-01-19] MEDS: NICOTINE 14MG/24HR PATCH TRANSDERM SCH (08:56)
[2019-01-19] MEDS: PANTOPRAZOLE 40 MG TABLET PO SCH (08:56)
[2019-01-19] MEDS: ISOSORBIDE MONONITRATE ER 30 MG TAB.ER.24H PO SCH (08:56)
[2019-01-19 11:47] LABS: Glucose,Whole Blood 132 mg/dL (75-99)
[2019-01-19] MEDS ORDERED: NITROGLYCERIN SL TABS 0.4 MG TAB SUBLINGUAL PRN (12:39)
--- NOTE | 2019-01-19 13:48 | P.CNNES ---
History of Present Illness Consult date: 01/19/19 Reason for Consult: right leg weakness Chief complaint: right leg weakness History of Present Illness: REFERRING PHYSICIAN: Dr. Greg Kaufman HISTORY OF PRESENT ILLNESS: Thank you for allowing me to evaluate Ms. Wendi Velazquez. Ms. Velazquez is a 53 year-old woman with PMHx of diabetes, fibromyalgia, GERD, hypertension, hyperlipidemia, hypothyroidism, ischemic cardiac myopathy, anxiety, depression, necrotizing fasciitis, neuropathy, presenting after a fall, complaining of right lower extremity weakness. Patient states that she was on only 2 her mother's car when she was about a step away from the car and both of her legs gave out. Since she fell, patient has been having difficulty moving her right lower extremity. Yesterday, she was also not able to feel anything in the right lower extremity, by sensation has improved since this morning although she continues to report decreased sensation up to half of her bennett. Patient at baseline uses a walker due to back pain and some mild weakness, which she has had since her back surgery several years ago. Patient states that she has had a foot drop since before her back surgery and never improved. Patient denies any headache, nausea, vomiting, dizziness, blurry/double vision, chest pain, shortness of breath. 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 PAST MEDICAL HISTORY: Diabetes, fibromyalgia, GERD, hypertension, hyperlipidemia, hypothyroidism, ischemic cardiac myopathy, anxiety, depression, necrotizing fasciitis, neuropathy, right foot drop PAST SURGICAL HISTORY: Cardiac stent placement x2, hysterectomy, colostomy tube placed and removed, back surgery HOME MEDICATIONS: NovoLog, Lantus, metformin, Prilosec, Synthroid, Neurontin ALLERGIES: NO KNOWN DRUG ALLERGIES SOCIAL HISTORY: Current smoker. Patient states that she is to smoke a pack and a half a day, which should cut down to about 7-8 cigarettes per day. Educated patient about the importance of smoking cessation, patient adamantly stated that she will quit smoking. Denies any alcohol or drug abuse history. FAMILY HISTORY: Father had brain cancer. REVIEW OF SYSTEMS: The 14 systems are reviewed and no additional points are identified compared to the review of systems documented history and physical PHYSICAL EXAMINATION: VITAL SIGNS:temperature 98.1 pulse rate 64 respiratory rate 16 blood pressure 15 1/94 with a saturation 96% on room air GEN.: NAD, pleasant and cooperative HEENT: NCAT, sclera without icterus NECK: Supple SKIN AND EXTREMITIES: Warm to touch, no edema. Discoloration of all 10 toes, purplish. NEURO: MENTAL STATUS: Patient alert and oriented to self, place, time. Able to name the current president. Speech fluent, able to name and repeat, following all commands readily. No right and left disorientation, extinction to double simultaneous stimulation, finger agnosia, neglect. CRANIAL NERVES II THROUGH XII: II: Pupils are equal and reactive to light sym metrically. Visual huerta are intact. Lazy right eye. III, IV, : No ptosis. Extraocular movements full. No nystagmus. V: Facial sensation intact from V1- 3. VII. No clear facial asymmetry. VIII: Hearing intact to finger rub bilaterally. IX, X: Symmetric palate elevation. XII: Shoulder shrug intact. XII: Tongue midline without fasciculation or atrophy. MOTOR: Normal bulk/tone. No pronator drift or tremor. Strength is 5/5 in bilateral upper extremities and left lower extremity. Patient with difficulty with right hip flexion, but patient providing poor effort. During the short moments patient was able to provide full effort, strength in R knee flexion/extension was 4+/5. Right hip flexion 3/5, right hip extension 4/5, unable to dorsiflex, 2/5 plantar flexion SENSORY: Decreased to light touch and pinprick in right lower extremity longterm below the bennett. Left lower extremity and bilateral upper extremity intact to light touch and pinprick. REFLEXES: 2+ throughout. Toes are downgoing. Lyric's is absent COORDINATION: Finger to nose intact. No dysmetria. GAIT: Deferred as patient with weakness in her lower extremities. DIAGNOSTIC TESTING: LABORATORY: CBC 6.1 hemoglobin 10.7 platelets 171 sodium 139 potassium 4.4AST 14 ALT 17 IMAGING: CT head without contrast 01/18/2019: Cervical atrophy. No acute intracranial abnormality. ASSESSMENT: Ms. Velazquez is a 53 year-old woman with PMHx of diabetes, fibromyalgia, GERD, hypertension, hyperlipidemia, hypothyroidism, ischemic cardiac myopathy, anxiety, depression, necrotizing fasciitis, neuropathy, presenting after a fall, complaining of right lower extremity weakness. Patient with multiple risk factors for a stroke including diabetes, hypertension, prior smoker, hyperlipidemia. 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 Stroke workup and management recommended. RECOMMENDATIONS: 1. Aspirin 81 mg daily and atorvastatin 80 mg daily 2. MRI brain without contrast: MRA head and neck without contrast 3. Transthoracic echocardiogram 4. Cardiac monitoring. 5. Physical therapy and occupational therapy. 6. Lab work: A1c, TSH, lipid panel 7. Smoking cessation education 8. Discussed with patient about stroke prevention guidelines. Medication compliance with her body, hypertension/diabetes control, left cell changes including no smoking, drinking in moderation, losing weight, exercising, eating better Past Medical History Past Medical History: Cancer, Chest Pain / Angina, Diabetes Mellitus, Eye Disorder, Fibromyalgia, GERD/Reflux, Hyperlipidemia, Hypertension, Thyroid Disorder Additional Past Medical History / Comment(s): cerebral palsy, Ischemic cardiomyopathy, MIGRAINES, hx. uterine & thyroid cancer with surgery, past hx. flesh eating disease 10 yrs ago-was very ill and intubated/vented, ocular strokes, hypothyroid, beginning of alzheimer's, numbness tingling bilateral legs/feet, pt states she has a sore on the bottom of her L foot at this time that has been there for yrs-being monitored by her coating mixer supervisor. Last Myocardial Infarction Date:: unkn History of Any Multi-Drug Resistant Organisms: MRSA Date of last positivie culture/infection: 2005 MDRO Source:: buttock per pt Past Surgical History: Heart Catheterization, Heart Catheterization With Stent, Hernia Repair, Hysterectomy Additional Past Surgical History / Comment(s): TRACH, thyroidectomy, hiatal hernia repair, colostomy with reversal due to colon perforation and sepsis colonoscopy. D&C. 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 She has a neighbor (paid by the state) who comes in and is a caregiver. She has never driven. Her mom or her automotive parts counter assistant take her to appts. Remains a daily smoker but less now than ever in her adult life. No alcohol use. Medically disabled. No experience. No international travel. No animal exposures Smoking Status: Current every day smoker Past Alcohol Use History: None Reported Additional Past Alcohol Use History / Comment(s): STARTED SMOKING AT AGE 16 (1981), down to 1ppd Past Drug Use History: Marijuana - Past Family History Father Family Medical History: Cancer Additional Family Medical History / Comment(s): HAD BRAIN CANCER AT GE 56 Mother Family Medical History: Rheumatoid Arthritis (RA) Additional Family Medical History / Comment(s): MOM IS 66 Medications and Allergies Home Medications Medication Instructions Recorded Confirmed Type metFORMIN HCL 1,000 mg PO BID #0 11/17/15 01/19/19 Rx Levothyroxine Sodium [Synthroid] 25 mcg PO DAILY 11/19/16 01/19/19 History Levothyroxine Sodium [Synthroid] 200 mcg PO DAILY 11/19/16 01/19/19 History Gabapentin [Neurontin] 300 mg PO TID 01/18/19 01/19/19 History Insulin Aspart [NovoLOG Flexpen] 2 units SQ TID-W/MEALS PRN 01/18/19 01/19/19 History Insulin Glargine [Lantus] 56 unit SQ PC-SUPPER 01/18/19 01/19/19 History Omeprazole [PriLOSEC] 20 mg PO DAILY 01/18/19 01/19/19 History Aspirin EC [Ecotrin Low Dose] 81 mg PO DAILY 01/19/19 01/19/19 History Atenolol [Tenormin] 25 mg PO DAILY 01/19/19 01/19/19 History Atorvastatin Calcium [Lipitor] 10 mg PO DAILY 01/19/19 01/19/19 History Cholecalciferol [Vitamin D3 (25 1,000 unit PO DAILY 01/19/19 01/19/19 History Mcg = 1000 Iu)] Isosorbide Mononitrate ER [Imdur] 30 mg PO DAILY 01/19/19 01/19/19 History Lisinopril [Zestril] 2.5 mg PO DAILY 01/19/19 01/19/19 History Multivitamins, Thera [Multivitamin 1 tab PO DAILY 01/19/19 01/19/19 History (formulary)] Nitroglycerin Sl Tabs [Nitrostat] 0.4 mg SUBLINGUAL Q5M PRN 01/19/19 01/19/19 History amLODIPine [Norvasc] 10 mg PO DAILY 01/19/19 01/19/19 History Allergies Allergy/AdvReac Type Severity Reaction Status Date / Time No Known Allergies Allergy Verified 01/19/19 08:38 Physical Examination - Vital Signs Vital Signs: Vital Signs Temp Pulse Pulse Resp BP BP Pulse Ox 01/19/19 08:42 96 01/19/19 07:00 98.1 F 64 16 151/94 96 01/19/19 03:17 18 01/19/19 01:31 98.4 F 60 18 93/59 95 01/19/19 00:30 18 01/18/19 21:24 97.6 F 63 18 140/98 98 01/18/19 19:30 18 01/18/19 17:44 98.5 F 61 18 122/91 95 01/18/19 17:29 61 18 122/91 95 01/18/19 15:25 97.2 F L 90 60 14 107/88 157/95 99 01/18/19 15:15 90 14 107/88 93 L Intake and Output 01/18/19 01/19/19 01/19/19 22:59 06:59 14:59 Intake Total 500 750 236 Balance 500 750 236 Intake: Intake, IV Titration 750 Amount Sodium Chloride 0.9% 1, 750 000 ml @ 75 mls/hr IV . [id number] [facility] Rx#:[id number] Oral 500 236 Other: Voiding Method Toilet Toilet # Voids 2 1 Weight 123.377 kg Results - Laboratory Findings CBC and BMP: 01/19/19 07:22 01/19/19 07:22 Abnormal Lab Findings: Abnormal Labs 01/18/19 01/18/19 01/18/19 15:28 15:35 15:35 Hgb 16.4 H Hct 48.6 H Glucose 180 H POC Glucose (mg/dL) 186 H Plasma Lactic Acid Colby TSH 37.100 H Free T4 Free T3 pg/mL Urine Appearance Urine Protein Ur Leukocyte Esterase Urine WBC Ur Squamous Epith Cells Urine Bacteria Urine Mucus 01/18/19 01/18/19 01/18/19 15:35 15:35 15:50 Hgb Hct Glucose POC Glucose (mg/dL) Plasma Lactic Acid Colby 2.5 H* TSH Free T4 0.54 L Free T3 pg/mL 2.4 L Urine Appearance Turbid H Urine Protein 2+ H Ur Leukocyte Esterase Moderate H Urine WBC 42 H Ur Squamous Epith Cells 94 H Urine Bacteria Occasional H Urine Mucus Rare H 01/18/19 01/18/19 01/19/19 18:33 20:56 06:52 Hgb Hct Glucose POC Glucose (mg/dL) 155 H 137 H 168 H Plasma Lactic Acid Colby TSH Free T4 Free T3 pg/mL Urine Appearance Urine Protein Ur Leukocyte Esterase Urine WBC Ur Squamous Epith Cells Urine Bacteria Urine Mucus 01/19/19 01/19/19 07:22 07:22 Hgb Hct 47.5 H Glucose 172 H POC Glucose (mg/dL) Plasma Lactic Acid Colby TSH Free T4 Free T3 pg/mL Urine Appearance Urine Protein Ur Leukocyte Esterase Urine WBC Ur Squamous Epith Cells Urine Bacteria Urine Mucus
[2019-01-19] MEDS: HEPARIN SODIUM,PORCINE 5,000 UNIT/ML 1 ML VIAL SQ SCH ×2 (16:57→20:48)
[2019-01-19 16:59] LABS: Glucose,Whole Blood 116 mg/dL (75-99)
[2019-01-19] MEDS: INSULIN DETEMIR (LEVEMIR) 100 UNIT/ML SYR SQ SCH (18:24)
--- NOTE | 2019-01-19 20:18 | PN ---
PROGRESS NOTE DATE OF SERVICE: 01/19/2019. This 53-year-old woman was admitted with acute urinary tract infection with possible sepsis also complains of weakness. The patient had a brain CT scan which showed cerebral atrophy. Otherwise neurology evaluation in progress also. Neurology has seen the patient and recommended MRI and KAREL and complete cardiac workup also. The patient being closely monitored at this time. The patient is on IV antibiotics. Cultures are negative so far. PAST MEDICAL HISTORY: Reviewed. REVIEW OF SYSTEMS: CARDIOVASCULAR SYSTEM: No angina or palpitations. RESPIRATION: As mentioned earlier. GASTROINTESTINAL: As mentioned earlier. : No dysuria. CENTRAL NERVOUS SYSTEM: As mentioned earlier. CURRENT MEDICATIONS: Reviewed and include: 1. Tylenol 650 q.6 p.r.n. 2. Norvasc 10 mg daily. 3. Aspirin 81 mg daily. 4. Tenormin 81 mg daily. 5. Rocephin 1 g daily. 6. Neurontin 300 mg t.i.d. 7. Heparin 5000 subcu b.i.d. 8. Levemir 56 units. 9. Imdur. 10.Synthroid 200 mcg p.o. daily. 11.Zestril 2.5 mg. 12.Multivitamins. 13.Narcan. 14.Habitrol. 15.Protonix. PHYSICAL EXAM: Patient is alert, oriented x3. Pulse 63, blood pressure 134/77, respiration 16, temperature is 98.3, pulse ox 98% on room air. HEENT: Conjunctivae normal. NECK: No jugular venous distention. CARDIOVASCULAR: S1, S2 muffled. RESPIRATIONS: Breath sounds diminished in the bases. Bilateral scattered rhonchi and crackles. ABDOMEN: Soft, nontender. No mass palpable. LEGS: No edema. No swelling. NERVOUS SYSTEM: Diffusely weak. Aspiration of the right leg also noted. SKIN: No ulcer, rash or bleeding. LABS: WBC 6.1, hemoglobin 15.7. ASSESSMENT: 1. Acute urinary tract infection with possible sepsis present on admission. 2. Weakness of the right leg, rule out transient ischemic attack or stroke. 3. Elevated TSH, possible hypothyroidism. 4. Diabetes type 2. 5. Fibromyalgia. 6. Gastroesophageal reflux disease. 7. Hypertension. 8. Hyperlipidemia. 9. Hypothyroidism. 10.History of cerebral palsy. 11.History of ischemic cardiomyopathy. 12.History of migraines. 13.History of uterine thyroid cancer surgery. 14.History of necrotizing fasciitis remotely. 15.History of beginning disease apparently. 16.History of MRSA. 17.History of coronary artery disease/ stent. 18.History of anxiety, depression. 19.History of nicotine dependence ongoing, continuing. 20.FULL CODE. RECOMMENDATIONS AND DISCUSSION: I recommend to continue current medications, management. Continue with antibiotics. Continue with full workup as recommended by Neurology. I would also recommend increase the dose of Synthroid because of the abnormal labs. Otherwise, I would recommend levothyroxine 300 mcg. We will continue to monitor. Prognosis guarded. PT/OT evaluation. Closely monitor. Further recommendations to follow. MMODL / IJN: [id number] / AMNA
[2019-01-19 20:36] LABS: Glucose,Whole Blood 144 mg/dL (75-99)
[2019-01-20] MEDS: ACETAMINOPHEN TAB 325 MG TAB PO PRN ×4 (03:09→22:26)
[2019-01-20] MEDS: LEVOTHYROXINE 100 MCG TAB PO SCH (05:34)
[2019-01-20] MEDS: SODIUM CHLORIDE 0.9% 1,000 ML IV SCH (05:35)
[2019-01-20 06:53] LABS: Glucose,Whole Blood 159 mg/dL (75-99)
[2019-01-20 07:08] LABS: Basophils % (A) 0 %; Eosinophils # (A) 0.2 k/uL (0-0.7); Eosinophils % (A) 4 %; HCT 44.6 % (34.0-46.0); Lymphocytes # (A) 1.3 k/uL (1.0-4.8); Lymphocytes % (A) 23 %; MCH 32.4 pg (25.0-35.0); MCHC 33.7 g/dL (31.0-37.0); MCV 96.2 fL (80.0-100.0); Mean Platelet Volume 9.6; Monocytes # (A) 0.3 k/uL (0-1.0); Monocytes % (A) 6 %; Neutrophils # (A) 3.6 k/uL (1.3-7.7); Neutrophils % (A) 65 %; Platelet Count 157 k/uL (150-450); RBC 4.63 m/uL (3.80-5.40); RDW 13.1 % (11.5-15.5); WBC 5.6 k/uL (3.8-10.6)
[2019-01-20] MEDS: INSULIN ASPART (NovoLOG) 100 UNIT/ML VIAL SQ SCH ×4 (07:17→20:58)
[2019-01-20] MEDS: PANTOPRAZOLE 40 MG TABLET PO SCH (07:17)
[2019-01-20 07:37] LABS: Calcium 8.5 mg/dL (8.4-10.2); Potassium 4.4 mmol/L (3.5-5.1)
[2019-01-20] MEDS: NICOTINE 14MG/24HR PATCH TRANSDERM SCH (08:27)
[2019-01-20] MEDS: ATORVASTATIN 10 MG TAB PO SCH (08:28)
[2019-01-20] MEDS: ISOSORBIDE MONONITRATE ER 30 MG TAB.ER.24H PO SCH (08:28)
[2019-01-20] MEDS: LISINOPRIL 2.5 MG TAB PO SCH (08:28)
[2019-01-20] MEDS: metFORMIN 500 MG TAB PO SCH ×2 (08:29→21:04)
[2019-01-20] MEDS: ATENOLOL 25 MG TAB PO SCH (08:29)
[2019-01-20] MEDS: MULTIVITAMINS, THERA 1 EACH TAB PO SCH (08:29)
[2019-01-20] MEDS: amLODIPine 10 MG TAB PO SCH (08:29)
[2019-01-20] MEDS: ASPIRIN 81 MG PO SCH (08:29)
[2019-01-20] MEDS: CHOLECALCIFEROL 1,000 UNIT TAB PO SCH (08:29)
[2019-01-20] MEDS: GABAPENTIN 300 MG CAP PO SCH ×3 (08:33→21:04)
[2019-01-20] MEDS: HEPARIN SODIUM,PORCINE 5,000 UNIT/ML 1 ML VIAL SQ SCH ×2 (08:33→21:04)
--- NOTE | 2019-01-20 09:42 | ECHOF ---
Referral Reason: MEASUREMENTS -------- HEIGHT: 172.7 cm WEIGHT: 123.4 kg BP: RVIDd: 3.5 cm (< 3.3) IVSd: 1.4 cm (0.6 - 1.1) LVIDd: 5.2 cm (3.9 - 5.3) LVPWd: 1.4 cm (0.6 - 1.1) IVSs: 1.6 cm LVIDs: 4.2 cm LVPWs: 1.8 cm LAESV Index (A-L): 24.77 ml/m Ao Diam: 2.9 cm (2.0 - 3.7) AV Cusp: 1.8 cm (1.5 - 2.6) LA Diam: 3.7 cm (2.7 - 3.8) EPSS: 0.7 cm MV E Brendon: 0.99 m/s MV DecT: 232 ms MV A Brendon: 0.65 m/s MV E/A Ratio: 1.51 RAP: 20.00* mmHg RVSP: 35.64 mmHg MV EF SLOPE: 102.17 mm/s (70 - 150) MV EXCURSION: 1.90 cm (> 18.000) FINDINGS -------- Sinus rhythm. This was a technically difficult study with suboptimal apical views. The left ventricular size is normal. There is mild concentric left ventricular hypertrophy. Overa ll left ventricular systolic function is moderately impaired with, an EF between 35 - 40 %. Mitral Doppler inflow pattern suggests diastolic filling abnormality. Basal lateral LV wall motion is hypo kinetic. Basal inferior LV wall motion is hypokinetic. Mid lateral LV wall motion is hypokineti c. Mid inferior LV wall motion is hypokinetic. The right ventricle is mildly enlarged. Left atrium is normal size by volume. The right atrial size is normal. Lumason used The aortic valve is trileaflet and appears structurally normal. There is no evidence of aortic regu rgitation. There is no evidence of aortic stenosis. There is trace mitral regurgitation. Mild tricuspid regurgitation present. There is mild pulmonary hypertension. The right ventricular systolic pressure, as measured by Doppler, is 35.64mmHg. The pulmonic valve is normal. The aortic root size is normal. The inferior vena cava is dilated with no significant inspiratory collapse which is consistent estima pao right atrial pressure of >20 mmHg. There is no pericardial effusion. CONCLUSIONS -------- 1. Sinus rhythm. 2. This was a technically difficult study with suboptimal apical views. 3. The left ventricular size is normal. 4. There is mild concentric left ventricular hypertrophy. 5. Overall left ventricular systolic function is moderately impaired with, an EF between 35 - 40 %. 6. Mitral Doppler inflow pattern suggests diastolic filling abnormality. 7. Basal lateral LV wall motion is hypokinetic. 8. Basal inferior LV wall motion is hypokinetic. 9. Mid lateral LV wall motion is hypokinetic. 10. Mid inferior LV wall motion is hypokinetic. 11. The right ventricle is mildly enlarged. 12. Left atrium is normal size by volume. 13. The right atrial size is normal. 14. Lumason used 15. The aortic valve is trileaflet and appears structurally normal. 16. There is no evidence of aortic regurgitation. 17. There is no evidence of aortic stenosis. 18. There is trace mitral regurgitation. 19. Mild tricuspid regurgitation present. 20. There is mild pulmonary hypertension. 21. The right ventricular systolic pressure, as measured by Doppler, is 35.64mmHg. 22. The pulmonic valve is normal. 23. The aortic root size is normal. 24. The inferior vena cava is dilated with no significant inspiratory collapse which is consistent es timated right atrial pressure of >20 mmHg. 25. There is no pericardial effusion. TECHNICIAN TELECOMM[employer]ICATION SYSTEMS: Dayna Mccain RDCS
[2019-01-20 11:53] LABS: Glucose,Whole Blood 136 mg/dL (75-99)
--- NOTE | 2019-01-20 13:00 | P.DS ---
Providers Date of admission: 01/19/19 14:55 Attending physician: Tiffany Arce MD Consults: 01/19/19 09:26 Consult Physician Routine Consulting Provider: Vanessa Alvarez Consult Reason/Comments: weakness right leg Do you want consulting provider notified?: Yes Primary care physician: [facility] Course: 53-year-old female was admitted for generalized weakness and further evaluation believed to have urinary tract infection patient doesn't have any focal weakness but does have generalized weakness which is better now and cultures showed normal jose. I do not believe patient will require any more antibiotics and medics will be discontinued and patient will be discharged today after MRi of the brain as recommended by neurology for confusion I believe patient had an echo cardiac exam which showed ejection fraction of 30-35% because of that reason I'll increase the lisinopril cut down amlodipine. Basic metabolic profile will be tested in about the 3-7 days because of lisinopril PHYSICAL EXAMINATION: GENERAL: The patient is alert and oriented x3, not in any acute distress. Well developed, well nourished. HEENT: Pupils are round and equally reacting to light. EOMI. No scleral icterus. No conjunctival pallor. Normocephalic, atraumatic. No pharyngeal erythema. No thyromegaly. CARDIOVASCULAR: S1 and S2 present. No murmurs, rubs, or gallops. PULMONARY: Chest is clear to auscultation, no wheezing or crackles. ABDOMEN: Soft, nontender, nondistended, normoactive bowel sounds. No palpable organomegaly. MUSCULOSKELETAL: No joint swelling or deformity. EXTREMITIES: No cyanosis, clubbing, or pedal edema. NEUROLOGICAL: Gross neurological examination did not reveal any focal deficits. SKIN: No rashes. For rest of the medical problems hospital physician course please refer to dictation from Dr. Kaufman from yesterday Patient Condition at Discharge: Serious Plan - Discharge Summary Discharge Rx Participant: Yes New Discharge Prescriptions: New Lisinopril [Prinivil] 10 mg PO DAILY #30 tab Continue metFORMIN HCL 1,000 mg PO BID #0 Levothyroxine Sodium [Synthroid] 25 mcg PO DAILY Levothyroxine Sodium [Synthroid] 200 mcg PO DAILY Omeprazole [PriLOSEC] 20 mg PO DAILY Insulin Aspart [NovoLOG Flexpen] 2 units SQ TID-W/MEALS PRN PRN Reason: HIGH BLOOD SUGAR Gabapentin [Neurontin] 300 mg PO TID Insulin Glargine [Lantus] 56 unit SQ PC-SUPPER Cholecalciferol [Vitamin D3 (25 Mcg = 1000 Iu)] 1,000 unit PO DAILY Nitroglycerin Sl Tabs [Nitrostat] 0.4 mg SUBLINGUAL Q5M PRN PRN Reason: Chest Pain Multivitamins, Thera [Multivitamin (formulary)] 1 tab PO DAILY Isosorbide Mononitrate ER [Imdur] 30 mg PO DAILY Atorvastatin Calcium [Lipitor] 10 mg PO DAILY Atenolol [Tenormin] 25 mg PO DAILY Aspirin EC [Ecotrin Low Dose] 81 mg PO DAILY Changed amLODIPine [Norvasc] 5 mg PO DAILY #0 Discontinued Lisinopril [Zestril] 2.5 mg PO DAILY Discharge Medication List metFORMIN HCL 1,000 mg PO BID #0 11/17/15 [Rx] Levothyroxine Sodium [Synthroid] 25 mcg PO DAILY 11/19/16 [History] Levothyroxine Sodium [Synthroid] 200 mcg PO DAILY 11/19/16 [History] Gabapentin [Neurontin] 300 mg PO TID 01/18/19 [History] Insulin Aspart [NovoLOG Flexpen] 2 units SQ TID-W/MEALS PRN 01/18/19 [History] Insulin Glargine [Lantus] 56 unit SQ PC-SUPPER 01/18/19 [History] Omeprazole [PriLOSEC] 20 mg PO DAILY 01/18/19 [History] Aspirin EC [Ecotrin Low Dose] 81 mg PO DAILY 01/19/19 [History] Atenolol [Tenormin] 25 mg PO DAILY 01/19/19 [History] Atorvastatin Calcium [Lipitor] 10 mg PO DAILY 01/19/19 [History] Cholecalciferol [Vitamin D3 (25 Mcg = 1000 Iu)] 1,000 unit PO DAILY 01/19/19 [History] Isosorbide Mononitrate ER [Imdur] 30 mg PO DAILY 01/19/19 [History] Multivitamins, Thera [Multivitamin (formulary)] 1 tab PO DAILY 01/19/19 [History] Nitroglycerin Sl Tabs [Nitrostat] 0.4 mg SUBLINGUAL Q5M PRN 01/19/19 [History] Lisinopril [Prinivil] 10 mg PO DAILY #30 tab 01/20/19 [Rx] amLODIPine [Norvasc] 5 mg PO DAILY #0 01/20/19 [Rx] Follow up Appointment(s)/Referral(s): Samson Adair DO [Primary Care Provider] - 01/27/19 10:20 am (Appt set with KIER DRIER) Ambulatory/Diagnostic Orders: Basic Metabolic Panel [LAB.AMB] Location: None Selected Discharge Disposition: HOME SELF-CARE
[2019-01-20 17:00] LABS: Glucose,Whole Blood 127 mg/dL (75-99)
[2019-01-20] MEDS: INSULIN DETEMIR (LEVEMIR) 100 UNIT/ML SYR SQ SCH (18:24)
[2019-01-20 20:49] LABS: Glucose,Whole Blood 131 mg/dL (75-99)
--- NOTE | 2019-01-20 23:24 | MR ---
EXAMINATION TYPE: MR brain wo con DATE OF EXAM: 01/20/2019 COMPARISON: CT 01/18/2009; MR 04/13/2014 HISTORY: RLE weakness; concern for stroke TECHNIQUE: Standard multiplanar, multisequence MRI departmental protocol. Diffusion weighted imaging was performed. FINDINGS: There is no restricted diffusion to suggest acute or subacute infarction. No mass or mass effect. No evidence of prior macrovascular infarction. There is confluent nonspecific bilateral kebede radiata and centrum semiovale T2 hyperintensity. Thes e deep white matter T2 hyperintensities are less in volume than the prior MRI of 04/13/2014. Extra-axial compartment unremarkable. Calvarium is unremarkable. Mastoid sinus air cells, middle ear cavities, and paranasal sinuses clear. Orbits are intact. IMPRESSION: No acute/subacute process.
--- NOTE | 2019-01-20 23:30 | MR ---
EXAMINATION TYPE: MR angio head/neck wo con DATE OF EXAM: 01/20/2019 COMPARISON: Brain MRI 01/21/2000 HISTORY: RLE weakness; concern for stroke TECHNIQUE: Time of flight images focusing on the [place] of [place] were performed without contrast.. 2-D and 3-D postprocessing imaging is performed. FINDINGS: NECK: The bilateral carotid arterial systems are widely patent. The bilateral vertebral arterial syst ems are widely patent. INTRACRANIAL: The anterior circulation is widely patent with normal morphology. The posterior circula tion is widely patent with normal morphology. OTHER: No incidental findings. IMPRESSION: Negative examination.
[2019-01-21] MEDS: SODIUM CHLORIDE 0.9% 1,000 ML IV SCH ×2 (02:46→07:41)
[2019-01-21] MEDS: LEVOTHYROXINE 100 MCG TAB PO SCH (05:53)
[2019-01-21 07:20] LABS: Glucose,Whole Blood 138 mg/dL (75-99)
[2019-01-21 07:29] VITALS: PULSE 56; RESP 16; TEMP 97.8
[2019-01-21 07:41] LABS: Basophils # (A) 0.1 k/uL (0-0.2); Basophils % (A) 1 %; Eosinophils # (A) 0.3 k/uL (0-0.7); Eosinophils % (A) 6 %; HGB 15.2 gm/dL (11.4-16.0); Lymphocytes # (A) 1.9 k/uL (1.0-4.8); Lymphocytes % (A) 33 %; MCH 32.2 pg (25.0-35.0); MCHC 33.1 g/dL (31.0-37.0); MCV 97.2 fL (80.0-100.0); Mean Platelet Volume 9.8; Monocytes # (A) 0.4 k/uL (0-1.0); Monocytes % (A) 6 %; Neutrophils # (A) 3.2 k/uL (1.3-7.7); Neutrophils % (A) 54 %; Platelet Count 152 k/uL (150-450); RBC 4.73 m/uL (3.80-5.40); RDW 14.8 % (11.5-15.5); WBC 5.9 k/uL (3.8-10.6)
[2019-01-21] MEDS: INSULIN ASPART (NovoLOG) 100 UNIT/ML VIAL SQ SCH ×2 (07:41→11:25)
[2019-01-21 08:00] LABS: Calcium 9.2 mg/dL (8.4-10.2); Potassium 4.6 mmol/L (3.5-5.1)
[2019-01-21] MEDS: NICOTINE 14MG/24HR PATCH TRANSDERM SCH (08:32)
[2019-01-21] MEDS: PANTOPRAZOLE 40 MG TABLET PO SCH (08:32)
[2019-01-21] MEDS: metFORMIN 500 MG TAB PO SCH (08:32)
[2019-01-21] MEDS: LISINOPRIL 2.5 MG TAB PO SCH (08:32)
[2019-01-21] MEDS: ASPIRIN 81 MG PO SCH (08:32)
[2019-01-21] MEDS: GABAPENTIN 300 MG CAP PO SCH (08:32)
[2019-01-21] MEDS: MULTIVITAMINS, THERA 1 EACH TAB PO SCH (08:32)
[2019-01-21] MEDS: amLODIPine 10 MG TAB PO SCH (08:32)
[2019-01-21] MEDS: ATORVASTATIN 10 MG TAB PO SCH (08:32)
[2019-01-21] MEDS: ATENOLOL 25 MG TAB PO SCH (08:33)
[2019-01-21] MEDS: CHOLECALCIFEROL 1,000 UNIT TAB PO SCH (08:33)
[2019-01-21] MEDS: ISOSORBIDE MONONITRATE ER 30 MG TAB.ER.24H PO SCH (08:34)
[2019-01-21] MEDS: HEPARIN SODIUM,PORCINE 5,000 UNIT/ML 1 ML VIAL SQ SCH (08:39)
[2019-01-21 09:14] LABS: T4, Free (Free Thyroxine) 0.76 ng/dL (0.78-2.19)
[2019-01-21 11:07] LABS: Glucose,Whole Blood 123 mg/dL (75-99)
--- NOTE | 2019-01-21 12:23 | P.DS ---
Providers Date of admission: 01/19/19 14:55 Attending physician: Tiffany Arce MD Consults: 01/19/19 09:26 Consult Physician Routine Consulting Provider: Vanessa Alvarez Consult Reason/Comments: weakness right leg Do you want consulting provider notified?: Yes Primary care physician: [facility] Course: Patient was not discharged yesterday as a MRI of the brain results, delayed MRI did not show any significant acute abnormality. Additional increase the dose of levothyroxine by 50 g as her TSH is very high and T4 is low. Patient will take total of 250 g of levothyroxine. PHYSICAL EXAMINATION: GENERAL: The patient is alert and oriented x3, not in any acute distress. Well developed, well nourished. HEENT: Pupils are round and equally reacting to light. EOMI. No scleral icterus. No conjunctival pallor. Normocephalic, atraumatic. No pharyngeal erythema. No thyromegaly. CARDIOVASCULAR: S1 and S2 present. No murmurs, rubs, or gallops. PULMONARY: Chest is clear to auscultation, no wheezing or crackles. ABDOMEN: Soft, nontender, nondistended, normoactive bowel sounds. No palpable organomegaly. MUSCULOSKELETAL: No joint swelling or deformity. EXTREMITIES: No cyanosis, clubbing, or pedal edema. NEUROLOGICAL: Gross neurological examination did not reveal any focal deficits. SKIN: No rashes. For rest of the medical problems has physician course please refer to my dicta tion of discharge summary from yesterday Patient Condition at Discharge: Serious Plan - Discharge Summary Discharge Rx Participant: Yes New Discharge Prescriptions: New Lisinopril [Prinivil] 10 mg PO DAILY #30 tab Levothyroxine Sodium [Euthyrox] 50 mcg PO AC-BRKFST #30 tablet Continue metFORMIN HCL 1,000 mg PO BID #0 Levothyroxine Sodium [Synthroid] 25 mcg PO DAILY Levothyroxine Sodium [Synthroid] 200 mcg PO DAILY Omeprazole [PriLOSEC] 20 mg PO DAILY Insulin Aspart [NovoLOG Flexpen] 2 units SQ TID-W/MEALS PRN PRN Reason: HIGH BLOOD SUGAR Gabapentin [Neurontin] 300 mg PO TID Insulin Glargine [Lantus] 56 unit SQ PC-SUPPER Cholecalciferol [Vitamin D3 (25 Mcg = 1000 Iu)] 1,000 unit PO DAILY Nitroglycerin Sl Tabs [Nitrostat] 0.4 mg SUBLINGUAL Q5M PRN PRN Reason: Chest Pain Multivitamins, Thera [Multivitamin (formulary)] 1 tab PO DAILY Isosorbide Mononitrate ER [Imdur] 30 mg PO DAILY Atorvastatin Calcium [Lipitor] 10 mg PO DAILY Atenolol [Tenormin] 25 mg PO DAILY Aspirin EC [Ecotrin Low Dose] 81 mg PO DAILY Changed amLODIPine [Norvasc] 5 mg PO DAILY #0 Discontinued Lisinopril [Zestril] 2.5 mg PO DAILY Discharge Medication List metFORMIN HCL 1,000 mg PO BID #0 11/17/15 [Rx] Levothyroxine Sodium [Synthroid] 25 mcg PO DAILY 11/19/16 [History] Levothyroxine Sodium [Synthroid] 200 mcg PO DAILY 11/19/16 [History] Gabapentin [Neurontin] 300 mg PO TID 01/18/19 [History] Insulin Aspart [NovoLOG Flexpen] 2 units SQ TID-W/MEALS PRN 01/18/19 [History] Insulin Glargine [Lantus] 56 unit SQ PC-SUPPER 01/18/19 [History] Omeprazole [PriLOSEC] 20 mg PO DAILY 01/18/19 [History] Aspirin EC [Ecotrin Low Dose] 81 mg PO DAILY 01/19/19 [History] Atenolol [Tenormin] 25 mg PO DAILY 01/19/19 [History] Atorvastatin Calcium [Lipitor] 10 mg PO DAILY 01/19/19 [History] Cholecalciferol [Vitamin D3 (25 Mcg = 1000 Iu)] 1,000 unit PO DAILY 01/19/19 [History] Isosorbide Mononitrate ER [Imdur] 30 mg PO DAILY 01/19/19 [History] Multivitamins, Thera [Multivitamin (formulary)] 1 tab PO DAILY 01/19/19 [History] Nitroglycerin Sl Tabs [Nitrostat] 0.4 mg SUBLINGUAL Q5M PRN 01/19/19 [History] Lisinopril [Prinivil] 10 mg PO DAILY #30 tab 01/20/19 [Rx] amLODIPine [Norvasc] 5 mg PO DAILY #0 01/20/19 [Rx] Levothyroxine Sodium [Euthyrox] 50 mcg PO AC-BRKFST #30 tablet 01/21/19 [Rx] Follow up Appointment(s)/Referral(s): Samson Adair DO [Primary Care Provider] - 01/27/19 10:20 am (Appt set with [facility]) Ambulatory/Diagnostic Orders: Basic Metabolic Panel [LAB.AMB] Location: None Selected Discharge Disposition: HOME SELF-CARE
--- NOTE | 2019-01-21 13:49 | P.PN ---
Progress Note - Text Progress Note Date: 01/21/19 SUBJECTIVE/INTERVAL EVENTS: No acute overnight events. Patient denies any new weakness, numbness, tingling, headache, nausea, vomiting, dizziness, vision changes. PHYSICAL EXAMINATION: VITAL SIGNS: Temperature 97.8 pulse rate 56 respiratory rate 16 blood pressure 160/98 O2 saturation 98% on room air GEN.: NAD, pleasant and cooperative HEENT: NCAT, sclera without icterus NECK: Supple SKIN AND EXTREMITIES: Warm to touch, no edema. Discoloration of all 10 toes, purplish. NEURO: MENTAL STATUS: Patient alert and oriented to self, place, time. Able to name the current president. Speech fluent, able to name and repeat, following all commands readily. No right and left disorientation, extinction to double simultaneous stimulation, finger agnosia, neglect. CRANIAL NERVES II THROUGH XII: II: Pupils are equal and reactive to light symmetrically. Visual huerta are intact. Lazy right eye. III, IV, : No ptosis. Extraocular movements full. No nystagmus. V: Facial sensation intact from V1-3. VII. No clear facial asymmetry. VIII: Hearing intact to finger rub bilaterally. IX, X: Symmetric palate elevation. XII: Shoulder shrug intact. XII: Tongue midline without fasciculation or atrophy. MOTOR: Normal bulk/tone. No pronator drift or tremor. Strength is 5/5 in bilateral upper extremities and left lower extremity. Patient with difficulty with right hip flexion, but patient providing poor effort. During the short moments patient was able to provide full effort, strength in R knee flexion/extension was 4+/5. Right hip flexion 3/5, right hip extension 4/5, unable to dorsiflex, 2/5 plantar flexion SENSORY: Decreased to light touch and pinprick in right lower extremity assisted below the bennett. Left lower extremity and bilateral upper extremity intact to light touch and pinprick. REFLEXES: 2+ throughout. Toes are downgoing. Lyric's is absent COORDINATION: Finger to nose intact. No dysmetria. GAIT: Deferred as patient with weakness in her lower extremities. DIAGNOSTIC TESTING: LABORATORY: WBC 5.9 hemoglobin 15.2 platelets 152 sodium 140 potassium 4.6 chloride 106 bicarb 23 BUN 19 creatinine 0.93 glucose 121 total cholesterol 163 LDL 79 HDL 36 triglycerides 239 TSH 63.8 free T4 0.76 IMAGING: CT head without contrast 01/18/2019: Cervical atrophy. No acute intracranial abnormality. Transthoracic echocardiogram on 01/19/2019 Sinus rhythm. Technically difficult study. Left ventricular size is normal. Mild concentric left ventricular hypertrophy. Ejection fraction 35-40%. Hypokinetic basal lateral/inferior LV wall, hypokinetic mid lateral/inferior LV wall. Left atrium is normal in size. No evidence of aortic regurg or stenosis. Trace mitral regurgitation. Mild tricuspid vegetation. Mild pulmonary hypertension. MRI brain without contrast 01/20/2019: No acute/subacute process. MRA head and neck without contrast 01/20/2019: Bilateral carotid artery systems are widely patent. Bilateral vertebral artery systems are widely pain. Anterior circulation is also wildly patent ASSESSMENT: Ms. Velazquze is a 53 year-old woman with PMHx of diabetes, fibromyalgia, GERD, hypertension, hyperlipidemia, hypothyroidism, ischemic cardiac myopathy, anxiety, depression, necrotizing fasciitis, neuropathy, presenting after a fall, complaining of right lower extremity weakness. Patient with multiple risk factors for a stroke including diabetes, hypertension, prior smoker, hyperlipidemia. 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 MRI brain and vessel imaging unremarkable. However MRI brain shows significant vascular burden. RECOMMENDATIONS: 1. Aspirin 81 mg daily and atorvastatin 80 mg daily 2. Smoking cessation education. Patient continues to state that she will never be able to stop smoking because she started smoking when she was 7 or 74. 3. Discussed with patient about stroke prevention guidelines. Medication compliance with her body, hypertension/diabetes control, left cell changes including no smoking, drinking in moderation, losing weight, exercising, eating better 4. Neurology will sign off
[2019-01-21 13:58] VITALS: BP 160/68
[2019-01-21 14:04] LABS: Hemoglobin A1C 7.5 % (4.0-6.0)
== END 2019-01-21 16:00 | disposition home or self-care (01) | DRG 872 ==
LOC: EC 15:12 → 4SSUR 17:08 → OBSVTOIN 01-19 14:55
PROVIDERS: ADMIT Internal Medicine; ATTEND Internal Medicine
DX: A41.9 Sepsis, unspecified organism (principal); N39.0 Urinary tract infection, site not specified; E11.40 Type 2 diabetes mellitus with diabetic neuropathy, unspecified; E78.5 Hyperlipidemia, unspecified; E89.0 Postprocedural hypothyroidism; F02.80 Dementia in other diseases classified elsewhere, unspecified severity, without behavioral disturbance, psychotic disturbance, mood disturbance, and anxiety; F17.210 Nicotine dependence, cigarettes, uncomplicated; G30.9 Alzheimer's disease, unspecified; G80.9 Cerebral palsy, unspecified; I10 Essential (primary) hypertension; I25.10 Atherosclerotic heart disease of native coronary artery without angina pectoris; I25.2 Old myocardial infarction; I25.5 Ischemic cardiomyopathy; K21.9 Gastro-esophageal reflux disease without esophagitis; M79.7 Fibromyalgia; W19.XXXA Unspecified fall, initial encounter; Z79.4 Long term (current) use of insulin; Z79.82 Long term (current) use of aspirin; Z79.890 Hormone replacement therapy; Z79.899 Other long term (current) drug therapy; Z80.8 Family history of malignant neoplasm of other organs or systems; Z85.850 Personal history of malignant neoplasm of thyroid; Z86.14 Personal history of Methicillin resistant Staphylococcus aureus infection; Z86.73 Personal history of transient ischemic attack (TIA), and cerebral infarction without residual deficits; Z87.39 Personal history of other diseases of the musculoskeletal system and connective tissue; Z90.710 Acquired absence of both cervix and uterus; Z95.5 Presence of coronary angioplasty implant and graft; I27.20 Pulmonary hypertension, unspecified; I08.1 Rheumatic disorders of both mitral and tricuspid valves; G43.909 Migraine, unspecified, not intractable, without status migrainosus; M21.379 Foot drop, unspecified foot; H53.001 Unspecified amblyopia, right eye; F41.9 Anxiety disorder, unspecified; F32.9 Major depressive disorder, single episode, unspecified
CPT/HCPCS: 36415; 70450; 70544; 70547; 70551; 71046; 80048; 80053; 80061; 81001; 82009; 83036; 83605; 84439; 84443; 84481; 84484; 85025; 85610; 85730; 87040; 87086; 93005; 93306; 94760; 96365; 99285

== ENCOUNTER 2021-09-20 12:31 | Emergency (ER) | payer MEDICARE, OTHER ==
[2021-09-20 12:49] VITALS: BP 159/93; PULSE 74; RESP 16; TEMP 97.8
--- NOTE | 2021-09-20 13:16 | ED ---
General Adult HPI - General Chief complaint: Skin/Abscess/Foreign Body Stated complaint: Abscess Time Seen by Provider: 09/20/21 13:05 Source: patient, EMS, RN notes reviewed, old records reviewed Mode of arrival: EMS Limitations: physical limitation - History of Present Illness Initial comments: 56-year-old female presents with 2 days of abscesses located right labia, left- sided mons pubis and left buttock at gluteal fold. Patient denies any fevers, no nausea vomiting or diarrhea. She denies any abdominal pain. She states that she has had similar abscesses in the past. Patient is a smoker, states 5 cigarettes a day. -: days(s) (2) Location: genitals (Labial) Severity scale (1-10): 8 Quality: constant Consistency: constant Improves with: none Worsens with: other (palpation) Associated Symptoms: denies other symptoms Treatments Prior to Arrival: none - Related Data Home Medications Medication Instructions Recorded Confirmed Levothyroxine Sodium [Synthroid] 25 mcg PO DAILY 11/19/16 01/19/19 Levothyroxine Sodium [Synthroid] 200 mcg PO DAILY 11/19/16 01/19/19 Gabapentin [Neurontin] 300 mg PO TID 01/18/19 01/19/19 Insulin Aspart [NovoLOG Flexpen] 2 units SQ TID-W/MEALS PRN 01/18/19 01/19/19 Insulin Glargine [Lantus Vial] 56 unit SQ PC-SUPPER 01/18/19 01/19/19 Omeprazole [PriLOSEC] 20 mg PO DAILY 01/18/19 01/19/19 Aspirin EC [Ecotrin Low Dose] 81 mg PO DAILY 01/19/19 01/19/19 Atorvastatin Calcium [Lipitor] 10 mg PO DAILY 01/19/19 01/19/19 Cholecalciferol [Vitamin D3 (25 1,000 unit PO DAILY 01/19/19 01/19/19 Mcg = 1000 Iu)] Isosorbide Mononitrate ER [Imdur] 30 mg PO DAILY 01/19/19 01/19/19 Multivitamins, Thera [Multivitamin 1 tab PO DAILY 01/19/19 01/19/19 (formulary)] Nitroglycerin Sl Tabs [Nitrostat] 0.4 mg SUBLINGUAL Q5M PRN 01/19/19 01/19/19 atenoloL [Tenormin] 25 mg PO DAILY 01/19/19 01/19/19 Previous Rx's Medication Instructions Recorded metFORMIN HCL [Glucophage] 1,000 mg PO BID #0 11/17/15 Lisinopril [Prinivil] 10 mg PO DAILY #30 tab 01/20/19 amLODIPine [Norvasc] 5 mg PO DAILY #0 01/20/19 Levothyroxine Sodium [Euthyrox] 50 mcg PO AC-BRKFST #30 tablet 01/21/19 Cephalexin [Keflex] 500 mg PO Q6HR #40 cap 09/20/21 Sulfamethox-Tmp 800-160Mg [Bactrim 1 each PO Q12HR 7 Days #14 tab 09/20/21 Ds] Allergies Allergy/AdvReac Type Severity Reaction Status Date / Time No Known Allergies Allergy Verified 01/19/19 08:38 Review of Systems ROS Statement: Those systems with pertinent positive or pertinent negative responses have been documented in the HPI. ROS Other: All systems not noted in ROS Statement are negative. Past Medical History Past Medical History: Cancer, Chest Pain / Angina, Diabetes Mellitus, Eye Disorder, Fibromyalgia, GERD/Reflux, Hyperlipidemia, Hypertension, Thyroid Disorder Additional Past Medical History / Comment(s): cerebral palsy, Ischemic cardiomyopathy, MIGRAINES, hx. uterine & thyroid cancer with surgery, past hx. flesh eating disease 10 yrs ago-was very ill and intubated/vented, ocular strokes, hypothyroid, beginning of alzheimer's, numbness tingling bilateral legs/feet, pt states she has a sore on the bottom of her L foot at this time that has been there for yrs-being monitored by her escapement maker. Last Myocardial Infarction Date:: unkn History of Any Multi-Drug Resistant Organisms: MRSA Date of last positivie culture/infection: 2005 MDRO Source:: buttock per pt Past Surgical History: Heart Catheterization, Heart Catheterization With Stent, Hernia Repair, Hysterectomy Additional Past Surgical History / Comment(s): TRACH, thyroidectomy, hiatal hernia repair, colostomy with reversal due to colon perforation and sepsis colonoscopy. D&C. 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 in the past Past Anesthesia/Blood Transfusion Reactions: Previous Problems w/ Anesthesia Additional Past Anesthesia/Blood Transfusion Reaction / Comment(s): slow to wake up from anesthesia, complications w/general anesthesia-collapsed lung Date of Last Stent Placement:: 11/16/15 Past Psychological History: Anxiety, Depression Smoking Status: Current every day smoker Past Alcohol Use History: None Reported Past Drug Use History: Marijuana - Past Family History Father Family Medical History: Cancer Additional Family Medical History / Comment(s): HAD BRAIN CANCER AT GE 57 Mother Family Medical History: Rheumatoid Arthritis (RA) Additional Family Medical History / Comment(s): MOM IS 66 General Exam Limitations: physical limitation General appearance: alert, in no apparent distress Respiratory exam: Present: normal lung sounds bilaterally. Absent: respiratory distress, wheezes, rales, rhonchi, stridor, chest wall tenderness, accessory muscle use Cardiovascular Exam: Present: regular rate, normal heart sounds GI/Abdominal exam: Present: soft. Absent: distended External exam: Present: lesions (0.5 cm lesion to the right labia indurated and open minimal drainage; 1 cm nodular/indurated abscess left-sided mons pubis; 0.5 cm indurated abscess left gluteal fold/buttock). Absent: ecchymosis Neurological exam: Present: alert, oriented X3 Psychiatric exam: Present: normal affect, normal mood Skin exam: Present: warm, dry, other (BLLE pigmentation changes to bilateral feet patient states is normal for her) Course Vital Signs 09/20/21 12:45 Temperature 97.8 F Pulse Rate 74 Respiratory 16 Rate Blood Pressure 159/93 O2 Sat by Pulse 95 Oximetry Medical Decision Making - Medical Decision Making 56-year-old female presents with 2 days of right labial abscess, left buttock/gluteal fold abscess. She denies any fevers. She has had similar abscesses in the past. There is no drainable abscess noted. There is no evidence of perirectal abscess. Case discussed with Dr. Jaramillo. She was given a prescription for Bactrim and Keflex directed to use Sitz baths multiple times throughout the day and follow up with her primary care doctor. Return to the emergency room with any new or concerning symptoms including increased pain or fevers. Disposition Clinical Impression: Labial abscess Disposition: HOME SELF-CARE Condition: Good Instructions (If sedation given, give patient instructions): Abscess (ED), Sitz Bath (DC) Prescriptions: Sulfamethox-Tmp 800-160Mg [Bactrim Ds] 1 each PO Q12HR 7 Days #14 tab Cephalexin [Keflex] 500 mg PO Q6HR #40 cap Is patient prescribed a controlled substance at d/c from ED?: No Referrals: Samson Adair DO [Primary Care Provider] - 1-2 days Time of Disposition: 13:20
== END 2021-09-20 13:35 | disposition home or self-care (01) ==
LOC: EC 12:31
DX: N76.4 Abscess of vulva (principal); E11.9 Type 2 diabetes mellitus without complications; I10 Essential (primary) hypertension; E78.5 Hyperlipidemia, unspecified; K21.9 Gastro-esophageal reflux disease without esophagitis; E03.9 Hypothyroidism, unspecified; F32.A Depression, unspecified; F41.9 Anxiety disorder, unspecified; F17.200 Nicotine dependence, unspecified, uncomplicated; F12.90 Cannabis use, unspecified, uncomplicated; Z79.4 Long term (current) use of insulin; Z79.84 Long term (current) use of oral hypoglycemic drugs; Z79.82 Long term (current) use of aspirin; Z79.890 Hormone replacement therapy; Z79.899 Other long term (current) drug therapy
CPT/HCPCS: 87070; 87205; 99283

== ENCOUNTER 2021-09-29 16:19 | Inpatient (IN) | payer MEDICARE, OTHER ==
[2021-09-29 18:27] LABS: Basophils # (A) 0.1 k/uL (0-0.2); Basophils % (A) 1 %; Eosinophils # (A) 0.3 k/uL (0-0.7); Eosinophils % (A) 3 %; HCT 49.3 % (34.0-46.0); HGB 16.3 gm/dL (11.4-16.0); Lymphocytes # (A) 2.1 k/uL (1.0-4.8); Lymphocytes % (A) 21 %; MCHC 33.1 g/dL (31.0-37.0); MCV 93.7 fL (80.0-100.0); Mean Platelet Volume 9.7; Monocytes # (A) 0.5 k/uL (0-1.0); Monocytes % (A) 5 %; Neutrophils # (A) 6.7 k/uL (1.3-7.7); Neutrophils % (A) 68 %; Platelet Count 229 k/uL (150-450); RBC 5.27 m/uL (3.80-5.40); RDW 12.6 % (11.5-15.5); WBC 9.8 k/uL (3.8-10.6)
--- NOTE | 2021-09-29 18:35 | ED ---
General Adult HPI - General Chief complaint: Recheck/Abnormal Lab/Rx Stated complaint: Abscess Time Seen by Provider: 09/29/21 16:45 Source: patient Mode of arrival: EMS Limitations: no limitations - History of Present Illness Initial comments: This 56-year-old female who was seen here on 09/20 for vaginal abscesses presents emergency Department after receiving a call stating she needs to come to the hospital for IV antibiotics as the antibiotics that she was placed on our resistant to the medication she was placed on and the only susceptible antibi otics are IV. Patient states she had 3 abscesses here the other day all of which were unable to be lanced and drained as they were indurated and hard. Patient states these abscesses have not gone better or worse since being discharged and states she still is experiencing the pain that she has had from when she came here on the . Patient states she has had a little bit of nausea but denies any fever, abdominal pain, change in urination or change in vaginal discharge. Patient states the pain from abscesses is still present but she thinks that one of the abscesses on the right side are gone as she can't feel it any more. Patient states she has gotten these abscesses on and off for the last 15 years. Patient denies any chest pain, this of breath, abdominal pain, vomiting, change in bowel or bladder, change in appetite, lightheadedness, headache, dizziness, change in vision. - Related Data Home Medications Medication Instructions Recorded Confirmed Levothyroxine Sodium [Synthroid] 200 mcg PO DAILY 11/19/16 09/29/21 Gabapentin [Neurontin] 300 mg PO TID 01/18/19 09/29/21 Omeprazole [PriLOSEC] 20 mg PO DAILY 01/18/19 09/29/21 Aspirin EC [Ecotrin Low Dose] 81 mg PO DAILY 01/19/19 09/29/21 Nitroglycerin Sl Tabs [Nitrostat] 0.4 mg SUBLINGUAL Q5M PRN 01/19/19 09/29/21 Atorvastatin Calcium [Lipitor] 20 mg PO DAILY 09/29/21 09/29/21 Levothyroxine Sodium [Synthroid] 50 mcg PO DAILY 09/29/21 09/29/21 Lisinopril [Prinivil] 1 dose PO DIRECTED 09/29/21 09/29/21 Sertraline [Zoloft] 50 mg PO DAILY 09/29/21 09/29/21 amLODIPine [Norvasc] 1 dose PO DIRECTED 09/29/21 09/29/21 metFORMIN HCL [Glucophage] 500 mg PO DAILY 09/29/21 09/29/21 Previous Rx's Medication Instructions Recorded Cephalexin [Keflex] 500 mg PO Q6HR #40 cap 09/20/21 Allergies Allergy/AdvReac Type Severity Reaction Status Date / Time No Known Allergies Allergy Verified 09/29/21 20:24 Review of Systems ROS Statement: Those systems with pertinent positive or pertinent negative responses have been documented in the HPI. ROS Other: All systems not noted in ROS Statement are negative. Past Medical History Past Medical History: Cancer, Chest Pain / Angina, Diabetes Mellitus, Eye Disorder, Fibromyalgia, GERD/Reflux, Hyperlipidemia, Hypertension, Thyroid Disorder Additional Past Medical History / Comment(s): cerebral palsy, Ischemic cardiomyopathy, MIGRAINES, hx. uterine & thyroid cancer with surgery, past hx. flesh eating disease 10 yrs ago-was very ill and intubated/vented, ocular strokes, hypothyroid, beginning of alzheimer's, numbness tingling bilateral legs/feet, pt states she has a sore on the bottom of her L foot at this time that has been there for yrs-being monitored by her livestock yard attendant. Last Myocardial Infarction Date:: unkn History of Any Multi-Drug Resistant Organisms: ESBL, MRSA Date of last positivie culture/infection: 09/20/21 ESBL-Proteus; 09/07/05 MRSA MDRO Source:: Groin-ESBL; Buttock MRSA Past Surgical History: Heart Catheterization, Heart Catheterization With Stent, Hernia Repair, Hysterectomy Additional Past Surgical History / Comment(s): TRACH, thyroidectomy, hiatal hernia repair, colostomy with reversal due to colon perforation and sepsis colonoscopy. D&C. 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 in the past Past Anesthesia/Blood Transfusion Reactions: Previous Problems w/ Anesthesia Additional Past Anesthesia/Blood Transfusion Reaction / Comment(s): slow to wake up from anesthesia, complications w/general anesthesia-collapsed lung Date of Last Stent Placement:: 11/16/15 Past Psychological History: Anxiety, Depression Smoking Status: Current every day smoker Past Alcohol Use History: None Reported Past Drug Use History: Marijuana - Past Family History Father Family Medical History: Cancer Additional Family Medical History / Comment(s): HAD BRAIN CANCER AT GE 56 Mother Family Medical History: Rheumatoid Arthritis (RA) Additional Family Medical History / Comment(s): MOM IS 66 General Exam Limitations: no limitations General appearance: alert, in no apparent distress Head exam: Present: atraumatic, normocephalic, normal inspection Eye exam: Present: normal appearance, PERRL, EOMI. Absent: scleral icterus, conjunctival injection, periorbital swelling Pupils: Present: normal accommodation ENT exam: Present: normal exam, mucous membranes moist Neck exam: Present: normal inspection. Absent: tenderness, meningismus, lymphadenopathy Respiratory exam: Present: normal lung sounds bilaterally. Absent: respiratory distress, wheezes, rales, rhonchi, stridor Cardiovascular Exam: Present: regular rate, normal rhythm, normal heart sounds. Absent: systolic murmur, diastolic murmur, rubs, gallop, clicks GI/Abdominal exam: Present: soft, normal bowel sounds. Absent: distended, tenderness, guarding, rebound, rigid External exam: Present: other (Abscess with mild erythema and induration on distal right labia majora, painful to palpation. 0.5 cm indurated abscess to left labia minora. No perirectal/anal abscesses or cyst visualized or palpated) Extremities exam: Present: normal inspection, full ROM, normal capillary refill. Absent: tenderness, pedal edema, joint swelling, calf tenderness Back exam: Present: normal inspection. Absent: CVA tenderness (R), CVA tenderness (L) Neurological exam: Present: alert, oriented X3, CN II-XII intact Psychiatric exam: Present: normal affect, normal mood Skin exam: Present: warm, dry, intact, normal color. Absent: rash Course Vital Signs 09/29/21 16:22 Temperature 98.7 F Pulse Rate 75 Respiratory 16 Rate Blood Pressure 165/87 O2 Sat by Pulse 98 Oximetry Medical Decision Making - Medical Decision Making This 66-year-old female presents emergency Department with indurated labial abscesses. Cultures from 09/20/21 are resistant to all oral antibiotics. Patient presents here with abscess is still present along with pain. Wound culture proteus mirabilis with susceptibility to ertapenem. Patient started on ertapenem in the emergency department and admitted to the hospital for further workup, evaluation and treatment. Patient verbally agreed to be admitted to the hospital for further workup, evaluation and treatment. Discussed case with who agreed to admit patient to his services with LABEL FUSER TENDER consult, I did speak with who agreed to evaluate patient tomorrow. I did consult infe ctious disease. Discussed case in detail with my attending, who agreed to plan. - Lab Data Result diagrams: 09/29/21 18:19 09/29/21 18:19 Lab Results 09/29/21 09/29/21 09/29/21 Range/Units 18:19 18:19 18:19 WBC 9.8 (3.8-10.6) k/uL RBC 5.27 (3.80-5.40) m/uL Hgb 16.3 H (11.4-16.0) gm/dL Hct 49.3 H (34.0-46.0) % MCV 93.7 (80.0-100.0) fL MCH 31.0 (25.0-35.0) pg MCHC 33.1 (31.0-37.0) g/dL RDW 12.6 (11.5-15.5) % Plt Count 229 (150-450) k/uL MPV 9.7 Neutrophils % 68 % Lymphocytes % 21 % Monocytes % 5 % Eosinophils % 3 % Basophils % 1 % Neutrophils # 6.7 (1.3-7.7) k/uL Lymphocytes # 2.1 (1.0-4.8) k/uL Monocytes # 0.5 (0-1.0) k/uL Eosinophils # 0.3 (0-0.7) k/uL Basophils # 0.1 (0-0.2) k/uL Sodium 141 (137-145) mmol/L Potassium 4.6 (3.5-5.1) mmol/L Chloride 103 (98-107) mmol/L Carbon Dioxide 29 (22-30) mmol/L Anion Gap 9 mmol/L BUN 18 H (7-17) mg/dL Creatinine 1.08 H (0.52-1.04) mg/dL Est GFR (CKD-EPI)AfAm 67 (>60 ml/min/1.73 sqM) Est GFR (CKD-EPI)NonAf 58 (>60 ml/min/1.73 sqM) Glucose 177 H (74-99) mg/dL Plasma Lactic Acid [place] (0.7-2.0) mmol/L Calcium 9.1 (8.4-10.2) mg/dL Total Bilirubin 0.5 (0.2-1.3) mg/dL AST 22 (14-36) U/L ALT 19 (4-34) U/L Alkaline Phosphatase 115 (38-126) U/L Total Protein 7.7 (6.3-8.2) g/dL Albumin 4.6 (3.5-5.0) g/dL Urine Color Yellow Urine Appearance Clear (Clear) Urine pH 5.5 (5.0-8.0) Ur Specific [place] 1.024 (1.001-1.035) Urine Protein 1+ H (Negative) Urine Glucose (UA) Negative (Negative) Urine Ketones Negative (Negative) Urine Blood Negative (Negative) Urine Nitrite Negative (Negative) Urine Bilirubin Negative (Negative) Urine Urobilinogen 2.0 (<2.0) mg/dL Ur Leukocyte Esterase Negative (Negative) Urine RBC 2 (0-5) /hpf Urine WBC 2 (0-5) /hpf Ur Squamous Epith Cells 2 (0-4) /hpf Hyaline Casts 3 H (0-2) /lpf Urine Mucus Rare H (None) /hpf 09/29/21 Range/Units 18:19 WBC (3.8-10.6) k/uL RBC (3.80-5.40) m/uL Hgb (11.4-16.0) gm/dL Hct (34.0-46.0) % MCV (80.0-100.0) fL MCH (25.0-35.0) pg MCHC (31.0-37.0) g/dL RDW (11.5-15.5) % Plt Count (150-450) k/uL MPV Neutrophils % % Lymphocytes % % Monocytes % % Eosinophils % % Basophils % % Neutrophils # (1.3-7.7) k/uL Lymphocytes # (1.0-4.8) k/uL Monocytes # (0-1.0) k/uL Eosinophils # (0-0.7) k/uL Basophils # (0-0.2) k/uL Sodium (137-145) mmol/L Potassium (3.5-5.1) mmol/L Chloride (98-107) mmol/L Carbon Dioxide (22-30) mmol/L Anion Gap mmol/L BUN (7-17) mg/dL Creatinine (0.52-1.04) mg/dL Est GFR (CKD-EPI)AfAm (>60 ml/min/1.73 sqM) Est GFR (CKD-EPI)NonAf (>60 ml/min/1.73 sqM) Glucose (74-99) mg/dL Plasma Lactic Acid [place] 0.9 (0.7-2.0) mmol/L Calcium (8.4-10.2) mg/dL Total Bilirubin (0.2-1.3) mg/dL AST (14-36) U/L ALT (4-34) U/L Alkaline Phosphatase (38-126) U/L Total Protein (6.3-8.2) g/dL Albumin (3.5-5.0) g/dL Urine Color Urine Appearance (Clear) Urine pH (5.0-8.0) Ur Specific [place] (1.001-1.035) Urine Protein (Negative) Urine Glucose (UA) (Negative) Urine Ketones (Negative) Urine Blood (Negative) Urine Nitrite (Negative) Urine Bilirubin (Negative) Urine Urobilinogen (<2.0) mg/dL Ur Leukocyte Esterase (Negative) Urine RBC (0-5) /hpf Urine WBC (0-5) /hpf Ur Squamous Epith Cells (0-4) /hpf Hyaline Casts (0-2) /lpf Urine Mucus (None) /hpf Disposition Clinical Impression: Proteus mirabilis infection, Abscess of labia majora Disposition: ADMITTED IP TO THIS [facility] Condition: Serious Referrals: Samson Adair DO [Primary Care Provider] - 1-2 days
[2021-09-29 18:36] LABS: Albumin 4.6 g/dL (3.5-5.0); Calcium 9.1 mg/dL (8.4-10.2); Potassium 4.6 mmol/L (3.5-5.1); Total Bilirubin 0.5 mg/dL (0.2-1.3); Total Protein 7.7 g/dL (6.3-8.2)
[2021-09-29] MEDS: ERTAPENEM 1 GM in SODIUM CHLORIDE 0.9% 50 ML IVPB SCH (18:57)
[2021-09-29 19:00] LABS: Appearance,Urine Clear (Clear); Bilirubin,Urine Negative (Negative); Blood,Urine Negative (Negative); Color,Urine Yellow; Glucose,Urine (UA) Negative (Negative); Hyaline Casts,Urine 3 /lpf (0-2); Ketones,Urine Negative (Negative); Leukocyte Esterase,Urine Negative (Negative); Mucus,Urine Rare /hpf; Nitrite,Urine Negative (Negative); PH, Urine 5.5 (5.0-8.0); Protein,Urine 1+ (Negative); RBC,Urine 2 /hpf (0-5); Specific Gravity,Urine 1.024 (1.001-1.035); Squamous Epithelial Cell,Urine 2 /hpf (0-4); WBC,Urine 2 /hpf (0-5)
[2021-09-29] MEDS ORDERED: ONDANSETRON 4 MG/2 ML VIAL IVP PRN (20:38)
[2021-09-29] MEDS ORDERED: NALOXONE 0.4 MG/ML 1 ML VIAL IV PRN (20:38)
[2021-09-29] MEDS ORDERED: ACETAMINOPHEN TAB 325 MG TAB PO PRN (20:38)
--- NOTE | 2021-09-30 01:06 | P.HPIM ---
History of Present Illness H&P Date: 09/29/21 The patient is a 56-year-old female with a PMH of hypertension, hyperlipidemia, hypothyroidism, and fibromyalgia, type II DM who presents to the emergency room with complaints of right labial swelling and pain. The patient reports that her symptoms started roughly 2 weeks ago. The patient reports that she had presented to the emergency room on 09/20 at which point she was started on antibiotics (Keflex), and was discharged home. The patient however received a call that her wound cultures had returned an antibiotic resistant organism, and she was advised to return to the emergency room. The patient's Gram stain had resulted as ESBL Proteus mirabilis. The patient reports no change in her pain. Reports a 3 out of 10 diffuse dull pain in her bilateral labia. Reports occasional chills without fevers. Denied any additional complaints. Denied experiencing chest discomfort, shortness of breath, nausea, vomiting, abdominal pain, cough, diarrhea. Laboratory evaluation was reviewed. The patient was examined with the patient's RN present at the bedside. Review of systems: Pertinent positives and negatives as discussed in HPI, a complete review of systems was performed and all other systems are negative. Physical examination: General: non toxic, no distress, appears older than stated age, morbidly obese Derm: Right labia majora swelling and induration noted, no unusual ecchymoses, warm, dry Head: atraumatic, normocephalic, symmetric Eyes: EOMI, no lid lag, anicteric sclera, pupils equal round reactive to light ENT: Nose and ears atraumatic, no thrush, no pharyngeal erythema Neck: No thyromegaly, no cervical lymphadenopathy, trachea midline, supple Mouth: no lip lesion, mucus membranes moist Cardiovascular: S1S2 reg, no murmur, positive posterior tibial pulse bilateral, no edema, capillary refill less than 2 seconds Lungs: CTA bilateral, no rhonchi, no rales , no accessory muscle use Abdominal: soft, nontender to palpation, no guarding, no appreciable organomegaly, normal bowel sounds Ext: no gross muscle atrophy, muscle strength 5 out of 5 in all 4 extremities g rossly, no contractures, Neuro: CN II-XI grossly intact, light touch intact all 4 extremities, finger to nose within normal limits, Psych: Alert, oriented, appropriate affect Assessment/plan Labial abscess, Gram stain growing ESBL Proteus mirabilis -Continue with ertapenem with ID consult -Pain control Current conditions: Hypertension, hyperlipidemia, hypothyroidism, type II DM, fibromyalgia -Continue with home meds -Insulin sliding scale blood glucose monitoring -Check A1c DVT prophylaxis -Heparin subcu The patient is admitted with an anticipated less than 2 midnight stay for evaluation of absces CODE STATUS: Full Code Discussed with: Patient Anticipated discharge date: 10/[address]: Home Past Medical History Past Medical History: Cancer, Chest Pain / Angina, Diabetes Mellitus, Eye Disorder, Fibromyalgia, GERD/Reflux, Hyperlipidemia, Hypertension, Thyroid Disorder Additional Past Medical History / Comment(s): cerebral palsy, Ischemic cardiomyopathy, MIGRAINES, hx. uterine & thyroid cancer with surgery, past hx. flesh eating disease states during 2005 and was very ill and intubated/vented, ocular strokes, hypothyroid, beginning of alzheimer's, numbness tingling bilateral legs/feet, pt states she has a sore on the bottom of her L foot at this time that has been there for yrs-being monitored by her physician advisor. Last Myocardial Infarction Date:: unkn History of Any Multi-Drug Resistant Organisms: ESBL, MRSA Date of last positivie culture/infection: 09/20/21 ESBL-Proteus; 09/07/05 MRSA MDRO Source:: Groin-ESBL; Buttock MRSA Past Surgical History: Heart Catheterization, Heart Catheterization With Stent, Hernia Repair, Hysterectomy Additional Past Surgical History / Comment(s): TRACH, thyroidectomy, hiatal hernia repair, colostomy with reversal due to colon perforation and sepsis colonoscopy. D&C. 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 She has a neighbor (paid by the state) who is a caregiver. She has never driven. 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 Remains a daily smoker but less now than ever in her adult life. No alcohol use. Medically disabled. No experience. No international travel. No animal exposures Smoking Status: Current every day smoker, Light tobacco smoker Past Alcohol Use History: None Reported Additional Past Alcohol Use History / Comment(s): STARTED SMOKING AT AGE 16 (1981), down to 1ppd Past Drug Use History: Marijuana - Past Family History Father Family Medical History: Cancer Additional Family Medical History / Comment(s): HAD BRAIN CANCER AT GE 56 Mother Family Medical History: Rheumatoid Arthritis (RA) Additional Family Medical History / Comment(s): MOM when she was 77 Medications and Allergies Home Medications Medication Instructions Recorded Confirmed Type Levothyroxine Sodium [Synthroid] 200 mcg PO DAILY 11/19/16 09/29/21 History Gabapentin [Neurontin] 300 mg PO TID 01/18/19 09/29/21 History Omeprazole [PriLOSEC] 20 mg PO DAILY 01/18/19 09/29/21 History Aspirin EC [Ecotrin Low Dose] 81 mg PO DAILY 01/19/19 09/29/21 History Nitroglycerin Sl Tabs [Nitrostat] 0.4 mg SUBLINGUAL Q5M PRN 01/19/19 09/29/21 History Cephalexin [Keflex] 500 mg PO Q6HR #40 cap 09/20/21 09/29/21 Rx Atorvastatin Calcium [Lipitor] 20 mg PO DAILY 09/29/21 09/29/21 History Levothyroxine Sodium [Synthroid] 50 mcg PO DAILY 09/29/21 09/29/21 History Lisinopril [Prinivil] 1 dose PO DIRECTED 09/29/21 09/29/21 History Sertraline [Zoloft] 50 mg PO DAILY 09/29/21 09/29/21 History amLODIPine [Norvasc] 1 dose PO DIRECTED 09/29/21 09/29/21 History metFORMIN HCL [Glucophage] 500 mg PO DAILY 09/29/21 09/29/21 History Allergies Allergy/AdvReac Type Severity Reaction Status Date / Time No Known Allergies Allergy Verified 09/29/21 20:24 Physical Exam Vitals: Vital Signs Temp Pulse Pulse Resp BP BP Pulse Ox 09/29/21 22:05 98.3 F 84 18 177/101 95 09/29/21 21:28 80 18 168/78 98 09/29/21 16:22 98.7 F 75 16 165/87 98 Intake and Output 09/29/21 09/29/21 09/30/21 14:59 22:59 06:59 Other: # Voids 0 Weight 113.398 kg Results CBC & Chem 7: 09/29/21 18:19 09/29/21 18:19 Labs: Abnormal Lab Results - Last 24 Hours (Table) 09/29/21 09/29/21 09/29/21 Range/Units 18:19 18:19 18:19 Hgb 16.3 H (11.4-16.0) gm/dL Hct 49.3 H (34.0-46.0) % BUN 18 H (7-17) mg/dL Creatinine 1.08 H (0.52-1.04) mg/dL Glucose 177 H (74-99) mg/dL Urine Protein 1+ H (Negative) Hyaline Casts 3 H (0-2) /lpf Urine Mucus Rare H (None) /hpf Thrombosis Risk Factor Assmnt - Choose All That Apply Each Factor Represents 1 point: Age 41-60 years, Obesity (BMI >25) Thrombosis Risk Factor Assessment Total Risk Factor Score: 2 Thrombosis Risk Factor Assessment Level: Low Risk
[2021-09-30] MEDS ORDERED: lisinopriL 10 MG TAB PO SCH (01:15)
[2021-09-30] MEDS ORDERED: amLODIPine 10 MG TAB PO SCH (01:15)
[2021-09-30] MEDS: MORPHINE SULFATE 4 MG/ML SYRINGE IV PRN ×4 (01:21→19:47)
[2021-09-30] MEDS: LEVOTHYROXINE 50 MCG TAB PO SCH (05:50)
[2021-09-30 07:39] LABS: Glucose,Whole Blood 201 mg/dL (75-99)
[2021-09-30] MEDS: GABAPENTIN 300 MG CAP PO SCH ×3 (08:37→20:45)
[2021-09-30] MEDS: INSULIN ASPART (NovoLOG) 100 UNIT/ML VIAL SQ SCH ×4 (08:37→20:45)
[2021-09-30] MEDS: HEPARIN SODIUM,PORCINE/PF 5,000 UNIT/0.5 ML SYRINGE SQ SCH ×3 (08:37→23:17)
[2021-09-30] MEDS: ATORVASTATIN 20 MG TAB PO SCH (08:37)
[2021-09-30] MEDS: SERTRALINE 50 MG TAB PO SCH (08:37)
[2021-09-30] MEDS: ASPIRIN 81 MG PO SCH (08:37)
[2021-09-30 10:11] VITALS: BMI 38.0
[2021-09-30 12:23] LABS: Glucose,Whole Blood 229 mg/dL (75-99)
--- NOTE | 2021-09-30 13:25 | P.PN ---
Subjective Progress Note Date: 09/30/21 Still c/o pain in the labia. On appropriate abx. Pending [place] consultation. Gen: awake, alert HEENT: normocephalic, atraumatic, good hearing acuity, moist mucous membranes Resp: good air exchange, breathing comfortably with no accessory muscle use CVS: good distal perfusion x 4, GI: soft, NTTP, ND : no SPT, no CVAT, nieto catheter not present MSK: no pitting edema, no clubbing Neuro: non-focal, moving all extremities Psych: cooperative, euthymic mood Assessment/plan: Labial abscess, Gram stain growing ESBL Proteus mirabilis -Continue with ertapenem with ID consult -Pain control Current conditions: Hypertension, hyperlipidemia, hypothyroidism, type II DM, fibromyalgia -Continue with home meds -Insulin sliding scale blood glucose monitoring -Check A1c DVT prophylaxis -Heparin subcu The patient is admitted with an anticipated less than 2 midnight stay for evaluation of absces CODE STATUS: Full Code Discussed with: Patient Anticipated discharge date: 10/[address]: Home Objective - Vital Signs Vital signs: Vital Signs Temp 98.0 F 09/30/21 07:00 Pulse 77 09/30/21 08:00 Resp 16 09/30/21 08:00 BP 124/65 09/30/21 07:00 Pulse Ox 95 09/30/21 07:00 Intake & Output 09/29/21 09/30/21 09/30/21 18:59 06:59 18:59 Intake Total 59 Balance 59 Weight 113.398 kg 113.398 kg 113.398 kg Intake: Oral 59 Other: # Voids 2 1 - Labs CBC & Chem 7: 09/29/21 18:19 09/29/21 18:19 Labs: Abnormal Lab Results - Last 24 Hours (Table) 09/29/21 09/29/21 09/29/21 Range/Units 18:19 18:19 18:19 Hgb 16.3 H (11.4-16.0) gm/dL Hct 49.3 H (34.0-46.0) % BUN 18 H (7-17) mg/dL Creatinine 1.08 H (0.52-1.04) mg/dL Glucose 177 H (74-99) mg/dL POC Glucose (mg/dL) (75-99) mg/dL Hemoglobin A1c (0.0-6.0) % Urine Protein 1+ H (Negative) Hyaline Casts 3 H (0-2) /lpf Urine Mucus Rare H (None) /hpf 09/29/21 09/30/21 09/30/21 Range/Units 18:19 07:37 12:21 Hgb (11.4-16.0) gm/dL Hct (34.0-46.0) % BUN (7-17) mg/dL Creatinine (0.52-1.04) mg/dL Glucose (74-99) mg/dL POC Glucose (mg/dL) 201 H 229 H (75-99) mg/dL Hemoglobin A1c 9.0 H (0.0-6.0) % Urine Protein (Negative) Hyaline Casts (0-2) /lpf Urine Mucus (None) /hpf
--- NOTE | 2021-09-30 13:35 | P.OBCN ---
History of Present Illness Consult date: 09/30/21 Requesting physician: Jaclyn Balbuena Reason for consult: other (Vulvar abscess) Chief complaint: Left vulvar swelling and pain History of present illness: This is a 56-year-old 2 para 0 who initially presented to the emergency room on 09/20/2021 with complaints of vulvar pain for about 2 days. ER notes state that she had a right labial and left mons and left buttocks abscess into the gluteal fold on the left side with no drainable abscess noted. Culture was taken at that time and she was started on Bactrim and Keflex along with sitz baths. Her culture came back showing Proteus mirabilis and therefore she received a phone call to come back to the emergency room or admission for IV antibiotics. She states she has had these abscesses on and off for about 15 years. She denies any event that occurred prior to the abscess coming up this time. She states she is not in a lot of pain when she is just laying still and rates it about a 3 but when she is up moving around it is worse. In review of her history she did have a incision and drainage in November [address] Oliver for a large left labial abscess that was quite extensive and required wound management for healing afterwards. The patient does have a history of necrotizing fasciitis on her buttocks area in the past and has had multiple debridements for this. She states that Dr. Sheridan is very familiar with her case and has been involved in these surgeries. Review of Systems Constitutional: Denies chills, Denies fever Genitourinary: Reports genital sores, Reports pelvic pain Integumentary: Reports boils, Reports wounds (Labial area) Past Medical History Past Medical History: Cancer, Chest Pain / Angina, Diabetes Mellitus, Eye Disorder, Fibromyalgia, GERD/Reflux, Hyperlipidemia, Hypertension, Thyroid Disorder Additional Past Medical History / Comment(s): cerebral palsy, Ischemic cardiomyopathy, MIGRAINES, hx. uterine & thyroid cancer with surgery, past hx. flesh eating disease states during 2005 and was very ill and intubated/vented, ocular strokes, hypothyroid, beginning of alzheimer's, numbness tingling bilateral legs/feet, pt states she has a sore on the bottom of her L foot at this time that has been there for yrs-being monitored by her clay mixer. Last Myocardial Infarction Date:: unkn History of Any Multi-Drug Resistant Organisms: ESBL, MRSA Year Discovered:: 09/20/21 ESBL-Proteus; 09/07/05 MRSA MDRO Source:: Groin-ESBL; Buttock MRSA Past Surgical History: Heart Catheterization, Heart Catheterization With Stent, Hernia Repair, Hysterectomy Additional Past Surgical History / Comment(s): TRACH, thyroidectomy, hiatal hernia repair, colostomy with reversal due to colon perforation and sepsis colonoscopy. D&C. She had a significant debridements due to the necrotizing fasciitis of her buttocks in the past. 2017-I&D of left labial abscess. Past Anesthesia/Blood Transfusion Reactions: Previous Problems w/ Anesthesia Additional Past Anesthesia/Blood Transfusion Reaction / Comm: slow to wake up from anesthesia, complications w/general anesthesia-collapsed lung Date of Last Stent Placement:: 11/16/15 Past Psychological History: Anxiety, Depression Additional Psychological History / Comment(s): Pt uses a walker to ambulate. She has a neighbor (paid by the state) who is a caregiver. She has never driven. Blood Coordinator takes her to [facility]. Remains a daily smoker but less now than ever in her adult life. No alcohol use. Medically disabled. No experience. No international travel. No animal exposures Smoking Status: Current every day smoker, Light tobacco smoker Past Alcohol Use History: None Reported Additional Past Alcohol Use History / Comment(s): STARTED SMOKING AT AGE 16 (1981), down to 1ppd Past Drug Use History: Marijuana - Past Family History Father Family Medical History: Cancer Additional Family Medical History / Comment(s): HAD BRAIN CANCER AT GE 56 Mother Family Medical History: Rheumatoid Arthritis (RA) Additional Family Medical History / Comment(s): MOM when she was 78 Medications and Allergies Home Medications Medication Instructions Recorded Confirmed Type Levothyroxine Sodium [Synthroid] 200 mcg PO DAILY 11/19/16 09/29/21 History Gabapentin [Neurontin] 300 mg PO TID 01/18/19 09/29/21 History Omeprazole [PriLOSEC] 20 mg PO DAILY 01/18/19 09/29/21 History Aspirin EC [Ecotrin Low Dose] 81 mg PO DAILY 01/19/19 09/29/21 History Nitroglycerin Sl Tabs [Nitrostat] 0.4 mg SUBLINGUAL Q5M PRN 01/19/19 09/29/21 History Cephalexin [Keflex] 500 mg PO Q6HR #40 cap 09/20/21 09/29/21 Rx Atorvastatin Calcium [Lipitor] 20 mg PO DAILY 09/29/21 09/29/21 History Levothyroxine Sodium [Synthroid] 50 mcg PO DAILY 09/29/21 09/29/21 History Lisinopril [Prinivil] 1 dose PO DIRECTED 09/29/21 09/29/21 History Sertraline [Zoloft] 50 mg PO DAILY 09/29/21 09/29/21 History amLODIPine [Norvasc] 1 dose PO DIRECTED 09/29/21 09/29/21 History metFORMIN HCL [Glucophage] 500 mg PO DAILY 09/29/21 09/29/21 History Allergies Allergy/AdvReac Type Severity Reaction Status Date / Time No Known Allergies Allergy Verified 09/29/21 20:24 Exam Osteopathic Statement: *. No significant issues noted on an osteopathic structural exam other than those noted in the History and Physical/Consult. Vital Signs Temp Pulse Pulse Resp BP BP BP 09/30/21 08:00 77 16 09/30/21 07:00 98.0 F 77 16 124/65 09/30/21 02:35 98.3 F 76 18 125/79 09/29/21 22:05 98.3 F 84 18 177/101 09/29/21 21:28 80 18 168/78 09/29/21 16:22 98.7 F 75 16 165/87 Pulse Ox 09/30/21 08:00 09/30/21 07:00 95 09/30/21 02:35 97 09/29/21 22:05 95 09/29/21 21:28 98 09/29/21 16:22 98 Intake and Output 09/29/21 09/30/21 09/30/21 22:59 06:59 14:59 Intake Total 59 Balance 59 Intake: Oral 59 Other: # Voids 0 2 1 Weight 113.398 kg 113.398 kg - OBG Physical Exam Vulva: Left vulva is very swollen with some darkening in color with a firmer indurated area deeper inside measuring 11 x 5 cm. This area extends into the left proximal and perianal area. No drainage is noted from the area. Mild tenderness is noted to palpation. She does have a smaller approximately 2-3 cm raised red boil on her left upper mons. Results Result Diagrams: 09/29/21 18:19 09/29/21 18:19 Abnormal Lab Results - Last 24 Hours (Table) 09/29/21 09/29/21 09/29/21 Range/Units 18:19 18:19 18:19 Hgb 16.3 H (11.4-16.0) gm/dL Hct 49.3 H (34.0-46.0) % BUN 18 H (7-17) mg/dL Creatinine 1.08 H (0.52-1.04) mg/dL Glucose 177 H (74-99) mg/dL POC Glucose (mg/dL) (75-99) mg/dL Hemoglobin A1c (0.0-6.0) % Urine Protein 1+ H (Negative) Hyaline Casts 3 H (0-2) /lpf Urine Mucus Rare H (None) /hpf 09/29/21 09/30/21 09/30/21 Range/Units 18:19 07:37 12:21 Hgb (11.4-16.0) gm/dL Hct (34.0-46.0) % BUN (7-17) mg/dL Creatinine (0.52-1.04) mg/dL Glucose (74-99) mg/dL POC Glucose (mg/dL) 201 H 229 H (75-99) mg/dL Hemoglobin A1c 9.0 H (0.0-6.0) % Urine Protein (Negative) Hyaline Casts (0-2) /lpf Urine Mucus (None) /hpf Assessment and Plan (1) Abscess of labia majora Current Visit: Yes Status: Acute Code(s): N76.4 - ABSCESS OF VULVA SNOMED Code(s): 582367092 (2) Proteus mirabilis infection Current Visit: Yes Status: Acute Code(s): A49.8 - OTHER BACTERIAL INFECTIONS OF UNSPECIFIED SITE SNOMED Code(s): 84730612 (3) Abscess or cellulitis of groin Current Visit: No Status: Acute Code(s): MSS6378 - SNOMED Code(s): 369267788 Plan: My impression is that the patient has a left vulvar abscess versus cellulitis that may extend into the perirectal area. Due to her past history, I would recommend a computed tomography scan of the pelvis to further differentiate whether there is truly an abscess versus cellulitis. If abscess is confirmed, I may be able to do a repeat incision and drainage of this area. However I would like to consult with general surgery or Dr. Sheridan due to her history of multiple surgeries for necrotizing fasciitis and the close proximity of this to her perirectal area. In the meantime I would suggest continuing IV antibiotics and infectious disease consultation. If surgery is necessary, I would plan to do an incision and drainage under anesthesia. We will need medical clearance for surgery due to her history of cardiac stents. She has seen Dr. Rolon in the past for cardiology care. I will follow closely and make further recommendations after computed tomography scan and general surgery consultation.
--- NOTE | 2021-09-30 14:23 | CT ---
EXAMINATION TYPE: CT pelvis wo con DATE OF EXAM: 09/30/2021 COMPARISON: 04/28/2018 HISTORY: Large left vulvar abscess CT DLP: 893.1 mGycm Automated exposure control for dose reduction was used. Images obtained from the iliac crests to the mid femurs without contrast. There are surgical clips in the anterior abdominal wall. There is no evidence of pneumoperitoneum. No evidence of bowel obstruction. Fecal pattern is normal. The bladder distends smoothly. There is no e vidence of pelvic mass. Kidneys have normal size no hydronephrosis. There is posterior multilevel fusion surgery in the lumbar spine with laminectomy defects. There is d egenerative disc space narrowing in the lower lumbar spine with spur formation and sclerosis. There i s osteosclerosis at L4-5 that could relate to old chronic discitis. There is mild asymmetric thickening of the left labia. No drainable fluid collection. There is some a symmetric increased density in the medial right buttock in the subcutaneous fat compared to the left. No drainable fluid collection. This area measures 4.5 cm. There is 2.5 cm area of asymmetric increas ed density in the subcutaneous fat at the medial left upper thigh close to the labia. There is 5 x 1 cm area of abnormal linear subcutaneous increased density posterior to the right labia. IMPRESSION: Multiple subcutaneous areas of increased density bilaterally consistent with multiple phlegmons. No d rainable fluid collection. There is limited visualization of this area on the old CT scan of the abdo men of 04/28/2018. The right posterior subcutaneous linear density is also present and not changed. T here is clearing of the apparent abscess at the upper pole right kidney compared to old exam. Scleros is at L4-5 level has progressed compared to old exam.
[2021-09-30 17:31] LABS: Glucose,Whole Blood 160 mg/dL (75-99)
[2021-09-30] MEDS: ERTAPENEM 1 GM in SODIUM CHLORIDE 0.9% 50 ML IVPB SCH (18:01)
[2021-09-30 20:23] LABS: Glucose,Whole Blood 177 mg/dL (75-99)
--- NOTE | 2021-09-30 23:56 | P.CONS ---
History of Present Illness - Reason for Consult Consult date: 09/30/21 Proteus mirabilis infection Requesting physician: Rachel Díaz - Chief Complaint Left labial pain and swelling x few days - History of Present Illness Patient is a 56-year-old female with a past medical history of again for hypertension hyperlipidemia fibromyalgia type 2 diabetes mellitus started having a problem with the left labial swelling and pain symptoms started about 2 weeks ago patient has been complaining of pain to be more of a dull aching at times sharp about 7-8 out of 10 no radiation patient was evaluated at [facility] ER on 09/20/2021 apparently the patient did have some local cultures done and she was discharged on Keflex and Bactrim DS, subsequently cultures, positive with ESBL Proteus mirabilis for the patient was called to come back to the hospital, patient on presentation to the hospital was afebrile and no fever had been recorded subsequently patient did have a normal white count did have a normal BUN/creatinine urine has been negative culture done on the 09/20/2021 did grew ESBL Proteus Mirabenagi's patient has been started on Invanz and will to the hospital infectious disease was consulted for further management of antibiotic therapy Review of Systems Positive point has been mentioned in the HPI rest of the systems are negative Past Medical History Past Medical History: Cancer, Chest Pain / Angina, Diabetes Mellitus, Eye Disorder, Fibromyalgia, GERD/Reflux, Hyperlipidemia, Hypertension, Thyroid Disorder Additional Past Medical History / Comment(s): cerebral palsy, Ischemic cardiomyopathy, MIGRAINES, hx. uterine & thyroid cancer with surgery, past hx. flesh eating disease states during 2005 and was very ill and intubated/vented, ocular strokes, hypothyroid, beginning of alzheimer's, numbness tingling bilateral legs/feet, pt states she has a sore on the bottom of her L foot at this time that has been there for yrs-being monitored by her leather goods sales representative. Last Myocardial Infarction Date:: unkn History of Any Multi-Drug Resistant Organisms: ESBL, MRSA Year Discovered:: 09/20/21 ESBL-Proteus; 09/07/05 MRSA MDRO Source:: Groin-ESBL; Buttock MRSA Past Surgical History: Heart Catheterization, Heart Catheterization With Stent, Hernia Repair, Hysterectomy Additional Past Surgical History / Comment(s): TRACH, thyroidectomy, hiatal hernia repair, colostomy with reversal due to colon perforation and sepsis colonoscopy. D&C. 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 She has a neighbor (paid by the state) who is a caregiver. She has never driven. Tailor Women[employer]S Garment Alteration takes her to [facility]. Remains a daily smoker but less now than ever in her adult life. No alcohol use. Medically disabled. No experience. No international travel. No animal exposures Smoking Status: Current every day smoker, Light tobacco smoker Past Alcohol Use History: None Reported Additional Past Alcohol Use History / Comment(s): STARTED SMOKING AT AGE 16 (1981), down to 1ppd Past Drug Use History: Marijuana - Past Family History Father Family Medical History: Cancer Additional Family Medical History / Comment(s): HAD BRAIN CANCER AT GE 57 Mother Family Medical History: Rheumatoid Arthritis (RA) Additional Family Medical History / Comment(s): MOM when she was 78 Medications and Allergies Home Medications Medication Instructions Recorded Confirmed Type Levothyroxine Sodium [Synthroid] 200 mcg PO DAILY 11/19/16 09/29/21 History Gabapentin [Neurontin] 300 mg PO TID 01/18/19 09/29/21 History Omeprazole [PriLOSEC] 20 mg PO DAILY 01/18/19 09/29/21 History Aspirin EC [Ecotrin Low Dose] 81 mg PO DAILY 01/19/19 09/29/21 History Nitroglycerin Sl Tabs [Nitrostat] 0.4 mg SUBLINGUAL Q5M PRN 01/19/19 09/29/21 History Cephalexin [Keflex] 500 mg PO Q6HR #40 cap 09/20/21 09/29/21 Rx Atorvastatin Calcium [Lipitor] 20 mg PO DAILY 09/29/21 09/29/21 History Levothyroxine Sodium [Synthroid] 50 mcg PO DAILY 09/29/21 09/29/21 History Lisinopril [Prinivil] 1 dose PO DIRECTED 09/29/21 09/29/21 History Sertraline [Zoloft] 50 mg PO DAILY 09/29/21 09/29/21 History amLODIPine [Norvasc] 1 dose PO DIRECTED 09/29/21 09/29/21 History metFORMIN HCL [Glucophage] 500 mg PO DAILY 09/29/21 09/29/21 History Allergies Allergy/AdvReac Type Severity Reaction Status Date / Time No Known Allergies Allergy Verified 09/29/21 20:24 Physical Exam Vitals: Vital Signs Temp Pulse Pulse Resp BP BP BP 09/30/21 08:00 77 16 09/30/21 07:00 98.0 F 77 16 124/65 09/30/21 02:35 98.3 F 76 18 125/79 09/29/21 22:05 98.3 F 84 18 177/101 09/29/21 21:28 80 18 168/78 09/29/21 16:22 98.7 F 75 16 165/87 Pulse Ox 09/30/21 08:00 09/30/21 07:00 95 09/30/21 02:35 97 09/29/21 22:05 95 09/29/21 21:28 98 09/29/21 16:22 98 Intake and Output 09/29/21 09/30/21 09/30/21 22:59 06:59 14:59 Intake Total 59 Balance 59 Intake: Oral 59 Other: # Voids 0 2 Weight 113.398 kg 113.398 kg GENERAL DESCRIPTION: Middle-aged female lying in bed, no distress. No tachypnea or accessory muscle of respiration use. HEENT: Shows Pallor , no scleral icterus. Oral mucous membrane is dry. No pharyngeal erythema or thrush NECK: Trachea central, no thyromegaly. LUNGS: Unlabored breathing. Clear to auscultation anteriorly. No wheeze or crackle. HEART: S1, S2, regular rate and rhythm. No loud murmur ABDOMEN: Soft, no tenderness , guarding or rigidity, no organomegaly : Left labia is swollen and indurated no fluctuation or drainage was noticed EXTREMITIES: No edema of feet. SKIN: No rash, no masses palpable. NEUROLOGICAL: The patient is awake, alert, oriented x3, mood and affect normal. Results CBC & Chem 7: 09/29/21 18:19 09/29/21 18:19 Labs: Abnormal Lab Results - Last 24 Hours (Table) 09/29/21 09/29/21 09/29/21 Range/Units 18:19 18:19 18:19 Hgb 16.3 H (11.4-16.0) gm/dL Hct 49.3 H (34.0-46.0) % BUN 18 H (7-17) mg/dL Creatinine 1.08 H (0.52-1.04) mg/dL Glucose 177 H (74-99) mg/dL POC Glucose (mg/dL) (75-99) mg/dL Hemoglobin A1c (0.0-6.0) % Urine Protein 1+ H (Negative) Hyaline Casts 3 H (0-2) /lpf Urine Mucus Rare H (None) /hpf 09/29/21 09/30/21 Range/Units 18:19 07:37 Hgb (11.4-16.0) gm/dL Hct (34.0-46.0) % BUN (7-17) mg/dL Creatinine (0.52-1.04) mg/dL Glucose (74-99) mg/dL POC Glucose (mg/dL) 201 H (75-99) mg/dL Hemoglobin A1c 9.0 H (0.0-6.0) % Urine Protein (Negative) Hyaline Casts (0-2) /lpf Urine Mucus (None) /hpf Assessment and Plan (1) Abscess of labia majora Current Visit: Yes Status: Acute Code(s): N76.4 - ABSCESS OF VULVA SNOMED Code(s): 693652613 (2) Proteus mirabilis infection Current Visit: Yes Status: Acute Code(s): A49.8 - OTHER BACTERIAL INFECTIONS OF UNSPECIFIED SITE SNOMED Code(s): 66134546 Plan: 1patient presented to hospital with pain to the left labial area and some drainage in this patient recent culture positive for ESBL Proteus mirabilis like ly infected pathogen in this patient did have significant duration unclear examination but no fluctuation CT of the pelvis has been ordered by SATELLITE COMMUNICATIONS OPERATOR and will be followed. 2continue with Invanz 1 g daily. We will follow on clinical condition and cultures to further adjust medication if needed Thank you for this consultation will follow this patient along with you Time with Patient: Greater than 30
[2021-10-01] MEDS: LEVOTHYROXINE 50 MCG TAB PO SCH (05:59)
[2021-10-01] MEDS: MORPHINE SULFATE 4 MG/ML SYRINGE IV PRN ×3 (06:02→19:20)
[2021-10-01 07:42] LABS: Glucose,Whole Blood 206 mg/dL (75-99)
[2021-10-01] MEDS: HEPARIN SODIUM,PORCINE/PF 5,000 UNIT/0.5 ML SYRINGE SQ SCH ×3 (08:13→22:54)
[2021-10-01] MEDS: GABAPENTIN 300 MG CAP PO SCH ×3 (08:14→20:33)
[2021-10-01] MEDS: ASPIRIN 81 MG PO SCH (08:14)
[2021-10-01] MEDS: ATORVASTATIN 20 MG TAB PO SCH (08:14)
[2021-10-01] MEDS: INSULIN ASPART (NovoLOG) 100 UNIT/ML VIAL SQ SCH ×4 (08:14→20:32)
[2021-10-01] MEDS: SERTRALINE 50 MG TAB PO SCH (08:14)
--- NOTE | 2021-10-01 11:15 | P.PN ---
Subjective Progress Note Date: 10/01/21 Still c/o pain in the labia. On appropriate abx. Pending surgery consultation Gen: awake, alert HEENT: normocephalic, atraumatic, good hearing acuity, moist mucous membranes Resp: good air exchange, breathing comfortably with no accessory muscle use CVS: good distal perfusion x 4, GI: soft, NTTP, ND : no SPT, no CVAT, nieto catheter not present MSK: no pitting edema, no clubbing Neuro: non-focal, moving all extremities Psych: cooperative, euthymic mood Assessment/plan: Labial abscess, Gram stain growing ESBL Proteus mirabilis -Continue with ertapenem with ID consult -Pain control Current conditions: Hypertension, hyperlipidemia, hypothyroidism, type II DM, fibromyalgia -Continue with home meds -Insulin sliding scale blood glucose monitoring -Check A1c DVT prophylaxis -Heparin subcu The patient is admitted with an anticipated less than 2 midnight stay for evaluation of absces CODE STATUS: Full Code Discussed with: Patient Anticipated discharge date: 10/[address]: Home Objective - Vital Signs Vital signs: Vital Signs Temp 98.8 F 10/01/21 07:00 Pulse 67 10/01/21 08:00 Resp 16 10/01/21 08:00 BP 156/82 10/01/21 07:00 Pulse Ox 95 10/01/21 07:00 Intake & Output 09/30/21 10/01/21 10/01/21 18:59 06:59 18:59 Intake Total 872 118 Balance 872 118 Weight 113.398 kg Intake: Oral 872 118 Other: # Voids 1 1 - Labs CBC & Chem 7: 09/29/21 18:19 09/29/21 18:19 Labs: Abnormal Lab Results - Last 24 Hours (Table) 09/30/21 09/30/21 09/30/21 Range/Units 12:21 17:29 20:21 POC Glucose (mg/dL) 229 H 160 H 177 H (75-99) mg/dL 10/01/21 Range/Units 07:41 POC Glucose (mg/dL) 206 H (75-99) mg/dL
[2021-10-01 11:40] LABS: Basophils # (A) 0.02 X 10*3/uL (0.00-0.10); Basophils % (A) 0.3 %; Eosinophils % (A) 4.8 %; HCT 43.8 % (37.2-46.3); HGB 14.3 g/dL (12.0-15.0); Immature Grans, Automated 0.3 %; Lymphocytes # (A) 0.63 X 10*3/uL (0.90-5.00); MCH 30.6 pg (27.0-32.0); MCHC 32.6 g/dL (32.0-37.0); MCV 93.6 fL (80.0-97.0); Mean Platelet Volume 12.6 fL (9.5-12.2); Monocytes # (A) 0.55 X 10*3/uL (0.20-1.00); Monocytes % (A) 8.7 %; NRBC Per 100 WBC 0 /100 WBCS (0.0-0.0); Neutrophils # (A) 4.77 X 10*3/uL (1.80-7.70); Neutrophils % (A) 75.9 %; Platelet Count 182 X 10*3/uL (140-440); RBC 4.68 X 10*6/uL (4.10-5.20); RDW 12.8 % (11.5-14.5); WBC 6.29 X 10*3/uL (4.50-10.00)
[2021-10-01 11:49] LABS: African American GFR (CKD) 68.5 (60.0-200.0); Anion Gap 10.7 mmol/L (10.00-18.00); BUN/Creat Ratio 15.28 Ratio (12.00-20.00); Blood Urea Nitrogen 16.2 mg/dL (9.0-27.0); Calcium 8.2 mg/dL (8.7-10.3); Magnesium 1.9 mg/dL (1.5-2.4); Non-African American GFR(CKD) 59.1 (60.0-200.0); Potassium 4.7 mmol/L (3.5-5.5)
--- NOTE | 2021-10-01 11:54 | P.GSCN ---
History of Present Illness Consult date: 10/01/21 Reason for Consult: Right labial abscess History of present illness: Is a 56-year-old female was admitted hospital complaints of right labial pain. Patient has a previous history of necrotizing fasciitis. She was seen by Dr. Byron michaels. Patient's had pain and swelling of her right leg. She's been evaluated by Dr. Martinez from gynecology. She's had a CAT scan which shows significant inflammatory changes of the right labia. Past Medical History Past Medical History: Cancer, Chest Pain / Angina, Diabetes Mellitus, Eye Disorder, Fibromyalgia, GERD/Reflux, Hyperlipidemia, Hypertension, Thyroid Diso rder Additional Past Medical History / Comment(s): cerebral palsy, Ischemic cardiomyopathy, MIGRAINES, hx. uterine & thyroid cancer with surgery, past hx. flesh eating disease states during 2005 and was very ill and intubated/vented, ocular strokes, hypothyroid, beginning of alzheimer's, numbness tingling bilateral legs/feet, pt states she has a sore on the bottom of her L foot at this time that has been there for yrs-being monitored by her core cleaner. Last Myocardial Infarction Date:: unkn History of Any Multi-Drug Resistant Organisms: ESBL, MRSA Year Discovered:: 09/20/21 ESBL-Proteus; 09/07/05 MRSA MDRO Source:: Groin-ESBL; Buttock MRSA Past Surgical History: Heart Catheterization, Heart Catheterization With Stent, Hernia Repair, Hysterectomy Additional Past Surgical History / Comment(s): TRACH, thyroidectomy, hiatal hernia repair, colostomy with reversal due to colon perforation and sepsis colonoscopy. D&C. 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 in the past Past Anesthesia/Blood Transfusion Reactions: Previous Problems w/ Anesthesia Additional Past Anesthesia/Blood Transfusion Reaction / Comm: slow to wake up f rom anesthesia, complications w/general anesthesia-collapsed lung Date of Last Stent Placement:: 11/16/15 Past Psychological History: Anxiety, Depression Additional Psychological History / Comment(s): Pt uses a walker to ambulate. She has a neighbor (paid by the state) who is a caregiver. She has never driven. Medical Education Specialist takes her to appts. Remains a daily smoker but less now than ever in her adult life. No alcohol use. Medically disabled. No experience. No international travel. No animal exposures Smoking Status: Current every day smoker, Light tobacco smoker Past Alcohol Use History: None Reported Additional Past Alcohol Use History / Comment(s): STARTED SMOKING AT AGE 16 (1981), down to 1ppd Past Drug Use History: Marijuana - Past Family History Father Family Medical History: Cancer Additional Family Medical History / Comment(s): HAD BRAIN CANCER AT GE 56 Mother Family Medical History: Rheumatoid Arthritis (RA) Additional Family Medical History / Comment(s): MOM when she was 78 Medications and Allergies Home Medications Medication Instructions Recorded Confirmed Type Levothyroxine Sodium [Synthroid] 200 mcg PO DAILY 11/19/16 09/29/21 History Gabapentin [Neurontin] 300 mg PO TID 01/18/19 09/29/21 History Omeprazole [PriLOSEC] 20 mg PO DAILY 01/18/19 09/29/21 History Aspirin EC [Ecotrin Low Dose] 81 mg PO DAILY 01/19/19 09/29/21 History Nitroglycerin Sl Tabs [Nitrostat] 0.4 mg SUBLINGUAL Q5M PRN 01/19/19 09/29/21 History Cephalexin [Keflex] 500 mg PO Q6HR #40 cap 09/20/21 09/29/21 Rx Atorvastatin Calcium [Lipitor] 20 mg PO DAILY 09/29/21 09/29/21 History Levothyroxine Sodium [Synthroid] 50 mcg PO DAILY 09/29/21 09/29/21 History Lisinopril [Prinivil] 1 dose PO DIRECTED 09/29/21 09/29/21 History Sertraline [Zoloft] 50 mg PO DAILY 09/29/21 09/29/21 History amLODIPine [Norvasc] 1 dose PO DIRECTED 09/29/21 09/29/21 History metFORMIN HCL [Glucophage] 500 mg PO DAILY 09/29/21 09/29/21 History Allergies Allergy/AdvReac Type Severity Reaction Status Date / Time No Known Allergies Allergy Verified 09/29/21 20:24 Surgical - Exam Vital Signs Temp Pulse Resp BP Pulse Ox 98.7 F 75 16 165/87 98 09/29/21 16:22 09/29/21 16:22 09/29/21 16:22 09/29/21 16:22 09/29/21 16:22 - General well developed, no distress - Eyes PERRL - Abdomen Abdomen: soft, non tender - Integumentary Significant swelling and erythema of right pubic area and labial. Results - Labs 10/01/21 07:03 10/01/21 07:03 Abnormal Lab Results - Last 24 Hours (Table) 09/30/21 09/30/21 09/30/21 Range/Units 12:21 17:29 20:21 MPV (9.5-12.2) fL Lymphocytes # (0.90-5.00) X 10*3/uL Sodium (135-145) mmol/L Est GFR (CKD-EPI)NonAf (60.0-200.0) Glucose (70-110) mg/dL POC Glucose (mg/dL) 229 H 160 H 177 H (75-99) mg/dL Calcium (8.7-10.3) mg/dL 10/01/21 10/01/21 10/01/21 Range/Units 07:03 07:03 07:41 MPV 12.6 H (9.5-12.2) fL Lymphocytes # 0.63 L (0.90-5.00) X 10*3/uL Sodium 133 L (135-145) mmol/L Est GFR (CKD-EPI)NonAf 59.1 L (60.0-200.0) Glucose 224 H (70-110) mg/dL POC Glucose (mg/dL) 206 H (75-99) mg/dL Calcium 8.2 L (8.7-10.3) mg/dL Diabetes panel 10/01/21 Range/Units 07:03 Sodium 133 L (135-145) mmol/L Potassium 4.7 (3.5-5.5) mmol/L Chloride 99 (96-109) mmol/L Carbon Dioxide 23.0 (20.0-27.5) mmol/L BUN 16.2 (9.0-27.0) mg/dL Creatinine 1.1 (0.6-1.5) mg/dL Glucose 224 H (70-110) mg/dL Calcium 8.2 L (8.7-10.3) mg/dL Calcium panel 10/01/21 Range/Units 07:03 Calcium 8.2 L (8.7-10.3) mg/dL Pituitary panel 10/01/21 Range/Units 07:03 Sodium 133 L (135-145) mmol/L Potassium 4.7 (3.5-5.5) mmol/L Chloride 99 (96-109) mmol/L Carbon Dioxide 23.0 (20.0-27.5) mmol/L BUN 16.2 (9.0-27.0) mg/dL Creatinine 1.1 (0.6-1.5) mg/dL Glucose 224 H (70-110) mg/dL Calcium 8.2 L (8.7-10.3) mg/dL Adrenal panel 10/01/21 Range/Units 07:03 Sodium 133 L (135-145) mmol/L Potassium 4.7 (3.5-5.5) mmol/L Chloride 99 (96-109) mmol/L Carbon Dioxide 23.0 (20.0-27.5) mmol/L BUN 16.2 (9.0-27.0) mg/dL Creatinine 1.1 (0.6-1.5) mg/dL Glucose 224 H (70-110) mg/dL Calcium 8.2 L (8.7-10.3) mg/dL Assessment and Plan Assessment: Right labial abscess/cellulitis. Patient will be evaluated by the telephone directory deliverer today. There is no evidence of any perirectal abscess. No general surgical intervention is planned.
[2021-10-01 12:09] LABS: Glucose,Whole Blood 229 mg/dL (75-99)
--- NOTE | 2021-10-01 12:54 | P.PN ---
Subjective Progress Note Date: 10/01/21 Principal diagnosis: Left vulvar cellulitis Patient states her pain is about the same. She is still fairly comfortable laying in bed but she did get up the shower earlier and was standing in the shower her pain increased in the left labia. She denies any drainage from the area. She is currently on ertapenem IV day #2 for Proteus mirabilus. She has been seen by Gen. surgery and they are not recommending any surgical intervention at this time. Computed tomography scan shows no fluid collection large enough to drain and just shows thickening in the left labia. Objective - Vital Signs Vital signs: Vital Signs Temp 98.8 F 10/01/21 07:00 Pulse 67 10/01/21 08:00 Resp 16 10/01/21 08:00 BP 156/82 10/01/21 07:00 Pulse Ox 95 10/01/21 07:00 Intake & Output 09/30/21 10/01/21 10/01/21 18:59 06:59 18:59 Intake Total 872 118 Balance 872 118 Weight 113.398 kg Intake: Oral 872 118 Other: # Voids 1 1 - Genitourinary Genitourinary Comment(s): Left labia still enlarged with a firmer area in the midportion of the labia that is mildly tender to palpation and does feel slightly smaller than yesterday. No discharge is noted. - Labs CBC & Chem 7: 10/01/21 07:03 10/01/21 07:03 Labs: Abnormal Lab Results - Last 24 Hours (Table) 09/30/21 09/30/21 10/01/21 Range/Units 17:29 20:21 07:03 MPV 12.6 H (9.5-12.2) fL Lymphocytes # 0.63 L (0.90-5.00) X 10*3/uL Sodium (135-145) mmol/L Est GFR (CKD-EPI)NonAf (60.0-200.0) Glucose (70-110) mg/dL POC Glucose (mg/dL) 160 H 177 H (75-99) mg/dL Calcium (8.7-10.3) mg/dL 10/01/21 10/01/21 10/01/21 Range/Units 07:03 07:41 12:08 MPV (9.5-12.2) fL Lymphocytes # (0.90-5.00) X 10*3/uL Sodium 133 L (135-145) mmol/L Est GFR (CKD-EPI)NonAf 59.1 L (60.0-200.0) Glucose 224 H (70-110) mg/dL POC Glucose (mg/dL) 206 H 229 H (75-99) mg/dL Calcium 8.2 L (8.7-10.3) mg/dL Assessment and Plan Assessment: Left labial cellulitis (1) Abscess of labia majora Current Visit: Yes Status: Acute Code(s): N76.4 - ABSCESS OF VULVA SNOMED Code(s): 744661181 (2) Proteus mirabilis infection Current Visit: Yes Status: Acute Code(s): A49.8 - OTHER BACTERIAL INFECTIONS OF UNSPECIFIED SITE SNOMED Code(s): 92874021 (3) Abscess or cellulitis of groin Current Visit: No Status: Acute Code(s): QBN2593 - SNOMED Code(s): 972747550 Plan: I did speak with infectious disease while in the patient room today and advised that there is no pocket that would need to be drained intraoperatively. Will continue with antibiotics per infectious disease. We will defer to infectious disease for length of antibiotic treatment. Continue with symptomatic treatment. Will continue to follow with you.
[2021-10-01 17:16] LABS: Glucose,Whole Blood 213 mg/dL (75-99)
[2021-10-01] MEDS: ERTAPENEM 1 GM in SODIUM CHLORIDE 0.9% 50 ML IVPB SCH (18:16)
[2021-10-01 20:29] LABS: Glucose,Whole Blood 175 mg/dL (75-99)
--- NOTE | 2021-10-01 23:52 | P.PN ---
Subjective Progress Note Date: 10/01/21 Principal diagnosis: Right labial infection Patient is a 56-year-old female presented to hospital with right labial pain swelling redness and some drainage with a recent culture positive for ESBL Proteus patient did have a CT of the pelvis which was phlegmon formation to the right labia but no drainable abscess, Gen. surgery has seen the patient and did not see any perirectal involvement. On today's evaluation that is 10/01/2021, patient denies having any fever or c hills patient has been complaining of pain to the right labial area but no drainage, denies any chest pain shortness of breath or cough no abdominal pain no diarrhea Objective - Vital Signs Vital signs: Vital Signs Temp 98.8 F 10/01/21 07:00 Pulse 67 10/01/21 08:00 Resp 16 10/01/21 08:00 BP 156/82 10/01/21 07:00 Pulse Ox 95 10/01/21 07:00 Intake & Output 09/30/21 10/01/21 10/01/21 18:59 06:59 18:59 Intake Total 872 118 Balance 872 118 Weight 113.398 kg Intake: Oral 872 118 Other: # Voids 1 1 - Exam GENERAL DESCRIPTION: Middle-aged female lying in bed in no distress RESPIRATORY SYSTEM: Unlabored breathing , decreased breath sounds at bases HEART: S1 S2 regular rate and rhythm , ABDOMEN: Soft , no tenderness EXTREMITIES: No edema feet - Labs CBC & Chem 7: 10/01/21 07:03 10/01/21 07:03 Labs: Abnormal Lab Results - Last 24 Hours (Table) 09/30/21 09/30/21 09/30/21 Range/Units 12:21 17:29 20:21 MPV (9.5-12.2) fL Lymphocytes # (0.90-5.00) X 10*3/uL Sodium (135-145) mmol/L Est GFR (CKD-EPI)NonAf (60.0-200.0) Glucose (70-110) mg/dL POC Glucose (mg/dL) 229 H 160 H 177 H (75-99) mg/dL Calcium (8.7-10.3) mg/dL 10/01/21 10/01/21 10/01/21 Range/Units 07:03 07:03 07:41 MPV 12.6 H (9.5-12.2) fL Lymphocytes # 0.63 L (0.90-5.00) X 10*3/uL Sodium 133 L (135-145) mmol/L Est GFR (CKD-EPI)NonAf 59.1 L (60.0-200.0) Glucose 224 H (70-110) mg/dL POC Glucose (mg/dL) 206 H (75-99) mg/dL Calcium 8.2 L (8.7-10.3) mg/dL 10/01/21 Range/Units 12:08 MPV (9.5-12.2) fL Lymphocytes # (0.90-5.00) X 10*3/uL Sodium (135-145) mmol/L Est GFR (CKD-EPI)NonAf (60.0-200.0) Glucose (70-110) mg/dL POC Glucose (mg/dL) 229 H (75-99) mg/dL Calcium (8.7-10.3) mg/dL Assessment and Plan (1) Abscess of labia majora Current Visit: Yes Status: Acute Code(s): N76.4 - ABSCESS OF VULVA SNOMED Code(s): 256316862 (2) Proteus mirabilis infection Current Visit: Yes Status: Acute Code(s): A49.8 - OTHER BACTERIAL INFECTIONS OF UNSPECIFIED SITE SNOMED Code(s): 21361433 Plan: 1patient presented to hospital with pain to the left labial area and some drainage in this patient recent culture positive for ESBL Proteus mirabilis likely infected pathogen in this patient did have significant duration unclear examination but no fluctuation CT of the pelvis did show some phlegmon formation but no drainable abscess, no pain for any surgical drainage for OB 2patient to continue with Invanz 1 g daily. Patient will need to midline outpatient IV antibiotic therapy Time with Patient: Less than 30
[2021-10-02 08:50] LABS: African American GFR (CKD) 77 (>60 ml/min/1.73 sqM); Anion Gap 7 mmol/L; Blood Urea Nitrogen 18 mg/dL (7-17); Calcium 8.1 mg/dL (8.4-10.2); Carbon Dioxide 24 mmol/L (22-30); Chloride 101 mmol/L (98-107); Glucose 170 mg/dL (74-99); Magnesium 1.7 mg/dL (1.6-2.3); Non-African American GFR(CKD) 67 (>60 ml/min/1.73 sqM); Potassium 4.5 mmol/L (3.5-5.1); Sodium 132 mmol/L (137-145)
[2021-10-02 09:07] LABS: Basophils % (A) 0 %; Eosinophils # (A) 0.2 k/uL (0-0.7); Eosinophils % (A) 4 %; HCT 42.2 % (34.0-46.0); HGB 13.9 gm/dL (11.4-16.0); Lymphocytes # (A) 0.7 k/uL (1.0-4.8); Lymphocytes % (A) 15 %; MCH 31.3 pg (25.0-35.0); MCHC 32.9 g/dL (31.0-37.0); Monocytes # (A) 0.4 k/uL (0-1.0); Monocytes % (A) 8 %; Neutrophils # (A) 3.5 k/uL (1.3-7.7); Neutrophils % (A) 71 %; Platelet Count 181 k/uL (150-450); RBC 4.44 m/uL (3.80-5.40); WBC 4.9 k/uL (3.8-10.6)
[2021-10-02 10:51] LABS: Glucose,Whole Blood 177 mg/dL (75-99)
[2021-10-02] MEDS: LEVOTHYROXINE 50 MCG TAB PO SCH (11:14)
[2021-10-02] MEDS: HEPARIN SODIUM,PORCINE/PF 5,000 UNIT/0.5 ML SYRINGE SQ SCH ×2 (11:14→15:28)
[2021-10-02] MEDS: INSULIN ASPART (NovoLOG) 100 UNIT/ML VIAL SQ SCH ×4 (11:14→22:50)
[2021-10-02] MEDS: ASPIRIN 81 MG PO SCH (11:15)
[2021-10-02] MEDS: ATORVASTATIN 20 MG TAB PO SCH (11:15)
[2021-10-02] MEDS: GABAPENTIN 300 MG CAP PO SCH ×3 (11:15→20:03)
[2021-10-02] MEDS: SERTRALINE 50 MG TAB PO SCH (11:16)
[2021-10-02 12:02] LABS: Glucose,Whole Blood 333 mg/dL (75-99)
--- NOTE | 2021-10-02 12:04 | P.PN ---
Subjective Progress Note Date: 10/02/21 CHIEF COMPLAINT: Left labial abscess and cellulitis HISTORY OF PRESENT ILLNESS: Patient reports that she still having pain in the left labial area. She has been on IV antibiotics. Reports no drainage from the abscess. Denies any nausea or vomiting. She is diabetic. History of neck tightness and fasciitis. Patient seen by SURGERY AID service. No intervention planned from their standpoint. She is also followed by infectious disease. Afebrile. WBC is 4.9 PHYSICAL EXAM: VITAL SIGNS: Reviewed. GENERAL: Well-developed in no acute distress. HEENT: No sclera icterus. Extraocular movements grossly intact. Moist buccal mucosa. Head is atraumatic, normocephalic. ABDOMEN: Soft. Nondistended. Nontender. NEUROLOGIC: Alert and oriented. Cranial nerves II through XII grossly intact. exam: Swelling of the left labial. There is a 2 cm area of induration. Surrounding cellulitis and swelling. Tender with palpation. No discharge. ASSESSMENT: 1. Left labial abscess with cellulitis PLAN: -No surgical intervention planned -Continue supportive care -Continue antibiotics per ID service -Add warm compresses Physician Cloth Dyeing Range Tender note has been reviewed by physician. Signing provider agrees with the documented findings, assessment, and plan of care. I have personally seen and examined the patient, reviewed the REFRACTORY FURNACE DESIGNER /PAs history, exam and MDM and agree with the assessment and plan as written. Based on total visit time, I have performed more than 50% of the visit. As above: Left buttocks with area of induration and tenderness. Discussed with both patient and infectious disease. We'll proceed with incision and drainage tomorrow in the operating room. Risks of bleeding, infection, wound formation, scarring, possible need for further surgery discussed. She understands and wishes to proceed. Objective - Vital Signs Vital signs: Vital Signs Temp 98.4 F 10/02/21 07:15 Pulse 67 10/02/21 07:15 Resp 18 10/02/21 07:15 BP 136/82 10/02/21 07:15 Pulse Ox 92 L 10/02/21 07:15 Intake & Output 10/01/21 10/02/21 10/02/21 18:59 06:59 18:59 Intake Total 1153 Balance 1153 Intake: Oral 1153 Other: # Voids 3 1 2 - Labs CBC & Chem 7: 10/02/21 06:30 10/02/21 07:01 Labs: Abnormal Lab Results - Last 24 Hours (Table) 10/01/21 10/01/21 10/01/21 Range/Units 12:08 17:14 20:27 Lymphocytes # (1.0-4.8) k/uL Sodium (137-145) mmol/L BUN (7-17) mg/dL Glucose (74-99) mg/dL POC Glucose (mg/dL) 229 H 213 H 175 H (75-99) mg/dL Calcium (8.4-10.2) mg/dL 10/02/21 10/02/21 10/02/21 Range/Units 06:30 07:01 07:21 Lymphocytes # 0.7 L (1.0-4.8) k/uL Sodium 132 L (137-145) mmol/L BUN 18 H (7-17) mg/dL Glucose 170 H (74-99) mg/dL POC Glucose (mg/dL) 177 H (75-99) mg/dL Calcium 8.1 L (8.4-10.2) mg/dL
[2021-10-02] MEDS: MORPHINE SULFATE 4 MG/ML SYRINGE IV PRN ×3 (12:33→22:51)
[2021-10-02 17:10] LABS: Glucose,Whole Blood 204 mg/dL (75-99)
[2021-10-02] MEDS: ERTAPENEM 1 GM in SODIUM CHLORIDE 0.9% 50 ML IVPB SCH (20:02)
[2021-10-02 21:31] LABS: Glucose,Whole Blood 229 mg/dL (75-99)
--- NOTE | 2021-10-02 21:32 | P.PN ---
Progress Note - Text Progress Note Date: 10/02/21 Hospital course: Admitted with left labial abscess and cellulitis. October 02: Patient having significant pain at the abscess site. Seen by Dr. Matthews. Planning to go down to the OR tomorrow. For I&D. Patient currently on IV ertapenem. Eating well. At her baseline uses a walker. Active Medications Acetaminophen (Acetaminophen Tab 325 Mg Tab) 650 mg PO Q6HR PRN PRN Reason: Mild Pain or Fever > 100.5 Aspirin (Aspirin 81 Mg) 81 mg PO DAILY [facility] Last Admin: 10/02/21 11:15 Dose: Not Given Documented by: Atorvastatin Calcium (Atorvastatin 20 Mg Tab) 20 mg PO DAILY [facility] Last Admin: 10/02/21 11:15 Dose: Not Given Documented by: Gabapentin (Gabapentin 300 Mg Cap) 300 mg PO TID [facility] Last Admin: 10/02/21 20:03 Dose: 300 mg Documented by: Heparin Sodium (Porcine) (Heparin Sodium,Porcine/Pf 5,000 Unit/0.5 Ml Syringe) 5,000 unit SQ Q8HR [facility] Last Admin: 10/02/21 15:28 Dose: 5,000 unit Documented by: Ertapenem 1 gm/ Sodium (Chloride) 50 mls @ 100 mls/hr IVPB Q24H [facility]; Protocol Last Admin: 10/02/21 20:02 Dose: 100 mls/hr Documented by: Insulin Aspart (Insulin Aspart (Novolog) 100 Unit/Ml Vial) 0 unit SQ ACHS [facility]; Protocol Last Admin: 10/02/21 18:30 Dose: 2 unit Documented by: Levothyroxine Sodium (Levothyroxine 50 Mcg Tab) 50 mcg PO DAILY@0630 [facility] Last Admin: 10/02/21 11:14 Dose: Not Given Documented by: Morphine Sulfate (Morphine Sulfate 4 Mg/Ml Syringe) 4 mg IV Q4HR PRN PRN Reason: Severe Pain Last Admin: 10/02/21 17:16 Dose: 4 mg Documented by: Naloxone HCl (Naloxone 0.4 Mg/Ml 1 Ml Vial) 0.2 mg IV Q2M PRN PRN Reason: Opioid Reversal Ondansetron HCl (Ondansetron 4 Mg/2 Ml Vial) 4 mg IVP Q8HR PRN PRN Reason: Nausea And Vomiting Sertraline HCl (Sertraline 50 Mg Tab) 50 mg PO DAILY [facility] Last Admin: 10/02/21 11:16 Dose: Not Given Documented by: On examination: VITAL SIGNS: [98.6, 81, 18, 134/86, 95% room air] GENERAL APPEARANCE: BMI 38, laying in bed, awake not in distress. HEENT: Normal external appearance of nose and ear. Oral cavity normal EYES: Pupils equal. Conjunctiva normal. NECK: JVD not raised. Mass not palpable. RESPIRATORY: Respiratory effort normal. Lungs clear to auscultation. CARDIOVASCULAR: First and second sounds normal. No edema. ABDOMEN: Soft. Liver and spleen not palpable. No tenderness. No mass palpable. [Pelvic exam as per PROOF COIN COLLECTOR/surgery] PSYCHIATRY: Alert and oriented x3. Mood and affect normal. INVESTIGATIONS, reviewed in the clinical context: White count 4.9 hemoglobin 13.9 platelets 181 potassium 4.5 BUN 18 creatinine 0.96 Assessment/plan: Acute left Labial abscess, Gram stain growing ESBL Proteus mirabilis: Slow to respond -IV ertapenem. Pending I&D tomorrow by surgery. -Pain control -Essential hypertension -Hyperlipidemia Lipitor 20 mg daily -Diabetic peripheral neuropathy Neurontin 300 mg 3 times a day -Hypothyroidism Synthroid 50 g daily -Diabetes mellitus type 2, chronically and oral hypoglycemic. Uncontrolled hyperglycemia secondary to infection Follow Accu-Cheks. Metformin. Start Levemir 14 units daily at bedtime -Chronic fibromyalgia -Obesity BMI 38 Weight loss measures Start Levemir. Metformin. Discussed with patient. Pending I&D tomorrow. IV ertapenem.
[2021-10-02] MEDS: INSULIN DETEMIR (LEVEMIR) 100 UNIT/ML SYR SQ SCH (23:10)
[2021-10-03] MEDS: LEVOTHYROXINE 50 MCG TAB PO SCH (05:54)
[2021-10-03 07:24] LABS: Glucose,Whole Blood 198 mg/dL (75-99)
[2021-10-03] MEDS: metFORMIN 500 MG TAB PO SCH ×2 (08:33→15:56)
[2021-10-03] MEDS: INSULIN ASPART (NovoLOG) 100 UNIT/ML VIAL SQ SCH ×4 (08:33→21:18)
[2021-10-03] MEDS: GABAPENTIN 300 MG CAP PO SCH ×3 (09:26→19:47)
[2021-10-03] MEDS: SERTRALINE 50 MG TAB PO SCH (09:26)
[2021-10-03] MEDS: ATORVASTATIN 20 MG TAB PO SCH (09:26)
[2021-10-03] MEDS: MORPHINE SULFATE 4 MG/ML SYRINGE IV PRN ×3 (10:50→21:22)
[2021-10-03] MEDS ORDERED: LACTATED RINGERS 1,000 ML IV ONE (12:00)
[2021-10-03 12:02] LABS: Glucose,Whole Blood 159 mg/dL (75-99)
[2021-10-03] MEDS ORDERED: LIDOCAINE 2% INJ 20 MG/ML (2 ML VIAL) ONE (12:55)
[2021-10-03] MEDS ORDERED: MIDAZOLAM 2 MG/2 ML VIAL ONE (12:55)
[2021-10-03] MEDS ORDERED: SUCCINYLCHOLINE CHLORIDE VIAL 200 MG/10 ML VIAL IV ONE (12:55)
[2021-10-03] MEDS ORDERED: fentaNYL (PF) 50 MCG/ML 2 ML AMP ONE (12:55)
[2021-10-03] MEDS ORDERED: ePHEDrine 50 MG/ML 1 ML VIAL ONE (12:55)
[2021-10-03] MEDS ORDERED: PROPOFOL 10 MG/ML 20 ML VIAL IV ONE (12:55)
--- NOTE | 2021-10-03 12:55 | P.PN ---
Progress Note - Text Progress Note Date: 10/03/21 Patient is not in her room. Apparently she is in surgery with Dr. Sheridan for I&D. Will check back tomorrow.
[2021-10-03] MEDS ORDERED: BUPIVACAIN-EPI 0.25%-1:200,000 30 ML VIAL SQ ONE ×2 (13:13→13:50)
[2021-10-03] MEDS ORDERED: HYDROmorphone 0.5 MG/0.5 ML SYRINGE IVP ONE ×3 (14:14→14:36)
[2021-10-03 14:42] LABS: Glucose,Whole Blood 144 mg/dL (75-99)
[2021-10-03] MEDS ORDERED: LABETALOL SYRINGE 5 MG/ML IVP ONE (14:54)
[2021-10-03] MEDS: ENOXAPARIN 40 MG/0.4 ML SYRINGE SQ SCH (15:54)
[2021-10-03] MEDS: ASPIRIN 81 MG PO SCH (15:54)
[2021-10-03 16:53] LABS: Glucose,Whole Blood 162 mg/dL (75-99)
--- NOTE | 2021-10-03 17:50 | P.OP ---
Date of Procedure: 10/03/21 Procedure(s) Performed: PREOPERATIVE DIAGNOSIS: Left buttock abscess POSTOPERATIVE DIAGNOSIS: Same PROCEDURE: Incision and drainage left buttock abscess SURGEON: Arvin EBL: 5 mL ANESTHESIA: Gen. COMPLICATIONS: None OPERATIVE PROCEDURE: Patient place never table in the left decubitus position after general anesthesia was achieved. Left buttock prepped and draped sterilely. Elliptical incision made overlying the fluctuant region. Entrance into a 3 x 2 cm abscess cavity encountered. Cultures were taken. Wound was irrigated with saline. Wound was then packed with 1/2 inch iodoform gauze. Sterile dressings applied. DISPOSITION: Stable to recovery room
[2021-10-03] MEDS: ERTAPENEM 1 GM in SODIUM CHLORIDE 0.9% 50 ML IVPB SCH (19:47)
[2021-10-03 20:14] LABS: Glucose,Whole Blood 270 mg/dL (75-99)
[2021-10-03] MEDS: LACTATED RINGERS 1,000 ML IV SCH (21:17)
[2021-10-03] MEDS: INSULIN DETEMIR (LEVEMIR) 100 UNIT/ML SYR SQ SCH (21:18)
--- NOTE | 2021-10-03 21:22 | P.PN ---
Progress Note - Text Progress Note Date: 10/03/21 Hospital course: Admitted with left labial abscess and cellulitis. October 02: Patient having significant pain at the abscess site. Seen by Dr. Matthews. Planning to go down to the OR tomorrow. For I&D. Patient currently on IV ertapenem. Eating well. At her baseline uses a walker. October 03: Underwent I&D of the abscess. Some pain at local site. Oral intake fair. On IV ertapenem. Active Medications Acetaminophen (Acetaminophen Tab 325 Mg Tab) 650 mg PO Q6HR PRN PRN Reason: Mild Pain or Fever > 100.5 Aspirin (Aspirin 81 Mg) 81 mg PO DAILY [facility] Last Admin: 10/03/21 15:54 Dose: 81 mg Documented by: Atorvastatin Calcium (Atorvastatin 20 Mg Tab) 20 mg PO DAILY [facility] Last Admin: 10/03/21 09:26 Dose: 20 mg Documented by: Enoxaparin Sodium (Enoxaparin 40 Mg/0.4 Ml Syringe) 40 mg SQ DAILY [facility] Last Admin: 10/03/21 15:54 Dose: 40 mg Documented by: Gabapentin (Gabapentin 300 Mg Cap) 300 mg PO TID [facility] Last Admin: 10/03/21 19:47 Dose: 300 mg Documented by: Ertapenem 1 gm/ Sodium (Chloride) 50 mls @ 100 mls/hr IVPB Q24H [facility]; Protocol Last Admin: 10/03/21 19:47 Dose: 100 mls/hr Documented by: Lactated Ringer's (Lactated Ringers) 1,000 mls @ 20 mls/hr IV .Q24H [facility] Last Admin: 10/03/21 21:17 Dose: 20 mls/hr Documented by: Insulin Aspart (Insulin Aspart (Novolog) 100 Unit/Ml Vial) 0 unit SQ ACHS [facility]; Protocol Last Admin: 10/03/21 21:18 Dose: 4 unit Documented by: Insulin Detemir (Insulin Detemir (Levemir) 100 Unit/Ml Syr) 14 unit SQ HS [facility] Last Admin: 10/03/21 21:18 Dose: 14 unit Documented by: Levothyroxine Sodium (Levothyroxine 50 Mcg Tab) 50 mcg PO DAILY@0630 [facility] Last Admin: 10/03/21 05:54 Dose: 50 mcg Documented by: Metformin HCl (Metformin 500 Mg Tab) 500 mg PO AC-BID [facility] Last Admin: 10/03/21 15:56 Dose: Not Given Documented by: Morphine Sulfate (Morphine Sulfate 4 Mg/Ml Syringe) 4 mg IV Q4HR PRN PRN Reason: Severe Pain Last Admin: 10/03/21 17:02 Dose: 4 mg Documented by: Naloxone HCl (Naloxone 0.4 Mg/Ml 1 Ml Vial) 0.2 mg IV Q2M PRN PRN Reason: Opioid Reversal Ondansetron HCl (Ondansetron 4 Mg/2 Ml Vial) 4 mg IVP Q8HR PRN PRN Reason: Nausea And Vomiting Sertraline HCl (Sertraline 50 Mg Tab) 50 mg PO DAILY [facility] Last Admin: 10/03/21 09:26 Dose: 50 mg Documented by: On examination: VITAL SIGNS: 98.9, 94, 18, 154/75, 94% room air GENERAL APPEARANCE: laying in bed, comfortable HEENT: Normal external appearance of nose and ear. Oral cavity normal EYES: Pupils equal. Conjunctiva normal. NECK: JVD not raised. Mass not palpable. RESPIRATORY: Respiratory effort normal. Lungs clear to auscultation. CARDIOVASCULAR: First and second sounds normal. No edema. ABDOMEN: Soft. Liver and spleen not palpable. No tenderness. No mass palpable. [Pelvic exam as per INVESTIGATION CLERK/surgery] PSYCHIATRY: Alert and oriented x3. Mood and affect normal. INVESTIGATIONS, reviewed in the clinical context: White count 4.9 hemoglobin 13.9 platelets 181 potassium 4.5 BUN 18 creatinine 0.96 Assessment/plan: Acute left Labial abscess, Gram stain growing ESBL Proteus mirabilis: -IV ertapenem. I&D done by Dr. Matthews today. Cultures pending -Essential hypertension Lisinopril/hydrochlorothiazide 10/12.5 mg daily at bedtime -Hyperlipidemia Lipitor 20 mg daily -Diabetic peripheral neuropathy Neurontin 300 mg 3 times a day -Hypothyroidism Synthroid 50 g daily -Diabetes mellitus type 2, chronically and oral hypoglycemic. Uncontrolled hyperglycemia secondary to infection Follow Accu-Cheks. Metformin. Start Levemir 14 units daily at bedtime -Chronic fibromyalgia -Obesity BMI 38 Weight loss measures Levemir. Metformin. IV ertapenem. Start Lisinopril/hydrochlorothiazide 10/1 2.5 mg daily at bedtime. Wound culture sent off
[2021-10-03] MEDS ORDERED: CALCIUM CARBONATE LIQUID 500 MG/5 ML CUP PO PRN (21:31)
[2021-10-03] MEDS: LISINOPRIL-HCTZ 10-12.5 MG 1 EACH TAB PO SCH (22:28)
[2021-10-04] MEDS: LEVOTHYROXINE 50 MCG TAB PO SCH (06:05)
[2021-10-04 07:26] LABS: Glucose,Whole Blood 192 mg/dL (75-99)
[2021-10-04] MEDS: SERTRALINE 50 MG TAB PO SCH (08:02)
[2021-10-04] MEDS: ASPIRIN 81 MG PO SCH (08:02)
[2021-10-04] MEDS: ATORVASTATIN 20 MG TAB PO SCH (08:03)
[2021-10-04] MEDS: ENOXAPARIN 40 MG/0.4 ML SYRINGE SQ SCH (08:03)
[2021-10-04] MEDS: metFORMIN 500 MG TAB PO SCH ×2 (08:03→18:07)
[2021-10-04] MEDS: GABAPENTIN 300 MG CAP PO SCH ×3 (08:03→20:10)
[2021-10-04] MEDS: INSULIN ASPART (NovoLOG) 100 UNIT/ML VIAL SQ SCH ×4 (08:03→21:32)
--- NOTE | 2021-10-04 08:49 | P.PN ---
Subjective Progress Note Date: 10/04/21 Principal diagnosis: Left vulvar cellulitis Patient underwent an I&D of her left buttocks area by Dr. Sheridan yesterday. She stated her pain is much better than it was prior to surgery. Objective - Vital Signs Vital signs: Vital Signs Temp 98.0 F 10/04/21 07:11 Pulse 63 10/04/21 07:11 Resp 16 10/04/21 07:11 BP 99/53 10/04/21 07:11 Pulse Ox 97 10/04/21 07:11 Intake & Output 10/03/21 10/04/21 10/04/21 18:59 06:59 18:59 Intake Total 700 50 Output Total 5 Balance 695 50 Intake: IV 700 Intake, IV Titration 50 Amount Ertapenem 1 gm In Sodium 50 Chloride 0.9% 50 ml @ 100 mls/hr IVPB Q24H [facility] Rx# :[id number] Output: Estimated Blood Loss 5 Other: Voiding Method Bedside Commode Toilet Bedside Commode # Voids 3 1 - Genitourinary Genitourinary Comment(s): Her dressing is completely saturated and stuck to her posterior buttocks area. I removed the dressing. The incision on the left lower buttocks area has a packing in place with some serosanguineous discharge noted. Area around the incision is still firm and indurated but less tender to palpation per patient. - Labs CBC & Chem 7: 10/02/21 06:30 10/02/21 07:01 Labs: Abnormal Lab Results - Last 24 Hours (Table) 10/03/21 10/03/21 10/03/21 Range/Units 11:51 14:40 16:47 POC Glucose (mg/dL) 159 H 144 H 162 H (75-99) mg/dL 10/03/21 10/04/21 Range/Units 20:13 07:23 POC Glucose (mg/dL) 270 H 192 H (75-99) mg/dL Microbiology - Last 24 Hours (Table) 10/03/21 13:50 Gram Stain - Preliminary Buttock Wound Culture - Preliminary 10/03/21 13:50 Anaerobic Culture - Preliminary Buttock Assessment and Plan Assessment: Left labial cellulitis (1) Abscess of labia majora Current Visit: Yes Status: Acute Code(s): N76.4 - ABSCESS OF VULVA SNOMED Code(s): 925524454 (2) Proteus mirabilis infection Current Visit: Yes Status: Acute Code(s): A49.8 - OTHER BACTERIAL INFECTIONS OF UNSPECIFIED SITE SNOMED Code(s): 53009767 (3) Abscess or cellulitis of groin Current Visit: No Status: Acute Code(s): RPZ0721 - SNOMED Code(s): 235712604 Plan: Since she has already undergone an incision and drainage, there is no further intervention that I will need to do. I would recommend awaiting cultures from her surgery to make sure she is on the appropriate antibiotics to go home with. Will continue to follow.
[2021-10-04] MEDS ORDERED: LIDOCAINE 1% PF 10 MG/ML (5 ML AMP) SQ ONE (09:57)
--- NOTE | 2021-10-04 10:36 | IR ---
EXAMINATION TYPE: IR cvc insert >=5 years DATE OF EXAM: 10/04/2021 COMPARISON: NONE CLINICAL HISTORY: Infection Needs long-term intravenous access for antibiotics. PROCEDURE: Hand hygiene obtained with soap and water and alcohol-based hand rub. After informed consent, the skin overlying the left basilic vein was localized with ultrasound and no pao to be compressible and patent. An ultrasound image was obtained and submitted on the patient's c harrington. The overlying skin was prepped and draped and Lidocaine was used for local anesthesia. A skin brock was made with a scalpel. Access was gained to the vein under ultrasound guidance with a 21 gau [employer] [facility] needle and a 0.018 inch wire was advanced. Access site was dilated with Peel-Away sheath and cath eter tailored to the appropriate length and advanced such that the distal tip is at the cavoatrial ju nction. Spot image was obtained verifying placement. Catheter was fixed to the skin and a sterile d ressing was placed following hemostasis. Catheter was aspirated and flushed with saline. Patient wa s discharged in stable condition without complication.Maximal barrier technique is utilized. Ultraso und image is documented on the chart. Ultrasound used with sterile technique. Fluoro time and fluoroscopic images submitted to document procedure: 0.2 minutes fluoroscopy time, 78 intraoperative images document the procedure IMPRESSION: STATUS POST ULTRASOUND AND FLUOROSCOPIC GUIDED PICC LINE PLACEMENT, READY FOR USE. THIS PROCEDURE WAS PERFORMED BY THE UNDERSIGNED.
[2021-10-04 11:58] LABS: Glucose,Whole Blood 177 mg/dL (75-99)
[2021-10-04] MEDS ORDERED: HYDROcodone/APAP 5-325MG 1 EACH TAB PO PRN (12:02)
--- NOTE | 2021-10-04 12:14 | P.PN ---
Subjective Progress Note Date: 10/04/21 Principal diagnosis: Left buttock abscess Patient doing well today. Says her pain is improved from preop. Some discomfort after she ambulated in the hallways. No fevers. Culture showing gram-positive cocci. PICC line was placed today. Objective - Vital Signs Vital signs: Vital Signs Temp 98.0 F 10/04/21 07:11 Pulse 63 10/04/21 07:11 Resp 18 10/04/21 08:00 BP 99/53 10/04/21 07:11 Pulse Ox 97 10/04/21 07:11 Intake & Output 10/03/21 10/04/21 10/04/21 18:59 06:59 18:59 Intake Total 700 50 Output Total 5 Balance 695 50 Intake: IV 700 Intake, IV Titration 50 Amount Ertapenem 1 gm In Sodium 50 Chloride 0.9% 50 ml @ 100 mls/hr IVPB Q24H [facility] Rx# :[id number] Output: Estimated Blood Loss 5 Other: Voiding Method Bedside Commode Toilet Bedside Commode # Voids 3 1 1 - Exam Left buttock abscess site with persistent erythema and induration, mild tenderness - Labs CBC & Chem 7: 10/02/21 06:30 10/02/21 07:01 Labs: Abnormal Lab Results - Last 24 Hours (Table) 10/03/21 10/03/21 10/03/21 Range/Units 14:40 16:47 20:13 POC Glucose (mg/dL) 144 H 162 H 270 H (75-99) mg/dL 10/04/21 10/04/21 Range/Units 07:23 11:57 POC Glucose (mg/dL) 192 H 177 H (75-99) mg/dL Microbiology - Last 24 Hours (Table) 10/03/21 13:50 Gram Stain - Preliminary Buttock Wound Culture - Preliminary 10/03/21 13:50 Anaerobic Culture - Preliminary Buttock Assessment and Plan (1) Abscess or cellulitis of groin Narrative/Plan: Patient doing well today. Will begin oral analgesics. Continue antibiotics per infectious disease. Await cultures. May shower. Packing to be changed today by nursing staff. Current Visit: No Status: Acute Code(s): [id number] - SNOMED Code(s): 116365107
[2021-10-04] MEDS: MORPHINE SULFATE 4 MG/ML SYRINGE IV PRN (15:27)
[2021-10-04 16:21] LABS: Glucose,Whole Blood 166 mg/dL (75-99)
--- NOTE | 2021-10-04 19:22 | P.PN ---
Progress Note - Text Progress Note Date: 10/04/21 Hospital course: Admitted with left labial abscess and cellulitis. October 02: Patient having significant pain at the abscess site. Seen by Dr. Matthews. Planning to go down to the OR tomorrow. For I&D. Patient currently on IV ertapenem. Eating well. At her baseline uses a walker. October 03: Underwent I&D of the abscess. Some pain at local site. Oral intake fair. On IV ertapenem. October 04: Patient's pain is better. Has a packing in the wound site. No fever no chills. Cultures are pending. IV ertapenem. Oral intake fair. Wound was looked at with the nurse senior medical billing specialist. Active Medications Acetaminophen (Acetaminophen Tab 325 Mg Tab) 650 mg PO Q6HR PRN PRN Reason: Mild Pain or Fever > 100.5 Last Admin: 10/04/21 08:09 Dose: 650 mg Documented by: Hydrocodone Bitart/Acetaminophen (Hydrocodone/Apap 5-325mg 1 Each Tab) 1 each PO Q4HR PRN PRN Reason: Moderate Pain Last Admin: 10/04/21 12:23 Dose: 1 each Documented by: Hydrocodone Bitart/Acetaminophen (Hydrocodone/Apap 7.5-325mg 1 Each Tab) 1 each PO Q6H PRN PRN Reason: Severe Pain Aspirin (Aspirin 81 Mg) 81 mg PO DAILY [facility] Last Admin: 10/04/21 08:02 Dose: 81 mg Documented by: Atorvastatin Calcium (Atorvastatin 20 Mg Tab) 20 mg PO DAILY [facility] Last Admin: 10/04/21 08:03 Dose: 20 mg Documented by: Calcium Carbonate/Glycine (Calcium Carbonate Liquid 500 Mg/5 Ml Cup) 500 mg PO TID-W/MEALS PRN PRN Reason: Heartburn Last Admin: 10/03/21 22:25 Dose: 500 mg Documented by: Enoxaparin Sodium (Enoxaparin 40 Mg/0.4 Ml Syringe) 40 mg SQ DAILY [facility] Last Admin: 10/04/21 08:03 Dose: 40 mg Documented by: Gabapentin (Gabapentin 300 Mg Cap) 300 mg PO TID [facility] Last Admin: 10/04/21 18:08 Dose: 300 mg Documented by: Lisinopril/HCTZ (Lisinopril-Hctz 10-12.5 Mg 1 Each Tab) 1 each PO HS [facility] Last Admin: 10/03/21 22:28 Dose: 1 each Documented by: Ertapenem 1 gm/ Sodium (Chloride) 50 mls @ 100 mls/hr IVPB Q24H [facility]; Protocol Last Admin: 10/03/21 19:47 Dose: 100 mls/hr Documented by: Lactated Ringer's (Lactated Ringers) 1,000 mls @ 20 mls/hr IV .Q24H [facility] Last Admin: 10/03/21 21:17 Dose: 20 mls/hr Documented by: Insulin Aspart (Insulin Aspart (Novolog) 100 Unit/Ml Vial) 0 unit SQ ACHS [facility]; Protocol Last Admin: 10/04/21 18:07 Dose: 2 unit Documented by: Insulin Detemir (Insulin Detemir (Levemir) 100 Unit/Ml Syr) 14 unit SQ HS [facility] Last Admin: 10/03/21 21:18 Dose: 14 unit Documented by: Levothyroxine Sodium (Levothyroxine 50 Mcg Tab) 50 mcg PO DAILY@0630 [facility] Last Admin: 10/04/21 06:05 Dose: 50 mcg Documented by: Metformin HCl (Metformin 500 Mg Tab) 500 mg PO AC-BID [facility] Last Admin: 10/04/21 18:07 Dose: 500 mg Documented by: Morphine Sulfate (Morphine Sulfate 4 Mg/Ml Syringe) 4 mg IV Q4HR PRN PRN Reason: Severe Pain Last Admin: 10/04/21 15:27 Dose: 4 mg Documented by: Naloxone HCl (Naloxone 0.4 Mg/Ml 1 Ml Vial) 0.2 mg IV Q2M PRN PRN Reason: Opioid Reversal Ondansetron HCl (Ondansetron 4 Mg/2 Ml Vial) 4 mg IVP Q8HR PRN PRN Reason: Nausea And Vomiting Sertraline HCl (Sertraline 50 Mg Tab) 50 mg PO DAILY [facility] Last Admin: 10/04/21 08:02 Dose: 50 mg Documented by: Sodium Chloride (Sodium Chloride 0.9% Flush 10 Ml Syringe) 10 ml IV Q4HR PRN PRN Reason: PICC Line Sodium Chloride (Sodium Chloride 0.9% Flush 10 Ml Syringe) 10 ml IV WEEKLY [facility] Sodium Chloride (Sodium Chloride 0.9% Flush 10 Ml Syringe) 20 ml IV Q4HR PRN PRN Reason: PICC Line On examination: VITAL SIGNS: 98.2, 61, 16, 150/72, 92% room air GENERAL APPEARANCE: laying in bed, comfortable HEENT: Normal external appearance of nose and ear. Oral cavity normal EYES: Pupils equal. Conjunctiva normal. NECK: JVD not raised. Mass not palpable. RESPIRATORY: Respiratory effort normal. Lungs clear to auscultation. CARDIOVASCULAR: First and second sounds normal. No edema. ABDOMEN: Soft. Liver and spleen not palpable. No tenderness. No mass palpable. Left buttock wound: Packing in place. [Seen with nurse senior medical billing specialist] PSYCHIATRY: Alert and oriented x3. Mood and affect normal. INVESTIGATIONS, reviewed in the clinical context: Wound culture White count 4.9 hemoglobin 13.9 platelets 181 potassium 4.5 BUN 18 creatinine 0.96 Assessment/plan: Acute left buttock abscess, Gram stain growing ESBL Proteus mirabilis: -IV ertapenem. I&D done by Dr. Matthews Cultures pending -Essential hypertension Lisinopril/hydrochlorothiazide 10/12.5 mg daily at bedtime -Hyperlipidemia Lipitor 20 mg daily -Diabetic peripheral neuropathy Neurontin 300 mg 3 times a day -Hypothyroidism Synthroid 50 g daily -Diabetes mellitus type 2, chronically and oral hypoglycemic. Uncontrolled hyperglycemia secondary to infection Follow Accu-Cheks. Metformin. Start Levemir 14 units daily at bedtime -Chronic fibromyalgia -Obesity BMI 38 Weight loss measures Levemir. Metformin. IV ertapenem. Wound culture pending. Wound care per surgery. Discussed with patient.
[2021-10-04] MEDS: ERTAPENEM 1 GM in SODIUM CHLORIDE 0.9% 50 ML IVPB SCH (20:01)
[2021-10-04] MEDS: LACTATED RINGERS 1,000 ML IV SCH (20:02)
[2021-10-04] MEDS: HYDROcodone/APAP 7.5-325MG 1 EACH TAB PO PRN (20:10)
[2021-10-04] MEDS: LISINOPRIL-HCTZ 10-12.5 MG 1 EACH TAB PO SCH (20:10)
[2021-10-04 20:27] LABS: Glucose,Whole Blood 182 mg/dL (75-99)
[2021-10-04] MEDS: INSULIN DETEMIR (LEVEMIR) 100 UNIT/ML SYR SQ SCH (21:32)
--- NOTE | 2021-10-05 00:36 | P.PN ---
Subjective Progress Note Date: 10/02/21 Principal diagnosis: Right labial infection Patient is a 56-year-old female presented to hospital with right labial pain swelling redness and some drainage with a recent culture positive for ESBL Proteus patient did have a CT of the pelvis which was phlegmon formation to the right labia but no drainable abscess, Gen. surgery has seen the patient and did not see any perirectal involvement. On today's evaluation that is 10/02/2021, patient remains to be afebrile, nikole ent continues to be complaining of pain to the left labial /Gluteal area but no drainage, denies any chest pain shortness of breath or cough no abdominal pain no diarrhea Objective - Vital Signs Vital signs: Vital Signs Temp 98.4 F 10/02/21 07:15 Pulse 67 10/02/21 07:15 Resp 18 10/02/21 07:15 BP 136/82 10/02/21 07:15 Pulse Ox 92 L 10/02/21 07:15 Intake & Output 10/01/21 10/02/21 10/02/21 18:59 06:59 18:59 Intake Total 1153 Balance 1153 Intake: Oral 1153 Other: # Voids 3 1 2 - Exam GENERAL DESCRIPTION: Middle-aged female lying in bed in no distress RESPIRATORY SYSTEM: Unlabored breathing , decreased breath sounds at bases HEART: S1 S2 regular rate and rhythm , ABDOMEN: Soft , no tenderness EXTREMITIES: No edema feet - Labs CBC & Chem 7: 10/02/21 06:30 10/02/21 07:01 Labs: Abnormal Lab Results - Last 24 Hours (Table) 10/01/21 10/01/21 10/01/21 Range/Units 12:08 17:14 20:27 Lymphocytes # (1.0-4.8) k/uL Sodium (137-145) mmol/L BUN (7-17) mg/dL Glucose (74-99) mg/dL POC Glucose (mg/dL) 229 H 213 H 175 H (75-99) mg/dL Calcium (8.4-10.2) mg/dL 10/02/21 10/02/21 10/02/21 Range/Units 06:30 07:01 07:21 Lymphocytes # 0.7 L (1.0-4.8) k/uL Sodium 132 L (137-145) mmol/L BUN 18 H (7-17) mg/dL Glucose 170 H (74-99) mg/dL POC Glucose (mg/dL) 177 H (75-99) mg/dL Calcium 8.1 L (8.4-10.2) mg/dL 10/02/21 Range/Units 12:01 Lymphocytes # (1.0-4.8) k/uL Sodium (137-145) mmol/L BUN (7-17) mg/dL Glucose (74-99) mg/dL POC Glucose (mg/dL) 333 H (75-99) mg/dL Calcium (8.4-10.2) mg/dL Assessment and Plan (1) Abscess of labia majora Current Visit: Yes Status: Acute Code(s): N76.4 - ABSCESS OF VULVA SNOMED Code(s): 561306369 (2) Proteus mirabilis infection Current Visit: Yes Status: Acute Code(s): A49.8 - OTHER BACTERIAL INFECTIONS OF UNSPECIFIED SITE SNOMED Code(s): 51664953 Plan: 1patient presented to hospital with pain to the left labial area and some drainage in this patient recent culture positive for ESBL Proteus mirabilis likely infected pathogen in this patient did have significant duration unclear examination but no fluctuation CT of the pelvis did show some phlegmon formation but no drainable abscess, no pain for any surgical drainage for OB, surgery has evaluated the patient and planning for surgical drainage in the a.m. along with deep culture 2patient to continue with Invanz 1 g daily. Discharge antibiotic on the basis of culture Time with Patient: Less than 30
--- NOTE | 2021-10-05 00:37 | P.PN ---
Subjective Progress Note Date: 10/04/21 Principal diagnosis: Right labial infection Patient is a 56-year-old female presented to hospital with right labial pain swelling redness and some drainage with a recent culture positive for ESBL Proteus patient did have a CT of the pelvis which was phlegmon formation to the right labia but no drainable abscess, Gen. surgery has seen the patient and did not see any perirectal involvement. The patient is exposed surgical drainage of the left gluteal area and cultures on 10/03/2021 On today's evaluation that is 10/04/2021, patient continues to be afebrile, patient pain to the left gluteal area is currently controlled, the patient denies having any chest pain shortness of breath or cough no abdominal pain no diarrhea Objective - Vital Signs Vital signs: Vital Signs Temp 98.2 F 10/04/21 14:00 Pulse 63 10/04/21 07:11 Resp 16 10/04/21 14:00 BP 115/72 10/04/21 14:00 Pulse Ox 92 L 10/04/21 14:00 Intake & Output 10/03/21 10/04/21 10/04/21 18:59 06:59 18:59 Intake Total 700 50 Output Total 5 Balance 695 50 Intake: IV 700 Intake, IV Titration 50 Amount Ertapenem 1 gm In Sodium 50 Chloride 0.9% 50 ml @ 100 mls/hr IVPB Q24H [facility] Rx# :[id number] Output: Estimated Blood Loss 5 Other: Voiding Method Bedside Commode Toilet Bedside Commode # Voids 3 1 2 - Exam GENERAL DESCRIPTION: Middle-aged female lying in bed in no distress RESPIRATORY SYSTEM: Unlabored breathing , decreased breath sounds at bases HEART: S1 S2 regular rate and rhythm , ABDOMEN: Soft , no tenderness EXTREMITIES: No edema feet - Labs CBC & Chem 7: 10/02/21 06:30 10/02/21 07:01 Labs: Abnormal Lab Results - Last 24 Hours (Table) 10/03/21 10/03/21 10/04/21 Range/Units 16:47 20:13 07:23 POC Glucose (mg/dL) 162 H 270 H 192 H (75-99) mg/dL 10/04/21 Range/Units 11:57 POC Glucose (mg/dL) 177 H (75-99) mg/dL Microbiology - Last 24 Hours (Table) 10/03/21 13:50 Gram Stain - Preliminary Buttock Wound Culture - Preliminary 10/03/21 13:50 Anaerobic Culture - Preliminary Buttock Assessment and Plan (1) Abscess of labia majora Current Visit: Yes Status: Acute Code(s): N76.4 - ABSCESS OF VULVA SNOMED Code(s): 373981735 (2) Proteus mirabilis infection Current Visit: Yes Status: Acute Code(s): A49.8 - OTHER BACTERIAL INFECTIONS OF UNSPECIFIED SITE SNOMED Code(s): 65420469 Plan: 1patient presented to hospital with pain to the left labial area and some drainage in this patient recent culture positive for ESBL Proteus mirabilis likely infected pathogen in this patient did have significant duration unclear examination but no fluctuation CT of the pelvis did show some phlegmon formation but no drainable abscess, patient is status post surgical drainage of the left gluteal abscess and deep cultures completed on 10/03/2021 with a cultures currently pending 2patient to continue with Invanz 1 g daily while waiting for the OR cultures to finalize Time with Patient: Less than 30
[2021-10-05] MEDS: LEVOTHYROXINE 50 MCG TAB PO SCH (05:52)
[2021-10-05 07:19] LABS: Glucose,Whole Blood 161 mg/dL (75-99)
[2021-10-05] MEDS: INSULIN ASPART (NovoLOG) 100 UNIT/ML VIAL SQ SCH ×4 (08:40→20:59)
[2021-10-05] MEDS: GABAPENTIN 300 MG CAP PO SCH ×3 (08:41→19:56)
[2021-10-05] MEDS: ASPIRIN 81 MG PO SCH (08:41)
[2021-10-05] MEDS: ATORVASTATIN 20 MG TAB PO SCH (08:41)
[2021-10-05] MEDS: SERTRALINE 50 MG TAB PO SCH (08:41)
[2021-10-05] MEDS: metFORMIN 500 MG TAB PO SCH ×2 (08:41→18:35)
[2021-10-05] MEDS: ENOXAPARIN 40 MG/0.4 ML SYRINGE SQ SCH (08:41)
[2021-10-05] MEDS: HYDROcodone/APAP 7.5-325MG 1 EACH TAB PO PRN ×2 (10:23→16:45)
[2021-10-05 11:57] LABS: Glucose,Whole Blood 134 mg/dL (75-99)
--- NOTE | 2021-10-05 13:01 | P.PN ---
Subjective Progress Note Date: 10/05/21 CHIEF COMPLAINT: Left buttock abscess HISTORY OF PRESENT ILLNESS: Patient is postop day #2 status post incision and drainage of left buttock abscess. Patient had packing changed yesterday after her shower. She is planning on getting in the shower again today before dressing change. She's sitting at bedside chair. Patient reports that she is still having drainage from the incision. Reports that it is easier to sit. Denies any nausea or vomiting. Tolerating diet. Afebrile. Wound culture shows no growth PHYSICAL EXAM: VITAL SIGNS: Reviewed. GENERAL: Well-developed in no acute distress. HEENT: No sclera icterus. Extraocular movements grossly intact. Moist buccal mucosa. Head is atraumatic, normocephalic. ABDOMEN: Soft. Nondistended. Nontender. NEUROLOGIC: Alert and oriented. Cranial nerves II through XII grossly intact. ASSESSMENT: 1. Left buttock abscess status post incision and drainage. PLAN: -Continue local wound care -Antibiotics per infectious disease -Continue pain medication as needed -Encourage patient to ambulate Physician Parts Washer note has been reviewed by physician. Signing provider agrees with the documented findings, assessment, and plan of care. I have personally seen and examined the patient, reviewed the STAINED GLASS PAINTER /PAs history, exam and MDM and agree with the assessment and plan as written. Based on total visit time, I have performed more than 50% of the visit. As above: Patient doing well today. Pain is less. Wound is clean. Less indur ation noted. Stable for discharge from our point of view. Objective - Vital Signs Vital signs: Vital Signs Temp 97.6 F 10/05/21 08:00 Pulse 73 10/05/21 08:00 Resp 15 10/05/21 08:00 BP 102/62 10/05/21 08:00 Pulse Ox 91 L 10/05/21 08:00 Intake & Output 10/04/21 10/05/21 10/05/21 18:59 06:59 18:59 Intake Total 118 240 Balance 118 240 Intake: Oral 118 240 Other: Voiding Method Bedside Commode # Voids 1 2 - Labs CBC & Chem 7: 10/02/21 06:30 10/02/21 07:01 Labs: Abnormal Lab Results - Last 24 Hours (Table) 04/27/22 04/27/22 04/28/22 Range/Units 16:19 20:25 07:13 POC Glucose (mg/dL) 166 H 182 H 161 H (75-99) mg/dL 10/05/21 Range/Units 11:56 POC Glucose (mg/dL) 134 H (75-99) mg/dL Microbiology - Last 24 Hours (Table) 10/03/21 13:50 Gram Stain - Final Buttock Wound Culture - Final
--- NOTE | 2021-10-05 15:05 | P.PN ---
Progress Note - Text Progress Note Date: 10/05/21 Hospital course: Admitted with left labial abscess and cellulitis. October 02: Patient having significant pain at the abscess site. Seen by Dr. Matthews. Planning to go down to the OR tomorrow. For I&D. Patient currently on IV ertapenem. Eating well. At her baseline uses a walker. October 03: Underwent I&D of the abscess. Some pain at local site. Oral intake fair. On IV ertapenem. October 04: Patient's pain is better. Has a packing in the wound site. No fever no chills. Cultures are pending. IV ertapenem. Oral intake fair. Wound was looked at with the nurse exchange architect. October 05: Pain control. Oral intake fair. Pending cultures. On IV ertapenem. Discussed with patient. Active Medications Acetaminophen (Acetaminophen Tab 325 Mg Tab) 650 mg PO Q6HR PRN PRN Reason: Mild Pain or Fever > 100.5 Last Admin: 10/04/21 08:09 Dose: 650 mg Documented by: Hydrocodone Bitart/Acetaminophen (Hydrocodone/Apap 5-325mg 1 Each Tab) 1 each PO Q4HR PRN PRN Reason: Moderate Pain Last Admin: 10/04/21 12:23 Dose: 1 each Documented by: Hydrocodone Bitart/Acetaminophen (Hydrocodone/Apap 7.5-325mg 1 Each Tab) 1 each PO Q6H PRN PRN Reason: Severe Pain Last Admin: 10/05/21 10:23 Dose: 1 each Documented by: Aspirin (Aspirin 81 Mg) 81 mg PO DAILY [facility] Last Admin: 10/05/21 08:41 Dose: 81 mg Documented by: Atorvastatin Calcium (Atorvastatin 20 Mg Tab) 20 mg PO DAILY [facility] Last Admin: 10/05/21 08:41 Dose: 20 mg Documented by: Calcium Carbonate/Glycine (Calcium Carbonate Liquid 500 Mg/5 Ml Cup) 500 mg PO TID-W/MEALS PRN PRN Reason: Heartburn Last Admin: 10/03/21 22:25 Dose: 500 mg Documented by: Enoxaparin Sodium (Enoxaparin 40 Mg/0.4 Ml Syringe) 40 mg SQ DAILY [facility] Last Admin: 10/05/21 08:41 Dose: 40 mg Documented by: Gabapentin (Gabapentin 300 Mg Cap) 300 mg PO TID [facility] Last Admin: 10/05/21 08:41 Dose: 300 mg Documented by: Lisinopril/HCTZ (Lisinopril-Hctz 10-12.5 Mg 1 Each Tab) 1 each PO [facility] Last Admin: 10/04/21 20:10 Dose: Not Given Documented by: Ertapenem 1 gm/ Sodium (Chloride) 50 mls @ 100 mls/hr IVPB Q24H [facility]; Protocol Last Admin: 10/04/21 20:01 Dose: 100 mls/hr Documented by: Lactated Ringer's (Lactated Ringers) 1,000 mls @ 20 mls/hr IV .Q24H [facility] Last Admin: 10/04/21 20:02 Dose: 20 mls/hr Documented by: Insulin Aspart (Insulin Aspart (Novolog) 100 Unit/Ml Vial) 0 unit SQ [facility]; Protocol Last Admin: 10/05/21 12:51 Dose: Not Given Documented by: Insulin Detemir (Insulin Detemir (Levemir) 100 Unit/Ml Syr) 14 unit SQ [facility] Last Admin: 10/04/21 21:32 Dose: 14 unit Documented by: Levothyroxine Sodium (Levothyroxine 50 Mcg Tab) 50 mcg PO DAILY@0630 [facility] Last Admin: 10/05/21 05:52 Dose: 50 mcg Documented by: Metformin HCl (Metformin 500 Mg Tab) 500 mg PO AC-BID [facility] Last Admin: 10/05/21 08:41 Dose: 500 mg Documented by: Morphine Sulfate (Morphine Sulfate 4 Mg/Ml Syringe) 4 mg IV Q4HR PRN PRN Reason: Severe Pain Last Admin: 10/04/21 15:27 Dose: 4 mg Documented by: Naloxone HCl (Naloxone 0.4 Mg/Ml 1 Ml Vial) 0.2 mg IV Q2M PRN PRN Reason: Opioid Reversal Ondansetron HCl (Ondansetron 4 Mg/2 Ml Vial) 4 mg IVP Q8HR PRN PRN Reason: Nausea And Vomiting Sertraline HCl (Sertraline 50 Mg Tab) 50 mg PO DAILY [facility] Last Admin: 10/05/21 08:41 Dose: 50 mg Documented by: Sodium Chloride (Sodium Chloride 0.9% Flush 10 Ml Syringe) 10 ml IV Q4HR PRN PRN Reason: PICC Line Sodium Chloride (Sodium Chloride 0.9% Flush 10 Ml Syringe) 10 ml IV WEEKLY BOY Sodium Chloride (Sodium Chloride 0.9% Flush 10 Ml Syringe) 20 ml IV Q4HR PRN PRN Reason: PICC Line On examination: VITAL SIGNS: 97.8, 64, 15, 121/69, 92% room air GENERAL APPEARANCE: Sitting up in a chair comfortable HEENT: Normal external appearance of nose and ear. Oral cavity normal EYES: Pupils equal. Conjunctiva normal. NECK: JVD not raised. Mass not palpable. RESPIRATORY: Respiratory effort normal. Lungs clear to auscultation. CARDIOVASCULAR: First and second sounds normal. No edema. ABDOMEN: Soft. Liver and spleen not palpable. No tenderness. No mass palpable. PSYCHIATRY: Alert and oriented x3. Mood and affect normal. INVESTIGATIONS, reviewed in the clinical context: Wound culture White count 4.9 hemoglobin 13.9 platelets 181 potassium 4.5 BUN 18 creatinine 0.96 Assessment/plan: Acute left buttock abscess, Gram stain growing ESBL Proteus mirabilis: -IV ertapenem. I&D done by Dr. Matthews Cultures pending -Essential hypertension Lisinopril/hydrochlorothiazide 10/12.5 mg daily at bedtime -Hyperlipidemia Lipitor 20 mg daily -Diabetic peripheral neuropathy Neurontin 300 mg 3 times a day -Hypothyroidism Synthroid 50 g daily -Diabetes mellitus type 2, chronically and oral hypoglycemic. Uncontrolled hyperglycemia secondary to infection Follow Accu-Cheks. Metformin. Start Levemir 14 units daily at bedtime -Chronic fibromyalgia -Obesity BMI 38 Weight loss measures Levemir. Metformin. IV ertapenem. Wound culture pending. . Discussed with patient.
[2021-10-05 16:55] LABS: Glucose,Whole Blood 154 mg/dL (75-99)
[2021-10-05] MEDS: ERTAPENEM 1 GM in SODIUM CHLORIDE 0.9% 50 ML IVPB SCH (19:54)
[2021-10-05] MEDS: LISINOPRIL-HCTZ 10-12.5 MG 1 EACH TAB PO SCH (19:56)
[2021-10-05] MEDS: MORPHINE SULFATE 4 MG/ML SYRINGE IV PRN (19:56)
[2021-10-05 20:50] LABS: Glucose,Whole Blood 130 mg/dL (75-99)
[2021-10-05] MEDS: INSULIN DETEMIR (LEVEMIR) 100 UNIT/ML SYR SQ SCH (21:38)
[2021-10-05] MEDS: LACTATED RINGERS 1,000 ML IV SCH (21:39)
--- NOTE | 2021-10-05 22:30 | P.PN ---
Subjective Progress Note Date: 10/05/21 Principal diagnosis: Right labial infection Patient is a 56-year-old female presented to hospital with right labial pain swelling redness and some drainage with a recent culture positive for ESBL Proteus patient did have a CT of the pelvis which was phlegmon formation to the right labia but no drainable abscess, Gen. surgery has seen the patient and did not see any perirectal involvement. The patient is exposed surgical drainage of the left gluteal area and cultures on 10/03/2021 On today's evaluation that is 10/05/2021, patient remains to be afebrile, patient pain to the left gluteal area is currently controlled, the patient denies chest pain shortness of breath or cough no abdominal pain no diarrhea Objective - Vital Signs Vital signs: Vital Signs Temp 97.8 F 10/05/21 13:28 Pulse 64 10/05/21 13:28 Resp 15 10/05/21 13:28 BP 121/69 10/05/21 13:28 Pulse Ox 92 L 10/05/21 13:28 Intake & Output 10/04/21 10/05/21 10/05/21 18:59 06:59 18:59 Intake Total 118 420 Balance 118 420 Intake: Oral 118 420 Other: Voiding Method Bedside Commode # Voids 1 2 - Exam GENERAL DESCRIPTION: Middle-aged female lying in bed in no distress RESPIRATORY SYSTEM: Unlabored breathing , decreased breath sounds at bases HEART: S1 S2 regular rate and rhythm , ABDOMEN: Soft , no tenderness EXTREMITIES: No edema feet - Labs CBC & Chem 7: 10/02/21 06:30 10/02/21 07:01 Labs: Abnormal Lab Results - Last 24 Hours (Table) 10/04/21 10/04/21 10/05/21 Range/Units 16:19 20:25 07:13 POC Glucose (mg/dL) 166 H 182 H 161 H (75-99) mg/dL 10/05/21 Range/Units 11:56 POC Glucose (mg/dL) 134 H (75-99) mg/dL Microbiology - Last 24 Hours (Table) 10/03/21 13:50 Gram Stain - Final Buttock Wound Culture - Final Assessment and Plan (1) Abscess of labia majora Current Visit: Yes Status: Acute Code(s): N76.4 - ABSCESS OF VULVA SNOMED Code(s): 216844360 (2) Proteus mirabilis infection Current Visit: Yes Status: Acute Code(s): A49.8 - OTHER BACTERIAL INFECTIONS OF UNSPECIFIED SITE SNOMED Code(s): 29012654 Plan: 1patient presented to hospital with pain to the left labial area and some drainage in this patient recent culture positive for ESBL Proteus mirabilis likely infected pathogen in this patient did have significant duration unclear examination but no fluctuation CT of the pelvis did show some phlegmon formation but no drainable abscess, patient is status post surgical drainage of the left g luteal abscess and deep cultures completed on 10/03/2021 with a cultures currently pending to determine her discharge antibiotics 2patient to continue with Invanz 1 g daily with the discharge antibiotics on the basis of OR culture Time with Patient: Less than 30
[2021-10-06] MEDS: LEVOTHYROXINE 50 MCG TAB PO SCH (04:55)
[2021-10-06 07:21] LABS: Glucose,Whole Blood 181 mg/dL (75-99)
--- NOTE | 2021-10-06 08:47 | P.PN ---
Progress Note - Text Progress Note Date: 10/06/21 Patient is seen and examined. A cultures are still pending. She states her pain is still better than it was before surgery. She is still uncomfortable with standing or sitting long periods of time but overall feels she can handle the pain. She is anxious to go home. Incision on left buttocks is still draining and packing is noted within the wound. There is still some induration around the area. Minimal tenderness is noted. Impression is status post I&D of left vulvar and buttocks cellulitis/abscess postoperative day #3, status post IV antibiotics. There is no further gynecologic intervention necessary. Patient will follow-up with wound care and Dr. Sheridan after discharge. Thank you for this consultation.
[2021-10-06] MEDS: ASPIRIN 81 MG PO SCH (08:57)
[2021-10-06] MEDS: GABAPENTIN 300 MG CAP PO SCH (08:58)
[2021-10-06] MEDS: metFORMIN 500 MG TAB PO SCH (08:58)
[2021-10-06] MEDS: ENOXAPARIN 40 MG/0.4 ML SYRINGE SQ SCH (08:58)
[2021-10-06] MEDS: ATORVASTATIN 20 MG TAB PO SCH (08:58)
[2021-10-06] MEDS: INSULIN ASPART (NovoLOG) 100 UNIT/ML VIAL SQ SCH ×2 (08:58→12:58)
[2021-10-06] MEDS: SERTRALINE 50 MG TAB PO SCH (08:58)
[2021-10-06] MEDS: HYDROcodone/APAP 7.5-325MG 1 EACH TAB PO PRN (09:08)
--- NOTE | 2021-10-06 11:55 | P.PN ---
Subjective Progress Note Date: 10/06/21 CHIEF COMPLAINT: Left buttock abscess HISTORY OF PRESENT ILLNESS: Patient is postop day #3 status post incision and drainage of left buttock abscess. Patient had packing changed yesterday after her shower. Patient reports that her pain is improving. Afebrile. Wound culture no growth. Anaerobic culture pending PHYSICAL EXAM: VITAL SIGNS: Reviewed. GENERAL: Well-developed in no acute distress. HEENT: No sclera icterus. Extraocular movements grossly intact. Moist buccal mucosa. Head is atraumatic, normocephalic. ABDOMEN: Soft. Nondistended. Nontender. NEUROLOGIC: Alert and oriented. Cranial nerves II through XII grossly intact. Skin: Left buttock abscess is less indurated. Wound is clean. ASSESSMENT: 1. Left buttock abscess status post incision and drainage. PLAN: -Patient can be discharge from surgical standpoint -Continue local wound care -Antibiotics per infectious disease -Continue pain medication as needed -Encourage patient to ambulate Physician Plant Reliability Engineer note has been reviewed by physician. Signing provider agrees with the documented findings, assessment, and plan of care. Objective - Vital Signs Vital signs: Vital Signs Temp 98.0 F 10/06/21 07:41 Pulse 73 10/06/21 07:41 Resp 14 10/06/21 09:05 BP 115/73 10/06/21 07:41 Pulse Ox 93 L 10/06/21 09:06 Intake & Output 10/05/21 10/06/21 10/06/21 18:59 06:59 18:59 Intake Total 1310 500 240 Balance 1310 500 240 Intake: Oral 1310 500 240 Other: Voiding Method Toilet # Voids 1 - Labs CBC & Chem 7: 10/02/21 06:30 10/02/21 07:01 Labs: Abnormal Lab Results - Last 24 Hours (Table) 10/05/21 10/05/21 10/05/21 Range/Units 11:56 16:52 20:49 POC Glucose (mg/dL) 134 H 154 H 130 H (75-99) mg/dL 10/06/21 Range/Units 07:16 POC Glucose (mg/dL) 181 H (75-99) mg/dL Microbiology - Last 24 Hours (Table) 10/03/21 13:50 Gram Stain - Final Buttock Wound Culture - Final
[2021-10-06] MEDS: ERTAPENEM 1 GM in SODIUM CHLORIDE 0.9% 50 ML IVPB SCH (12:37)
[2021-10-06 12:42] LABS: Glucose,Whole Blood 128 mg/dL (75-99)
[2021-10-06 13:30] VITALS: BP 106/71; PULSE 74; RESP 15; TEMP 97.7
--- NOTE | 2021-10-06 14:25 | P.DS ---
Providers Date of admission: 09/30/21 17:38 Expected date of discharge: 10/06/21 Attending physician: Trev Rodriguez Consults: 09/29/21 20:40 Consult Physician Routine Consulting Provider: Larissa Martinez Consult Reason/Comments: Recurrent labia majora abscess with Proteus Mirabilis infection Do you want consulting provider notified?: Yes 09/29/21 20:41 Consult Physician Routine Consulting Provider: Marlene Hernandez Consult Reason/Comments: Proteus Mirabilis infection Do you want consulting provider notified?: Yes 09/30/21 13:00 Consult Physician Urgent Consulting Provider: Víctor Sherdian Consult Reason/Comments: L. labial abscess,poss. rectal invol, pt. know to Dr. Sheridan Do you want consulting provider notified?: Yes Primary care physician: [facility] Course: Hospital course: Admitted with left buttock abscess and cellulitis. October 02: Patient having significant pain at the abscess site. Seen by Dr. Matthews. Planning to go down to the OR tomorrow. For I&D. Patient currently on IV ertapenem. Eating well. At her baseline uses a walker. October 03: Underwent I&D of the abscess. Some pain at local site. Oral intake fair. On IV ertapenem. October 04: Patient's pain is better. Has a packing in the wound site. No fever no chills. Cultures are pending. IV ertapenem. Oral intake fair. Wound was looked at with the nurse parking enforcement specialist. October 05: Pain control. Oral intake fair. Pending cultures. On IV ertapenem. Discussed with patient. October 06: Pain better controlled. Eating well. Her IV ertapenem per ID for 2 weeks. ostrich farm worker arranged to same. Questions answered. Eating well. Discussed with patient. Metformin increased to thousand milligrams twice a day. Told her to take it after her meals. Discussion and discharge planning more than 35 minutes On examination: VITAL SIGNS: 97.7, 74, 15, 106/71, 91% room air GENERAL APPEARANCE: Sitting up in a chair comfortable HEENT: Normal external appearance of nose and ear. Oral cavity normal EYES: Pupils equal. Conjunctiva normal. NECK: JVD not raised. Mass not palpable. RESPIRATORY: Respiratory effort normal. Lungs clear to auscultation. CARDIOVASCULAR: First and second sounds normal. No edema. ABDOMEN: Soft. Liver and spleen not palpable. No tenderness. No mass palpable. PSYCHIATRY: Alert and oriented x3. Mood and affect normal. INVESTIGATIONS, reviewed in the clinical context: Wound culture: Proteus mirabilis from September 20: White count 4.9 hemoglobin 13.9 platelets 181 potassium 4.5 BUN 18 creatinine 0.96 Assessment/plan: Acute left buttock abscess, Gram stain growing ESBL Proteus mirabilis: -IV ertapenem-for 2 weeks. I&D done by Dr. Matthews -Essential hypertension Lisinopril 10 mg a day -Hyperlipidemia Lipitor 20 mg daily -Diabetic peripheral neuropathy Neurontin 300 mg 3 times a day -Hypothyroidism Synthroid 50 g daily -Diabetes mellitus type 2, chronically and oral hypoglycemic. Uncontrolled hyperglycemia secondary to infection Follow Accu-Cheks. Increase Metformin 1000 milligram twice a day. -Chronic fibromyalgia -Obesity BMI 38 Weight loss measures Disposition: Home Plan - Discharge Summary New Discharge Prescriptions: New HYDROcodone/APAP 5-325MG [[place] 5-325] 1 tab PO Q6HR PRN 3 Days #12 tab PRN Reason: Pain Ertapenem [INVanz] 1 gm IVPB Q24H #14 each Famotidine [Pepcid] 20 mg PO BID #60 tablet Continue Levothyroxine Sodium [Synthroid] 200 mcg PO DAILY Omeprazole [PriLOSEC] 20 mg PO DAILY Gabapentin [Neurontin] 300 mg PO TID Nitroglycerin Sl Tabs [Nitrostat] 0.4 mg SUBLINGUAL Q5M PRN PRN Reason: Chest Pain Aspirin EC [Ecotrin Low Dose] 81 mg PO DAILY Atorvastatin Calcium [Lipitor] 20 mg PO DAILY Lisinopril [Prinivil] 10 mg PO DAILY Levothyroxine Sodium [Synthroid] 50 mcg PO DAILY Sertraline [Zoloft] 50 mg PO DAILY metFORMIN HCL [Glucophage] 1,000 mg PO BID #60 tab Discontinued amLODIPine [Norvasc] 1 dose PO DIRECTED Cephalexin [Keflex] 500 mg PO Q6HR #40 cap Discharge Medication List Levothyroxine Sodium [Synthroid] 200 mcg PO DAILY 11/19/16 [History] Gabapentin [Neurontin] 300 mg PO TID 01/18/19 [History] Omeprazole [PriLOSEC] 20 mg PO DAILY 01/18/19 [History] Aspirin EC [Ecotrin Low Dose] 81 mg PO DAILY 01/19/19 [History] Nitroglycerin Sl Tabs [Nitrostat] 0.4 mg SUBLINGUAL Q5M PRN 01/19/19 [History] Atorvastatin Calcium [Lipitor] 20 mg PO DAILY 09/29/21 [History] Levothyroxine Sodium [Synthroid] 50 mcg PO DAILY 09/29/21 [History] Lisinopril [Prinivil] 10 mg PO DAILY 09/29/21 [History] Sertraline [Zoloft] 50 mg PO DAILY 09/29/21 [History] Ertapenem [INVanz] 1 gm IVPB Q24H #14 each 10/02/21 [Rx] Famotidine [Pepcid] 20 mg PO BID #60 tablet 10/06/21 [Rx] HYDROcodone/APAP 5-325MG [[place] 5-325] 1 tab PO Q6HR PRN 3 Days #12 tab 10/06/21 [Rx] metFORMIN HCL [Glucophage] 1,000 mg PO BID #60 tab 10/06/21 [Rx] Follow up Appointment(s)/Referral(s): Víctor Sheridan MD [Medical Doctor] - 1 Week Samson Adair DO [Primary Care Provider] - 1-2 days [facility], [NON-STAFF] - 10/07/21 [facility],Infusion [NON-STAFF] - 10/07/21
== END 2021-10-06 15:25 | disposition home or self-care (01) | DRG 603 ==
LOC: EC 16:19 → 6NMEDSUR 20:43 → OBSVTOIN 09-30 17:38
PROVIDERS: ADMIT Hospitalist; ATTEND Hospitalist
PROC: 0J990ZZ Drainage of Buttock Subcutaneous Tissue and Fascia, Open Approach (ICD-10-PCS; principal; 2021-10-03 12:45)
PROC: 02HV33Z Insertion of Infusion Device into Superior Vena Cava, Percutaneous Approach (ICD-10-PCS; 2021-10-04)
DX: L02.31 Cutaneous abscess of buttock (principal); N76.4 Abscess of vulva; L03.314 Cellulitis of groin; L03.317 Cellulitis of buttock; B96.4 Proteus (mirabilis) (morganii) as the cause of diseases classified elsewhere; E11.65 Type 2 diabetes mellitus with hyperglycemia; E11.42 Type 2 diabetes mellitus with diabetic polyneuropathy; E66.9 Obesity, unspecified; N76.0 Acute vaginitis; N76.2 Acute vulvitis; Z68.38 Body mass index [BMI] 38.0-38.9, adult; E78.5 Hyperlipidemia, unspecified; E89.0 Postprocedural hypothyroidism; F02.80 Dementia in other diseases classified elsewhere, unspecified severity, without behavioral disturbance, psychotic disturbance, mood disturbance, and anxiety; G30.9 Alzheimer's disease, unspecified; F17.200 Nicotine dependence, unspecified, uncomplicated; F32.A Depression, unspecified; F41.9 Anxiety disorder, unspecified; G80.9 Cerebral palsy, unspecified; I10 Essential (primary) hypertension; I25.2 Old myocardial infarction; I25.5 Ischemic cardiomyopathy; M79.7 Fibromyalgia; Z79.4 Long term (current) use of insulin; Z79.82 Long term (current) use of aspirin; Z79.890 Hormone replacement therapy; Z79.899 Other long term (current) drug therapy; Z80.8 Family history of malignant neoplasm of other organs or systems; Z85.850 Personal history of malignant neoplasm of thyroid; Z87.39 Personal history of other diseases of the musculoskeletal system and connective tissue; Z90.710 Acquired absence of both cervix and uterus
CPT/HCPCS: 36415; 36573; 72192; 80048; 80053; 81001; 83036; 83605; 83735; 85025; 87070; 87075; 87205; 96365; 99285

== ENCOUNTER 2022-11-20 12:56 | Emergency (ER) | payer MEDICARE, OTHER ==
--- NOTE | 2022-11-20 13:07 | ED ---
General Adult HPI - General Stated complaint: Boils Time Seen by Provider: 11/20/22 13:06 Source: RN notes reviewed - History of Present Illness Initial comments: 57-year-old female presents with caregiver with a chief complaint of boils in her groin. She reports symptoms for a month. Denies fevers. The caregiver also voices concerns and having a having placement into a long-term care facility. Patient denies any injury or trauma. She denies any rashes or lesions she denies any chest pain, shortness, vaginal bleeding, back pain, dysuria, hematuria. - Related Data Home Medications Medication Instructions Recorded Confirmed Levothyroxine Sodium [Synthroid] 200 mcg PO DAILY 11/19/16 09/29/21 Gabapentin [Neurontin] 300 mg PO TID 01/18/19 09/29/21 Omeprazole [PriLOSEC] 20 mg PO DAILY 01/18/19 09/29/21 Aspirin EC [Ecotrin Low Dose] 81 mg PO DAILY 01/19/19 09/29/21 Nitroglycerin Sl Tabs [Nitrostat] 0.4 mg SUBLINGUAL Q5M PRN 01/19/19 09/29/21 Atorvastatin Calcium [Lipitor] 20 mg PO DAILY 09/29/21 09/29/21 Levothyroxine Sodium [Synthroid] 50 mcg PO DAILY 09/29/21 09/29/21 Sertraline [Zoloft] 50 mg PO DAILY 09/29/21 09/29/21 lisinopriL [Prinivil] 10 mg PO DAILY 09/29/21 10/02/21 Previous Rx's Medication Instructions Recorded Ertapenem [INVanz] 1 gm IVPB Q24H #14 each 10/02/21 Famotidine [Pepcid] 20 mg PO BID #60 tablet 10/06/21 HYDROcodone/APAP 5-325MG [[place] 1 tab PO Q6HR PRN 3 Days #12 tab 10/06/21 5-325] metFORMIN HCL [Glucophage] 1,000 mg PO BID #60 tab 10/06/21 Allergies Allergy/AdvReac Type Severity Reaction Status Date / Time No Known Allergies Allergy Verified 11/20/22 13:59 Review of Systems ROS Statement: Those systems with pertinent positive or pertinent negative responses have been documented in the HPI. ROS Other: All systems not noted in ROS Statement are negative. Past Medical History Past Medical History: Cancer, Chest Pain / Angina, Diabetes Mellitus, Eye Disorder, Fibromyalgia, GERD/Reflux, Hyperlipidemia, Hypertension, Thyroid Di sorder Additional Past Medical History / Comment(s): cerebral palsy, Ischemic cardiomyopathy, MIGRAINES, hx. uterine & thyroid cancer with surgery, past hx. flesh eating disease states during 2005 and was very ill and intubated/vented, ocular strokes, hypothyroid, beginning of alzheimer's, numbness tingling bilateral legs/feet, pt states she has a sore on the bottom of her L foot at this time that has been there for yrs-being monitored by her orthodontic laboratory technician. Last Myocardial Infarction Date:: unkn History of Any Multi-Drug Resistant Organisms: ESBL, MRSA Date of last positivie culture/infection: 09/20/21 ESBL-Proteus; 09/07/05 MRSA MDRO Source:: Groin-ESBL; Buttock MRSA Past Surgical History: Heart Catheterization, Heart Catheterization With Stent, Hernia Repair, Hysterectomy Additional Past Surgical History / Comment(s): TRACH, thyroidectomy, hiatal hernia repair, colostomy with reversal due to colon perforation and sepsis colonoscopy. D&C. 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 She has a neighbor (paid by the state) who is a caregiver. She has never driven. Aerospace Assembler takes her to [employer]. Remains a daily smoker but less now than ever in her adult life. No alcohol use. Medically disabled. No experience. No international travel. No animal exposures Smoking Status: Current every day smoker, Light tobacco smoker Past Alcohol Use History: None Reported Additional Past Alcohol Use History / Comment(s): STARTED SMOKING AT AGE 16 (1981), down to 1ppd Past Drug Use History: Marijuana - Past Family History Father Family Medical History: Cancer Additional Family Medical History / Comment(s): HAD BRAIN CANCER AT GE 57 Mother Family Medical History: Rheumatoid Arthritis (RA) Additional Family Medical History / Comment(s): MOM when she was 77 General Exam - General Exam Comments Initial Comments: Visual Physical Exam Vital signs reviewed General: Well-appearing, nontoxic, no acute distress. Head: Normocephalic, atraumatic Eyes: PERRLA, EOMI ENT: Airway patent Chest: Nonlabored breathing Skin: No visual rash, normal skin tone Neuro: Alert and oriented 3 Musculoskeletal: No gross abnormalities General: Alert, in no acute distress Head: atraumatic normocephalic. Eyes PERRL, EOMI intact, mucous membranes moist Respiratory: Lungs clear to auscultation bilaterally Cardiovascular: Rate regular rate and rhythm Abdominal: Soft without guarding or rebound Extremities: Normal inspection with full range of motion and normal capillary refill Neuroogic: alert and oriented 3, CN II-XII intact, able to ambulate with steady gait Skin: warm dry and intact with normal color Course Vital Signs 11/20/22 11/20/22 13:56 18:34 Temperature 98 F 98.1 F Pulse Rate 82 73 Respiratory 18 18 Rate Blood Pressure 112/76 145/96 O2 Sat by Pulse 98 99 Oximetry - Reevaluation(s) Reevaluation #1: 11/20/22 16:00 13 case coordinator at bedside to discuss social secretary consult. Reevaluation #2: 11/20/22 17:[address] Rodriguez who does not believe the patient needs any inpatient management and recommends the patient be discharged home at this time. Medical Decision Making - Medical Decision Making Was pt. sent in by a medical professional or institution (, PA, CERAMICS TECHNICIAN, urgent care, hospital, or half-way...) When possible be specific @ -[No] Did you speak to anyone other than the patient for history (EMS, parent, family, police, friend...)? What history was obtained from this source @ -[No] Did you review nursing and triage notes (agree or disagree)? Why? @ -[I reviewed and agree with nursing and triage notes] Were old charts reviewed (outside hosp., previous admission, EMS record, old EKG, old radiological studies, urgent care reports/EKG's, half-way records)? Report findings @ -[No old charts were reviewed] Differential Diagnosis (chest pain, altered mental status, abdominal pain women, abdominal pain men, vaginal bleeding, weakness, fever, dyspnea, syncope, headache, dizziness, GI bleed, back pain, seizure, CVA, palpatations, mental health, musculoskeletal)? @ -[not applicable] EKG interpreted by me (3pts min.). @ -[As above] X-rays interpreted by me (1pt min.). @ -[None done] CT interpreted by me (1pt min.). @ -[None done] U/S interpreted by me (1pt. min.). @ -[None done] What testing was considered but not performed or refused? (CT, X-rays, U/S, labs)? Why? @ -[None] What meds were considered but not given or refused? Why? @ -[None] Did you discuss the management of the patient with other professionals (professionals i.e. , PA, CERAMICS TECHNICIAN, lab, RT, psych nurse, social secretary, patrol community service officer, teacher, mortgage loan officer originator, case coordinator)? Give summary @ -[No] Was smoking cessation discussed for >3mins.? @ -[No] Was critical care preformed (if so, how long)? @ -[No] Were there social determinants of health that impacted care today? How? (Homelessness, low income, unemployed, alcoholism, drug addiction, transportation, low edu. Level, literacy, decrease access to med. care, custodial, rehab)? @ -[No] Was there de-escalation of care discussed even if they declined (Discuss DNR or withdrawal of care, Hospice)? DNR status @ -[No] What co-morbidities impacted this encounter? (DM, HTN, Smoking, COPD, CAD, Cancer, CVA, ARF, Chemo, Hep., AIDS, mental health diagnosis, sleep apnea, morbid obesity)? @ -[None] Was patient admitted / discharged? Hospital course, mention meds given and route, prescriptions, significant lab abnormalities, going to OR and other pertinent info. @ -Discharged. This is a pleasant 57-year-old female presents to the emergency department with groin problem. Patient had a thorough history and Physical exam performed while in the ED. physical exam is essentially unremarkable. Heart rate regular rate and rhythm, lungs clear to auscultation bilaterally, abdomen soft and non-tender. There are no focal neuro deficits noted on exam. Shouldn't able to ambulate. Patient had lab work and imaging performed within essentially unremarkable. I discussed the results in detail with the patient verbalized understanding and all questions were addressed. Return precautions were discussed at length. She will be discharged home in stable condition. Case discussed with ANGEL LUIS Ames who agrees with plan of ca re. Undiagnosed new problem with uncertain prognosis? @ -[No] Drug Therapy requiring intensive monitoring for toxicity (Heparin, Nitro, Insulin, Cardizem)? @ -[No] Were any procedures done? @ -[No] Diagnosis/symptom? @ -groin problem Acute, or Chronic, or Acute on Chronic? @ -acute Uncomplicated (without systemic symptoms) or Complicated (systemic symptoms)? @ -uncomplicated Side effects of treatment? @ -[No] Exacerbation, Progression, or Severe Exacerbation? @ -[No] Poses a threat to life or bodily function? How? (Chest pain, USA, NV, pneumonia, PE, COPD, DKA, ARF, appy, cholecystitis, CVA, Diverticulitis, Homicidal, Suicidal, threat to staff... and all critical care pts) @ -low likelihood - Lab Data Result diagrams: 11/20/22 14:38 11/20/22 14:38 Lab Results 11/20/22 11/20/22 11/20/22 Range/Units 14:38 14:38 14:38 WBC 7.5 (3.8-10.6) k/uL RBC 5.50 H (3.80-5.40) m/uL Hgb 17.1 H (11.4-16.0) gm/dL Hct 50.9 H (34.0-46.0) % MCV 92.4 (80.0-100.0) fL MCH 31.0 (25.0-35.0) pg MCHC 33.5 (31.0-37.0) g/dL RDW 12.9 (11.5-15.5) % Plt Count 207 (150-450) k/uL MPV 10.1 Neutrophils % 78 % Lymphocytes % 14 % Monocytes % 6 % Eosinophils % 2 % Basophils % 0 % Neutrophils # 5.8 (1.3-7.7) k/uL Lymphocytes # 1.1 (1.0-4.8) k/uL Monocytes # 0.4 (0-1.0) k/uL Eosinophils # 0.1 (0-0.7) k/uL Basophils # 0.0 (0-0.2) k/uL Sodium 138 (137-145) mmol/L Potassium 5.0 (3.5-5.1) mmol/L Chloride 102 (98-107) mmol/L Carbon Dioxide 25 (22-30) mmol/L Anion Gap 11 mmol/L BUN 22 H (7-17) mg/dL Creatinine 0.90 (0.52-1.04) mg/dL Est GFR (CKD-EPI)AfAm 83 (>60 ml/min/1.73 sqM) Est GFR (CKD-EPI)NonAf 72 (>60 ml/min/1.73 sqM) Glucose 375 H (74-99) mg/dL Plasma Lactic Acid [place] 1.8 (0.7-2.0) mmol/L Calcium 9.1 (8.4-10.2) mg/dL Total Bilirubin 0.5 (0.2-1.3) mg/dL AST 17 (14-36) U/L ALT 16 (4-34) U/L Alkaline Phosphatase 141 H (38-126) U/L Total Protein 7.1 (6.3-8.2) g/dL Albumin 4.4 (3.5-5.0) g/dL Disposition Clinical Impression: Groin discomfort, Obesity Disposition: HOME SELF-CARE Condition: Stable Instructions (If sedation given, give patient instructions): Groin Pain (ED) Additional Instructions: Please return to the nearest hospital if symtoms worsen or persist Is patient prescribed a controlled substance at d/c from ED?: No Referrals: [facility], [NON-STAFF] - Samson Adair DO [Primary Care Provider] - 1-2 days Home Health,[facility] [NON-STAFF] - [facility], [NON-STAFF] - Gui Varela MD [REFERRING] - As Soon As Possible (Main contact information for [facility] to call and set up new Primary Care Provider.) [facility], [NON-STAFF] - Forms: Who Do I Call?, Help In The Home, Personal Information Officer Time of Disposition: 17:40
[2022-11-20 14:00] VITALS: RESP 18
[2022-11-20 14:47] LABS: Basophils % (A) 0 %; Eosinophils # (A) 0.1 k/uL (0-0.7); Eosinophils % (A) 2 %; HCT 50.9 % (34.0-46.0); HGB 17.1 gm/dL (11.4-16.0); Lymphocytes # (A) 1.1 k/uL (1.0-4.8); Lymphocytes % (A) 14 %; MCHC 33.5 g/dL (31.0-37.0); MCV 92.4 fL (80.0-100.0); Mean Platelet Volume 10.1; Monocytes # (A) 0.4 k/uL (0-1.0); Monocytes % (A) 6 %; Neutrophils # (A) 5.8 k/uL (1.3-7.7); Neutrophils % (A) 78 %; Platelet Count 207 k/uL (150-450); RDW 12.9 % (11.5-15.5); WBC 7.5 k/uL (3.8-10.6)
[2022-11-20 14:58] LABS: ALT 16 U/L (4-34); AST 17 U/L (14-36); African American GFR (CKD) 83 (>60 ml/min/1.73 sqM); Albumin 4.4 g/dL (3.5-5.0); Alkaline Phosphatase 141 U/L (38-126); Anion Gap 11 mmol/L; Blood Urea Nitrogen 22 mg/dL (7-17); Calcium 9.1 mg/dL (8.4-10.2); Carbon Dioxide 25 mmol/L (22-30); Chloride 102 mmol/L (98-107); Glucose 375 mg/dL (74-99); Non-African American GFR(CKD) 72 (>60 ml/min/1.73 sqM); Sodium 138 mmol/L (137-145); Total Bilirubin 0.5 mg/dL (0.2-1.3); Total Protein 7.1 g/dL (6.3-8.2)
[2022-11-20 18:37] VITALS: BP 145/96; PULSE 73; TEMP 98.1
== END 2022-11-20 18:37 | disposition home or self-care (01) ==
LOC: EC 12:56
DX: L02.224 Furuncle of groin (principal); E66.9 Obesity, unspecified; E11.9 Type 2 diabetes mellitus without complications; I10 Essential (primary) hypertension; I25.2 Old myocardial infarction; F32.A Depression, unspecified; E03.9 Hypothyroidism, unspecified; E78.5 Hyperlipidemia, unspecified; K21.9 Gastro-esophageal reflux disease without esophagitis; Z79.890 Hormone replacement therapy; Z79.82 Long term (current) use of aspirin; Z79.899 Other long term (current) drug therapy; Z86.73 Personal history of transient ischemic attack (TIA), and cerebral infarction without residual deficits; Z87.891 Personal history of nicotine dependence; Z68.30 Body mass index [BMI] 30.0-30.9, adult
CPT/HCPCS: 36415; 80053; 83605; 85025; 99283